=== PATIENT | female | born 1975 | race Caucasian/White ===

== ENCOUNTER 2022-08-02 00:41 | Emergency (ER) | payer MEDICAID, SELFPAY ==
[2022-08-02 00:46] VITALS: BP 113/78; PULSE 113; RESP 16; TEMP 38; O2SAT 100; BMI 23.4
--- NOTE | 2022-08-02 01:12 | ED.GENADULT ---
HPI - General Adult General Chief complaint: Fever Stated complaint: Fever Time Seen by Provider: 08/02/22 00:58 Source: patient Mode of arrival: ambulatory Limitations: no limitations History of Present Illness HPI narrative: 47-year-old female coming in today with several concerns. She does have a femur which she has had for a couple of days. She was seen 3 days ago in urgent care diagnosed with shingles. She is taking valacyclovir. She states that she also has a parasite coming out of her nose. She states it is very small. She states that her boyfriend was making fun of her and yelling at her calling her crazy because there is nothing coming out of her nose but she swears that she sought. Patient does tell me that she is using methamphetamines, denies any injection drug use. She denies any chest pain or shortness of breath. She denies any coughing, nausea, vomiting. No diarrhea. She denies any abdominal pain. She denies any urinary symptoms. She is concerned about lumps over her neck, behind her ears and in her scalp. She feels very frustrated that no one is listening to her. Related Data Home Medications Medication Instructions Recorded Confirmed buprenorphine 8 mg-naloxone 2 mg film 08/02/22 sublingual film (Suboxone) Previous Rx's Medication Instructions Recorded valacyclovir 1 gram tablet 1,000 mg PO BID #20 tabs 07/29/22 Allergies Allergy/AdvReac Type Severity Reaction Status Date / Time Penicillins Allergy Mild Rash Verified 08/02/22 00:55 Review of Systems Status of ROS: Reports: 10 or more systems reviewed and unremarkable except as noted in History and below [facility] Medical History Shingles Social History Smoking Status: Current every day smoker What tobacco products do you use: cigarettes How often do you have a drink containing alcohol: never AUDIT-C Alcohol total score: 0 Non-prescribed substance use: amphetamines/methamphetamines Exam Narrative: Exam Narrative: Well-nourished well-developed patient in no acute distress although she is rather anxious. Alert and oriented. Answers questions appropriately. Patient speaks in full sentences without needing to catch their breath. Speech is not slurred, is mildly pressured. HEENT: Normocephalic atraumatic. Pupils are equally round reactive to light. Extraocular muscles are intact. Conjunctivae are moist without any icterus noted. Moist mucous membranes. Patient has dentures. Posterior pharynx is normal. Neck is soft without any lymphadenopathy or thyromegaly. No masses are appreciated. No masses are appreciated on the scalp, I feel her normal bony contour. The right pinna is erythematous and swollen. TMs are clear, intact bilaterally no signs of perforation or infection. Cardiovascular: Heart is regular rate and rhythm S1 and S2 are present without any murmurs or rubs. Lungs: Clear to auscultation bilaterally no wheezes rhonchi or rales are appreciated. Patient takes deep breaths without any discomfort. Abdomen: Soft and nontender nondistended with normal bowel sounds. Extremities: Bilateral lower extremities are without edema. Normal DP and PT pulses. She does have petechiae over all the toes of both feet. Skin: Well perfused. She does have a classic appearing shingles or rash on the right side of the body, does go over several dermatomes. Rash includes the face ear neck shoulder and upper arm again all other right does not cross the midline. Const: Vital Signs, click to edit/add: Vital Signs - 24 hr 08/02/22 00:46 Temperature 100.4 F H Pulse Rate [Left P ulse Oximeter] 113 H Respiratory Rate 16 Blood Pressure [Ri ght Upper Arm] 113/78 Pulse Oximetry 100 Course Course Hospital Course: Will proceed with basic blood work, COVID influenza testing. Tylenol will be provided as an antipyretic. Care will be transferred to oncoming physician. Vital Signs Vital signs: Initial Vital Signs Temperature 100.4 F H 08/02/22 00:46 Temperature Source Temporal Artery Scan 08/02/22 00:46 Pulse Rate 113 H 08/02/22 00:46 Respiratory Rate 16 08/02/22 00:46 Blood Pressure 113/78 08/02/22 00:46 Blood Pressure Mean 89 08/02/22 00:46 Blood Pressure Position Sitting 08/02/22 00:46 Pulse Oximetry 100 08/02/22 00:46 Vital Signs Temperature 100.4 F H 08/02/22 00:46 Pulse Rate 113 H 08/02/22 00:46 Respiratory Rate 16 08/02/22 00:46 Blood Pressure 113/78 10/21/22 00:46 Pulse Oximetry 100 08/02/22 00:46 Temperature 100.4 F H 08/02/22 00:46 Pulse Rate 113 H 08/02/22 00:46 Respiratory Rate 16 08/02/22 00:46 Blood Pressure 113/78 08/02/22 00:46 Pulse Oximetry 100 08/02/22 00:46 Medical Decision Making Lab Data Labs: Lab Results 08/02/22 08/02/22 Range/Units 01:15 01:15 WBC 4.67 (4.50-11.00) K/uL RBC 3.97 L (4.00-5.20) m/uL Hgb 11.8 L (12.0-16.0) gm/dL Hct 36.2 (33.0-51.0) % MCV 91 (80-100) fL MCH 30 (26-34) pg MCHC 33 (32-36) gm/dL RDW Coeff of Cezar 12.6 (11.5-15.5) % Plt Count 245 (140-440) K/uL Neut % (Auto) 55.4 (42.0-72.0) % Lymph % (Auto) 32.5 (20-44) % Fillmore % (Auto) 8.1 (0.0-11.0) % Eos % (Auto) 3.6 (0.0-7.0) % Baso % (Auto) 0.4 (0.0-3.0) % Neut # (Auto) 2.58 (1.7-7.0) K/uL Lymph # (Auto) 1.52 (0.90-2.90) K/uL Fillmore # (Auto) 0.40 (0.00-0.90) K/UL Eos # (Auto) 0.17 (0.00-0.50) K/uL Baso # (Auto) 0.02 (0.00-0.30) K/uL Abs Immat Gran (auto) 0.00 (0.00-0.30) K/uL Lactate 1.0 (0.5-1.9) mmol/L Discharge Plan Discharge Prescriptions: No Action valacyclovir 1 gram tablet 1,000 mg PO BID Qty: 20 0RF buprenorphine-naloxone [Suboxone] 8-2 mg film Label Comments: PLACE 2.5 FILMS UNDER THE TONGUE DAILY FOR 21 DAYS Follow Up/Referrals: Provider,Not a Local [Primary Care Provider] -
[2022-08-02] MEDS: ACETAMINOPHEN 500 MG TABLET 1000 MG PO (01:23)
--- OUTSIDE RECORDS SUMMARY | 2022-08-02 01:24 | XMS_ITS | Encounter Summary ---
:1975 Author Organization [facility] Address [address] [place] [address] Care Team Providers Name Role Phone No Primary/Referring, Linda Primary Care Provider Unavailable Encounter Details Date Type Department Care Team Description 11/03/2017 Lab Visit [facility] Hirsutism; [address] Encounter for HCV screening test for high risk patient; [place] [address] Screening for HIV (human imm unodeficiency virus) [phone] Social History Tobacco Use Types Packs/Day Years Used Date Smoking Tobacco: Every Day Cigarettes 0.5 21 Smokeless Tobacco: Never Comments: LESS THAN HALF PACK PER DAY st arted at age 18 and has cut down since then. Alcohol Use Standard Drinks/Week Comments No 0 (1 standard drink = 0.6 oz pure alcoho l) sober since Sep 2013 Sex Assigned at Date Recorded Not on file documented as of this encounter Plan of Treatment Not on filedocumented as of this encounter Procedures Procedure Name Priority Date/Time Associated Diagnosis Comme nts HIV 1/2 AG/AB 4TH Routine 11/03/2017 2:57 Screening for HIV (h uman Results for this GEN PM MANAGER SAS immunodeficiency virus) proc edure are in the results section. HEPATITIS C Routine 11/03/2017 2:57 Encounter for HCV Results for this ANTIBODY, WITH PM MANAGER SAS screening test for high pr ocedure are in REFLEX risk patient the results section. TESTOSTERONE, Routine 11/03/2017 2:56 Hirsutism Results for this FEMALE OR CHILDREN PM MANAGER SAS procedure are in the results section. documented in this encounter Results HIV 1/2 Ag/Ab 4th Generation (11/03/2017 2:57 PM MANAGER SAS) [facility] Method Time Signature HIV 1/2 AG/AB Negative NEGNR [facility] 4thGEN (Non LABORATORIES Reactive) Comment: HIV-1 p24 Ag and HIV-1/HIV-2 Ab not detected. Specimen Anatomical Collection Method Collection Time Receive d Time (Source) Location / / Volume Laterality 11/03/2017 2:57 PM 8 2:58 MANAGER SAS PM MANAGER SAS Narrative [facility] - 11/03/2017 8:[address] Performed at [address] ??[id number] Kwame Brown DO LAB_1 Performing Organization Address [facility] Phon e Number [facility] [phone] Hepatitis C Antibody, with Reflex (11/03/2017 2:57 PM MANAGER SAS) [facility] Method Time Signature Anti-HCV Negative (Non NEGNR [facility] Reactive) LABORATORIES Comment: Antibodies to HCV not detected. Does not exclude the possibility of exposure to HCV. Specimen Anatomical Collection Method Collection Time Receive d Time (Source) Location / / Volume Laterality 11/03/2017 2:57 PM 8 2:58 MANAGER SAS PM MANAGER SAS Narrative [facility] - 11/03/2017 8:[address] Performed at [address] ??[id number] Kwame Brown DO LAB_1 Performing Organization Address City/[facility] Phon e Number [facility] [phone] Testosterone, female or children (11/03/2017 2:56 PM MANAGER SAS) Component Value Ref Test Analysis Performed At [facility] Method Time Signature Testosterone 17 [facility] Female or Reference range: 9 to 55 LABOR ATORIES Children Unit: ng/dL Testosterone (NOTE) [facility] Female or Total Testosterone, Females 18 years and older LABORATORIES Children Premenopausal ??9-55 ng/dL Postmenopausal 5-32 ng/dL Total testosterone values may not reflect optimal concentrat ions ?? in all individuals. ??Free or bioavailable testosterone ?? measurements may provide supportive information. REFERENCE INTERVAL: Testosterone, LC-MS/MS Access complete set of age- and/or gender-specific reference ?? intervals for this test in the [facility] y ?? ([facility]). Test developed and characteristics determined by [facility] ?? Laboratories. See Compliance Statement B: [facility] [address] [place] [address] [email or web address], Rj Martinez MD, Lab. Director Specimen Anatomical Collection Method Collection Time Receive d Time (Source) Location / / Volume Laterality 11/03/2017 2:56 PM 8 2:57 MANAGER SAS PM MANAGER SAS Narrative [facility] - 11/06/2017 8:[address] Performed by [facility], [address] [place], [place] [address] Kwame Brown DO LAB_1 Performing Organization Address City/State/ZIP Code Phon e Number [facility] [phone] documented in this encounter Visit Diagnoses Diagnosis Hirsutism Encounter for HCV screening test for hig h risk patient Screening for HIV (human immunodeficienc y virus) Special screening examination for other specified viral diseases documented in this encounter Care Teams Optometric Technologist Relationship Specialty Start Date End Date No Primary/Referring, Phy PCP - General 10/31/17 1 documented as of this encounter
--- OUTSIDE RECORDS SUMMARY | 2022-08-02 01:24 | XMS_ITS | Encounter Summary ---
:1975 Author Organization [facility] Address [address] [place] [address] Care Team Providers Name Role Phone Nhi Toure PA-C Primary Care Provider Encounter Details Date Type Department Care Team Description 07/29/2022 Lab Requisition Mary Boo Encounter for [phone] M, CREDIT ANALYST, DNP screening for [address] malignant n eoplasm of [address] [place] [address] Social History Tobacco Use Types Packs/Day Years [...] as of this encounter Plan of Treatment Pending Results Name Type Priority Associated Diagnoses Date/Ti me [facility] Routine Encounter for screening for 07/29/2022 4:30 PM CDT malignant neoplasm of colon [ICD-10-CM] documented as of this encounter Procedures Procedure Name Priority Date/Time Associated Diagnosis Comme nts [facility] Routine 07/29/2022 4:30 PM CDT Encounter for screening for malignant neoplasm of colon [ICD-10-CM] documented in this encounter Visit Diagnoses Diagnosis Encounter for screening for malignant ne oplasm of colon Special screening for malignant neoplasm s, colon documented in this encounter Care Teams Pourer Metal Relationship Specialty Start Date End Date Nhi Toure PA-C PCP - General Physician Hat Steamer 03/09/20 [address] [place] [address] documented as of this encounter
--- OUTSIDE RECORDS SUMMARY | 2022-08-02 01:24 | XMS_ITS | Encounter Summary ---
:1975 Author Organization [facility] Address [address] [place] [address] Care Team Providers Name Role Phone No Primary/Referring, Linda Primary Care Provider Unavailable Encounter Details Date Type Department Care Team Description 08/21/2018 Lab Visit [facility] Screening for condition [address] [place], [place] [id number] Social History Tobacco Use Types Packs/Day Years [...] on file documented as of this encounter Progress Notes Joaquin Miller - 08/21/2018 9:45 AM CST Negative ER IN documented in this encounter Plan of Treatment Not on filedocumented as of this encounter Procedures Procedure Name Priority Date/Time Associated Diagnosis Comme nts CHLAMYDIA & GC, Routine 08/21/2018 4:35 PM Screening for Resul ts for this URINE (14 YEARS AND FILLER IN condition procedur e are in OLDER) the results section. documented in this encounter Results Chlamydia & GC, Urine (08/21/2018 4:35 PM FILLER IN) [facility] Method Time Signature C.trachomatis, Negative NEG [facility] Comment: Test Performed by Belt Maker Mediated Amplification Results obtained from this source are no t FDA approved. N. Gonorrhea, Urine Negative NEG [facility] Comment: Test Performed by Belt Maker Mediated Amplification Results obtained from this source are no t FDA approved. Specimen Anatomical Collection Method Collection Time Receive d Time (Source) Location / / Volume Laterality 08/21/2018 4:35 PM 8 4:37 FILLER IN PM FILLER IN Narrative [facility] - 08/22/2018 11:59 AM FILLER IN Performed at [facility], [address] [place] [address] ??[id number] Joaquin Miller MD LAB_1 Performing Organization Address City/State/ZIP Code Phon e Number [facility] [phone] documented in this encounter Visit Diagnoses Diagnosis Screening for condition Screening for unspecified condition documented in this encounter Care Teams Log Turner Relationship Specialty Start Date End Date No Primary/Referring, Phy PCP - General 10/31/17 1 documented as of this encounter
--- OUTSIDE RECORDS SUMMARY | 2022-08-02 01:24 | XMS_ITS | Encounter Summary ---
:1975 Author Organization [facility] Address [address] [place] [address] Care Team Providers Name Role Phone Nhi Toure PA-C Primary Care Provider Encounter Details Date Type Department Care Team Description 12/08/2017 Consent for [facility] RH INFORM ED CONSENT Procedure/Treatment RECORD Social History Tobacco Use Types Packs/Day Years [...] Not on filedocumented as of this encounter Visit Diagnoses Not on filedocumented in this encounter Care Teams Machine Pan Greaser Relationship Specialty Start Date End Date Nhi Toure PA-C PCP - General Physician Power Operator 03/09/20 [address] [place] [address] documented as of this encounter
--- OUTSIDE RECORDS SUMMARY | 2022-08-02 01:24 | XMS_ITS | Encounter Summary ---
:1975 Author Organization [facility] Address [address] [place] [address] Care Team Providers Name Role Phone No Primary/Referring, Phy Primary Care Provider Unavailable Reason for Visit Reason Comments PAP,ROUTINE Encounter Details Date Type Department Care Team Description 08/21/2018 Office Visit [facility] Scre ening for condition (Primary Dx); Medicine MD Rosa Tobacco use disorder; [address] Major depressive disorder, r ecurrent episode, moderate (HRC) [place] [address] AVE [phone] [place], [place] [id number] Social History Tobacco Use Types Packs/Day Years [...] on file documented as of this encounter Last Filed Vital Signs Vital Sign Reading Time Taken Comments Blood Pressure 100/75 08/21/2018 3:55 PM METALLURGICAL LAB TECHNICIAN Pulse 81 08/21/2018 3:55 PM METALLURGICAL LAB TECHNICIAN Temperature - - Respiratory Rate - - Oxygen Saturation - - Inhaled Oxygen Concentration - - Weight 58.1 kg (128 lb) 08/21/2018 3:55 PM METALLURGICAL LAB TECHNICIAN Height 160 cm (5' 3) 08/21/2018 3:55 PM METALLURGICAL LAB TECHNICIAN Body Mass Index 22.67 08/21/2018 3:55 PM METALLURGICAL LAB TECHNICIAN documented in this encounter Patient Instructions Patient InstructionsCeci Lopez - 08/21/2018 3:30 PM CST Please go to your pharmacy and picker machine operator the medicines prescribed/refilled; take as indicated on the label Please stop by the lab, you can acces the results on-line if you registered or will call you with results or write you a letter which might take up to 1 week Return to clinic in 3-4 weeks if not better, sooner as needed To contact our clinic directly, call , to schedule medical appointments, call or online at [email or web address]. LLURGICAL LAB TECHNICIAN documented in this encounter Progress Notes Ceci Lopez - 08/21/2018 3:30 PM CST Santa Farmer is a 43 y.o. old female who came to the clinic for a Pap smear. Also noticed some bumps on the vulvar area which she squeezed few days ago. Pap smear was dome. Culture for herpes done from what seemed to be a small ulceration with graish bottom on the left labia minora. Also asked for GC; has no unusual discharge. Also requested nicotine inhalers. 20 minutes spent with the patient , 15 minutes counseling and coordinating care. LLURGICAL LAB TECHNICIAN documented in this encounter Plan of Treatment Not on filedocumented as of this encounter Procedures Procedure Name Priority Date/Time Associated Diagnosis Comme nts HPV, HIGH RISK Routine 08/21/2018 4:29 PM Screening for Result s for this METALLURGICAL LAB TECHNICIAN condition procedure are i n the results section. PAP TEST, ROUTINE Routine 08/21/2018 4:29 PM Screening for Res ults for this METALLURGICAL LAB TECHNICIAN condition procedure are i n the results section. documented in this encounter Results Chlamydia & GC, Urine (08/21/2018 4:35 PM METALLURGICAL LAB TECHNICIAN) [facility] Method Time Signature C.trachomatis, Negative NEG [facility] Comment: Test Performed by Certified Professional Controller Mediated Amplification Results obtained from this source are no t FDA approved. N. Gonorrhea, Urine Negative NEG [facility] Comment: Test Performed by Certified Professional Controller Mediated Amplification Results obtained from this source are no t FDA approved. Specimen Anatomical Collection Method Collection Time Receive d Time (Source) Location / / Volume Laterality 08/21/2018 4:35 PM 8 4:37 METALLURGICAL LAB TECHNICIAN PM METALLURGICAL LAB TECHNICIAN Narrative [facility] - 08/22/2018 11:59 AM METALLURGICAL LAB TECHNICIAN Performed at [facility], [address] [place] [id number] Ceci Lopez MD LAB_1 Performing Organization Address [facility] Phon e Number [facility] [phone] Herpes Simplex Virus PCR (08/21/2018 4:31 PM METALLURGICAL LAB TECHNICIAN) Component Value Ref Test Analysis Performed At [facility] [employer] Method Time Signature HS Source Vesicle Fluid [facility] Herpes Not Detected [facility] simplex [facility] Virus By PCR Herpes (NOTE) [facility] simplex NOT DETECTED - A negative result does not rule out the LABORATORIES Virus By PCR presence of PCR inhibitors in the patient specimen or ass ay specific nucleic acid in concentrations below the level of detection by the assay. INTERPRETIVE INFORMATION: Herpes Simplex Virus by PCR Test developed and characteristics determined by [facility] [employer] [facility] ?? Laboratories. See Compliance Statement B: [facility] [address] [email or web address], Rj Martinez MD, Lab. Director Specimen Anatomical Collection Method Collection Time Receive d Time (Source) Location / / Volume Laterality 08/21/2018 4:31 PM 8 4:33 METALLURGICAL LAB TECHNICIAN PM METALLURGICAL LAB TECHNICIAN Narrative [facility] - 08/26/2018 11:18 AM METALLURGICAL LAB TECHNICIAN Performed by [facility], [address] [place], [place] [address] Ceci Lopez MD LAB_1 Performing Organization Address [facility] Phon e Number [facility] [phone] HPV, HIGH RISK (08/21/2018 4:29 PM METALLURGICAL LAB TECHNICIAN) Component Value Ref Test Analysis Performed At [facility] [employer] [facility] Method Time Signature HPV RESULT Negative NEG [facility] Comments (NOTE) [facility] The [employer] HPV Test is a qualitative in vitro test for the detection LABORATORIES of Human Papillomavirus in [facility] patient specimens. The t est utilizes amplification of target DNA by Polymerase Chain Quenemo ction (PCR) and nucleic acid hybridization for the detection of 14 high-risk (HR) HPV types. The assay tests for high risk type s 16, 18, 31, 33, 35, 39, 45, 51, 52, 56, 58, 59, 66 and 68. Testing performed at: This test was developed and its performance characteristics determined by [facility]. ??It has not been cleared or approved by the U.S. Food and Drug Administration. ??The FDA has determined that such clearance or approval is not necessary. ??This test is used for clinical purposes. ??It should not be regar ded as investigational or for research. ??This laboratory is certif ied under the Clinical Laboratory Improvement Amendments of 1988 (CLIA -88) as qualified to perform high complexity testing. Specimen Anatomical Collection Method Collection Time Receive d Time (Source) Location / / Volume Laterality 08/21/2018 4:29 PM 8 4:33 METALLURGICAL LAB TECHNICIAN PM METALLURGICAL LAB TECHNICIAN Narrative [facility] - 08/28/2018 5:[address] Performed at [facility] , [address] [place] [address] Ceci Lopez MD LAB_1 Performing Organization Address City/State/ZIP Code Phon e Number [facility] [phone] PAP TEST, ROUTINE (08/21/2018 4:29 PM METALLURGICAL LAB TECHNICIAN) Component Value Ref Test Analysis Performed At [facility] Range Method Time Signature Cytology, (NOTE) [facility] Pap Editorial Manager Cytology Report LABORATORI ES Patient Name: SANTA FARMER Taken: 08/21/2018 Received: 08/24/2018 Reported: 09/01/2018 Physician(s): CECI LOPEZ ?Source of Specimen Pap Test, Routine Cervical/Endocervical: ?Specimen Adequacy ?Satisfactory for evaluation. ??Endocervical component absent. ? Final Cytologic Interpretation/Result NEGATIVE FOR INTRAEPITHELIAL LESION OR MALIGNANCY (NILM) ?? *Electronically Signed Out By [place] ORTIZ (ASCP)* Millie Solorio ??CT (ASCP) Tracy Dominguez CT (ASCP) ? Pap Smear History Date of Last Menstrual Period: 08/13/2018 ?? Microscopic Description Microscopic examination is performed. [facility] Department of Pathology [address] [place] [id number] Specimen Anatomical Collection Method Collection Time Receive d Time (Source) Location / / Volume Laterality 08/21/2018 4:29 PM 8 METALLURGICAL LAB TECHNICIAN 10:22 AM METALLURGICAL LAB TECHNICIAN Ceci Lopez MD LAB_1 Performing Organization Address City/State/ZIP Code Phon e Number [facility] [phone] documented in this encounter Visit Diagnoses Diagnosis Screening for condition - Primary Screening for unspecified condition Tobacco use disorder (HRC) Tobacco use disorder Major depressive disorder, recurrent epi sode, moderate (HRC) Major depressive disorder, recurrent epi sode, moderate Screening for condition Screening for unspecified condition documented in this encounter Care Teams Catalytic Converter Operator Helper Relationship Specialty Start Date End Date No Primary/Referring, Phy PCP - General 10/31/17 1 documented as of this encounter
--- OUTSIDE RECORDS SUMMARY | 2022-08-02 01:24 | XMS_ITS | Encounter Summary ---
:1975 Author Organization [facility] Address [address] [address] Care Team Providers Name Role Phone No Primary/Referring, Phy Primary Care Provider Unavailable Reason for Visit Procedure/Equipment (Routine) - Incomplete Specialty Diagnoses / Procedures Referred By Contact Refer red To Contact Diagnoses Breast lump Kwame Brown, DO Procedures MM US Bx Breast Rt [address] [place] [address] Referral ID Status Reason Start Date Expiration Date Visits V isits Requested Authorized [id number] Incomplete 11/20/2017 02/19/2019 1 1 Encounter Details Date Type Department Care Team Description 12/08/2017 Imaging [facility] Kwame Brown, DO Breast lump [address] [facility] [address] [place] [address] [place] [address] [phone] (Wo rk) Social History Tobacco Use Types Packs/Day Years [...] Name Priority Date/Time Associated Diagnosis Comme nts MM US BX BREAST RT Routine 12/08/2017 9:14 AM Breast lump Res ults for this WIRED MUSIC OPERATOR procedure are i n the results section. documented in this encounter Results MM US Bx Breast Rt (12/08/2017 9:14 AM WIRED MUSIC OPERATOR) Anatomical Region Laterality Modality Breast Right Mammography Specimen (Source) Anatomical Location Collection Method / Collectio n Time Received Time / Laterality Volume Addenda Addendum by Korin Motta MD on 4:04 PM WIRED MUSIC OPERATOR Pathology reveals fibrocystic change. Th is is consistent with the imaging findings. A verbal report was given to t he patient. Repeat mammogram in one year is recommended. Impressions 12/08/2017 12:51 PM WIRED MUSIC OPERATOR : 1. Ultrasound guided biopsy of an indete rminate mass in the right breast. ?? Pathology pending. 2. Post procedure mammogram for clip yusuf cement Narrative 12/08/2017 12:51 PM WIRED MUSIC OPERATOR RIGHT BREAST ULTRASOUND GUIDED BIOPSY, CLIP PLACEMENT AND RIGHT MAMMOGRAM: INDICATIONS: ??Right breast mass, site C . PROCEDURE: ??Informed consent was obtain ed from the patient. ??Ultrasound was used to localize the mass in the 10 o'clock position of the right breast, zone 2. ??The skin was prepped a nd draped in a sterile fashion. ?? Buffered lidocaine was used for local an esthesia and additional deep anesthesia achieved using lidocaine with epinephrine. ??Under direct sonographic guidance, a 12 gauge coaxial needle was used to obtain 2 core biopsies. It ruptured and filled with ai r on the first pass. A T4 clip was then placed. Digital mammogram post biop sy demonstrates the clip in an appropriate position. The patient tolera kelby this well, there are no immediate complications. Kwame Brown DO RAD OTONIEL documented in this encounter Visit Diagnoses Diagnosis Breast lump Lump or mass in breast documented in this encounter Care Teams Carrot Harvester Relationship Specialty Start Date End Date No Primary/Referring, Phy PCP - General 10/31/17 1 documented as of this encounter
--- OUTSIDE RECORDS SUMMARY | 2022-08-02 01:24 | XMS_ITS | Encounter Summary ---
:1975 Author Organization [employer] Address [address] [address] Care Team Providers Name Role Phone Nhi Toure PA-C Primary Care Provider Reason for Visit Reason Onset Date Comments No Show 03/19/2022 Encounter Details Date Type Department Care Team Description 03/19/2022 Telemedicine [facility] Nhi Toure Enc ounters [facility] Practice [place] administrative purposes [address] [facility] [address] [facility] (Primary Dx) [place] [address] [phone] Social History Tobacco Use Types Packs/Day Years [...] documented as of this encounter Progress Notes Nhi Toure PA-C - 03/19/2022 2:00 PM CDT Patient was called/texted 4 times and was unable to be reached to complete their video/phone visit. Nhi Toure PA-C documented in this encounter Plan of Treatment Not on filedocumented as of this encounter Visit Diagnoses Diagnosis Encounters for administrative purposes - Primary Encounters for unspecified administrativ e purpose documented in this encounter Care Teams Education Counselor Relationship Specialty Start Date End Date Nhi Toure PA-C PCP - General Physician Rack Cleaner 03/09/20 [address] [place] [address] documented as of this encounter
--- OUTSIDE RECORDS SUMMARY | 2022-08-02 01:24 | XMS_ITS | Encounter Summary ---
:1975 Author Organization [facility] Address [address] [address] Care Team Providers Name Role Phone No Primary/Referring, Phy Primary Care Provider Unavailable Reason for Visit Reason Comments NURSE PREP FOR PROCEDURE Scheduled 12/08 Rt breast ult rasound x2, Lt breast ultrasound guided biopsy Encounter Details Date Type Department Care Team Description 12/05/2017 Telephone [facility] Breast [facility] Sa ra Carlos Norwood RN NURSE PREP FOR Center [address] [facility] PROCEDURE (Scheduled [address] [place], [place] 12/08 [place] [address] ultrasound x2, Lt [phone] (Wo rk) breast ultrasound guided bi opsy) Social History Tobacco Use Types Packs/Day Years [...] on file documented as of this encounter Nursing Notes Bessie Norwood RN - 12/05/2017 3:12 PM CST Medication list and allergies reviewed. Reviewed upcoming biopsies. Patient given estimated length of time. All questions answered. Bessie Norwood RN 12/05/2017, 3:12 PM MAKER documented in this encounter Plan of Treatment Not on filedocumented as of this encounter Visit Diagnoses Not on filedocumented in this encounter Care Teams Well Logging Mud Analysis Captain Relationship Specialty Start Date End Date No Primary/Referring, Phy PCP - General 10/31/17 1 documented as of this encounter
--- OUTSIDE RECORDS SUMMARY | 2022-08-02 01:24 | XMS_ITS | Encounter Summary ---
:1975 Author Organization [facility] Address [address], [place] [address] Care Team Providers Name Role Phone Nhi Toure PA-C Primary Care Provider Reason for Referral Consult/Transfer Care (Routine) - Closed Specialty Diagnoses / Procedures Referred By Contact Refer red To Contact Diagnoses CHAPIS (generalized anxiety disorder) (HRC) Episode of recurrent major depressive disorder, unspecified depression episode severity (HRC) History of drug abuse in remission (HRC) Nhi Toure PA-C [address] [place], [place] [address] Referral ID Status Reason Start Date Expiration Date Visits Requ ested Visits Authorized [id number] Closed 03/09/2020 06/08/2021 1 1 Scheduling Instructions Your provider has recommended a [employer] rtners Program. A vaccine customer representative will contact you regarding the program. Reason for Visit Reason Comments ANXIETY LETTER NEEDED STD Check Encounter Details Date Type Department Care Team Description 03/09/2020 Office Visit [facility] Nhi Toure Enc ounter for routine adult health examination without abnormal findings (Primary Dx); Practice [facility] Tobacco use disorder; [address] [facility] [address] [facility] CHAPIS (generalized anxiety disorder); [place], [place] Episode of recurrent major depressive disorder, unspecified depression episode severity (HRC); [id number] History of drug abuse in remission ([facility]) ; [phone] Screening for S TDs (sexually transmitted diseases); (Work) Screening for breast cancer Social History Tobacco Use Types Packs/Day Years [...] Sign Reading Time Taken Comments Blood Pressure 125/93 03/09/2020 10:38 AM CDT Pulse 80 03/09/2020 10:38 AM CDT Temperature - - Respiratory Rate - - Oxygen Saturation - - Inhaled Oxygen Concentration - - Weight 60.8 kg (134 lb) 03/09/2020 10:38 AM CDT Height 159.5 cm (5' 2.8) 03/09/2020 10:38 AM CDT Body Mass Index 23.89 03/09/2020 10:38 AM CDT documented in this encounter Patient Instructions Patient InstructionsAngela Barrios LPN - 03/09/2020 10:10 AM CDT Images from the original note were not included. Well Visit, Ages 18 to 50: Care Instructions Your Care Instructions Physical exams can help you stay healthy. Your doctor has checked your overall health and may have suggested ways to take good care of yourself. He or she also may have recommended tests. At home, you can help prevent illness with healthy eating, regular exercise, and other steps. Follow-up care is a rodarte part of your treatment and safety. Be sure to make and go to all appointments, and call your doctor if you are having problems. It's also a good idea to know your test results and keep a list of the medicines you take. How can you care for yourself at home? ?? Reach and stay at a healthy weight. This will lower your risk for many problems, such as obesity,diabetes, heart disease, and high blood pressure. ?? Get at least 30 minutes of physical activity on most days of the week. Walking is a good choice. You also may want to do other activities, such as running, swimming, cycling, or playing tennis or team sports. Discuss any changes in your exercise program with your doctor. ?? Do not smoke or allow others to smoke around you. If you need help quitting, talk to your doctor about stop-smoking programs and medicines. These can increase your chances of quitting for good. ?? Talk to your doctor about whether you have any risk factors for sexually transmitted infections (STIs). Having one sex partner (who does not have STIs and does not have sex with anyone else) is a good way to avoid these infections. ?? Use control if you do not want to have children at this time. Talk with your doctor about the choices available and what might be best for you. ?? Protect your skin from too much sun. When you're outdoors from 10 a.m. to 4 p.m., stay in the shade or cover up with clothing and a hat with a wide brim. Wear sunglasses that block UV rays. Even when it's cloudy, put broad-spectrum sunscreen (SPF 30 or higher) on any exposed skin. ?? See a dentist one or two times a year for checkups and to have your teeth cleaned. ?? Wear a seat belt in the car. Follow your doctor's advice about when to have certain tests. These tests can spot problems early. For everyone ?? Cholesterol. Have the fat (cholesterol) in your blood tested after age 20. Your doctor will tell you how often to have this done based on your age, family history, or other things that can increase your risk for heart disease. ?? Blood pressure. Have your blood pressure checked during a routine doctor visit. Your doctor will tell you how often to check your blood pressure based on your age, your blood pressure results, and other factors. ?? Vision. Talk with your doctor about how often to have a glaucoma test. ?? Diabetes. Ask your doctor whether you should have tests for diabetes. ?? Colon cancer. Your risk for colorectal cancer gets higher as you get older. Some experts say thatadults should start regular screening at age 50 and stop at age 75. Others say to start before age 50 or continue after age 75. Talk with your doctor about your risk and when to start and stop screening. For women ?? Breast exam and mammogram. Talk to your doctor about when you should have a clinical breast exam and a mammogram. Medical experts differ on whether and how often women under 50 should have these tests. Your doctor can help you decide what is right for you. ?? Cervical cancer screening test and pelvic exam. Begin with a Pap test at age 21. The test often is part of a pelvic exam. Starting at age 30, you may choose to have a Pap test, an HPV test, or both tests at the same time (called co- testing). Talk with your doctor about how often to have testing. ?? Tests for sexually transmitted infections (STIs). Ask whether you should have tests for STIs. Youmay be at risk if you have sex with more than one person, especially if your partners do not wear condoms. For men ?? Tests for sexually transmitted infections (STIs). Ask whether you should have tests for STIs. Youmay be at risk if you have sex with more than one person, especially if you do not wear a condom. ?? Testicular cancer exam. Ask your doctor whether you should check your testicles regularly. ?? Prostate exam. Talk to your doctor about whether you should have a blood test (called a PSA test)for prostate cancer. Experts differ on whether and when men should have this test. Some experts suggest it if you are older than 45 and are -[place] or have a father or brother who got prostatecancer when he was younger than 65. When should you call for help? Watch closely for changes in your health, and be sure to contact your doctor if you have any problems or symptoms that concern you. Where can you learn more? 1. Go to https://aisle411.[employer]/healthlibrary or [employer]/Jumpstarterlibrary. 2. Enter P072 in the search box. Current as of: June 02, 2019?Content Version: 12.4 ?? [id number] [employer]. Care instructions adapted under license by your healthcare professional. If you have questions abouta medical condition or this instruction, always ask your healthcare professional. [employer] disclaims any warranty or liability for your use of this information. documented in this encounter Progress Notes Nhi Toure PA-C - 03/09/2020 10:10 AM CDT Routine Health Maintenance: Historical: Santa Farmer is a 44 y.o. old female Chief Complaint Patient presents with ??? ANXIETY ??? LETTER NEEDED ??? STD Check Current concerns: Anxiety-letter needed Do you take any prescription medication for this condition? Not taking Are you seeing a counselor or therapist? not currenlty How many times a week are you exercising regularly? walking Have you diagnosed/treated for anxiety in the past? YES Do you have a family history of anxiety? YES CHAPIS-7 03/09/2020 11/03/2017 08/22/2014 05/24/2014 03/03/2014 Feeling nervous 3 3 1 2 1 Can't stop worrying 3 3 1 2 1 Worrying too much 3 3 1 2 1 Trouble relaxing 3 3 1 2 2 Restlessness 3 3 2 2 2 Easily annoyed 3 3 1 2 3 Feeling afraid 3 3 0 1 1 How difficult? 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 Packs/day: 0.50 ??? Years: 21.00 ??? Pack years: 10.50 ??? Types: Cigarettes Smokeless Tobacco Never Used Tobacco Comment LESS THAN HALF PACK PER DAY started at age 18 and has cut down since then. Social History Substance and Sexual Activity Drug Use No Comment: sober since Sep 2013, [facility] clinic Zoloft - foggy feeling Paxil - did okay Prozac - help with anxiety but more sexual side effects Lexapro - increased anxiety Wellbutrin - did okay Latuda Has Medical Opinion Form that needs to be completed. Recently completed probation. Planning on improving her job skills. Due to COVID19 and her past, difficult to find a decent job. Now getting food stamps but no other assistance. Is homeless, bouncing between family and friend's homes for places to stay. Has remained sober. Has a daughter that suffers from drug addiction currently. Vaginal discharge, odor. Customer Success Representative periods past couple of months. No hot flashes. Denies chance of - tubal ligation. No urinary sx. Menses are: regular and predictable, but getting short History of abnormal pap tests? No Are you sexually active? Yes. Your partner is: Male Do You use Contraception? No Diet: fruits/ vegetables: 0-1 serving each day Present exercise habits: just started walking Do you have any concerns about your hearing? YES Do you feel unsafe at home? Doesn't really have a home right one I have reviewed the medical, surgical, family and social histories. Observed: BP (!) 125/93 (BP Location: Right Arm, BP Cuff Size: Small Adult/Large Pediatrics) Pulse 80 Ht 5' 2.8 (1.595 m) Wt 134 lb (60.8 kg) BMI 23.89 kg/m?? General: Appears stated age, alert and comfortable Neck: thyroid normal Lungs: clear to auscultation, no wheezes or rales Breasts: declines CV: regular rate and rhythm, normal S1 and S2 without murmur or click Abd: Soft, non-tender, no masses, no hepatomegaly or splenomegaly. : vagina: normal external genitalia normal cervix: Normal and Chlamydia/GC test taken and vaginitis panel Skin: no significant abnormalities noted Assessment/Plan: ICD-10-CM 1. Encounter for routine adult health examination without abnormal findings Z00.00 multivitamin (THERAGRAN) tablet 2. Tobacco use disorder (HRC) F17.200 nicotine (NICORETTE) 2 MG gum 3. CHAPIS (generalized anxiety disorder) (HRC) F41.1 PARoxetine (PAXIL) 10 MG tablet [facility] 4. Episode of recurrent major depressive disorder, unspecified depression episode severity (HR) F33.9 PARoxetine (PAXIL) 10 MG tablet [facility] 5. 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 Screening for STDs (sexually transmitted diseases) Z11.3 Vaginitis Panel Chlamydia & GC (14 Years and Older) CANCELED: Vaginal Wet Prep 7. Screening for breast cancer Z12.39 MM Mammogram Screening Bilat W CAD Has done well on Paxil in the past, would like to restart this at the lowest dose. Rx for 10mg prescribed. Touch base in 3-4 weeks for update on how medication is going, consider increase. She has beenin touch with [facility] regarding therapy options so plans to contact them again for an appointment. programs order placed for social work. Patient counseled: -healthy diet -increasing physical activity -tobacco cessation - smoking 1/3 ppd, would like to try gum. Rx provided. 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 CHLAMYDIA & GC (14 Routine 03/09/2020 11:41 AM Screening for S TDs Results for this YEARS AND OLDER) CDT (sexually procedure a re in transmitted the results diseases) section. documented in this encounter Results Chlamydia & GC (14 Years and Older) (03/09/2020 11:41 AM CDT) [facility] Method Time Signature Chlamydia Not Not 03/10/2020 [facility] Trachomatis Detected Detected 1:51 PM CDT CENTRAL LAB STD N. gonorrhoeae Not Not 03/10/2020 [facility] STD Detected Detected 1:51 PM CDT CENTRAL LAB Specimen Anatomical Collection Method Collection Time Receive d Time (Source) Location / / Volume Laterality Swab STD ENTIRE ENDOCERVIX Non-blood 03/09/2020 11:41 2019 / Unknown Collection / AM CDT 12:06 PM CDT Unknown Narrative [facility] CENTRAL LAB - 03/10/2020 1:51 PM CDT Test performed by Molecular Detection Nhi M Tejal PA-C LAB_1 Performing Organization Address City/[facility]/ZIP Code Phon e Number [facility] [address] [address] (ABNORMAL) Vaginitis Panel (03/09/2020 11:41 AM CDT) [facility] Method Time Signature Gardnerella Positive (A) Negative 03/09/2020 [place] vaginalis 2:02 PM CDT LAB Ericka species Negative Negative 03/09/2020 [place] 2:02 PM CDT LAB Trichomonas Negative Negative 03/09/2020 [place] vaginalis 2:02 PM CDT LAB Specimen Anatomical Collection Method Collection Time Receive d Time (Source) Location / / Volume Laterality Swab (Source SPECIMEN FROM Non-blood 03/09/2020 11:41 03/09/2020 Required) VAGINA / Unknown Collection / AM CDT 12:08 PM CD T Unknown Nhi Toure PA-C LAB_1 Performing [address] 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
--- OUTSIDE RECORDS SUMMARY | 2022-08-02 01:24 | XMS_ITS | Encounter Summary ---
:1975 Author Organization [facility] Address [address] [place] [address] Care Team Providers Name Role Phone Nhi Toure PA-C Primary Care Provider Reason for Visit Reason Comments RASH Encounter Details Date Type Department Care Team Description 07/30/2022 Telemedicine Virtual Urgent Care Cecil Mcintosh Rash (Primary Dx) [address] [facility] [place] [address] [phone] [place] [address] (Wo rk) Social History Tobacco Use Types [...] on file documented as of this encounter Patient Instructions AttachmentsThe following attachments cannot be sent through Care Everywhere. Shingles (Vietnamese)Cellulitis (Vietnamese)documented in this encounter Progress Notes Cecil Mcintosh PA-C - 07/30/2022 6:00 PM CDT Today's visit with Santa Farmer was conducted as a scheduled video visit. Subjective : CC: Chief Complaint Patient presents with RASH Santa Farmer, a 47 y.o. female presents with rash around right ear and right shoulder and neck x 3 days. Was seen at [facility] last night and was told it was shingles. Valacyclovir 1gm BIDx 7 days. Feels 2 big lumps on spine. Rash itchy, burning. Denies any other symptoms Denies fever, chills, sweats, body aches, headaches, chest pain, shortness of breath, abdominal pain, nausea, vomiting, diarrhea, constipation, rashes. ROS: See HPI Objective: There were no vitals filed for this visit. Physical Exam: General Appearance: alert, well appearing, and in no apparent distress Skin: multiple small round to oval shaped vesicular red rash to right preauricular area to right neck and shoulder. Assessment/Plan: Diagnoses and all orders for this visit: Rash Other orders - cephalexin (KEFLEX) 500 MG capsule . Discussed rash, appears to be shingles but possible overlying cellulitis.. continue valtrex and willstart keflex At home cares and OTC symptom management discussed Rx keflex, medication side effects discussed Red flags and ER precautions discussed Call, RTC, follow up with PCP, or go to ER if symptoms worsen. Pt understands and agrees with plan This visit was conducted via video. Location of clinician home Location of patient home. Billing based on: Abhi Mcintosh PA-C, MPH [facility] 07/30/2022 documented in this encounter Plan of Treatment Not on filedocumented as of this encounter Visit Diagnoses Diagnosis Rash - Primary Rash and other nonspecific skin eruption documented in this encounter Care Teams Whale Fisherman Relationship Specialty Start Date End Date Nhi Toure PA-C PCP - General Physician Auto Clutch Specialist 03/09/20 [address] [place] [address] documented as of this encounter
--- OUTSIDE RECORDS SUMMARY | 2022-08-02 01:24 | XMS_ITS | Encounter Summary ---
:1975 Author Organization [employer] Address [address], [place] [address] Care Team Providers Name Role Phone No Primary/Referring, Phy Primary Care Provider Unavailable Reason for Visit Procedure/Equipment (Routine) - Incomplete Specialty Diagnoses / Procedures Referred By Contact Refer red To Contact Diagnoses Breast lump Kwame Brown, DO Procedures MM US Bx Breast Lt [address] [place] [address] Referral ID Status Reason Start Date Expiration Date Visits V isits Requested Authorized [id number] Incomplete 11/20/2017 02/19/2019 1 1 Encounter Details Date Type Department Care Team Description 12/08/2017 Imaging [facility] Kwame Brown, DO Breast lump [address] [facility] [address] [place] [address] [place] [address] [phone] (Wo rk) Social History Tobacco Use Types [...] Diagnosis Comme nts MM US BX BREAST LT Routine 12/08/2017 9:11 AM Breast lump Res ults for this BUSINESS ACCOUNT LEADER procedure are i n the results section. SURGICAL PATH Routine 12/08/2017 6:00 AM Breast lump Results for this BUSINESS ACCOUNT LEADER procedure are i n the results section. documented in this encounter Results MM US Bx Breast Lt (12/08/2017 9:11 AM BUSINESS ACCOUNT LEADER) Anatomical Region Laterality Modality Breast Left Mammography Specimen (Source) Anatomical Location Collection Method / Collectio n Time Received Time / Laterality Volume Addenda Addendum by Korin Motta MD on 4:02 PM BUSINESS ACCOUNT LEADER Pathology reveals dense stromal fibrosis . This is consistent with the imaging findings. A verbal report was gi nelly to the patient. Repeat mammogram in one year is recommended. Impressions 12/08/2017 12:47 PM BUSINESS ACCOUNT LEADER : 1. Ultrasound guided biopsy of a suspici ous mass in the left breast. ?? Pathology pending. 2. Post procedure mammogram for clip yusuf cement. Narrative 12/08/2017 12:47 PM BUSINESS ACCOUNT LEADER LEFT BREAST ULTRASOUND GUIDED BIOPSY, CLIP PLACEMENT AND LEFT MAMMOGRAM: INDICATIONS: ??Left breast mass, site A. PROCEDURE: ??Informed consent was obtain ed from the patient. ??Ultrasound was used to localize the mass in the 1 o 'clock position of the left breast, zone 3. ??The skin was prepped a nd draped in a sterile fashion. ?? Buffered lidocaine was used for local an esthesia and additional deep anesthesia achieved using lidocaine with epinephrine. ??Under direct sonographic guidance, a 12 gauge coaxial needle was used to obtain 4 core biopsies. ??A clip was then placed. Digi avni mammogram post biopsy demonstrates the clip in an appropriate position. The patient tolerated this well, there are no immediate compli cations. Kwame Brown DO RAD OTONIEL Surgical Path (12/08/2017 6:00 AM BUSINESS ACCOUNT LEADER) Component Value Ref Test Analysis Performed At [facility] gist Range Method Time Signature Histology (NOTE) [facility] Patient Name: SANTA FARMER Taken: 12/08/2017 Received: 12/08/2017 Reported: 12/09/2017 Physician(s): ANA NEWTON ? Final Pathologic Diagnosis A. Breast, left 1 o'clock zone three, biopsy: ?- Breast parenchyma with dense stromal fibrosis ?- No evidence of atypia or malignancy ?- See comment B. Breast, right 10 o'clock zone three, biopsy: ?- Weakly proliferative fibrocystic changes ?- No evidence of atypia or malignancy C. Breast, right 10 o'clock zone two, biopsy: ?- Nonproliferative fibrocystic changes with focal microcalcifications ?- No evidence of atypia or malignancy Comments Clinical and radiographic correlation is needed to assess wh ether the mass in the left breast has been adequately sampled. *Electronically Signed Out By Layo Prince ??, PhD* MD Layo Pozo ??, PhD Procedures/Addenda Clinical History Left breast lump x1; right breast lump x2 Gross Description A. ??The specimen is received in formalin and labeled with t he patient's name and A left breast 1 o'clock, zone 3. ??The specimen consists of four wilkerson-yellow cores of soft tissue that range from 0.5-1.6 cm in length and are 0.2 cm in greatest diameter. ?? 80 percent of the specimen is fibrous. ??The specimen is inked green. ? ?The specimen was collected and placed in formalin at 0806 hours, December 08, 2017. ??The specimen is entirely submitted in one casset te. B. ??The specimen is received in formalin and labeled with t he patient's name and B right breast 10 o'clock, zone 3. ??Th e specimen consists of three wilkerson-yellow cores of soft tissue that range from 1.1-1.8 cm in length and are 0.2 cm in greatest diameter. ?? Greater than 90 percent of the specimen is fibrous. ??The specimen i s inked green. ??The specimen was collected and placed in formalin a t 0830 hours, December 08, 2017. ??The specimen is entirely submitt ed in one cassette. C. ??The specimen is received in formalin and labeled with t he patient's name and C right breast 10 o'clock, zone 2. ??Th e specimen consists of two wilkerson-yellow cores of soft tissue that range f rom 0.9-1.2 cm in length and are 0.2 cm in greatest diameter. ?? 60 percent of the specimen is fibrous. ??The specimen is inked green. ? ?The specimen was collected and placed in formalin at 0849 hours, December 08, 2017. ??The specimen is entirely submitted in one casset te. ??jw jmw/12/08/2017 Microscopic Description Microscopic examination is performed. ?? smd/12/09/2017 MD Layo Pozo ??, PhD [facility] Department of Pathology [address] [place] [address] ??[id number] Specimen Anatomical Collection Method Collection Time Receive d Time (Source) Location / / Volume Laterality Breast 12/08/2017 6:00 AM 8 BUSINESS ACCOUNT LEADER 12:47 PM BUSINESS ACCOUNT LEADER Breast 12/08/2017 6:00 AM 8 BUSINESS ACCOUNT LEADER 12:47 PM BUSINESS ACCOUNT LEADER Breast 12/08/2017 6:00 AM 8 BUSINESS ACCOUNT LEADER 12:47 PM BUSINESS ACCOUNT LEADER Ana Newton MD LAB_1 Performing Organization Address City/State/ZIP Code Phon e Number [id number] [place] [address] documented in this encounter Visit Diagnoses Diagnosis Breast lump Lump or mass in breast documented in this encounter Care Teams Human Resources Services Specialist Relationship Specialty Start Date End Date No Primary/Referring, Phy PCP - General 10/31/17 1 documented as of this encounter
--- OUTSIDE RECORDS SUMMARY | 2022-08-02 01:24 | XMS_ITS | Encounter Summary ---
:1975 Author Organization [employer] Address [address], [place] [address] Care Team Providers Name Role Phone Nhi Toure PA-C Primary Care Provider Reason for Visit Reason Comments Forms medical opinion form to [facility] Encounter Details Date Type Department Care Team Description 03/16/2020 Telephone [facility] Nhi Toure, For ms (medical opinion Practice PA-C form to [facility] ) [address] [facility] [address] [place], [place] [address] [place], [place] [phone] (Wo rk) Social History Tobacco Use Types [...] documented as of this encounter Nursing Notes Diane Watts - 03/16/2020 11:34 AM CDT Form located in [employer] It was faxed to [facility] on 03/14/20 at about 11:00 am and we used fax number [phone] Patient was contacted and informed. Diane Watts 03/16/2020, 11:35 AM Nhi Toure PA-C - 03/16/2020 9:55 AM CDT I completed them several days ago. Nhi Toure PA-C Suki Mccray - 03/16/2020 9:51 AM CDT Miscellaneous Questions & FYI's [Hygiene Coordinator: If this call is after 3 p.m., communicate to patient: If we are not able to get back to you by the end of the day and your symptoms worsen please contact the Careline at [phone] at .] Is this a question/concern or an FYI? FYI What is your comment or FYI? Patient dropped forms off March 09 collected forms and sent to provider to complete Patient is calling in today to see if forms have been completed and faxed to [facility] Please call patient when forms are completed Have you recently been seen for this? No Is it okay to leave a detailed message on your voicemail? Yes Suki Mccray Please route to: Care Team Pool documented in this encounter Plan of Treatment Not on filedocumented as of this encounter Visit Diagnoses Not on filedocumented in this encounter Care Teams In Store Marketing Associate Relationship Specialty Start Date End Date Nhi Toure PA-C PCP - General Physician Shuttle Fitting Supervisor 03/09/20 [address] [place] [address] documented as of this encounter
--- OUTSIDE RECORDS SUMMARY | 2022-08-02 01:24 | XMS_ITS | Encounter Summary ---
:1975 Author Organization [email or web address] Address [address] [place] [address] Care Team Providers Name Role Phone Nhi Toure PA-C Primary Care Provider Reason for Visit Reason Comments COVID Screening Encounter Details Date Type Department Care Team Description 03/08/2020 Telephone [facility] Oriana Moses, COVID Screening Practice LITIGATOR, SALES MARKETING [address] [place], [place] [id number] [phone] Social History Tobacco Use Types Packs/Day Years [...] documented as of this encounter Nursing Notes Pema Tillman - 03/08/2020 3:12 PM CDT Initial Screening: Patient information Best number to contact patient: MOBILE Reason for Call: COVID Screening/Testing Request In the last 14 days have you had close contact with a person known to have COVID-19 or been instructed to self-isolate? No Are symptoms urgent/emergent? No Do you currently have any of these symptoms? If none of the them - Close encounter and follow regular process documented in this encounter Plan of Treatment Not on filedocumented as of this encounter Visit Diagnoses Not on filedocumented in this encounter Care Teams Melter Loader Relationship Specialty Start Date End Date Nhi Toure PA-C PCP - General Physician Appliance Mechanic 03/09/20 [address] [place] [address] documented as of this encounter
--- OUTSIDE RECORDS SUMMARY | 2022-08-02 01:24 | XMS_ITS | Encounter Summary ---
:1975 Author Organization [employer] Address [address] [place] [address] Care Team Providers Name Role Phone hNi Toure PA-C Primary Care Provider Reason for Visit Reason Onset Date Comments NUMBNESS Video Visit 01/22/2022 Encounter Details Date Type Department Care Team Description 01/22/[address] [facility] Miahe, Alysha L, Numbnes s and tingling in both hands (Primary Dx); Family Practice DNP, ASSISTANT GROCERY, WELDER FITTER GAS Carpal tunnel syndrome on both sides [address] [place] [address] [place], [place] [phone] Social History Tobacco Use Types Packs/Day Years [...] Sign Reading Time Taken Comments Blood Pressure - - Pulse - - Temperature 37 ??C (98.6 ??F) 01/22/2022 12:48 PM CDT Respiratory Rate - - Oxygen Saturation - - Inhaled Oxygen Concentration - - Weight 59.4 kg (131 lb) 01/22/2022 12:48 PM CDT Height 160 cm (5' 3) 01/22/2022 12:48 PM CDT Body Mass Index 23.21 01/22/2022 12:48 PM CDT documented in this encounter Patient Instructions Patient InstructionsAlysha Alatorre, DNP, ASSISTANT GROCERY, WELDER FITTER GAS - 01/22/2022 12:50 PM CDT Images from the original note were not included. Recommend supportive cares with rest, elevation if possible, ice/heat, topical anesthetics such as 4% lidocaine ointment / patch, Biofreeze or asper cream, and ibuprofen/tylenol. Recommend wearing wrist brace with activity and at night for 1-2 weeks Follow in person in 2 weeks if symptoms not improving Carpal Tunnel Syndrome: Exercises Introduction Here are some examples of exercises for you to try. The exercises may be suggested for a condition or for rehabilitation. Start each exercise slowly. Ease off the exercises if you start to have pain. You will be told when to start these exercises and which ones will work best for you. Warm-up stretches When you no longer have pain or numbness, you can do exercises to help prevent carpal tunnel syndrome from coming back. Do not do any stretch or movement that is uncomfortable or painful. 1. Rotate your wrist up, down, and from side to side. Repeat 4 times. 2. Stretch your fingers far apart. Relax them, and then stretch them again. Repeat 4 times. 3. Stretch your thumb by pulling it back gently, holding it, and then releasing it. Repeat 4 times. How to do the exercises Prayer stretch 1. Start with your palms together in front of your chest just below your chin. 2. Slowly lower your hands toward your waistline, keeping your hands close to your stomach and your palms together until you feel a mild to moderate stretch under your forearms. 3. Hold for at least 15 to 30 seconds. Repeat 2 to 4 times. Wrist flexor stretch 1. Extend your arm in front of you with your palm up. 2. Bend your wrist, pointing your hand toward the floor. 3. With your other hand, gently bend your wrist farther until you feel a mild to moderate stretch inyour forearm. 4. Hold for at least 15 to 30 seconds. Repeat 2 to 4 times. Wrist extensor stretch 1. Repeat steps 1 through 4 of the stretch above, but begin with your extended hand palm down. Follow-up care is a rodarte part of your treatment and safety. Be sure to make and go to all appointments, and call your doctor if you are having problems. It's also a good idea to know your test results and keep a list of the medicines you take. Where can you learn more? 1. Go to https://www.[employer]/healthlibrary. 2. Enter U908 in the search box. Current as of: August 28, 2020?Content Version: 12.9 ?? [employer]. Care instructions adapted under license by your healthcare professional. If you have questions abouta medical condition or this instruction, always ask your healthcare professional. [employer] disclaims any warranty or liability for your use of this information. documented in this encounter Progress Notes Alysha Alatorre, BRAYDON, BRANDON, JOSE - 01/22/2022 12:50 PM CDT Subjective: Today's visit with Santa was conducted as a scheduled video visit. Right and Left Hand Pain and numbness , Initial visit: Is this due to an injury: No Since onset of pain, how has your condition been: worsened How long have you had this pain?: 3 month(s) How frequent is your pain: intermittent (on and off) sporatically How severe is your pain (1-10): 10 What does your pain feel like: aching, burning, sharp and numb Does your pain extend to any other part of your body: YES Does this limit work or activities: YES Does your pain keep you awake at night: YES What have you tried for pain: Medications: excedrin Is there any swelling/redness/bruising at the hand, wrist, or elbow? YES Do you have any weakness of the hand, wrist, or elbow? YES Have you ever had a history of hand, wrist, or elbow surgery? No Have you ever had similar pain to your hand, wrist, or elbow pain in the past? No Santa Farmer is a 46 y.o. female who presents today with a chief complaint of numbness tingling bilateral hands. Patient states has had issues with increased numbness and tingling in bilateral hands. Has been occurring throughout the day becoming more constant over the past 3 months. Feels like fingertips always numb and tingly. Denies any swelling or erythema does admit to overuse. 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 Has also noticed mild tenderness in a thumb area. No history of carpal tunnel recent or previous injury. Has also developed intermittent pain in shoulder blade area and knees since starting new job few months ago attributes this also to overuse. Personal history significant for anxiety, depression, bipolar, and substance abuse. Per patient was homeless living in car last fall and winter. Ended up getting really sick than feels has had issuesever since. Is in current stable home which she is very grateful for overall feels mood doing well. Denies any use of illicit drugs. Recent changes to diet or medication. Pain so severe at times in hands often wakes her up at night. Treatments attempted at home include: None Currently on Wellbutrin and Paxil along with the Suboxone Denies rash, fever, night sweats, nausea, vomiting, changes in mood or appetite, constipation, diarrhea, dizziness/lightheadedness, SOB, cough, palpitations, or chest pain. Past Medical History: Diagnosis Date ??? Alcohol abuse 05/16/2009 ??? Allergic rhinitis, cause unspecified May ??? Anxiety (ACG) ??? Caries Dental Conversion ??? Chronic pain 01/31/2009 Patient is being enrolled in the Restricted Recipient program due to getting prescriptions from approximately 27 doctors in the past twelve months. Along with the # of prescribers, the patient has also used 14 pharmacies and has had 11 urgent care visits. The patient was filling prescriptions for 6 different controlled meds, including opiate pain medications and benzodiazepines. The health plan ??? Cocaine abuse (HRC) 05/16/2009 ??? Cocaine abuse (HRC) 05/16/2009 ??? Cocaine Abuse Remission 07/08/2006 CD treatment 03/18 ??? Depression Dental Conversion ??? Heroin addiction (HRC) ??? Heroin addiction (HR) 03/03/2014 Clean and sober, now on Methadone, one take-out a week. ??? History of oral surgery Dental Conversion ??? Narcotic abuse 05/16/2009 ??? Orthodontics Dental Conversion ??? Seasonal allergies ??? Sensitive dentin Dental Conversion ??? Tobacco use disorder (HRC) ??? Tooth decay Dental Conversion Family History Problem Relation Age of Onset ??? Diabetes Mother ??? Other (Hepatitis C) Mother No Known Allergies Outpatient Medications Prior to Visit Medication Sig Dispense Refill ??? buPROPion (WELLBUTRIN) 100 MG tablet Take 100 mg by mouth two times a day. ??? Multiple Vitamins-Minerals (HAIR SKIN AND NAILS FORMULA) TABS ??? multivitamin (THERAGRAN) tablet Take 1 Tablet by mouth daily. 30 Tablet 11 ??? nicotine (NICORETTE) 2 MG gum Chew 1 piece every 1-2 hours (minimum of 9 per day) for 6 weeks. Then 1 every 2-4 hours for 3 weeks, then 1 every 4-8 hours for 3 weeks 170 Each 2 ??? PARoxetine (PAXIL) 10 MG tablet Take 1 Tablet by mouth daily. 30 Tablet 1 ??? SUBOXONE 8-[address] under tongue daily. No facility-administered medications prior to visit. see HPI - otherwise negative Objective: Temp 98.6 ??F (37 ??C) Ht 5' 3 (1.6 m) Wt 131 lb (59.4 kg) BMI 23.21 kg/m?? Physical Exam: Unable to assess Assessment/Plan: Numbness and tingling in both hands Carpal tunnel syndrome on both sides Other orders - SUBOXONE 8-2 MG sublingual film; Place under tongue daily. - buPROPion (WELLBUTRIN) 100 MG tablet; Take 100 mg by mouth two times a day. Assessment/Plan: 1. Numbness / Tingling Bilateral Hands: Patient has had numbness in fingers for past 3 months has noticed more significant pain and discomfort in wrist and hand area as well. Seems to be worse with use often waking her up at nighttime. Denies any recent or previous injury swelling or erythema no history of gout. 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 Has also had some intermittent shoulder and knee pain which she attributes to work and overuse. Does have history of anxiety/depression and substance abuse. Denies any use of illicit drugs. Had long discussion with patientregarding current symptoms. I am very limited in my assessment due to this being only a phone visit.By description feel most likely carpal tunnel syndrome. Patient states does have braces at home if can not find will plan on purchasing. Recommend she use wrist brace over the next few weeks throughoutthe day and at nighttime to see if this helps reduce symptoms. Encourage supportive cares with rest,ice, Tylenol/ibuprofen. Can also consider use of topical anesthetics or Voltaren gel. Additional stretching and strengthening exercises provided on AVS recommend she do this throughout the day. Would encourage patient to follow-up with either myself or primary care provider in person in coupleweeks if symptoms not improving, sooner if symptoms worsen. Patient verbalizes understanding and is agreeable to plan Clinician located at clinic. Patient located at home Billing based on: Complexity Alysha Alatorre DNP, BRANDON, JOSE documented in this encounter Plan of Treatment Not on filedocumented as of this encounter Visit Diagnoses Diagnosis Numbness and tingling in both hands - Pr imary Carpal tunnel syndrome on both sides Carpal tunnel syndrome documented in this encounter Care Teams Pe Teacher Relationship Specialty Start Date End Date Nhi Toure PA-C PCP - General Physician Custom Decorating Consultant 03/09/20 [address] [place] [address] documented as of this encounter
--- OUTSIDE RECORDS SUMMARY | 2022-08-02 01:24 | XMS_ITS | Encounter Summary ---
:1975 Author Organization [facility] Address [address] [place] [address] Care Team Providers Name Role Phone Nhi Toure PA-C Primary Care Provider Reason for Visit Reason Comments Centralized Care Coordination Encounter Details Date Type Department Care Team Description 03/30/2020 Telephone [facility], Centralized Care [facility] Coordination [address] [place], [place] [address] Social History Tobacco Use Types Packs/Day Years [...] documented as of this encounter Nursing Notes [facility] - 03/30/2020 4:54 PM CDT This is an FYI only. No action from the clinic is required. Santa Farmer is enrolled with Centralized Care Coordination. Please see the Care Coordination Note for porter sample casemanager financial. ELIAN Jose 03/30/2020, 4:55 PM documented in this encounter Plan of Treatment Not on filedocumented as of this encounter Visit Diagnoses Not on filedocumented in this encounter Care Teams Metal Casket Maker Relationship Specialty Start Date End Date Nhi Toure PA-C PCP - General Physician Panel Assembler 03/09/20 [address] [place] [address] documented as of this encounter
--- OUTSIDE RECORDS SUMMARY | 2022-08-02 01:24 | XMS_ITS | Encounter Summary ---
:1975 Author Organization [employer] Address [address], [place] [address] Care Team Providers Name Role Phone Nhi Toure PA-C Primary Care Provider Reason for Visit Reason Comments LAB RESULTS Encounter Details Date Type Department Care Team Description 03/10/2020 Telephone [facility] Nhi Toure PA-C LAB RESULTS [address] [facility] [address] [place], [place] [address] [place] [address] [phone] (Wo rk) Social History Tobacco Use Types [...] documented as of this encounter Nursing Notes Elvi Donahue CMA - 03/10/2020 2:48 PM CDT Called and relayed information to pt. Pt understands information below and agrees with plan. Pt prefers the pills. Pharmacy selected. No further questions or concerns at this time. Elvi Donahue CMA 03/10/2020, 2:53 PM Elvi Donahue CMA - 03/10/2020 2:11 PM CDT ----- Message from Nhi Toure PA-C sent at 03/10/2020 1:53 PM CDT ----- Please call patient regarding test results. STD testing is negative. Vaginitis panel is positive forbacterial vaginosis. We can treat this with antibiotics. Does she want oral which would be 1 tab twice daily for 7 days, otherwise vaginal gel at bedtime for 5 nights. documented in this encounter Plan of Treatment Not on filedocumented as of this encounter Visit Diagnoses Diagnosis BV (bacterial vaginosis) - Primary Vaginitis and vulvovaginitis, unspecifie d documented in this encounter Care Teams Gate Shear Operator Relationship Specialty Start Date End Date Nhi Toure PA-C PCP - General Physician Distance Education Director 03/09/20 [address] [place] [address] documented as of this encounter
--- OUTSIDE RECORDS SUMMARY | 2022-08-02 01:24 | XMS_ITS | Clinical Summary ---
:1975 Author Organization [facility] Address [address] [place] [address] Care Team Providers Name Role Phone Nhi Toure PA-C Primary Care Provider Source Comments You are receiving this document as you are listed as the primary care provider,follow-up provider, or the patient has been referred to you for consultation.This is in compliance with the Medicare and Medicaid EHR Incentive Program,which states Providers who transition their patient to another setting of careor provider of care or refers their patient to another provider of care shouldprovide summarycare record for each transition of care or referral. [facility] Allergies No known active allergies Medications Medication Sig Dispensed Refills Start Date End Date Status Multiple 0 Active Vitamins-Minerals (HAIR SKIN AND NAILS FORMULA) TABS multivitamin Take 1 Tablet 30 Tablet 11 03/09/2020 Ac tive (THERAGRAN) by mouth tabletIndications: daily. Encounter for routine adult health examination without abnormal findings nicotine Chew 1 piece 170 Each 2 03/09/2020 Active (NICORETTE) 2 MG every 1-2 gumIndications: hours Tobacco use (minimum of 9 disorder (HRC) per day) for 6 weeks. Then 1 every 2-4 hours for 3 weeks, then 1 every 4-8 hours for 3 weeks SUBOXONE 8-[address] 0 12/26/2021 A ctive sublingual film tongue daily. buPROPion Take 100 mg 0 12/25/2021 Active (WELLBUTRIN) 100 MG by mouth two tablet times a day. naloxone (NARCAN) 4 SMARTSIG:Both 0 11/19/2021 Active MG/0.1ML nasal Nares spray cephalexin (KEFLEX) Take 1 20 Capsule 0 07/30/2022 08/04/20 22 Active 500 MG capsule Capsule (500 mg) by mouth 4 times a day for 5 days. UNKNOWN MEDICATION Indications: 0 11/23/2009 014 Discontinued PN: Active Problems Problem Noted Date Cervical cancer screening 08/28/2018 Overview: From visit on 04/08/15: History of abnorm al pap tests? No 2007 NILM 2017 NILM ,neg HPV 43 y.o. 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 Yenny Ly Formerly [facility] Case Ma nagement Direct: [phone] [email or web address] Insomnia 12/28/2008 Bursitis of hip 06/01/2008 Tobacco use disorder 03/09/2008 GERD (gastroesophageal reflux disease) 03/09/2008 Allergic rhinitis 07/13/2007 Overview: Allergy Seasonal Anxiety state 07/08/2006 Overview: Anxiety NOS Cocaine abuse in remission 07/08/2006 Overview: Last treatment Sep 2013 CD treatment 03/18 ; Cocaine Abuse Remission Resolved Problems Problem Noted Date Resolved Date Heroin addiction 03/03/2014 01/28/2022 Overview: Clean and sober, now on Methadone, one t obed-out a week. Alcohol abuse 05/16/2009 07/19/2009 Cocaine abuse 05/16/2009 01/28/2022 Narcotic abuse 05/16/2009 07/19/2009 Depression with anxiety 03/09/2008 07/19/2009 Encounter for sterilization 07/08/2006 03/03/2014 Overview: LW Onset: 2002 ; Tubal Ligation Elective Obesity 07/08/2006 03/03/2014 Overview: LW Onset: [id number] Normal delivery 07/08/2006 03/03/2014 Overview: LW Onset: ; Normal Spontaneous Vaginal Delivery Encounters Date Type Specialty Care Team Description 07/30/2022 Telemedicine Urgent Care Cecil Mcintosh Rash (Silvina Hawk) ARIELLA 07/29/2022 Lab Requisition Mary Lundy Encou nter for screening 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 LABORER, DNP for malignant n eoplasm of colon from Last 3 Months Immunizations Name Administration Dates Next Due PPSV23 (Pneumovax) 11/03/2017 Rho(D) - IG, IM 03/23/2003, 01/08/1995 TDAP (ADACEL) 07/13/2007 Td 03/02/2000 Tdap 04/08/2008, 07/13/2007 Family History Medical History Relation Name Comments Diabetes Mother Hepatitis C Mother Relation Name Status Comments Father Alive no contact Mother Alive diabetes, bad hi p Social History Tobacco Use Types Packs/Day Years [...] Assigned at Date Recorded Not on file Last Filed Vital Signs Vital Sign Reading Time Taken Comments Blood Pressure 125/93 03/09/2020 10:38 AM CDT Pulse 80 03/09/2020 10:38 AM CDT Temperature 37 ??C (98.6 ??F) 01/22/2022 12:48 PM CDT Respiratory Rate 18 05/03/2014 2:56 PM CDT Oxygen Saturation 99% 05/03/2014 2:56 PM CDT Inhaled Oxygen Concentration - - Weight 59.4 kg (131 lb) 01/22/2022 12:48 PM CDT Height 160 cm (5' 3) 01/22/2022 12:48 PM CDT Body Mass Index 23.21 01/22/2022 12:48 PM CDT Plan of Treatment Health Maintenance Due Date Last Done Comments Colon Cancer Screening Plan 1975 Due COVID-19 Vaccine (#1) 01/01/1978 DTaP/Tdap/Td (3 - Tdap) 04/08/2018 04/08/2008, 07/13/2007, 07/13/2007, Additional history exists Pneumococcal (2 - PCV) 11/03/2018 11/03/2017 Mammogram 11/20/2018 11/20/2017 Adult Preventive Visit 03/09/2021 03/09/2020, 05/05/2008 Influenza (#1) 2022 Cholesterol 2022 04/07/2015, 03/01/1998 Pap 08/21/2023 08/21/2018, 04/07/2015, 05/05/2008, Additional history exists Zoster/Shingles (1 of 2) 2027 HIV Screening (Preventive Completed 11/03/2017, 04/07/2015 , Services) 07/08/2006, Additional history exists Hep C Screening (Preventive Completed 11/03/2017, 04/07/20 15 Services) HPV Vaccine Aged Out No longer eligib le based on patient 's age to complete this topic HepA Aged Out No longer eligib le based on patient 's age to complete this topic Hib Aged Out No longer eligib le based on patient 's age to complete this topic IPV (Polio) Aged Out No longer eligib le based on patient 's age to complete this topic MCV4 Aged Out No longer eligib le based on patient 's age to complete this topic Procedures Procedure Name Priority Date/Time Associated Diagnosis Comme nts [facility] KIT Routine 07/29/2022 4:30 PM CDT Encounter for screening for malignant neoplasm of colon [ICD-10-CM] from Last 3 Months Insurance Payer Benefit Plan / Subscriber ID Effective Dates Phone Addre ss Type [facility] [id number] 2017-Present Medicaid Farmer, Santa Chaparro Personal/Family Self 1975 [address] ([place]) [place] [address] Care Teams Newcomer Hostess Relationship Specialty Start Date End Date Nhi Toure PA-C PCP - General Physician Head Waitress 03/09/20 [address] [place], [place] [id number]
--- OUTSIDE RECORDS SUMMARY | 2022-08-02 01:24 | XMS_ITS | Encounter Summary ---
:1975 Author Organization [facility] Address [address] [address] Care Team Providers Name Role Phone No Primary/Referring, Linda Primary Care Provider Unavailable Reason for Visit Procedure/Equipment (Routine) - Incomplete Specialty Diagnoses / Procedures Referred By Contact Refer red To Contact Diagnoses Breast lump Kwame Brown, Procedures MM Mammogram Diag Bilat W Hebert MM Mammogram Diag Bilat [address] [place] [address] Referral ID Status Reason Start Date Expiration Date Visits V isits Requested Authorized [id number] Incomplete 11/03/2017 02/02/2019 1 1 Encounter Details Date Type Department Care Team Description 11/20/2017 Imaging [facility] Kwame Brown DO Breast lump [address] [place] [address] [place] [address] [phone] (Wo rk) Social History Tobacco Use Types [...] Priority Date/Time Associated Diagnosis Comme nts MM MAMMOGRAM DIAG Routine 11/20/2017 2:41 PM Breast lump Resu lts for this BILAT W 3D HEBERT HAM CLERK procedure ar e in the results section. documented in this encounter Results (ABNORMAL) MM Mammogram Diag Bilat W Hebert (11/20/2017 2:41 PM HAM CLERK) Anatomical Region Laterality Modality Breast Bilateral Mammography Specimen (Source) Anatomical Collection Method Collection Time Re ceived Time Location / / Volume Laterality 11/20/2017 2:41 PM HAM CLERK Narrative 11/20/2017 4:37 PM HAM CLERK MM MAMMOGRAM DIAG BILAT W HEBERT, MM US BREAST BILAT 11/20/2017 2:41 PM INDICATION: Palpable lump at the upper o uter left breast. COMPARISON: None MAMMOGRAPHIC FINDINGS: Bilateral digital diagnostic mammograms performed. The breasts are heterogeneously dense, which may obscure small masses. Palpable area concern is marked with a BB at the upper outer quadrant of the left breast, zone 3. There is a corresponding oval mass at approximately the 1:00 position, zone 3. Further evaluation is recommended wit h targeted ultrasound. There are focal asymmetries in the upper outer right alex ast. Further evaluation is recommended with targeted ultrasound. Images evaluat ed with the assistance of CAD. Breast tomosynthesis was used in interpretation . ULTRASOUND FINDINGS: Targeted left breas t ultrasound at the site of palpable lump demonstrates an ill-defined hypoech oic oval mass measuring 1.7 x 0.6 x 1.1 cm. This is indeterminate, tissue diagno sis is recommended with ultrasound-guided core needle biopsy. Targeted right breast ultrasound was per formed at the upper outer quadrant. There are 2 small indeterminate hypoecho ic oval mass is identified, one measuring 0.5 x 0.4 x 0.6 cm at the 10:0 0 position, zone 2 and a second measuring 0.4 x 0.4 x 0.3 cm at the 10:0 0 position, zone 2. These masses are by a distance of 1.4 cm. Ultra sound-guided core needle biopsies are recommended at both sites. IMPRESSION: 1. Indeterminate mass at the site of pal pable lump in the upper outer left breast. Ultrasound-guided core needle bi opsy is recommended. 2. 2 small indeterminate masses in the r ight breast as described. Ultrasound-guided core needle biopsies a re recommended. ACR BI-RADS Category 4: Suspicious. Results and recommendations discussed wi th the patient. Biopsies will be arranged for later date. Procedure Note Korin Motta MD - 11/20/2017Forma tting of this note might be different from the original. MM MAMMOGRAM DIAG BILAT W HEBERT, MM US BR EAST BILAT 11/20/2017 2:41 PM INDICATION: Palpable lump at the upper o uter left breast. COMPARISON: None MAMMOGRAPHIC FINDINGS: Bilateral digital diagnostic mammograms performed. The breasts are heterogeneously dense, which may obscure small masses. Palpable area concern is marked with a BB at the upper outer quadrant of the left breast, zone 3. There is a corresponding oval mass at approximately the 1:00 position, zone 3. Further evaluation is recommended wit h targeted ultrasound. There are focal asymmetries in the upper outer right alex ast. Further evaluation is recommended with targeted ultrasound. Images evaluat ed with the assistance of CAD. Breast tomosynthesis was used in interpretation . ULTRASOUND FINDINGS: Targeted left breas t ultrasound at the site of palpable lump demonstrates an ill-defined hypoech oic oval mass measuring 1.7 x 0.6 x 1.1 cm. This is indeterminate, tissue diagno sis is recommended with ultrasound-guided core needle biopsy. Targeted right breast ultrasound was per formed at the upper outer quadrant. There are 2 small indeterminate hypoecho ic oval mass is identified, one measuring 0.5 x 0.4 x 0.6 cm at the 10:0 0 position, zone 2 and a second measuring 0.4 x 0.4 x 0.3 cm at the 10:0 0 position, zone 2. These masses are by a distance of 1.4 cm. Ultra sound-guided core needle biopsies are recommended at both sites. IMPRESSION: 1. Indeterminate mass at the site of pal pable lump in the upper outer left breast. Ultrasound-guided core needle bi opsy is recommended. 2. 2 small indeterminate masses in the r ight breast as described. Ultrasound-guided core needle biopsies a re recommended. ACR BI-RADS Category 4: Suspicious. Results and recommendations discussed wi th the patient. Biopsies will be arranged for later date. Kwame Brown DO RAD OTONIEL documented in this encounter Visit Diagnoses Diagnosis Breast lump Lump or mass in breast documented in this encounter Care Teams Environmental Studies Faculty Member Relationship Specialty Start Date End Date No Primary/Referring, Phy PCP - General 10/31/17 1 documented as of this encounter
--- OUTSIDE RECORDS SUMMARY | 2022-08-02 01:24 | XMS_ITS | Encounter Summary ---
:1975 Author Organization [facility] Address [address], [place] [address] Care Team Providers Name Role Phone No Primary/Referring, Phy Primary Care Provider Unavailable Reason for Visit Reason Comments RESULTS, TEST Encounter Details Date Type Department Care Team Description 08/25/2018 E-Visit [facility] Joaquin Miller Comp: RESULTS, Medicine MD Rosa TEST [address] [place] [address] [place], [place] [phone] (Wo rk) Social History Tobacco Use Types [...] documented as of this encounter Nursing Notes Lokesh Pantoja X - 08/25/2018 12:36 PM MATTRESS PACKER From: Santa Farmer To: Joaquin Miller MD Sent: 08/25/2018 12:05 PM MATTRESS PACKER Subject: E-Visit Submission: Question or update from a visit within the past 7 days: Free E-Visit Submission: Question or update from a visit within the past 7 days: Free Question: When was your last appointment for this condition with your doctor? Answer: Less than 7 days ago Question: How may we help you? Answer: I'm not seeing results from Herpes or HPV test that I requested at my visit. Please let me know what to do. 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 Answer: [facility]/ [address] [place] Question: Please provide a phone number where you can be reached if we need to call you. Answer: [phone] RESS PACKER documented in this encounter Plan of Treatment Not on filedocumented as of this encounter Visit Diagnoses Not on filedocumented in this encounter Care Teams Promotions Officer Relationship Specialty Start Date End Date No Primary/Referring, Phy PCP - General 10/31/17 1 documented as of this encounter
--- OUTSIDE RECORDS SUMMARY | 2022-08-02 01:24 | XMS_ITS | Encounter Summary ---
:1975 Author Organization [facility] Address [address], [place] [address] Care Team Providers Name Role Phone No Primary/Referring, Phy Primary Care Provider Unavailable Reason for Referral Procedure/Equipment (Routine) - Incomplete Specialty Diagnoses / Procedures Referred By Contact Refer red To Contact Diagnoses Breast lump Kwame Brown DO Procedures MM Mammogram Diag Bilat W Hebert MM Mammogram Diag Bilat [address] [place] [address] Referral ID Status Reason Start Date Expiration Date Visits V isits Requested Authorized [id number] Incomplete 11/03/2017 02/02/2019 1 1 [employer]OR OF [employer]ORIC[employer] Consult/Transfer Care (Routine) - Closed Specialty Diagnoses / Procedures Referred By Contact Refer red To Contact Diagnoses Anxiety (HRC) Kwmae Brown DO [address] [place] [address] Referral ID Status Reason Start Date Expiration Date Visits Requ ested Visits Authorized [id number] Closed 11/03/2017 02/02/2019 1 1 Scheduling Instructions Your provider has recommended an appoint ment with Behavioral Health. You may call [phone] to schedule your appointmen t. This recommended service/s may not be covered by your health plan (health insu trina). To find out your specific benefit coverage, please call the number on your insurance card.?? Please note that in order to maintain access for all patients, [facility] does have a late cancellation policy.?? In order to avoid being restri cted from scheduling future appointments in Behavioral Health you will need to cance l at least 48 hours in advance. We request you that you arrive 30 minutes before yo ur first appointment to complete paperwork. [employer] Reason for Visit Reason Comments ANXIETY DEPRESSION Health Maintanence Declined flu BREAST LUMP Bilateral breast lumps, pt s tates it seems like large clumps of fat. Noticed about 1 month ago - pt states lumps are changing in size: seemed to decrease in size. No known family history of b reast cancer. Encounter Details Date Type Department Care Team Description 11/03/2017 Office Visit Noreen Kwame Traore ( Primary Dx); Practice J, DO Hirsutism; [address] Breast lump; [place] [address] [address] Encounter for HCV screening test for hig h risk patient; [phone] [place], [place] Screening for HIV (human immunodeficiency virus); [address] Need for vaccination Social History Tobacco Use Types Packs/Day Years [...] Sign Reading Time Taken Comments Blood Pressure 109/80 11/03/2017 1:57 PM PROFESSOR OF FLORICULTURE Pulse 103 11/03/2017 1:57 PM [employer]OR [employer] FLOR[employer] Temperature 36.4 ??C (97.5 ??F) 11/03/2017 1:57 PM [employer]OR OF FLORICULTURE Respiratory Rate - - Oxygen Saturation - - Inhaled Oxygen Concentration - - Weight 59.9 kg (132 lb) 11/03/2017 1:57 PM [employer]OR OF FLORICULTURE Height - - Body Mass Index 23.38 04/07/2015 8:38 AM CDT documented in this encounter Progress Notes Kwame Brown, DO - 11/03/2017 2:00 PM CST Historical: Chief Complaint Patient presents with ??? ANXIETY ??? DEPRESSION ??? Health Maintanence Declined flu ??? BREAST LUMP Bilateral breast lumps, pt states it seems like large clumps of fat. Noticed about 1 month ago - ptstates lumps are changing in size: seemed to decrease in size. No known family history of breast cancer. Anxiety Follow-Up Do you take any prescription medication for this condition? No Are you seeing a counselor or therapist? No How many times a week are you exercising regularly? none CHAPIS-7 11/03/2017 08/22/2014 05/24/2014 03/03/2014 Feeling nervous 3 1 2 1 Can't stop worrying 3 1 2 1 Worrying too much 3 1 2 1 Trouble relaxing 3 1 2 2 Restlessness 3 2 2 2 Easily annoyed 3 1 2 3 Feeling afraid 3 0 1 1 How difficult? Extremely difficult Somewhat difficult Somewhat difficult Very difficult Total score 21 7 13 11 Date Performed 11/03/2017 08/22/2014 05/24/2014 03/03/2014 Time Performed 2:03 PM 3:30 PM 9:11 AM 3:35 PM Depression Follow-Up Do you take any prescription medication for this condition? No Are you seeing a counselor or therapist? No How many times a week are you exercising regularly? None PHQ-9 11/03/2017 08/22/2014 05/24/2014 03/03/2014 07/19/2009 06/16/2009 03/14/2009 PHQ-9 Score Total 6 1 2 4 1 0 13 Q1: Loss of Int/Pleas + - + - - - - Q2: Depressed mood + - - - - - + Q3: Sleep problems - - - - - - ++ Q4: Tired/Low Energy + - - - - - ++ Q5: Appetite change + - - - - - + Q6: Feelings of failure - - + - - - + Q7: Concentration Prob ++ + - ++ + - +++ Q8: Slow or Restless - - - ++ - - +++ Q9: Thought Self Harm - - - - - - - Date PHQ9 was completed 11/03/2017 - - - - - - . Has had worsening anxiety symptoms in recent mos. It's been five years since working with Behavioral Health elsewhere. Has tried sertraline and other meds but didn't feel they helped. Feels she'd like to resume a treatment plan. Would also like to work with a therapist. She requests a referral to [facility]. . within the last six mos has noted increasing hair growth above upper lip, brow, some on chest, too. Is very self-conscious about this and asks for help. No eval to date. Reports regular menses. No ocps since she's had tubes tied years ago. Has children. . Several lumps noted in each breast over the last six months. One more prominent near left axilla. They are tender, more so at time of menses. No nipple discharge. No history of breast dz in her family. I have personally reviewed the patient's allergies, medications and past medical and family history and updated the patient record as necessary. Observed: BP 109/80 Pulse (!) 103 Temp 97.5 ??F (36.4 ??C) (Tympanic) Wt 132 lb (59.9 kg) BMI 23.38 kg/m2 Physical Exam: Affect anxious Good eye contact Cleanly dressed Skin warm and dry Not tremulous Speech clear, not pressured Appears well Faye skin type: II No excessive hair growth noted Breasts examined in supine position: . Symmetric in size and shape - YES . Skin or nipple abnormalities - No . Nipple discharge - No . Prominent lumps - Yes; left upper outer quadrant, firm irreg shaped nodule, ~ 1 cm diameter, mildly tender to touch . Axillary lymphadenopathy - No Assessment/Plan: ICD-10-CM 1. Anxiety (HRC) F41.9 Behavioral Health 2. Hirsutism L68.0 Testosterone, female or children 3. Breast lump N63.0 MM Mammogram Diag Bilat 4. Encounter for HCV screening test for high risk patient Z11.59 Hepatitis C Antibody, with Reflex Z91.89 5. Screening for HIV (human immunodeficiency virus) Z11.4 HIV 1/2 Ag/Ab 4th Generation 6. Need for vaccination Z23 PPSV23 (PNEUMOVAX) Plans as noted. She requested hep C and HIV testing before leaving today. Will notify of results. Please see orders and patient instructions Kwame Brown DO [employer] documented in this encounter Plan of Treatment Scheduled Referrals Name Type Priority Associated Diagnoses Order S chedule Behavioral Health Referral Routine Anxiety Ordered: 0 11/03/2017 documented as of this encounter Results (ABNORMAL) MM Mammogram Diag Bilat W Hebert (11/20/2017 2:41 PM [employer]IC[employer]) Anatomical Region Laterality Modality Breast Bilateral Mammography Specimen (Source) Anatomical Collection Method Collection Time Re ceived Time Location / / Volume Laterality 11/20/2017 2:41 PM [employer] Narrative 11/20/2017 4:37 PM [employer]OR [employer] FLORIC[employer] MM MAMMOGRAM DIAG BILAT W HEBERT, MM [...] later date. Kwame Brown DO RAD OTONIEL HIV 1/2 Ag/Ab 4th Generation (11/03/2017 2:57 PM [employer]ORIC[employer]) [employer] Method Time Signature HIV 1/2 AG/AB Negative NEGNR [facility] 4thGEN (Non LABORATORIES Reactive) Comment: HIV-1 p24 Ag and HIV-1/HIV-2 Ab not detected. Specimen Anatomical Collection Method Collection Time Receive d Time (Source) Location / / Volume Laterality 11/03/2017 2:57 PM 8 2:58 [employer] PM [employer] Narrative [facility] - 11/03/2017 8:[address] Performed at [address] ??[id number] Kwame Brown DO LAB_1 Performing Organization Address [facility] Phon e Number [facility] [phone] Hepatitis C Antibody, with Reflex (11/03/2017 2:57 PM [employer] FLORIC[employer]) [employer] Method Time Signature Anti-HCV Negative (Non NEGNR [facility] Reactive) LABORATORIES Comment: Antibodies to HCV not detected. Does not exclude the possibility of exposure to HCV. Specimen Anatomical Collection Method Collection Time Receive d Time (Source) Location / / Volume Laterality 11/03/2017 2:57 PM 8 2:58 [employer]OR OF FLORICULTURE PM [employer]OR OF FLORICULTURE Narrative [facility] - 11/03/2017 8:[address] Performed at [facility], [address] [place] [address] ??[id number] Kwame Brown DO LAB_1 Performing Organization Address City/[facility] Phon e Number [facility] [phone] Testosterone, female or children (11/03/2017 2:56 PM [employer]OR OF FLORICULTURE) Component Value Ref Test Analysis Performed At [employer] Method Time Signature Testosterone 17 [facility] Female [...] ?? intervals for this test in the [facility] [employer] Manufacturing Technician y ?? ([employer]). Test developed and characteristics determined by [facility] ?? [facility]. See Compliance Statement B: [facility]/ [address] [place] [address] [email or web address], Rj Martinez MD, Lab. Director Specimen Anatomical Collection Method Collection Time Receive d Time (Source) Location / / Volume Laterality 11/03/2017 2:56 PM 8 2:57 [employer] FLORIC[employer] PM PROF[employer]OR [employer] FLORICULTURE Narrative [facility] - 11/06/2017 8:[address] Performed by [place], [address] [place], [place] [address] Kwame Brown DO LAB_1 Performing Organization Address City/State/ZIP Code Phon e Number [facility] [phone] documented in this encounter Visit Diagnoses Diagnosis Anxiety (HRC) - Primary Anxiety state, unspecified Hirsutism Breast lump Lump or mass in breast Encounter for HCV screening test for hig h risk patient Screening for HIV (human immunodeficienc y virus) Special screening examination for other specified viral diseases Need for vaccination Need for prophylactic vaccination and in oculation against unspecified single disease Hirsutism Encounter for HCV screening test for hig h risk patient Screening for HIV (human immunodeficienc y virus) Special screening examination for other specified viral diseases Breast lump Lump or mass in breast documented in this encounter Care Teams Demurrage Agent Relationship Specialty Start Date End Date No Primary/Referring, Phy PCP - General 10/31/17 1 documented as of this encounter
--- OUTSIDE RECORDS SUMMARY | 2022-08-02 01:24 | XMS_ITS | Encounter Summary ---
:1975 Author Organization [facility] Address [address], [place] [address] Care Team Providers Name Role Phone No Primary/Referring, Phy Primary Care Provider Unavailable Reason for Visit Procedure/Equipment (Routine) - Incomplete Specialty Diagnoses / Procedures Referred By Contact Refer red To Contact Diagnoses Breast lump Kwame Brown, DO Procedures MM US Bx Breast Rt [address] [facility] [place] [address] Referral ID Status Reason Start Date Expiration Date Visits V isits Requested Authorized [id number] Incomplete 11/20/2017 02/19/2019 1 1 Encounter Details Date Type Department Care Team Description 12/08/2017 [facility] [place] Kwame Brown, DO Breast lump [address] [facility] [address] [place] [address] [place] [address] [phone] (Wo rk) Social History Tobacco Use Types [...] MM US BX BREAST RT Routine 12/08/2017 9:13 AM Breast lump Res ults for this PERSONALIZED LIVING ASSISTANT procedure are i n the results section. documented in this encounter Results MM US Bx Breast Rt (12/08/2017 9:13 AM PERSONALIZED LIVING ASSISTANT) Anatomical Region Laterality Modality Breast Right Mammography Specimen (Source) Anatomical Location Collection Method / Collectio n Time Received Time / Laterality Volume Addenda Addendum by Korin Motta MD on 4:03 PM PERSONALIZED LIVING ASSISTANT Pathology reveals fibrocystic change. Th is is consistent with the imaging findings. A verbal report was given to t he patient. Repeat mammogram in one year is recommended. Impressions 12/08/2017 12:49 PM PERSONALIZED LIVING ASSISTANT : 1. Ultrasound guided biopsy of an indete rminate mass in the right breast. ?? Pathology pending. 2. Post procedure mammogram for clip yusuf cement Narrative 12/08/2017 12:49 PM PERSONALIZED LIVING ASSISTANT RIGHT BREAST ULTRASOUND GUIDED BIOPSY, CLIP PLACEMENT AND RIGHT MAMMOGRAM: INDICATIONS: ??Right breast mass, site B . PROCEDURE: ??Informed consent was obtain ed from the patient. ??Ultrasound was used to localize the mass in the 10 o'clock position of the right breast, zone 3. ??The skin was prepped a nd draped in a sterile fashion. ?? Buffered lidocaine was used for local an esthesia and additional deep anesthesia achieved using lidocaine with epinephrine. ??Under direct sonographic guidance, a 12 gauge coaxial needle was used to obtain 3 core biopsies. ??A T3 clip was then placed. D igital mammogram post biopsy demonstrates the clip in an appropriate position. The patient tolerated this well, there are no immediate compli cations. Kwame Brown DO RAD OTONIEL documented in this encounter Visit Diagnoses Diagnosis Breast lump Lump or mass in breast documented in this encounter Care Teams Terrestrial Ecologist Relationship Specialty Start Date End Date No Primary/Referring, Phy PCP - General 10/31/17 1 documented as of this encounter
--- OUTSIDE RECORDS SUMMARY | 2022-08-02 01:24 | XMS_ITS | Encounter Summary ---
:1975 Author Organization [facility] Address [address], [place] [address] Care Team Providers Name Role Phone No Primary/Referring, Phy Primary Care Provider Unavailable Reason for Visit Procedure/Equipment (Routine) - Incomplete Specialty Diagnoses / Procedures Referred By Contact Refer red To Contact Diagnoses Breast lump Kwame Brown, DO Procedures MM US Breast Bilat [address] [facility] [place] [address] Referral ID Status Reason Start Date Expiration Date Visits V isits Requested Authorized [id number] Incomplete 11/04/2017 02/03/2019 1 1 Encounter Details Date Type Department Care Team Description 11/20/2017 [facility] [place] Kwame Brown, DO Breast lump [address] [facility] [address] [place] [address] [place] [address] [phone] (Wo rk) Social History Tobacco Use Types [...] Date/Time Associated Diagnosis Comme nts MM US BREAST BILAT Routine 11/20/2017 2:47 PM Breast lump Re sults for this DIRECTOR PART procedure are i n the results section. documented in this encounter Results (ABNORMAL) MM US Breast Bilat (11/20/2017 2:47 PM DIRECTOR PART) Anatomical Region Laterality Modality Breast Bilateral Ultrasound Specimen (Source) Anatomical Collection Method Collection Time Re ceived Time Location / / Volume Laterality 11/20/2017 2:47 PM DIRECTOR PART Narrative 11/20/2017 4:37 PM DIRECTOR PART MM MAMMOGRAM DIAG BILAT W ANANTH, MM US BREAST BILAT 11/20/2017 2:41 PM [...] the original. MM MAMMOGRAM DIAG BILAT W ANANTH, MM US BR EAST BILAT 11/20/2017 2:41 [...] breast documented in this encounter Care Teams Church Secretary Relationship Specialty Start Date End Date No Primary/Referring, Phy PCP - General 10/31/17 1 documented as of this encounter
--- OUTSIDE RECORDS SUMMARY | 2022-08-02 01:24 | XMS_ITS | Encounter Summary ---
:1975 Author Organization [email or web address] Address [address], [place] [address] Care Team Providers Name Role Phone No Primary/Referring, Phy Primary Care Provider Unavailable Reason for Visit Reason Comments RESULTS, TEST 12/08 bilateral breast biopsi es Encounter Details Date Type Department Care Team Description 12/09/2017 Telephone [facility] Nancy José, RESULTS, TEST (12/08 Center BRANDON Balbuena, BOWLING BALL WEIGHER AND PACKER bilateral breast [address] [facility] biopsies) [place] [address] [place] [address] [phone] (Wo rk) Social History Tobacco Use Types [...] documented as of this encounter Nursing Notes Esha Henderson APRN, JOSE - 12/09/2017 12:40 PM CST Phone call to patient with results of benign left breast biopsy from 12/08 with pathology of stromal fibrosis and right breast biopsy from 12/08 with benign fibrocystic change. Radiologist recommends a follow up mammogram in 12 months. If lump increases in size, recommend surgical consult. Patient verbalized understanding. Esha José APRN, JOSE 12/09/2017, 12:40 PM ER OPERATOR documented in this encounter Plan of Treatment Not on filedocumented as of this encounter Visit Diagnoses Not on filedocumented in this encounter Care Teams Pastry Wrapper Relationship Specialty Start Date End Date No Primary/Referring, Phy PCP - General 10/31/17 1 documented as of this encounter
--- OUTSIDE RECORDS SUMMARY | 2022-08-02 01:25 | XMS_ITS | Encounter Summary ---
:1975 Author Organization [facility] Address [address] [place] [address] Care Team Providers Name Role Phone Stefani Casanova MD Primary Care Provider [phone] Reason for Visit Reason Comments Back Pain Encounter Details Date Type Department Care Team Description 12/18/2013 Hospital Encounter [facility] Urgent Kameron Pires Up per back strain Care MD Shankar (Primary Dx) [address] [place], [place] [address] [place], [place] [phone] [address] Social History Tobacco Use Types Packs/Day Years Used Date Smoking Tobacco: Every Day Comments: LESS THAN HALF PACK PER DAY st arted at age 18 and has cut down since then. Alcohol Use Standard Drinks/Week Comments Yes 0 (1 standard drink = 0.6 oz pure alcoho l) RARELY Sex Assigned at Date Recorded Not on file documented as of this encounter Last Filed Vital Signs Vital Sign Reading Time Taken Comments Blood Pressure 117/80 12/18/2013 10:58 AM [employer] Pulse 77 12/18/2013 10:58 AM [employer] Temperature 36.9 ??C (98.4 ??F) 12/18/2013 10:58 AM [employer] Respiratory Rate 12 12/18/2013 10:58 AM [employer] Oxygen Saturation - - Inhaled Oxygen Concentration - - Weight - - Height - - Body Mass Index - - documented in this encounter Medications at Time of Discharge Medication Sig Dispensed Refills Start Date End Date IBUPROFEN 800 MG OR TABS One by mouth three 90 12 10/200803/09/2020 times a day for back pain lamoTRIgine (AKA Take 0.5-1 Tabs by 30 Tab 2 03/15/2010 08/21/2018 LAMICTAL) 100 MG tablet mouth daily. NICOTROL 10 MG IN use as directed qs 0 03/03/2009 INHAIndications: Tobacco use disorder (HRC) RANITIDINE HCL 150 MG OR Take 1 tablet by 60 0 03/0908/21/2018 TABSIndications: GERD mouth twice a day (gastroesophageal reflux disease) VICODIN 5-500 MG OR DENIED per provider, 0 0 200811/03/2017 TABSIndications: clinic to contact Trochanteric bursitis patient documented as of this encounter ED Notes Kameron Pires MD - 12/19/2013 8:29 AM CDT ED Provider Notes signed by Kameron Pries MD at 12/21/132048 Author: Kameron Pires MD Service: (none) Author Type: Physician Filed: 12/21/132048 Note Time: 12/19/13 1001 Status: Signed Silk Blocker: Kameron Pires MD (Physician) NAME: SANTA FARMER MR#: [id number] CSN: [id number] AUTHENTICATING CLINICIAN: Kameron Pires MD CONFIRM #: [id number] LOC: 2320 URGENT CARE PROGRESS NOTE DATE OF VISIT: 12/18/2013 : 1975 ASSESSMENT: Strain of the right back. SUBJECTIVE: Santa is a 38-year-old woman who for 3 days has had back pain from the hairline to the shoulder blade. Advil seems to help. It lubin. It is the right more than the left. Arms are okay. Hands are a little bit numb. She was shoveling before and shoveled quite a lot. She is not working and no physical labor. She does have a grandchild that is [id number]. She is not allergic to any medicine. OBJECTIVE: Please see vital signs in Epic. She is tender from the base of the skull down to the top of the shoulders. It is on both sides, but the right more than the left in the trapezius. There is also some tenderness above the right scapula and just a little bit medial to the scapula, but not below. She can extend her neck almost normally and flexes it about 3[address] Rotation to the right is normal, to the left is about skilled nursing. Abduction is normal of the shoulders. Deep tendon reflexes are brisk and equal. Strength is normal in the hands. Sensation is normal. ASSESSMENT: Strain of the right upper back. PLAN: Rest, ibuprofen, heat, ice. No lifting, and recheck if not getting better. JRB:MEDQ C: CONFIRM #: [id number] documented in this encounter Plan of Treatment Not on filedocumented as of this encounter Visit Diagnoses Diagnosis Upper back strain - Primary Sprain of thoracic region Triage Assessment Note - Martha Bonilla RN - 12/18/2013 10:55 AM [employer] Complains of upper back/shouler pain onset 3 days ago. documented in this encounter Care Teams Pediatric Urologist Relationship Specialty Start Date End Date Stefani Casanova MD PCP - General 01/13/11 08/21/14 [address] [place] [facility] [address] [place] [address] documented as of this encounter
--- OUTSIDE RECORDS SUMMARY | 2022-08-02 01:25 | XMS_ITS | Encounter Summary ---
:1975 Author Organization [facility] Address [address] [place] [address] Care Team Providers Name Role Phone Tico Cheng MD Primary Care Provider Reason for Visit Reason Onset Date Comments WRIST PAIN 02/15/2010 Encounter Details Date Type Department Care Team Description 02/15/2010 Telephone [facility] Tico Chneg MD WRIST PAIN [address] [place] [address] [place] [address] [phone] Social History Tobacco Use Types Packs/Day Years Used Date Smoking Tobacco: Every Day Comments: LESS THAN HALF PACK PER DAY st arted at age 18 and has cut down since then. Alcohol Use Standard Drinks/Week Comments Yes 0 (1 standard drink = 0.6 oz pure alcoho l) RARELY Sex Assigned at Date Recorded Not on file documented as of this encounter Nursing Notes Payton Sharif LPN - 02/15/2010 4:40 PM CDT Left message for patient with below information, informed has not seen anyone in our clinic since 08/08/09 and our policy is to not refill any pain meds over the phone informed if had any further questions to call us back at [phone] Nini Martinez - 02/15/2010 4:28 PM CDT NO Payton Sharif LPN - 02/15/2010 3:48 PM CDT Last seen by Dr. Cheng on 08/08/09 notes from visit Overview Note: Patient is being enrolled in the Restricted Recipient program due to getting prescriptions from approximately 27 doctors in the past twelve months. Along with the # of prescribers, the patient has alsoused 14 pharmacies and has had 11 urgent care visits. The patient was filling prescriptions for 6 different controlled meds, including opiate pain medications and benzodiazepines. The health plan sent the patient a letter to choose providers and asked her to send a form back to us by February 01, 2009, or we would choose providers. She has not yet responded to the letter, if you have additional questions or concerns you can call and talk to me Thanks. Eros Martinez Amelia Casanova - 02/15/2010 1:43 PM CDT Patient is calling to see if she could get some pain medication to hold her over until she see's for her carpel tunnel pain.Patient is scheduled on 03/06/10. Please call her back. documented in this encounter Plan of Treatment Not on filedocumented as of this encounter Visit Diagnoses Not on filedocumented in this encounter Care Teams Bomb Loader Relationship Specialty Start Date End Date Tico Cheng MD PCP - General 03/09/08 01/12/[address] [place], [place] [address] documented as of this encounter
--- OUTSIDE RECORDS SUMMARY | 2022-08-02 01:25 | XMS_ITS | Encounter Summary ---
:1975 Author Organization [facility] Address [address] [place] [address] Care Team Providers Name Role Phone Stefani Casanova MD Primary Care Provider [phone] Encounter Details Date Type Department Care Team Description 11/23/2009 PN Conversion Only [facility] [address] [place] [address] Social History Tobacco Use Types Packs/Day Years [...] on filedocumented in this encounter Care Teams Hamper Maker Machine Relationship Specialty Start Date End Date Stefani Casanova MD PCP - General 01/13/11 08/21/14 [address] [facility] [address] [place] [address] documented as of this encounter
--- OUTSIDE RECORDS SUMMARY | 2022-08-02 01:25 | XMS_ITS | Encounter Summary ---
:1975 Author Organization [facility] Address [address] [place] [address] Care Team Providers Name Role Phone Stefani Casanova MD Primary Care Provider [phone] Reason for Referral Specialty Diagnoses / Procedures Referred By Contact Refer red To Contact Wilda Germain APR N, CNP [address] [place], [place] [address] Referral ID Status Reason Start Date Expiration Date Visits Requ ested Visits Authorized Reason for Visit Reason Comments Follow-up Encounter Details Date Type Department Care Team Description 05/24/2014 Office Visit [place] Wilda Germain, Anxiety sta te, unspecified (Primary Dx); Medicine/Pediatrics JOSE TAYLOR Major depressive disorder, recurrent epi sode; [address] Tobacco use disorder [place], [place] [address] [place], [place] [phone] Social History Tobacco Use Types Packs/Day Years [...] Sign Reading Time Taken Comments Blood Pressure 112/70 05/24/2014 8:48 AM CDT Pulse 64 05/24/2014 8:48 AM CDT Temperature 36.9 ??C (98.4 ??F) 05/24/2014 8:48 AM CDT Respiratory Rate - - Oxygen Saturation - - Inhaled Oxygen Concentration - - Weight 66.2 kg (146 lb) 05/24/2014 8:48 AM CDT Height 161.3 cm (5' 3.5) 05/24/2014 8:48 AM CDT Body Mass Index 25.46 05/24/2014 8:48 AM CDT documented in this encounter Progress Notes Wilda Germain, TURBINE ENGINEER, SHEEP RANCHER - 05/24/2014 9:41 AM CDT S: Santa Farmer is a 38 y.o. female here today for follow-up of depression, anxiety disorder, tobacco abuse. HPI: Last seen by me on 03/03 to assume care of her Wellbutrin. Recently out of treatment at that time and needed local provider. Since last seen, states depression is much improved. Continues to do well with methadone clinic, take- outs are becoming more spaced out. Biggest concern today is anxiety. She does not have any coverage for her anxiety and this is becoming quite bothersome. Did well in the past on Paxil, but had distressing weight gain. Also, would like to quit smoking. Wellbutrin has not helped with that. Smoking 0.5+ pack a day, started at age 17. Wants to be accountable to someone to help her quit. Santa denies suicidal/homicidal ideations. Medication list, allergies, smoking status, family history and problem list have been reviewed and updated in Epic. O: BP 112/70 Pulse 64 Temp(Src) 98.4 ??F (36.9 ??C) Ht 5' 3.5 (161.3 cm) Wt 146 lb (18167 g) BMI 25.45 kg/m2 General: Alert, oriented, NAD, well-groomed and appropriate dress for weather/season. Santa did notarrive on time for appointment today. Psych: normal mood, normal memory, normal affect without flight of ideas. Makes good eye contact during interview; is not tearful during visit. Speech: normal. PHQ-9 is 12/09, CHAPIS-7 is 13. A: Santa was seen today for follow-up. Diagnoses and associated orders for this visit: Anxiety NOS - escitalopram oxalate (LEXAPRO) 10 mg tablet; Take 1 tablet by mouth daily (every 24 hours). - [facility] Care Coordination Consult (AMB) Major depressive disorder, recurrent episode (HCC) - escitalopram oxalate (LEXAPRO) 10 mg tablet; Take 1 tablet by mouth daily (every 24 hours). - [facility] Care Coordination Consult (AMB) Tobacco Abuse - [facility] Care Coordination Consult (AMB) P: Discussed options for treatment, specifically between using SSRI or Buspar. SSRI is gold standardfor major depression and for anxiety. Will try Lexapro to see if this has less side effects for her.Start with half tab for the first two weeks, then increase to whole tab. See me back in 4-6 weeks for re-evaluation. Buspar is still an option, either as adjunct or instead of SSRI if she cannot find amedication that she can tolerate. Will refer her to Raegan Youssef for medication management as well,hopefully she can assist with options for smoking cessation and provide additional counseling on depression/anxiety medications and side effects. Treatment options discussed in detail. Side effect profiles and black box warnings of medications discussed. Continue with methadone clinic. Return visit in 4-6 week(s). She verbalized understanding and agreed. documented in this encounter Plan of Treatment Not on filedocumented as of this encounter Visit Diagnoses Diagnosis Anxiety state, unspecified ([facility]) - Prima ry Anxiety state, unspecified Major depressive disorder, recurrent epi sode ([facility]) Major depressive disorder, recurrent epi sode, unspecified Tobacco use disorder ([facility]) Tobacco use disorder documented in this encounter Care Teams Pretzel Twisting Machine Operator Relationship Specialty Start Date End Date Stefani Casanova MD PCP - General 01/13/11 08/21/[address] [facility] [address] [place] [address] documented as of this encounter
--- OUTSIDE RECORDS SUMMARY | 2022-08-02 01:25 | XMS_ITS | Encounter Summary ---
:1975 Author Organization [facility] Address [address], [place] [address] Care Team Providers Name Role Phone Tico Cheng MD Primary Care Provider Reason for Visit Reason Onset Date Comments Refill 11/22/2009 Encounter Details Date Type Department Care Team Description 11/22/2009 Refill [facility] Edwin Phillips MD Refill [address] [place] [address] [place] [address] (Wo rk) Social History Tobacco Use Types [...] documented as of this encounter Nursing Notes Michelle Paulino - 12/07/2009 10:57 AM CSTApproved Prescriptions: Disp Refills gabapentin (AKA NEURONTIN) 300 MG capsule 60 2Sig: take 1 tablet twice dailyAuthorizing Provider: EDWIN ROONEYOrdertawana User: MICHELLE PAULINO [facility] Michelle Paulino - 12/07/2009 10:57 AM CST Refill approved per Dr. Rooney. Michelle Paulino RN,C Edwin Rai - 12/07/2009 10:39 AM GRAPHITE DISK ASSEMBLER Pending Prescriptions: Disp Refills gabapentin (AKA NEURONTIN) 300 MG capsule 60 2 Sig: take 1 tablet twice daily [facility] Edwin Rooney - 12/07/2009 10:39 AM CST Ok to refill. Edwin Rooney MD [facility] Michelle Paulino - 12/06/2009 2:07 PM GRAPHITE DISK ASSEMBLER Pending Prescriptions: Disp Refills gabapentin (AKA NEURONTIN) 300 MG capsule 60 2 Sig: take 1 tablet twice daily [facility] Michelle Paulino - 12/06/2009 2:07 PM CST The patient is overdue for an appointment with Dr. Rooney. She has been contacted three times regarding an appointment and hasn't responded to any of the messages. Will route to Dr. Rooney for approval or denial of the refill. Michelle Paulino RN,C Shraddha Mccord - 12/06/2009 1:39 PM GRAPHITE DISK ASSEMBLER Pending Prescriptions: Disp Refills gabapentin (AKA NEURONTIN) 300 MG capsule 60 2 Sig: take 1 tablet twice daily Shraddha Mccord - 12/06/2009 1:39 PM CST lft 3rd msg to sched. An appt. Shraddha Mccord - 12/01/2009 4:19 PM CST lft 2nd msg to sched. An appt. Shraddha Mccord - 11/23/2009 10:18 AM CST lft msg to sched. An appt. Michelle Hinton - 11/22/2009 4:23 PM GRAPHITE DISK ASSEMBLER Pending Prescriptions: Disp Refills gabapentin (AKA NEURONTIN) 300 MG capsule 60 2 Sig: take 1 tablet twice daily HITE DISK ASSEMBLER Michelle Paulino - 11/22/2009 4:22 PM CST Last seen 07/19/09. No follow up appointment scheduled. Will route to MOA to attempt to schedule patient. Please route back to nursing to authorize once scheduled. Michelle Paulino RN,C HITE DISK ASSEMBLER Michelle Duke - 11/22/2009 3:46 PM CST Gabapentin last filled 12.19.09 qty 60 last appointment date 07.19.09 future appointment date none last filled 1.15.10 qty 30 HITE DISK ASSEMBLER documented in this encounter Plan of Treatment Not on filedocumented as of this encounter Visit Diagnoses Not on filedocumented in this encounter Care Teams Mutuel Teller Relationship Specialty Start Date End Date Tico Cheng MD PCP - General 03/09/08 01/12/11 [address] [place] [address] documented as of this encounter
--- OUTSIDE RECORDS SUMMARY | 2022-08-02 01:25 | XMS_ITS | Encounter Summary ---
:1975 Author Organization [facility] Address [address] [place] [address] Care Team Providers Name Role Phone Tico Cheng MD Primary Care Provider Reason for Visit Reason Onset Date Comments ERRONEOUS ENTRY 06/14/2009 Encounter Details Date Type Department Care Team Description 06/14/2009 [facility] Tico Cheng MD ERRONEOUS ENTRY [address] [place] [address] [place] [address] (work) [phone] Social History Tobacco Use Types Packs/Day Years Used Date Smoking Tobacco: Every Day Comments: LESS THAN HALF PACK PER DAY st arted at age 18 and has cut down since then. Alcohol Use Standard Drinks/Week Comments Yes 0 (1 standard drink = 0.6 oz pure alcoho l) RARELY Sex Assigned at Date Recorded Not on file documented as of this encounter Nursing Notes Josiane Castro - 06/14/2009 2:39 PM CDT ERRONEOUS ENTRY documented in this encounter Plan of Treatment Not on filedocumented as of this encounter Visit Diagnoses Not on filedocumented in this encounter Care Teams Gospel Worker Relationship Specialty Start Date End Date Tico Cheng MD PCP - General 03/09/08 01/12/11 [address] [place] [id number] documented as of this encounter
--- OUTSIDE RECORDS SUMMARY | 2022-08-02 01:25 | XMS_ITS | Encounter Summary ---
:1975 Author Organization [employer] [facility] Address [address], [place] [address] Care Team Providers Name Role Phone Tico Cheng MD Primary Care Provider Reason for Visit Reason Onset Date Comments Refill 12/01/2009 Encounter Details Date Type Department Care Team Description 12/01/2009 Refill [facility] Edwin Phillips MD Refill [address] [place] [address] [place] [address] (Wo rk) Social History Tobacco [...] encounter Nursing Notes Michelle Paulino - 12/07/2009 10:59 AM CSTApproved Prescriptions: Disp Refills bupropion (AKA WELLBUTRIN XL) 300 MG 24 hou30 0Sig: take 1 tablet daily Authorizing Provider: EDWIN ROONEYOrdertawana User: MICHELLE PAULINO [facility] Michelle Paulino - 12/07/2009 10:59 AM CST Refill approved per Dr. Rooney. Michelle Paulino RN,C Edwin Rai - 12/07/2009 10:40 AM DEMONSTRATOR SEWING TECHNIQUES Pending Prescriptions: Disp Refills bupropion (AKA WELLBUTRIN XL) 300 MG 24 hou30 5 Sig: take 1 tablet daily Edwin Rai - 12/07/2009 10:40 AM CST Ok to refilll 1x time. Edwin Rooney MD Shraddha Batista - 12/07/2009 10:29 AM DEMONSTRATOR SEWING TECHNIQUES Pending Prescriptions: Disp Refills bupropion (AKA WELLBUTRIN XL) 300 MG 24 hou30 5 Sig: take 1 tablet daily Shraddha Batista - 12/07/2009 10:29 AM CST the patient is overdue for an appt. But she will not call back and schedule, do you want to go ahead and refill x1? Shraddha Martinez RN Shraddha Mccord - 12/06/2009 1:40 PM DEMONSTRATOR SEWING TECHNIQUES Pending Prescriptions: Disp Refills bupropion (AKA WELLBUTRIN XL) 300 MG 24 hou30 5 Sig: take 1 tablet daily Shraddha Mccord - 12/06/2009 1:40 PM CST lft 3rd msg to sched. An appt. Shraddha Mccord - 12/01/2009 4:24 PM CST lft 2nd msg to sched. An appt. [facility] after she makes an appointment. Michelle Hinton - 12/01/2009 8:48 AM DEMONSTRATOR SEWING TECHNIQUES Pending Prescriptions: Disp Refills bupropion (AKA WELLBUTRIN XL) 300 MG 24 hou30 5 Sig: take 1 tablet daily Michelle Hinton - 12/01/2009 8:48 AM CST The patient was last seen on 07/19 and was to return for follow up in 3 months. No follow up appointment scheduled. Will route to MOA to attempt to schedule patient. Please route back to nursing to authorize once scheduled. Michelle Paulino RN,C NSTRATOR SEWING TECHNIQUES Michelle Duke - 12/01/2009 8:27 AM CST last filled 115.10 qty 30 last appointment date 07.19.09 future appointment date none NSTRATOR SEWING TECHNIQUES documented in this encounter Plan of Treatment Not on filedocumented as of this encounter Visit Diagnoses Not on filedocumented in this encounter Care Teams Corn Detasseler Relationship Specialty Start Date End Date Tico Cheng MD PCP - General 03/09/08 01/12/[address] [place] [address] documented as of this encounter
--- OUTSIDE RECORDS SUMMARY | 2022-08-02 01:25 | XMS_ITS | Encounter Summary ---
:1975 Author Organization [employer] Address [address] [place] [address] Care Team Providers Name Role Phone Wilda Germain APRN, JOSE Primary Care Provider Reason for Visit Reason Comments Medication Questions Encounter Details Date Type Department Care Team Description 12/07/2014 Telephone Wilda Castrejon, Medication Questions Medicine/Pediatrics BRANDON, JOSE [address] [place], [place] [address] [place], [place] [phone] (Wo rk) Social History Tobacco Use Types [...] documented as of this encounter Nursing Notes Darcie Rosas RN - 12/07/2014 3:23 PM CST FYI only, medication issue. Reviewed med list, pt is to be taking Bupropion 450 mg qd. Since 08/22/14. Called pharmacy, they did not get notified that her dose had changed. 2 separate bupropion orders were entered 08/22/14 (Scriptswith 450 mg dosing from 08/22/14 did not go to pharmacy, just updated EPIC.) Pt had filled her 300 mg pills in August. New rx for 150's was sent to pharmacy, it did not include info regarding taking with 300 mg tab. So they have been giving her a 30 day supply of the 150's only. Clarified with pharmacy current dosing information. They will fill both bupropion 150 mg and 300 mg for total of 450 mg qd. Pharmacy has refills available on both prescriptions, did not need refill approval. Called pt. She said she had enough 300 mg tabs until a month ago, then she started taking 3 of the 150 mg tabs until she ran out. She had ment to call weeks ago but didn't get around to it. So I called today. I'm out of pills. Told pt that she needs alejo appt before running out of her medication, late January or early February. PRESSER Aj Noble - 12/07/2014 2:39 PM CST Pt states when she refilled her buPROPion they only have prescription for the 150 mg and not for [id number], Pt spoke to pharmacy and they stated they would need updated information from PCP enable to get corrected. Pt currently has only been taking the 150 mg and states once updated prescription goes to the pharmacy if there was anything different she needed to do to make up for missed days. Confirmed pharmacy is accurate in epic documented in this encounter Plan of Treatment Not on filedocumented as of this encounter Visit Diagnoses Not on filedocumented in this encounter Care Teams Payroll Tax Analyst Relationship Specialty Start Date End Date Wilda Germain, COLOR CHECKER ROVING OR YARN, CASING MATERIAL WEIGHER PCP - General 08/22/14 06/12/16 [address] [facility] [place] [address] documented as of this encounter
--- OUTSIDE RECORDS SUMMARY | 2022-08-02 01:25 | XMS_ITS | Encounter Summary ---
:1975 Author Organization [facility] Address [address] [place] [address] Care Team Providers Name Role Phone Stefani Casanova MD Primary Care Provider [phone] Reason for Visit Reason Comments Eye Problem Ear Pain Pharyngitis Encounter Details Date Type Department Care Team Description 05/03/2014 Hospital Encounter Danya Soriano, Con junctivitis (Primary Dx); Care Acute pharyngitis; [address] [place] [address] [place], [place] [phone] [id number] Social History Tobacco Use Types Packs/Day Years [...] Sign Reading Time Taken Comments Blood Pressure 114/79 05/03/2014 2:56 PM CDT Pulse 78 05/03/2014 2:56 PM CDT Temperature 37.8 ??C (100 ??F) 05/03/2014 2:56 PM CDT Respiratory Rate 18 05/03/2014 2:56 PM CDT Oxygen Saturation 99% 05/03/2014 2:56 PM CDT Inhaled Oxygen Concentration - - Weight - - Height - - Body Mass Index - - documented in this encounter Medications at Time of Discharge Medication Sig Dispensed Refills Start Date End Date ALBUterol sulfate HFA Inhale 2 puffs every 8 g 0 03/1308/22/2014 inhalation 4 hours as needed for Wheezing. azithromycin (aka Take 2 tabs po on 6 tablet 0 03/22/2014 05/24/2014 ZITHROMAX) tablet day 1, then 1 tab po days 2-5 buPROPion (BUDEPRION XL) Take 1 tablet by 90 tablet 3 03/0304/07/2015 300 MG 24 hour release mouth every morning. tabletIndications: Major Take with 150 mg depressive disorder, tablet to total recurrent episode (HRC) 450mg daily. buPROPion (BUDEPRION XL) Take 1 tablet by 90 tablet 3 03/0308/22/2014 300 MG 24 hour release mouth every morning. tabletIndications: Major depressive disorder, recurrent episode (HRC) penicillin V potassium Take 1 tablet by 28 tablet 0 014 05/10/2014 (aka PEN VEE K) tablet mouth 4 times daily for 7 days. tobramycin (aka TOBREX) Place 1 drop into 5 mL 0 05/0305/24/2014 0.3 % eye the right eye every dropsIndications: 4 hours (while Conjunctivitis awake). IBUPROFEN 800 MG OR TABS One by mouth three 90 12 10/200803/09/2020 times a day for back pain lamoTRIgine (AKA Take 0.5-1 Tabs by 30 Tab 2 03/15/2010 08/21/2018 LAMICTAL) 100 MG tablet mouth daily. methadone (AKA DOLOPHINE) Take 85 mg by mouth 0 0 03/03/2014 03/09/2020 10 MG/ML solution daily (every 24 hours). managed by Methadone clinic, daily take-outs Indications: OPIOID DEPENDENCE NICOTROL 10 MG IN use as directed qs 0 03/03/2009 INHAIndications: Tobacco use disorder (HRC) RANITIDINE HCL 150 MG OR Take 1 tablet by 60 0 03/0908/21/2018 TABSIndications: GERD mouth twice a day (gastroesophageal reflux disease) VICODIN 5-500 MG OR DENIED per provider, 0 0 200811/03/2017 TABSIndications: clinic to contact Trochanteric bursitis patient documented as of this encounter ED Notes Danya Kumari MD - 05/03/2014 3:31 PM CDT Images from the original note were not included. Subjective: Patient ID: Santa Farmer is an 38 y.o. female. Chief Complaint: HPI Comments: Santa presents with a 1 week h/o right eye redness and discharge. She has mattering in the morning. No FB sensation or pain. No visual change. Her daughter had an eye infection several weeks ago and was treated with an eye drop that had HC in the name. She has tried to use this drop without improvement. She also has some throat pain and a swollen gland on the right side of her neck. She has a h/o poor dentition and has been having some tooth pain on the upper right. 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 Review of Systems Constitutional: Negative for fever. HENT: Positive for sore throat. Negative for ear pain, congestion and neck pain. Eyes: Positive for discharge and redness. Respiratory: Negative for cough and sputum production. Cardiovascular: Negative for chest pain. Gastrointestinal: Negative for nausea, vomiting and abdominal pain. Skin: Negative for rash. Neurological: Negative for headaches. Objective: BP 114/79 Pulse 78 Temp(Src) 37.8 ??C (100 ??F) (Oral) Resp 18 SpO2 99% LMP 03/14/2014 Physical Exam Constitutional: She appears well-developed and well-nourished. No distress. HENT: Right Ear: Tympanic membrane and ear canal normal. Left Ear: Tympanic membrane and ear canal normal. Nose: Nose normal. No mucosal edema or rhinorrhea. Mouth/Throat: Oropharynx is clear and moist. Dental abscesses (as marked) and dental caries (multiple dental caries and decay throughout mouth) present. No oropharyngeal exudate, posterior oropharyngeal edema or posterior oropharyngeal erythema. Neck: Neck supple. Cardiovascular: Normal rate, regular rhythm and normal heart sounds. Pulmonary/Chest: Effort normal and breath sounds normal. No respiratory distress. Lymphadenopathy: She has cervical adenopathy (right anterior cervical 1 cm adenopathy). RSS: neg Assessment: Diagnosis (ICD9) ICD-9-CM 1. Conjunctivitis 372.30 2. Acute pharyngitis 462 3. Dental abscess 522.5 The primary encounter diagnosis was Conjunctivitis. Diagnoses of Acute pharyngitis and Dental abscess were also pertinent to this visit. MDM Plan: I advised pt to stop using her daughter's eye drops (they likely contain a steroid) and switch to Tobrex for her eye. I don't think she has strep and the enlarged node in her neck is likely from her dental infection. Will contact her if the throat culture is abnormal. I think she has a dental abscess and will start her on pcn. I recommended Ibuprofen for pain. She requested Vicodin but given her h/o cocaine and heroin abuse I'd like to avoid narcotics if possible so I declined to give her a prescription. She accepted that and agreed to try ibuprofen. I encouraged her to f/u with a dentist as soon as possible. Medications Prescribed this Visit Disp Refills Start End penicillin v potassium (VEETID) 500 mg tablet 28 tablet 0 05/03/2014 05/10/2014 Take 1 tablet by mouth 4 times daily for 7 days. Oral tobramycin (TOBREX) 0.3 % ophthalmic solution 5 mL 0 05/03/2014 Place 1 drop into the right eye every 4 hours (while awake). Right Eye Lexie Travis RN - 05/03/2014 3:09 PM CDT rst neg documented in this encounter Miscellaneous Notes Medication History - Jaswinder Callejas MD - 05/03/2014 3:31 PM CDT INPATIENT MEDS Encounter Date: 05/03/14 tobramycin (TOBREX) 0.3 % ophthalmic solution Start Date:05/03/14, End Date:05/24/14, Frequency:EVERY 4 HOURS WHILE AWAKE *No Administrations Recorded penicillin v potassium (VEETID) 500 mg tablet Start Date:05/03/14, End Date:05/10/14, Frequency:4 TIMES DAILY *No Administrations Recorded documented in this encounter Plan of Treatment Not on filedocumented as of this encounter Procedures Procedure Name Priority Date/Time Associated Diagnosis Comme nts BETA STREP FOLLOWUP Routine 05/03/2014 4:57 PM Re sults for this CDT procedure are i n the results section. GROUP A STREP STAT 05/03/2014 3:05 PM Acute pharyngitis Res ults for this ANTIGEN SCREEN CDT procedure are in the results section. documented in this encounter Results BETA STREP FOLLOWUP (05/03/2014 4:57 PM CDT) Patholo gist Method Time Signature Source Throat HP CONVERSION Site HP CONVERSION Strep Screen No beta HP CONVERSION hemolytic Strep Group A isolated. Specimen (Source) Anatomical Collection Method Collection Time Re ceived Time Location / / Volume Laterality Throat: 05/03/2014 4:57 PM CDT Danya Kumari MD LAB_1 Performing Organization Address [facility] Phon e Number HP CONVERSION RAPID STREP GROUP A WAIVED (05/03/2014 3:05 PM CDT) Analysis Performed At [facility] logist Time Signature Strep A Negative Negative HP CONVERSION Antigen Strep A Source Throat: HP CONVERSION Specimen Anatomical Collection Method Collection Time Receive d Time (Source) Location / / Volume Laterality 05/03/2014 3:05 PM 4 4:57 CDT PM CDT Narrative HP CONVERSION - 05/03/2014 5:02 PM CDT Performed at [facility], [address] [place] [address] Danya Kumari MD LAB_1 Performing Organization Address City/[facility] Phon e Number HP CONVERSION documented in this encounter Visit Diagnoses Diagnosis Conjunctivitis - Primary Conjunctivitis, unspecified Acute pharyngitis Dental abscess Periapical abscess without sinus Triage Assessment Note - Book, Lexie Bratnley RN - 05/03/2014 3:05 PM CDT Redness, swelling, mattery drainage, and crusting to right eye x 1 week. States daughter had infection but not conjuctivitis, and she used her gtts at home but are not effective. Swelling to right neck lymph node, sore throat, right ear pain, and tooth pain x 1 week. documented in this encounter Care Teams Medical Records Specialist Relationship Specialty Start Date End Date Stefani Casanova MD PCP - General 01/13/11 08/21/14 [address] [facility] [address] [place] [address] documented as of this encounter
--- OUTSIDE RECORDS SUMMARY | 2022-08-02 01:25 | XMS_ITS | Encounter Summary ---
:1975 Author Organization [facility] Address [address] [place] [address] Care Team Providers Name Role Phone Tico Cheng MD Primary Care Provider Encounter Details Date Type Department Care Team Description 07/19/[address] [facility] Psychiat ry Edwin Hess, Bipolar II Disorder (Primary Dx); [address] Mel Rodriguez MD Panic Disorder without Agoraphobia [address] [place] [address] [id number] Social History Tobacco Use Types Packs/Day Years Used Date Smoking Tobacco: Every Day Comments: LESS THAN HALF PACK PER DAY st arted at age 18 and has cut down since then. Alcohol Use Standard Drinks/Week Comments Yes 0 (1 standard drink = 0.6 oz pure alcoho l) RARELY Sex Assigned at Date Recorded Not on file documented as of this encounter Progress Notes Edwin Hess - 07/19/2009 12:00 AM CDT DATA: The patient is a 34 -year-old woman, mother of four, seen for 20 minutes for medication follow up visit. She is currently on gabapentin 300 milligrams b.i.d. which she started after the last visit. She has continued on fluoxetine 30 milligrams a day and bupropion SR 150 milligrams in the morning. She reports a remarkable improvement with her anxiety symptoms since she started taking the gabapentin. She notes that she feels more calm, relaxed and able to cope better with stressors. She is also more gentle and patient with her children. She notes that her behavior has affected other people's behavior and they seem to enjoy being with her more than before. She said that she decided not to take the Lamictal even though she understood that given her bipolar affective disorder it would be a good idea to be on a mood stabilizer. She basically said that she thinks she can handle it without the mood stabilizer. Otherwise, the patient also noted decrease in pain and discomfort in the shoulders and back. She stated that in general she feels she is doing much better. In fact, she remarked that life is good. She denied any other concerns or problems. She reports getting along well with her boyfriend. No new problems or difficulties reported otherwise. I discussed with patient her medication needs, encouraged her to continue on the same medication regimen. ASSESSMENT: The patient was appropriately dressed and well groomed. She was friendly and pleasant and did not appear in any significant distress. She was nicely engaged. She looked more relaxed and at ease. She maintained good eye contact. Psychomotor behavior within normal limits. Speech was normal. Affect was appropriate. Mood described as more relaxed. There was no evidence of any overt psychotic or manic symptoms and cognitively she was intact. No evidence of suicidal risk. The patient scored 1 on the PHQ-9 showing no evidence of depression. Working diagnosis continues bipolar affective disorder type-2 and panic disorder without agoraphobia. PLAN: Encouraged patient to continue on the same medication regimen namely gabapentin 200 milligrams b.i.d., fluoxetine 30 milligrams in the morning and bupropion SR 150 milligrams in the morning. I asked her to call me if needed. Come back and see me in three months for her next medication follow up visit. A / P 9st cc: documented in this encounter Plan of Treatment Not on filedocumented as of this encounter Visit Diagnoses Diagnosis Bipolar II disorder (HRC) - Primary Other bipolar disorders Panic disorder without agoraphobia (HRC) Panic disorder without agoraphobia documented in this encounter Care Teams Direct Sales Professional Relationship Specialty Start Date End Date Tico Cheng MD PCP - General 03/09/08 01/12/[address] [place] [address] documented as of this encounter
--- OUTSIDE RECORDS SUMMARY | 2022-08-02 01:25 | XMS_ITS | Encounter Summary ---
:1975 Author Organization [employer] Address [address], [place] [address] Care Team Providers Name Role Phone Wilda Germain APRN, CNP Primary Care Provider [phone] Reason for Visit Reason Comments Refill Encounter Details Date Type Department Care Team Description 08/22/2014 Refill [facility] SHARDA Casanova, Stefani Magdaleno, Refill [address] [address] [address] [facility] [address] [place], [place] [id number] (Wo rk) Social History Tobacco Use Types [...] documented as of this encounter Nursing Notes Wilda Germain APRN, CNP - 08/22/2014 3:47 PM CST Addressed at office visit. ICAL DOCUMENTATION CONSULTANT Esha Gibson - 08/22/2014 12:13 PM CST PSC Medication Issue/Refill Primary Care Provider: DAINA June Patient to contact pharmacy: no Comment: refill; Lexapro, Pt is out of med, Please call when ready for pickup. Pt aware may take 48hrs to process. Pharmacy Name & Phone #: [facility] Street or City: [place] Drug Name: Lexapro Strength: unk Dose/Route/Freq: unk *ECODE documented in this encounter Plan of Treatment Not on filedocumented as of this encounter Visit Diagnoses Diagnosis Anxiety state, unspecified (HRC) Anxiety state, unspecified Major depressive disorder, recurrent epi sode (HRC) Major depressive disorder, recurrent epi sode, unspecified documented in this encounter Care Teams Product Development Engineer Relationship Specialty Start Date End Date Wilda Germain APRN, PRINCIPAL ASSOCIATE PCP - General 08/22/14 06/12/16 [address] [facility] [place] [address] documented as of this encounter
--- OUTSIDE RECORDS SUMMARY | 2022-08-02 01:25 | XMS_ITS | Encounter Summary ---
:1975 Author Organization [employer] Address [address], [place] [address] Care Team Providers Name Role Phone Stefani Casanova MD Primary Care Provider Encounter Details Date Type Department Care Team Description 11/23/2009 Office Visit [facility] Mick Chris MD [address] [address] [place] [address] [place], [place] [address] (Wo rk) Social History Tobacco Use Types [...] Sign Reading Time Taken Comments Blood Pressure 116/76 11/23/2009 10:50 AM COMB TENDER Pulse 70 11/23/2009 10:50 AM COMB TENDER Temperature 36.6 ??C (97.9 ??F) 11/23/2009 10:50 AM COMB TENDER C: 3 6.6 C Respiratory Rate 16 11/23/2009 10:50 AM COMB TENDER Oxygen Saturation - - Inhaled Oxygen Concentration - - Weight - - Height - - Body Mass Index - - documented in this encounter Progress Notes Mick Chris MD - 11/23/2009 12:01 AM CST Progress Notes signed by Mick Chris MD at 11/24/09 0808 Author: Mick Chris MD Service: (none) Author Type: Physician Filed: 02/02/112005 Note Time: 11/23/09 0001 Status: Signed [employer]: Mcik Chris MD (Physician) NAME: SANTA FARMER MR#: [id number] ACCT: [id number] VISIT: [id number] DICTATING CLINICIAN: MICK CHRIS MD CONFIRM #: [id number] LOC: 820 CLINIC PROGRESS NOTE DATE OF VISIT: 11/23/2009 SUBJECTIVE: 34-year-old female with chronic right neck/trapezius area pain, constant but sharp and exacerbated when she lifts her right arm. It is worse by the end of the day. 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 [facility] She has no insurance now and pays out of pocket. She has had x-rays of the neck before, which were negative. Sometimes she feels tingling in the forearm and hand on the right side, and she apparently has a known carpal tunnel syndrome, but she was never able to address ??that?? because of funds. She has history of left hip bursitis. ADR/ALLERGIES: REVIEWED IN PATIENT'S HEALTH PROFILE OF [facility]. MEDICATIONS: Reviewed in patient's health profile of [facility]. OBJECTIVE: VS: BP: 116/76. T: 97.8. P: 70. R: 16. On exam, she looks in no acute distress. Even though she perceives her right upper back to be swollen, it is not obvious at all to inspection. To me, the inspection shows symmetry. She complained of some tenderness to deep palpation in the right trapezius distribution, mostly closer to the base of the right neck. No skin discoloration. Range of motion of the right shoulder is normal, some exacerbation of discomfort upon abduction against resistance. Some discomfort with external rotation of the shoulder. She is normoreflexic, and power in the upper extremities is grossly normal with good symmetry. Range of motion of the neck is normal with some exacerbation of the discomfort upon extension. ASSESSMENT: Chronic right neck/trapezius area pain. PLAN: The patient understands that with physical therapy, ??their bill?? as well as, in general, imaging when needed, and a specialist, but she cannot afford any of these now. She is working on obtaining [employer] insurance and, for now, I gave a prescription for Flexeril, 20 dispensed, 10 mg, to use at night only as needed; side effects discussed; and Vicodin which, she understands, is very temporary, is not meant to be repeated with any frequency, 20 dispensed, 5/500, no refill. Side effects discussed. OS:[id number] C: 11/23/09 13:35 CONFIRM #: [id number] TENDER documented in this encounter Plan of Treatment Not on filedocumented as of this encounter Visit Diagnoses Not on filedocumented in this encounter Care Teams Septic Pump Truck Driver Relationship Specialty Start Date End Date Stefani Casanova MD PCP - General 01/13/11 08/21/14 1000 [facility] [address] [place] [address] documented as of this encounter
--- OUTSIDE RECORDS SUMMARY | 2022-08-02 01:25 | XMS_ITS | Encounter Summary ---
:1975 Author Organization [employer] Address [address] [place] [address] Care Team Providers Name Role Phone Wilda Germain APRN, JOSE Primary Care Provider Reason for Visit Reason Comments Dysuria Encounter Details Date Type Department Care Team Description 07/10/2015 Nurse Triage ReddickWilda Cohn APRN, Dysur ia Medicine/Pediatrics WASH WORKER [address] [place], [place] [address] [place] [address] [phone] (Wo rk) Social History Tobacco Use Types [...] documented as of this encounter Nursing Notes Bindu Spann RN - 07/10/2015 8:14 PM CDT Protocol: URINATION PAIN - [id number] Affirmative: All other patients with painful urination(Exception: [1] EITHER frequency or urgency AND [2] has on-call doctor) Disposition of See Physician Within 24 Hours suggested. Pt has sx again of a UTI. urgency, freq and burning. She was treated a month ago for this and sx improved. Thinks she needs to be on an antibiotic longer this time. Recommended that pt be seen. documented in this encounter Plan of Treatment Not on filedocumented as of this encounter Visit Diagnoses Not on filedocumented in this encounter Care Teams Denture Technician Relationship Specialty Start Date End Date Wilda Germain APRN, WASH WORKER PCP - General 08/22/14 06/12/16 [address] [facility] [place] [address] documented as of this encounter
--- OUTSIDE RECORDS SUMMARY | 2022-08-02 01:25 | XMS_ITS | Encounter Summary ---
:1975 Author Organization [employer] Address [address] [place] [address] Care Team Providers Name Role Phone Wilda Germain APRN, CNP Primary Care Provider [phone] Reason for Visit Reason Comments Dysuria Encounter Details Date Type Department Care Team Description 06/08/2015 Telephone [place]Wilda Freeman APRN, Dysur ia Medicine/Pediatrics BUFFING WHEEL PRESSER [address] [place], [place] [address] [place] [address] [phone] (Wo rk) Social History Tobacco Use Types [...] documented as of this encounter Patient Instructions Patient InstructionsClare Singh RN - 06/08/2015 11:31 AM CDT PATIENT INSTRUCTIONS Increase intake of water. Eliminate caffeine and alcohol to decrease irritation of urinary tract mucosa. Avoid perfumed soaps or bath additives. May try tepid bath for comfort measure. Cleanse front toback after elimination. Avoid excess sun exposure while taking certain antibiotics. Return to clinicif symptoms do not subside. documented in this encounter Nursing Notes Clare Singh, RN - 06/08/2015 11:31 AM CDT UTI FEMALE ALEXANDRA Pratt is a 39 y.o., female with symptoms of discomfort or pain with urination and frequency. The patient has the following symptoms that require stat evaluation: none The patient has the following symptoms that require a provider visit: none Complicating history: none Current Outpatient Prescriptions Medication Sig Note Dispense Refill ??? buPROPion (WELLBUTRIN XL) 300 mg XL 24 hour tablet Take 1 tablet by mouth every morning. 90 tablet 3 ??? escitalopram oxalate (LEXAPRO) 20 mg tablet Take 1 tablet by mouth daily (every 24 hours). 90 tablet 3 ??? ibuprofen (MOTRIN) 800 mg tablet Take 800 mg by mouth every 8 hours as needed. for pain 04/07/2015: Received from: External Pharmacy 0 ??? methadone 10 mg/mL concentrated solution Take 85 mg by mouth daily (every 24 hours). managed by Methadone clinic, daily take-outs Indications: OPIOID DEPENDENCE No current facility-administered medications for this visit. Allergies as of 06/08/2015 ??? (No Known Allergies) ASSESSMENT Patient has two or more symptoms suggestive of an uncomplicated UTI and agrees to antibiotic therapyover the phone. PLAN Antibiotic prescribed per standing order, instructed to finish entire course. (See orders) Clare Singh, RN Sue Jeff - 06/08/2015 11:23 AM CDT Patient is having UTI symptoms. documented in this encounter Plan of Treatment Not on filedocumented as of this encounter Visit Diagnoses Diagnosis Urinary tract infection without hematuri a, site unspecified - Primary documented in this encounter Care Teams Plc Technician Relationship Specialty Start Date End Date Wilda Germain APRN, BUFFING WHEEL PRESSER PCP - General 08/22/14 06/12/16 [address] [facility] [address] [place] [address] documented as of this encounter
--- OUTSIDE RECORDS SUMMARY | 2022-08-02 01:25 | XMS_ITS | Encounter Summary ---
:1975 Author Organization [employer] Address [address] [place] [address] Care Team Providers Name Role Phone Tico Cheng MD Primary Care Provider Reason for Visit Reason Onset Date Comments Medication Request 03/19/2010 Encounter Details Date Type Department Care Team Description 03/19/2010 Telephone [facility] Edwin Phillips MD Medication Request [address] [place] [address] [id number] [phone] Social History Tobacco Use Types Packs/Day Years Used Date Smoking Tobacco: Every Day Comments: LESS THAN HALF PACK PER DAY st arted at age 18 and has cut down since then. Alcohol Use Standard Drinks/Week Comments Yes 0 (1 standard drink = 0.6 oz pure alcoho l) RARELY Sex Assigned at Date Recorded Not on file documented as of this encounter Nursing Notes Shantell Paulino - 04/26/2010 2:07 PM CDT Will close encounter. Shantell Paulino RN,C Grace Hernandez - 04/26/2010 2:02 PM CDT Please close encounter if it can be closed. Shraddha Martinez - 03/19/2010 3:47 PM CDT Called the patient to let her know that we do not have sample of lamictal. She states that she can not get the medication script filled for the lamictal from Dr. Hess because all her script need to be signed by only Dr. Cheng. The patient has GMAC and needs to get with [facility] program. She states that she does not have an appt, but she talked to someone and she is [facility]. I gave her the number for member services to see if they can figure out what is going on with the 1 MD signature. Shraddha Martinez, RN Grace Hernandez - 03/19/2010 3:36 PM CDT Because of her insurance the pharmacy will not fill any script with out Dr Cheng's signature. She has been without her lamictal and is starting to feel sick from withdraw. Are there some samples she can get? documented in this encounter Plan of Treatment Not on filedocumented as of this encounter Visit Diagnoses Not on filedocumented in this encounter Care Teams Crane Chaser Relationship Specialty Start Date End Date Tico Cheng MD PCP - General 03/09/08 01/12/11 [address] [id number] documented as of this encounter
--- OUTSIDE RECORDS SUMMARY | 2022-08-02 01:25 | XMS_ITS | Encounter Summary ---
:1975 Author Organization [employer] Address [address] [place] [address] Care Team Providers Name Role Phone Wilda Germain APRN, JOSE Primary Care Provider Reason for Visit Reason Comments Refill Encounter Details Date Type Department Care Team Description 04/24/2015 Refill Wilda Castrejon APRN, Refjulieta l Medicine/Pediatrics AFTER SCHOOL CAREGIVER [address] [place], [place] [address] [place] [address] [phone] (Wo rk) Social History Tobacco Use Types [...] documented as of this encounter Nursing Notes User, Austinilljorge - 04/25/2015 9:32 AM CDT 1) buPROPion (WELLBUTRIN XL) 300 mg XL 24 hour tablet [Pharmacy Med Name: BUPROPION HCL XL 300 MG TABLET] - MEDICATION STARTED: 03/03/2014 - LAST REFILLED ON: 04/07/2015, QTY: 90, Refills: 3, Sig: take 1 tablet by mouth every morning. (changed) - WARNING: The patient should have outstanding refills for this medication until 01/02/2016. - REFILL: 12 months (if warnings resolved) - RATIONALE: This refill should last until the patient is due for an office visit. - LAST QUALIFYING VISIT WITH WILDA KHALIL R: 04/07/2015 - NEXT SCHEDULED VISIT: None - SBP: 106.0mm Hg on 04/07/2015 - DBP: 74.0mm Hg on 04/07/2015 Powered by [employer], Reference: [id number], 04/24/2015 8:00:55 PM CDT, Pool: [facility] MED PED REFIL ([id number]) 2) escitalopram oxalate (LEXAPRO) 20 mg tablet [Pharmacy Med Name: ESCITALOPRAM 20 MG TABLET] - MEDICATION STARTED: 08/22/2014 - LAST REFILLED ON: 04/07/2015, QTY: 90, Refills: 3, Sig: take 1 tablet by mouth daily (every 24 hours). (unchanged) - WARNING: The patient should have outstanding refills for this medication until 01/02/2016. - REFILL: 12 months (if warnings resolved) - RATIONALE: This refill should last until the patient is due for an office visit. - LAST QUALIFYING VISIT WITH WILDA KHALIL R: 04/07/2015 - NEXT SCHEDULED VISIT: None - SBP: 106.0mm Hg on 04/07/2015 - DBP: 74.0mm Hg on 04/07/2015 Powered by [employer], Reference: [id number], 04/24/2015 8:00:55 PM CDT, Pool: [facility] MARK PED REFIL ([id number]) Charito Mccurdy CMA - 04/25/2015 9:32 AM CDT Requested medications currently have refill(s) available at [facility]. Pt notified via [employer]. Requested Prescriptions Refused Prescriptions Disp Refills ??? buPROPion (WELLBUTRIN XL) 300 mg XL 24 hour tablet [Pharmacy Med Name: BUPROPION HCL XL 300 MG TABLET] 90 tablet 0 Sig: TAKE 1 TABLET BY MOUTH EVERY MORNING . (TAKE WITH 150MG TAB. TOTAL DOSE = 450MG) Refused By: CHARITO MCCURDY V Reason for Refusal: REQUEST ALREADY RESPONDED TO BY OTHER MEANS (E.G. PHONE OR FAX) ??? escitalopram oxalate (LEXAPRO) 20 mg tablet [Pharmacy Med Name: ESCITALOPRAM 20 MG TABLET] 90 tablet 3 Sig: TAKE 1 TABLET BY MOUTH DAILY (EVERY 24 HOURS). Refused By: CHARITO MCCURDY V Reason for Refusal: REQUEST ALREADY RESPONDED TO BY OTHER MEANS (E.G. PHONE OR FAX) documented in this encounter Miscellaneous Notes Patient Email (Converted) - Sudhakar Kay Provider - 04/25/2015 9:32 AM CDT Refill From User: CHARITO MCCURDY V The medication denial you have just received is because the prescriptions that were requested have already been transmitted to a pharmacy. Rx's were sent to [facility]. Please contact pharmacy for refill. If you need to switch pharmacies, please contact your preferred pharmacy to transfer your prescription(s). Thank you. M TRAP WORKER documented in this encounter Plan of Treatment Not on filedocumented as of this encounter Visit Diagnoses Not on filedocumented in this encounter Care Teams Rail Crew Member Relationship Specialty Start Date End Date Wilda Germain APRN, AFTER SCHOOL CAREGIVER PCP - General 08/22/14 06/12/16 [address] [facility] [place] [address] documented as of this encounter
--- OUTSIDE RECORDS SUMMARY | 2022-08-02 01:25 | XMS_ITS | Encounter Summary ---
:1975 Author Organization [employer] Address [address] [place] [address] Care Team Providers Name Role Phone Tico Cheng MD Primary Care Provider Reason for Visit Reason Onset Date Comments PRESCRIPTION, NOS 03/17/2010 Encounter Details Date Type Department Care Team Description 03/17/2010 Telephone Careline Tico Cheng MD PRESCRIPTION, NOS [address] [place], [place] [address] [place] [address] [phone] Social History Tobacco Use Types Packs/Day Years Used Date Smoking Tobacco: Every Day Comments: LESS THAN HALF PACK PER DAY st arted at age 18 and has cut down since then. Alcohol Use Standard Drinks/Week Comments Yes 0 (1 standard drink = 0.6 oz pure alcoho l) RARELY Sex Assigned at Date Recorded Not on file documented as of this encounter Nursing Notes Albertina Turcios - 03/17/2010 5:43 PM CDT 5:42 PM 03/17/2010 Patient saying I need the Lamital that Dr Hess order when I saw him . Care line nurse talked with GHAZALA Truong pharmacist at [phone] the prescription that was started at clinic appointment with Dr Hess. *pharmacist saying that no matter what type of medication-patient needs to get this medication from Dr Cheng or needs to get her pyschiatrist listed with Dr Cheng. 5:49 PM patient notified-asking what happens if I go through withdrawal? Plan:advised to contact Dr Cheng on Friday and to go into [facility]'s emergency room if feels needs to be seen before Friday. (pt agreed and understood) Albertina Turcios RN Ashley Moreno - 03/17/2010 5:28 PM CDT Does the patient currently have [employer] insurance? [place] Which care system is the patient affiliated with?[facility] Situation: Pt went to pharmacy picking technician prescription and it was denied because the correct dr did not prescribe it A nurse will call you back within the next hour. If you have not heard from a nurse, please feel free to call us back at [phone] and state that you are waiting for a callback. documented in this encounter Plan of Treatment Not on filedocumented as of this encounter Visit Diagnoses Not on filedocumented in this encounter Care Teams Seat Scooper Machine Relationship Specialty Start Date End Date Tico Cheng MD PCP - General 03/09/08 01/12/11 [address] [address] documented as of this encounter
--- OUTSIDE RECORDS SUMMARY | 2022-08-02 01:25 | XMS_ITS | Encounter Summary ---
:1975 Author Organization [employer] Address [address] [place] [address] Care Team Providers Name Role Phone Tico Cheng MD Primary Care Provider Encounter Details Date Type Department Care Team Description 03/15/2010 Office Visit [facility] Psychiat ry Edwin Hess, Bipolar II Disorder (Primary Dx); [address] MD Panic Disorder without Agoraphobia [address] [place] [id number] Social History Tobacco Use Types Packs/Day Years [...] this encounter Progress Notes Edwin Hess - 03/15/2010 2:03 PM CDT Santa Farmer is a 34 yr old female D.: Patient is a 34 year old woman, seen for routine medication followup visit. She arrived late for appointment and I was able to meet with her for about 10 minutes. Patient reports that shehad stopped the bupropion and fluoxetine a while ago but continued on the Lamictal. She complained that she had run out of Lamictal and had quite withdrawal symptoms. Otherwise she notes that overall the medication seems to help her feel more stable and even. She denied any symptoms of anxiety depression noting that her life has taken some very positive terms. 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 Patient denied any suicidal ideation or any other concerns. She is aware that she is now on [facility] and to be seen in one of the [facility] clinics. She seemed pretty frustrated about it. Otherwise patient denied any other concerns or problems. We discussed her medication needs in a recommended to take Lamictal between 50 and 100 mg a day. She was agreeable to it. A.: Patient was appropriate dressed and well-groomed. She seemed a little harried. Otherwise she maintained good eye contact. Psychomotor became within normal limits. Her affect was appropriate and mood described as pretty good. There was no evidence of any overt psychotic or manic symptoms. Thought content was appropriate and rather and without evidence of delusions paranoia or ideas of reference. Cognitively she was intact. Judgment and insight intact. No evidence of suicidal risk. Working diagnoses continues for affective disorder type II and panic disorder, without agoraphobia in good remission. P.: Encourage patient to continue on Lamictal 50-100 mg a day and renewed the prescription. I adjusted to set up an appointment to see a psychiatrist fairly soon. In the meantime encouraged to call us if she had any questions or problems. Edwin Hess MD 03/15/2010, 2:03 PM documented in this encounter Plan of Treatment Not on filedocumented as of this encounter Visit Diagnoses Diagnosis Bipolar II disorder (HRC) - Primary Other bipolar disorders Panic disorder without agoraphobia (HRC) Panic disorder without agoraphobia documented in this encounter Care Teams Outdoor Studies Professor Relationship Specialty Start Date End Date Tico Cheng MD PCP - General 03/09/08 01/12/[address] [place] [address] documented as of this encounter
--- OUTSIDE RECORDS SUMMARY | 2022-08-02 01:25 | XMS_ITS | Encounter Summary ---
:1975 Author Organization [employer] Address [address] [place] [address] Care Team Providers Name Role Phone Stefani Casanova MD Primary Care Provider [phone] Reason for Visit Reason Comments MASS Encounter Details Date Type Department Care Team Description 04/06/2014 Hospital Encounter [facility] ected pilonidal Care [place] [address] [place], [place] [address] Social History Tobacco Use Types Packs/Day Years [...] Sign Reading Time Taken Comments Blood Pressure 104/70 04/06/2014 3:10 PM CDT Pulse 84 04/06/2014 3:10 PM CDT Temperature 36.8 ??C (98.2 ??F) 04/06/2014 3:10 PM CDT Respiratory Rate 12 04/06/2014 3:10 PM CDT Oxygen Saturation - - Inhaled Oxygen Concentration - - Weight - - Height - - Body Mass Index - - documented in this encounter Medications at Time of Discharge Medication Sig Dispensed Refills Start Date End Date ALBUterol sulfate HFA Inhale 2 puffs every 8 g 0 03/1308/22/2014 inhalation 4 hours as needed for Wheezing. amoxicillin-clavulanate Take 1 tablet by 20 tablet 0 201304/16/2014 (aka AUGMENTIN) tablet mouth 2 times daily for 10 days. Take with food. azithromycin (aka Take 2 tabs po on day 6 tablet 0 014 05/24/2014 ZITHROMAX) tablet 1, then 1 tab po days 2-5 buPROPion (BUDEPRION XL) Take 1 tablet by 90 tablet 3 03/0304/07/2015 300 MG 24 hour release mouth every morning. tabletIndications: Major Take with 150 mg depressive disorder, tablet to total 450mg recurrent episode (HRC) daily. buPROPion (BUDEPRION XL) Take 1 tablet by 90 tablet 3 03/0308/22/2014 300 MG 24 hour release mouth every morning. tabletIndications: Major depressive disorder, recurrent episode (HRC) IBUPROFEN 800 MG OR TABS One by mouth three 90 12 10/200803/09/2020 times a day for back pain lamoTRIgine (AKA Take 0.5-1 Tabs by 30 Tab 2 03/15/2010 08/21/2018 LAMICTAL) 100 MG tablet mouth daily. methadone (AKA Take 85 mg by mouth 0 03/03/2014 0 03/09/2020 DOLOPHINE) 10 MG/ML daily (every 24 solution hours). managed by Methadone clinic, daily take-outs [...] documented as of this encounter ED Notes Freddy Fish DO - 04/06/2014 3:31 PM CDT ED Provider Notes signed by Freddy Fish DO at 04/06/14 7558 Author: Freddy Fish DO Service: (none) Author Type: Physician Filed: 04/06/14 1731 Note Time: 04/06/14 170 Status: Signed Yarn Man: Freddy Fish DO (Physician) NAME: SANTA FARMER MR#: [id number] CSN: [id number] AUTHENTICATING CLINICIAN: Freddy Fish DO CONFIRM #: [id number] LOC: 2320 URGENT CARE PROGRESS NOTE DATE OF VISIT: 04/06/2014 : 1975 CHIEF COMPLAINT: Lump on tailbone. HISTORY: A 38-year-old female has noticed a little bit of a lump on her tailbone area for about a week. It has gotten worse the last 2 or 3 days. No fever or systemic symptoms. The pain is not all that bad, rates it maybe 3/10 at best. She is not using heat or ice. Not taking any medication. Just has not required any medicine because it does not hurt that much. No specific bowel or bladder changes other than she has some chronic constipation related to being on methadone. This is a new problem for her, although she recalls that her boyfriend had noticed a black spot in the past that they thought was a blackhead. He tried to pop it at one point, but could not get any drainage and then it just hurt, so theyleft it alone. Generally healthy. She is not diabetic. Not . 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 She has had a tubal ligation. She is up-to-date on tetanus. Most recently seen 03/22/2014, for bronchitis, on Zithromax then, so that would have been out of her system by about 04/01. I do not see any wound cultures listed in electronic record. She has had only 2 antibiotic prescriptions at [facility], both being Zithromax and most recent as stated above. She has had 4 Vicodin prescriptions in the past, but none since 2009. She is not here requesting pain medications. ALLERGIES TO MEDICINES: None. CURRENT MEDICATIONS: Methadone, albuterol and Wellbutrin. PHYSICAL EXAMINATION: Temp is 98.2. Pulse 84. Respirations 12. Blood pressure 104/70. Female patient no acute distress. She has a small pilonidal dimple that is the black spot that she referred to. There is some small area, maybe 1 cm in size of [place] induration, but no obvious fluctuance or abscess formation. No drainage. Minimal tenderness. ASSESSMENT: Pilonidal cyst with cellulitis without abscess currently. PLAN: This is the first time this has happened for her. I am going to have her start Augmentin to be used as directed over 7-10 days. Moist heat, analgesics. If this settles down nicely she will followup with Primary Care, then they may discuss whether they will just follow this along or have her go ahead and see a surgeon. If it keeps recurring then definitely would benefit from seeing a surgeon for a wider excision. If this currently progresses despite the antibiotic and forms an abscess, then she wouldfollowup for incision and drainage. Next. SMT:MEDQ C: CONFIRM #: [id number] documented in this encounter Miscellaneous Notes Medication History - Jaswinder Callejas MD - 04/06/2014 3:33 PM CDT INPATIENT MEDS Encounter Date: 04/06/14 amoxicillin-clavulanate (AUGMENTIN) 875-125 mg per tablet Start Date:04/06/14, End Date:04/16/14, Frequency:2 TIMES DAILY *No Administrations Recorded documented in this encounter Plan of Treatment Not on filedocumented as of this encounter Visit Diagnoses Diagnosis Infected pilonidal cyst Pilonidal cyst without mention of absces s Triage Assessment Note - Linda Graham RN - 04/06/2014 3:08 PM CDT Pt. reports having a lump on her tailbone about the size of a 1/2 dollar. Noticed a few days ago & its tender. No injury. documented in this encounter Care Teams Embossing Clerk Relationship Specialty Start Date End Date Stefani Casanova MD PCP - General 01/13/11 08/21/14 [address] [place] [address] documented as of this encounter
--- OUTSIDE RECORDS SUMMARY | 2022-08-02 01:25 | XMS_ITS | Encounter Summary ---
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 episode (Primary Dx) [place], [place] [address] [place], [place] [phone] [address] Social History Tobacco Use Types Packs/Day Years [...] Sign Reading Time Taken Comments Blood Pressure 118/86 03/03/2014 3:13 PM CDT Pulse - - Temperature - - Respiratory Rate - - Oxygen Saturation - - Inhaled Oxygen Concentration - - Weight 65.8 kg (145 lb) 03/03/2014 3:13 PM CDT Height 161.3 cm (5' 3.5) 03/03/2014 3:13 PM CDT Body Mass Index 25.28 03/03/2014 3:13 PM CDT documented in this encounter Progress Notes Wilda Germain APRN, CNP - 03/03/2014 3:39 PM CDT S: Santa Farmer is a 38 y.o. female here today for management of depression, anxiety disorder. HPI: Long-standing history of drug abuse and dependence. Has recently completed inpatient treatment and finished [address]. Most recent drug of abuse was heroin (for 5 years). Now on methadone, 85 mg, daily take-outs. Has been on Wellbutrin XL 300mg for the past four weeks. Was on this prior, but stopped taking it. This was previously managed by [facility]. Now that is done with treatment, needs new provider to manage Wellbutrin. Santa denies suicidal/homicidal ideations. Medication list, allergies, smoking status, family history and problem list have been reviewed and updated in Epic. O: BP 118/86 Ht 5' 3.5 (161.3 cm) Wt 145 lb (58559 g) BMI 25.28 kg/m2 General: Alert, oriented, NAD, well-groomed and appropriate dress for weather/season. Santa did arrive on time for appointment today. Psych: normal mood, normal memory, normal affect without flight of ideas. Makes good eye contact during interview; is not tearful during visit. Speech: rapid. PHQ-9 is 02/06, CHAPIS-7 is 09/02. A: Santa was seen today for depression. Diagnoses and associated orders for this visit: Major depressive disorder, recurrent episode (HCC) - buPROPion (WELLBUTRIN XL) 300 mg XL 24 hour tablet; Take 1 tablet by mouth every morning. Other Orders - methadone 10 mg/mL concentrated solution; Take 85 mg by mouth daily (every 24 hours). managed by Methadone clinic, daily take-outs Indications: OPIOID DEPENDENCE P: Continue with substance abuse treatment. States recent testing and physical through [facility], Care Everywhere was reviewed. Return visit in 1 month if fails to continue to improve. She verbalized understanding and agreed. I spent 20 minutes with this patient, 15 minutes in discussion about above diagnosis, treatment options, and follow up plans. documented in this encounter Plan of Treatment Not on filedocumented as of this encounter Visit Diagnoses Diagnosis Major depressive disorder, recurrent epi sode (HRC) - Primary Major depressive disorder, recurrent epi sode, unspecified documented in this encounter Care Teams Conference Services Manager Relationship Specialty Start Date End Date Stefani Casanova MD PCP - General 01/13/11 08/21/[address] [address] documented as of this encounter
--- OUTSIDE RECORDS SUMMARY | 2022-08-02 01:25 | XMS_ITS | Encounter Summary ---
:1975 Author Organization [email or web address] Address [address] [place] [address] Care Team Providers Name Role Phone Tico Cheng MD Primary Care Provider Reason for Referral Specialty Diagnoses / Procedures Referred By Contact Refer red To Contact Tico Cheng MD [address] [place] [address] Referral ID Status Reason Start Date Expiration Date Visits Requ ested Visits Authorized Scheduling Instructions [facility] an [facility] was advised, please call [phone] to schedule an appointment at a surgery clinic location convenient for you. Our Surgeons see patients in [facility], [place] and [place]. Please expect a follow-up call to assist you if you are not able to call. Reason for Visit Reason Comments HIP PAIN left BACK PAIN left Encounter Details Date Type Department Care Team Description 08/08/2009 [facility] Visit [facility] Tico Cheng, Carpal Tunnel Syndrome (Prim gian Dx); [address] MD CAREPLAN: RESTRICTED PATIENT; [address] [place] Chronic Pain [place], [place] [address] [phone] Social History Tobacco Use Types Packs/Day Years Used Date Smoking Tobacco: Every Day Comments: LESS THAN HALF PACK PER DAY st donnad at age 18 and has cut down since then. Alcohol Use Standard Drinks/Week Comments Yes 0 (1 standard drink = 0.6 oz pure alcoho l) RARELY Sex Assigned at Date Recorded Not on file documented as of this encounter Last Filed Vital Signs Vital Sign Reading Time Taken Comments Blood Pressure 106/70 08/08/2009 3:27 PM CDT Pulse 100 08/08/2009 3:27 PM CDT Temperature - - Respiratory Rate - - Oxygen Saturation - - Inhaled Oxygen Concentration - - Weight 71.7 kg (158 lb) 08/08/2009 3:27 PM CDT Height - - Body Mass Index 27.99 05/15/2009 5:08 PM CDT documented in this encounter Patient Instructions Patient InstructionsTico Cheng - 08/08/2009 3:46 PM CDT Please stop at check out desk to make appointment with surgeon. Please make sure you get 500 of calcium with 200 of vitamin D daily. Consider using wrist support brace or CHRISTINA wrap with activity to reduce pain. Take Tylenol as needed without exceeding 4grams per day. Apply asper cream or bengay topically. You could try ice packs or warm pack as tolerated. Call or return to clinic prn if these symptoms worsen, fail to improve as anticipated, or if new symptoms develop. Please machine pecan picker medication from our pharmacy No refills on vicodin after this due to previous problems with drug dependence. documented in this encounter Progress Notes Tico Cheng - 08/08/2009 3:40 PM CDT SUBJECTIVE: Chief Complaint Patient presents with ??? HIP PAIN left ??? BACK PAIN left Santa Farmer is a 34 yr old female is here today with her youngest son. She has had Right hand numbness, involves the thumb, second and third fingers for more than two months. It is pretty much present all the time in that when she presses on these areas, the sensation is decreased. She does have often at night more typical pins and needles sensation. She sometimes feels that pressing on her elbow in a certain way or pressing in her forearm creates more symptoms out the arm. She uses keyboarding and mousing as part of her school. She is a mother of four children. Pain interferes with her day to day activities. She says she takesotc meds during the day and has had difficulty getting comfortable at night. She has a splint at home but did not wear it today. She says it is not like her hip or back pain. She had EMG done and it anna ws carpal tunnel syndrome. She is requesting referral to a surgeon for definitive treatment. She is also requesting Vicodin, to use only at night until she can have surgery done. She under stands that she has had problems with pain medication addiction. She reassures me that she will use it sparingly. Past Medical History Diagnosis Date ??? Tobacco Use Disorder ??? Allergic Rhinitis, Cause Unspecified May ??? Chronic Pain 01/31/2009 Patient is being enrolled in the Restricted Recipient program due to getting prescriptions from approximately 27 doctors in the past twelve months. Along with the # of prescribers, the patient has also used 14 pharmacies and has had 11 urgent care visits. The patient was filling prescriptions for 6 different controlled meds, including opiate pain medications and benzodiazepines. The health plan ??? Alcohol Abuse 05/16/2009 ??? Cocaine Abuse 05/16/2009 ??? Narcotic Abuse 05/16/2009 Patient Active Problem List Diagnoses Date Noted CAREPLAN: RESTRICTED PATIENT [07583] 02/03/2009 Priority: High priority Panic Disorder without Agoraphobia [300.01] 07/19/2009 Bipolar II Disorder [296.89A] 07/19/2009 Cocaine Abuse [305.60A] 05/16/2009 Mechanical Low Back Pain [724.2AR] 03/03/2009 Chronic Pain [338.29A] 01/31/2009 Overview Note: Patient is being enrolled in [...] and talk to me Thanks. Eros Martinez Insomnia [780.52A] 12/28/2008 Bursitis of Hip [726.5A] 06/01/2008 Tobacco Use Disorder [305.1] 03/09/2008 GERD (Gastroesophageal Reflux Disease) [530.81K] 03/09/2008 OBJECTIVE: PHYSICAL EXAMINATION: The patient appears healthy,in no acute distress,mobile without assistance, well nourished, appears stated age, alert Vital Signs: BP 106/70 Pulse 100 Wt 158 lb (71.668 kg) LMP 07/13/2009 HEENT: Head negative EOM's intact Neck: full range of motion Lungs: Respirations normal. Edema: no Neurological exam reveals normal without focal findings, mental status, speech normal, alert and oriented x iii. Gait is normal. Bilateral hand exam shows no obvious signs of joint inflammation. The Phalen maneuver was negative when tested for short while patient reports having symptoms if she held it in that position for a while. Letter sent to patient regarding EMG result was reviewed. ASSESSMENT: Encounter Diagnoses Code Name Primary? Qualifier ??? 354.0 Carpal Tunnel Syndrome Yes Plan: SURGERY CONSULT-ADULTS, HYDROCODONE-ACETAMINOPHEN 5-500 MG OR TABS ??? 40991 CAREPLAN: RESTRICTED PATIENT ??? 338.29A Chronic Pain PLAN: See orders and AVS for details. Risk benefits of narcotic pain medication use was reviewed. She agrees there will not be further refills on vicodin. More than 25 minutes total time, over 50% spent on counseling/coordinating care Follow up: As needed. Tico Cheng MD documented in this encounter Plan of Treatment Scheduled Referrals Name Type Priority Associated Diagnoses Order S chedule SURGERY CONSULT-ADULTS Referral Routine Carpal Tunnel Synd sacha Ordered: 08/08/2009 documented as of this encounter Visit Diagnoses Diagnosis Carpal tunnel syndrome - Primary CAREPLAN: RESTRICTED PATIENT, HEALTH PAR TNERS DISEASE AND CASE MANAGEMENT Chronic pain Other chronic pain documented in this encounter Care Teams Cytotechnologist/Histotechnologist Relationship Specialty Start Date End Date Tico Cheng MD PCP - General 03/09/08 01/12/11 [address] [id number] documented as of this encounter
--- OUTSIDE RECORDS SUMMARY | 2022-08-02 01:25 | XMS_ITS | Encounter Summary ---
:1975 Author Organization [facility] Address [address] [place] [address] Care Team Providers Name Role Phone Wilda Germain APRN, CNP Primary Care Provider [phone] Reason for Visit Reason Comments Refill Encounter Details Date Type Department Care Team Description 08/22/2014 Office Visit Wilda Castrejon Major depre ssive disorder, recurrent episode (Primary Dx); Medicine/Pediatrics JOSE TAYLOR Anxiety state, unspecified [address] [place], [place] [address] [place], [place] [phone] [id number] Social History Tobacco Use Types Packs/Day Years [...] Sign Reading Time Taken Comments Blood Pressure 112/64 08/22/2014 3:12 PM LOSS PREVENTION COORDINATOR Pulse 72 08/22/2014 3:12 PM LOSS PREVENTION COORDINATOR Temperature - - Respiratory Rate - - Oxygen Saturation - - Inhaled Oxygen Concentration - - Weight 63.5 kg (140 lb) 08/22/2014 3:12 PM LOSS PREVENTION COORDINATOR Height - - Body Mass Index 24.41 05/24/2014 8:48 AM CDT documented in this encounter Progress Notes Wilda Germain APRN, CNP - 08/22/2014 3:49 PM CST S: Santa Farmer is a 39 y.o. female here today for follow-up of depression, anxiety disorder, priordrug abuse. HPI: Continued abstinence from substances. Doing well with Methadone clinic, one take-out only now. States since last seen, did increase her Lexapro on her own to 20mg and feeling well. Ran out early due to this change, so increased her Wellbutrin XL to 600 mg daily. Denies side effects. Feeling well and happy with her progress. Santa denies suicidal/homicidal ideations. Medication list, allergies, smoking status, family history and problem list have been reviewed and updated in Epic. O: BP 112/64 Pulse 72 Wt 140 lb (49752 g) BMI 24.41 kg/m2 General: Alert, oriented, NAD, well-groomed and appropriate dress for weather/season. Santa did arrive on time for appointment today. Psych: normal mood, normal memory, normal affect without flight of ideas. Makes excellent eye contact during interview; is not tearful during visit. Speech: normal. PHQ-9 is 11/08, CHAPIS-7 is 05/02. A: Santa was seen today for medication refill. Diagnoses and associated orders for this visit: Major depressive disorder, recurrent episode (HCC) - escitalopram oxalate (LEXAPRO) 20 mg tablet; Take 1 tablet by mouth daily (every 24 hours). - buPROPion (WELLBUTRIN XL) 150 mg XL 24 hour tablet; Take 1 tablet by mouth every morning. Anxiety NOS - escitalopram oxalate (LEXAPRO) 20 mg tablet; Take 1 tablet by mouth daily (every 24 hours). P: Will restart Lexapro at 20mg daily. New dose of Wellbutrin XL is 450 mg, she is educated that this is the maximum safe dose. Continue with Methadone clinic. Return visit in 6 month(s). She verbalized understanding and agreed. PREVENTION COORDINATOR documented in this encounter Plan of Treatment Not on filedocumented as of this encounter Visit Diagnoses Diagnosis Major depressive disorder, recurrent epi sode (HRC) - Primary Major depressive disorder, recurrent epi sode, unspecified Anxiety state, unspecified (HRC) Anxiety state, unspecified documented in this encounter Care Teams Solutions Manager Relationship Specialty Start Date End Date Wilda Germain APRN, CHARRER PCP - General 08/22/14 06/12/16 [address] [place] [address] documented as of this encounter
--- OUTSIDE RECORDS SUMMARY | 2022-08-02 01:25 | XMS_ITS | Encounter Summary ---
:1975 Author Organization [employer] Address [address] [address] Care Team Providers Name Role Phone Tico Cheng MD Primary Care Provider Reason for Visit Reason Onset Date Comments Refill 06/23/2009 Encounter Details Date Type Department Care Team Description 06/23/2009 Refill [facility] Tico Cheng MD Refill [address] [place] [address] [place] [address] [phone] Social History Tobacco Use Types Packs/Day Years Used Date Smoking Tobacco: Every Day Comments: LESS THAN HALF PACK PER DAY st arted at age 18 and has cut down since then. Alcohol Use Standard Drinks/Week Comments Yes 0 (1 standard drink = 0.6 oz pure alcoho l) RARELY Sex Assigned at Date Recorded Not on file documented as of this encounter Nursing Notes Tammy Howard - 06/26/2009 1:34 PM CDT Contacted as per provider instructions Vonnie Mendez - 06/26/2009 1:13 PM CDT Approved Prescriptions: Disp Refills hydrocodone-acetaminophen (VICODIN) 5-500 M9999 0 Sig: DENIED per provider, clinic to contact patient, dispense of 9999=DO NOT FILL Authorizing Provider: VONNIE MENDEZ Vonnie Mendez - 06/26/2009 1:12 PM CDT please inform her she needs to have an appointment with her Primary Provider- Dr Cheng and come up with a care Plan for any use of narcotic pain med. I will not refill her Vicodin today - make an appt with [facility] If she is attending any Drug treatment program she should bring a summary form them about how she isdoing Kristine Bell - 06/26/2009 9:41 AM CDT Pending Prescriptions: Disp Refills hydrocodone-acetaminophen (VICODIN) 5-500 M30 0 Si or 2 hs for back or neck pain Kristine Bell - 06/26/2009 9:41 AM CDT Last pcp visit for this problem 03/03/09. No careplan for this med. Josiane Castro - 06/23/2009 4:14 PM CDT Last refilled: 05-16-09 Qty of last refill: 30 documented in this encounter Plan of Treatment Not on filedocumented as of this encounter Visit Diagnoses Diagnosis CAREPLAN: RESTRICTED PATIENT, HEALTH PAR TNERS DISEASE AND CASE MANAGEMENT Narcotic abuse Sedative, hypnotic or anxiolytic abuse, unspecified documented in this encounter Care Teams Web Site Admin Relationship Specialty Start Date End Date Tico Cheng MD PCP - General 03/09/08 01/12/[address] [place] [id number] documented as of this encounter
--- OUTSIDE RECORDS SUMMARY | 2022-08-02 01:25 | XMS_ITS | Encounter Summary ---
:1975 Author Organization [employer] [facility] Address [address], [place] [address] Care Team Providers Name Role Phone Marcellus Wilda Shankar TAYLOR CNP Primary Care Provider [phone] Encounter Details Date Type Department Care Team Description 03/29/2015 Notes/Orders Heart & Vascular James Goss, Opioid type Center Echocardiogra perfecto MAYB[place] dependence, [address] unspecified ([place], [place] ) [phone] (Wo rk) Social History Tobacco Use Types [...] Name Priority Date/Time Associated Diagnosis Comme nts ECG 12 LEAD Routine 03/30/2015 2:55 PM Opioid type Results f or this OUTPATIENT CDT dependence, procedure are i n unspecified the results section. documented in this encounter Results ECG 12 Lead Outpatient (03/30/2015 2:55 PM CDT) P athologist Signature Ventricular Rate 63 BPM [facility] Atrial Rate 63 BPM [facility] P-R Interval 164 ms [facility] QRS Duration 108 ms [facility] QT 418 ms [facility] QTc 427 ms [facility] P [place] 68 degrees [facility] R [place] 70 degrees [facility] T [place] 46 degrees [facility] Specimen (Source) Anatomical Collection Method Collection Time Re ceived Time Location / / Volume Laterality 03/30/2015 2:55 PM CDT Narrative [facility] - 01/14/2020 8:49 AM CDT Sinus rhythm Normal ECG No previous ECGs available Confirmed by KAY HENNESSY ([id number]), RM oPnd ([id number]) on 03/31/2015 11:27:05 AM Procedure Note Epic, Internal Processing - 01/15/2020Fo rmatting of this note might be different from the original. Sinus rhythm Normal ECG No previous ECGs available Confirmed by KAY HENNESSY ([id number]), RM Pond ([id number]) on 03/31/2015 11:27:05 AM James Goss MD PN ECG ORDERABLES Performing Organization Address City/State/ZIP Code Phon e Number [facility] [address] [place] [address] documented in this encounter Visit Diagnoses Diagnosis Opioid type dependence, unspecified - Pr imary documented in this encounter Care Teams Seat Builder Relationship Specialty Start Date End Date Wilda Germain, INDUSTRIAL THERAPIST, SLURRY CONTROL TENDER PCP - General 08/22/14 06/12/16 [address] [facility] [place] [address] documented as of this encounter
--- OUTSIDE RECORDS SUMMARY | 2022-08-02 01:25 | XMS_ITS | Encounter Summary ---
:1975 Author Organization [facility] Address [address] [place] [address] Care Team Providers Name Role Phone Tico Cheng MD Primary Care Provider Encounter Details Date Type Department Care Team Description 06/16/2009 Office Visit [facility] Psychiat ry Edwin Hess, Bipolar II Disorder (Primary Dx); [address] MD Panic Disorder without Agoraphobia [address] [place] [phone] Social History Tobacco Use Types Packs/Day Years [...] this encounter Progress Notes Edwin Hess - 06/16/2009 12:00 AM CDT DATA: The patient is a 33 -year-old single woman, mother of four, seen for 25 minutes for evaluation with medication management services. The patient was last seen in March when she came in for her initial intake. She was diagnosed with bipolar affective disorder type-2 and history of panic disorder. She was started on Lamictal in addition to fluoxetine and bupropion that she had been taking before. Apparently the patient was also getting prescriptions for alprazolam and clonazepam. I okayed refills for her clonazepam and instructed her to stop the alprazolam for her panic attacks. However, there was a patient alert indicating that patient had seen approximately 27 doctors in the last year and used 14 pharmacies and had 11 urgent care visits. She was filling prescriptions for six different control medications including opiate pain medications and benzodiazepines. I confronted patient about this in the visit today and she denied all this saying that they were untrue. She, however, said that she had more visits to the dentist due to wisdom tooth that was giving her a great deal of pain. Otherwise, the patient reports that she stopped the Lamictal after she had finished a starter pack. She explained that she was too busy taking care of her kids and did not see any difference in her mood or symptoms with the Lamictal. She reports that she has been having panic attacks about once a week and they come on very unexpectedly and in different places. She finds the clonazepam to be very helpful with that. Otherwise, the patient denied any symptoms of depression or mood swings. She denied any manic symptoms. She, however, noted that she feels irritated quite a bit of the time. The patient denied suicidal ideation. She scored zero on the PHQ-9. I had a discussion with patient about her medication needs and given her diagnosis of bipolar disorder, I strongly encouraged her to get back on the Lamictal. I also voiced with her my concerns about her use of benzodiazepines explaining that I was not comfortable with keeping her on them and recommended instead a trial of gabapentin. I gave her ample information about gabapentin including potential side effects and risks and explained the off label use of the medication such as in her case. Even though she seemed somewhat frustrated and sullen, she agreed to try the gabapentin. Also I urged her to go back and see Oriana Lynn for ongoing therapy. The patient denied alcohol or substance abuse. ASSESSMENT: The patient was appropriately dressed and well groomed. She was very nicely made up. She seemed initially relaxed and comfortable but as we started addressing her issues in regard to the patient alert and the restrictions that her mood changed and she seemed to get frustrated and sulky. She voiced her displeasure a number of times though doing it in a polite manner. She maintained good eye contact and her psychomotor behavior within normal limits. Speech was unremarkable without evidence of pressured speech. Affect was appropriate. Mood appeared frustrated and sullen. There was no evidence of any overt psychotic or manic symptoms in the visit. Thought content was appropriate and relevant without evidence of delusions, paranoia or ideas of reference. Judgment and insight intact and cognitive function within normal limits. I did not think she presented suicidal. Working diagnosis continues bipolar affective disorder type-2 and history of panic disorder without agoraphobia 300.01. PLAN: Instructed the patient to stop clonazepam and instead start on gabapentin 300 milligrams b.i.d. Also encouraged her to start back on the Lamictal and since it has been awhile since she stopped it, I instructed her to titrate the medication slowly and eventually get up to 100 milligrams a day. Encouraged her to continue on the fluoxetine 40 milligrams a day and bupropion SR 150 milligrams in the morning. I asked her to call me if needed. Come back and see me in one month for her next medication follow up visit. Greater than 50% of my time was spent doing counseling and coordination of care. A / P 9st cc: documented in this encounter Plan of Treatment Not on filedocumented as of this encounter Visit Diagnoses Diagnosis Bipolar II disorder (HRC) - Primary Other bipolar disorders Panic disorder without agoraphobia (HRC) Panic disorder without agoraphobia documented in this encounter Care Teams Loop Drier Operator Relationship Specialty Start Date End Date Tico Cheng MD PCP - General 03/09/08 01/12/11 [address] [id number] documented as of this encounter
--- OUTSIDE RECORDS SUMMARY | 2022-08-02 01:25 | XMS_ITS | Encounter Summary ---
:1975 Author Organization [employer] Address [address] [place] [address] Care Team Providers Name Role Phone Tico Cheng MD Primary Care Provider Reason for Visit Reason Onset Date Comments Medication Side Effects 02/13/2010 Encounter Details Date Type Department Care Team Description 02/13/2010 Telephone [facility] Edwin Phillips MD Medication Side Effects [address] [place] [phone] Social History Tobacco Use Types Packs/Day Years [...] of this encounter Nursing Notes Shantell Paulino Ashlie - 02/13/2010 4:46 PM CDT Spoke with the patient. She said she's scared about not having any Lamictal. Said she can't afford to see Dr. Hess because she doesn't have any insurance at this time. She said she submitted her application and is waiting to hear if it's approved. She has 24 tabs of Lamictal 25 mg. She will use those and will call back in 2 weeks to let us know the status of her MA application. Shantell Paulino RN,C Edwin Hess - 02/13/2010 3:29 PM CDT Pt needs to be seen first before meds can be ordered. Edwin Hess MD Shraddha Martinez - 02/13/2010 1:14 PM CDT Called the patient and she states that she was kicked out of her mother's house, she said her mom snapped and kicked her out and she does not have any insurance right now, she is working on trying to get back on it. The patient states that she is off all her meds, her prozac and wellbutrin since approx. October, and she states that she had not been able to find her starter kit for lamictal for 4 days. She started to shake, was light headed, dizzy and shaky. The patient then found her lamictal pack today and took a quarter of 100mg tab that was in the last row of her pack. So she took 25mg and she states that she feels better. She is wondering if she can get an order for 25mg tablet to get her through until she gets insuranceso she does not start to withdrawal from the med. The patient did not taper the med as instructed she was trying to make them last. She states that she can start tapering after she gets her insurance back. Will route to Dr. Hess for input. Shraddha Martinez RN Shraddha Chris - 02/13/2010 12:38 PM CDT She feels she may be having side effects from her lamactal medication. She said she will go into details with the nurse. documented in this encounter Plan of Treatment Not on filedocumented as of this encounter Visit Diagnoses Not on filedocumented in this encounter Care Teams Bag Printer Relationship Specialty Start Date End Date Tico Cheng MD PCP - General 03/09/08 01/12/11 [address] [id number] documented as of this encounter
--- OUTSIDE RECORDS SUMMARY | 2022-08-02 01:25 | XMS_ITS | Encounter Summary ---
:1975 Author Organization [employer] Address [address] [place] [address] Care Team Providers Name Role Phone Marcellus Wilda Chaparro APRN, CNP Primary Care Provider [phone] Reason for Visit Reason Comments Dental Conversion [facility] to [place] convers ion Encounter Details Date Type Department Care Team Description 03/20/2017 Dental Conversion [facility] DDS [address] [facility] [address] [place] [address] [place], [place] [phone] [id number] Social History Tobacco Use Types Packs/Day Years [...] on file documented as of this encounter Discharge Summaries Interface, In Edr Dental Conversion - 05/03/2017 12:00 AM CDT EDR Pt Notes: 07-22-07 pt. 25 mins late documented in this encounter Progress Notes Kameron Moreau, DDS - 02/03/2009 12:00 AM CDT Restricted patient. Patient to contact PCP for any controlled substance. ? PCC: [facility] ? PCP: Yakelin Spears MD or hemant MAYBERRY ? UC: [facility] [place] ? Hospital: [facility] ? Pharmacy is: [facility] [phone] ? Account Manager Education: Eros Martinez, ext [phone], Mail Stop [id number] Encounter Note Tricia Varela, NADIRAS - 09/24/2007 12:00 AM CST Encounter Note NICAL REPORT WRITER documented in this encounter Miscellaneous Notes Miscellaneous - Interface, In Edr Dental Conversion - 10/27/2008 12:00 AM TECHNICAL REPORT WRITER 10/27/2008: Films Mailed: Pt requested that x-rays be sent to [facility], [address] [place] [address]. Copied and faxed today. NICAL REPORT WRITER Miscellaneous - Interface, In Edr Dental Conversion - 10/17/2008 12:00 AM TECHNICAL REPORT WRITER 10/17/2008: Outgoing Phone Call: Pt left message on machine to send xrays to [facility]. Returned her call to let her know that we needed an FABY signed. Was told to send it to the [address] address [address] [place] [address] NICAL REPORT WRITER Miscellaneous - Interface, In Edr Dental Conversion - 06/10/2008 12:00 AM CDT 06/10/2008: Incoming Phone Call: Pt called requesting medication until she can come in to the clinic. She says that she has too much going on right now to be able to come into the clinc until next week. She complains of pain & possible swelling (see EMDV). She can be reached at the home # and it is OKLM. Miscellaneous - Interface, In Edr Dental Conversion - 05/02/2008 12:00 AM CDT 05/02/2008: Incoming Phone Call: Patient called to see if she can get a refill of Ultram called in to [facility] pharmacy in [place]. Gave info to Dr Carroll. Miscellaneous - Interface, In Edr Dental Conversion - 03/05/2008 12:00 AM CDT 03/05/2008: Class A Truck Driver Phone Contact: home number pharmacy [phone] Pt said she has no insurance right now and plans to have it reinstated soon. She is looking for some pain meds. I advised her that she cannot live on strong pain meds for weeks and she should try to look into this and take ibu and tyl regimine as described. Urged her to seek preventive help as soon as possible. Miscellaneous - Interface, In Edr Dental Conversion - 09/24/2007 12:00 AM TECHNICAL REPORT WRITER 09/24/2007: Films Scanned: fm 12-03-02, 2--3 bw 06-29-04 NICAL REPORT WRITER Miscellaneous - Interface, In Edr Dental Conversion - 08/26/2007 12:00 AM TECHNICAL REPORT WRITER 08/26/2007: SNC/NS Notification: called number listed. Patient not home. Person who answered stated that she was out with a friend. 2nd fail letter sent NICAL REPORT WRITER Miscellaneous - Interface, In Edr Dental Conversion - 07/22/2007 12:00 AM CDT 07/22/2007: SNC/NS Notification: called patient about ns, no answer. LM. SOLIS documented in this encounter Plan of Treatment Not on filedocumented as of this encounter Visit Diagnoses Not on filedocumented in this encounter Care Teams Automatic Hemmer Relationship Specialty Start Date End Date Wilda Germain, SPORTS AGENT, BIT SHAVER PCP - General 06/13/16 10/30/17 [address] [facility] [place] [address] documented as of this encounter
--- OUTSIDE RECORDS SUMMARY | 2022-08-02 01:25 | XMS_ITS | Encounter Summary ---
:1975 Author Organization [employer] Address [address] [place] [address] Care Team Providers Name Role Phone Wilda Germain APRN, CNP Primary Care Provider [phone] Encounter Details Date Type Department Care Team Description 04/07/2015 Lab Visit [facility] ry Screening for cholesterol le chet; [address] Excessive sweating; [place], [place] [address] Constipation, unspecified co nstipation type; [phone] Screen for STD (sexually transmitted disease) Social History Tobacco Use Types Packs/Day Years [...] Priority Date/Time Associated Diagnosis Comme nts HIV ANTIBODY Routine 04/07/2015 9:27 AM Screen for STD Results for this CDT (sexually procedure are i n transmitted disease) the res ults section. TSH AND FREE T4 (FRT4 Routine 04/07/2015 9:27 AM Excessi ve sweating Results for this IF TSH ABNORM) CDT Constipation, procedure ar e in unspecified the results constipation type section. TREPONEMA SCREEN Routine 04/07/2015 9:27 AM Screen for STD Res ults for this CDT (sexually procedure are i n transmitted disease) the res ults section. LIPID PANEL AND Routine 04/07/2015 9:27 AM Screening for Resul ts for this DIRECT LDL(IF NEEDED) CDT cholesterol level p rocedure are in the results section. COMPLETE BLOOD Routine 04/07/2015 9:27 AM Excessive swe ating Results for this COUNT-W/DIFF CDT Constipation, procedure are in unspecified the results constipation type section. COMP METABOLIC PANEL Routine 04/07/2015 9:27 AM Excessiv e sweating Results for this CDT Constipation, procedure are in unspecified the results constipation type section. DIFFERENTIAL Routine 04/07/2015 9:27 AM Results f or this CDT procedure are i n the results section. HEPATITIS C ANTIBODY, Routine 04/07/2015 9:[address] D Results for this WITH REFLEX CDT (sexually procedure are i n transmitted disease) the res ults section. documented in this encounter Results Differential (04/07/2015 9:27 AM CDT) P athologist Signature Absolute 3.9 1.8 - 8.0 HP CONVERSION Neutrophils k/cmm Absolute 2.2 1.1 - 4.0 HP CONVERSION Lymphocytes k/cmm Absolute 0.5 0.2 - 0.8 HP CONVERSION Monocytes k/cmm Absolute 0.2 0.0 - 0.5 HP CONVERSION Eosinophils k/cmm Absolute 0.0 0.0 - 0.2 HP CONVERSION Basophils k/cmm Specimen Anatomical Collection Method Collection Time Receive d Time (Source) Location / / Volume Laterality 04/07/2015 9:27 AM 5 9:27 CDT AM CDT Narrative HP CONVERSION - 04/07/2015 9:43 AM CDT Performed at [facility] [address], [place] [address] Wilda Germain APRN, PRESIDENT SALES AND MARKETING LAB_1 Performing Organization Address City/State/ZIP Code Phon e Number HP CONVERSION Treponema Screen (04/07/2015 9:27 AM CDT) [facility] gist Method Time Signature Treponema Non Reactive Non Reactive HP CONVERSION Screen Specimen Anatomical Collection Method Collection Time Receive d Time (Source) Location / / Volume Laterality 04/07/2015 9:27 AM 5 CDT 12:29 PM CDT Narrative HP CONVERSION - 04/07/2015 2:08 PM CDT Performed at [facility], [address] [place] [address] Wilda Germain APRN, CNP LAB_1 Performing Organization Address [facility] Phon e Number HP CONVERSION HIV ANTIBODY (04/07/2015 9:27 AM CDT) athologist Signature HIV 1/HIV 2 Non-React Non-Reacti HP CONVERSION ve Specimen Anatomical Collection Method Collection Time Receive d Time (Source) Location / / Volume Laterality 04/07/2015 9:27 AM 5 CDT 12:29 PM CDT Narrative HP CONVERSION - 04/07/2015 3:04 PM CDT Performed at [facility], [facility] [place] [address] Wilda Germain APRN, JOSE LAB_1 Performing Organization Address [facility] Phon e Number HP CONVERSION Hepatitis C Antibody, with Reflex (04/07/2015 9:27 AM CDT) [facility] Method Time Signature Hepatitis C Non-React Non-Reacti HP CONVERSION Antibody ve Specimen Anatomical Collection Method Collection Time Receive d Time (Source) Location / / Volume Laterality 04/07/2015 9:27 AM 5 CDT 12:29 PM CDT Narrative HP CONVERSION - 04/07/2015 3:04 PM CDT Performed at [facility], [facility] [place] [address] Wilda Germain APRN, CNP LAB_1 Performing Organization Address [facility] Phon e Number HP CONVERSION TSH AND FREE T4 (FRT4 IF TSH ABNORM) (04/07/2015 9:27 AM CDT) athologist Signature Thyroid 2.95 0.20 - HP CONVERSION Stimulating 4.50 mIU/L Hormone Specimen Anatomical Collection Method Collection Time Receive d Time (Source) Location / / Volume Laterality 04/07/2015 9:27 AM 5 CDT 12:29 PM CDT Narrative HP CONVERSION - 04/07/2015 3:04 PM CDT Performed at [facility], [facility] [place] [address] Wilda Germain APRN, CNP LAB_1 Performing Organization Address City/State/ZIP Code Phon e Number HP CONVERSION Comp Metabolic Panel (04/07/2015 9:27 AM CDT) [facility] gist Method Time Signature Aspartate 27 0 - 45 HP CONVERSION Aminotransferase U/L Lab Glucose 70 60 - 100 HP CONVERSION mg/dL Bilirubin Total 0.2 0.2 - 1.2 HP CONVERSION mg/dL Calcium 9.6 8.5 - HP CONVERSION 10.5 mg/dL Sodium 143 137 - 147 HP CONVERSION mEq/L Potassium 4.4 3.5 - 5.2 HP CONVERSION mEq/L Blood Urea Nitrogen 17 5 - 26 HP CONVERS ION mg/dL Albumin 4.3 3.4 - 5.0 HP CONVERSION g/dL Chloride 107 98 - 110 HP CONVERSION mEq/L Alk Phos 59 25 - 135 HP CONVERSION U/L Protein Total, Serum 7.0 5.7 - 8.3 HP CONVER VIBHA g/dL Creatinine Serum 0.8 0.4 - 1.3 HP CONVERSION mg/dL Est GFR Am >60 >60 HP CONVERSI ON mL/min/1. 73m2 Est GFR Non-Afr Am >60 >60 HP CONVERSI ON mL/min/1. 73m2 Comment: Normal>60, moderate decrease 30 - 59, se joann decrease 15 - 29, renal failure <15 mL/min/1.73 m2 NOTE: ??Choose the eGFR result above francesco ropriate for the race of the patient. Alanine Aminotransferase 22 4 - 55 U/L HP C ONVERSION Bicarbonate 33 23 - 33 mmol/L HP CONVERSION Specimen Anatomical Collection Method Collection Time Receive d Time (Source) Location / / Volume Laterality 04/07/2015 9:27 AM 5 CDT 12:29 PM CDT Narrative HP CONVERSION - 04/07/2015 3:04 PM CDT Performed at [address] [address] Wilda Germain APRN, CNP LAB_1 Performing Organization Address City/State/ZIP Code Phon e Number HP CONVERSION Complete Blood Count W/Diff (04/07/2015 9:27 AM CDT) athologist Signature White Blood Cell 6.8 3.8 - 11.0 HP CONVERSIO N Count k/cmm Red Blood Cell 4.23 3.70 - HP CONVERSION Count 5.20 m/cmm Hemoglobin 12.8 11.8 - HP CONVERSION 15.5 g/dL Hematocrit 38.8 35.0 - HP CONVERSION 46.0 % Mean Corpuscular 91.7 80.0 - HP CONVERSION Volume 100.0 fL RDW 12.9 11.0 - HP CONVERSION 15.0 % Platelet Count 302 140 - 450 HP CONVERSION k/cmm Specimen Anatomical Collection Method Collection Time Receive d Time (Source) Location / / Volume Laterality 04/07/2015 9:27 AM 5 9:27 CDT AM CDT Narrative HP CONVERSION - 04/07/2015 9:43 AM CDT Performed at [facility] [address] [place] [address] Wilda Germain APRN, PRESIDENT SALES AND MARKETING LAB_1 Performing Organization Address City/[facility] Phon e Number HP CONVERSION Lipid Panel and Direct LDL(If Needed) (04/07/2015 9:27 AM CDT) [facility] Method Time Signature Cholesterol 175 0 - 200 HP CONVERSION mg/dL Triglycerides 68 0 - 149 HP CONVERSION mg/dL HDL Cholesterol 61 >39 mg/dL HP CONVERSION Cholesterol/HDL 2.9 HP CONVERSION Ratio Screen LDL Calculated 100 19 - 130 HP CONVERSION mg/dL Length Of Fast 12.0 HP CONVERSION Specimen Anatomical Collection Method Collection Time Receive d Time (Source) Location / / Volume Laterality 04/07/2015 9:27 AM 5 CDT 12:29 PM CDT Narrative HP CONVERSION - 04/07/2015 3:04 PM CDT Performed at [facility], [address] [place] [address] Wilda Germain APRN, PRESIDENT SALES AND MARKETING LAB_1 Performing Organization Address City/State/ZIP Code Phon e Number HP CONVERSION documented in this encounter Visit Diagnoses Diagnosis Screening for cholesterol level Screening for lipoid disorders Excessive sweating Generalized hyperhidrosis Constipation, unspecified constipation t ype Screen for STD (sexually transmitted dis ease) Screening examination for venereal disea se documented in this encounter Care Teams Boat Finisher Relationship Specialty Start Date End Date Wilda Germain APRN, PRESIDENT SALES AND MARKETING PCP - General 08/22/14 06/12/16 [address] [facility] [address] [place], [place] [address] documented as of this encounter
--- OUTSIDE RECORDS SUMMARY | 2022-08-02 01:25 | XMS_ITS | Encounter Summary ---
:1975 Author Organization [employer] Address [address] [place] [address] Care Team Providers Name Role Phone Stefani Casanova MD Primary Care Provider [phone] Reason for Visit Reason Comments Refill Encounter Details Date Type Department Care Team Description 08/11/2014 Refill [place] Wilda Germain, BRANDON, Refil l Medicine/Pediatrics MEASURING CLERK [address] [place], [place] [address] [place] [address] [phone] (Wo rk) Social History Tobacco Use Types [...] documented as of this encounter Nursing Notes Tasha Harp RN - 08/15/2014 6:35 PM CST Requested Prescriptions Refused Prescriptions Disp Refills ??? buPROPion (WELLBUTRIN XL) 300 mg XL 24 hour tablet [Pharmacy Med Name: BUPROPION HCL XL 300 MG TABLET] 90 tablet 2 Sig: TAKE 1 TABLET BY MOUTH EVERY MORNING. Refused By: TASHA HARP Reason for Refusal: REQUEST ALREADY RESPONDED TO BY OTHER MEANS (E.G. PHONE OR FAX) Renewed medication per medication refill protocol. E PURIFIER documented in this encounter Plan of Treatment Not on filedocumented as of this encounter Visit Diagnoses Not on filedocumented in this encounter Care Teams Energy Analyst Relationship Specialty Start Date End Date Stefani Casanova MD PCP - General 01/13/11 08/21/[address] [address] documented as of this encounter
--- OUTSIDE RECORDS SUMMARY | 2022-08-02 01:25 | XMS_ITS | Encounter Summary ---
:1975 Author Organization [employer] Address [address] [place] [address] Care Team Providers Name Role Phone Wilda Germain APRN, CNP Primary Care Provider [phone] Reason for Referral Specialty Diagnoses / Procedures Referred By Contact Refer red To Contact Wilda Germain APR N, CNP [address] [place], [place] [address] Referral ID Status Reason Start Date Expiration Date Visits Requ ested Visits Authorized Reason for Visit Reason Comments Annual Exam EXCESSIVE SWEATING Encounter Details Date Type Department Care Team Description 04/07/2015 Office Visit Wilda Castrejon, Annual phys ical exam (Primary Dx); Medicine/Pediatrics JOSE TAYLOR Heroin addiction; [address] Excessive sweating; [place], [place] [address] [place], [place] Major depressive disorder, r ecurrent episode, moderate; [phone] [id number] Medication side effects, initial encount er; [phone] Anxiety state, unspecified; (Work) Screening for diabetes mellitus; [phone] Screen for STD (sexually transmitted disease); (Fax) Screening for c holesterol level; Screening for c ervical cancer; Constipation, u nspecified constipation type Social History Tobacco Use Types Packs/Day Years [...] Sign Reading Time Taken Comments Blood Pressure 106/74 04/07/2015 8:38 AM CDT Pulse 80 04/07/2015 8:38 AM CDT Temperature - - Respiratory Rate - - Oxygen Saturation - - Inhaled Oxygen Concentration - - Weight 68.3 kg (150 lb 9.6 oz) 04/07/2015 8:38 AM CDT Height 160 cm (5' 3) 04/07/2015 8:38 AM CDT Body Mass Index 26.68 04/07/2015 8:38 AM CDT documented in this encounter Progress Notes Virgen Delgado RN - 04/18/2015 2:10 PM CDT Quick Note: Dear Santa, I am writing to let you know that your PAP and HPV result is negative. This means that your test result was normal. No cancer or precancerous cells were seen. Based on current cervical cancer screening recommendations, your next PAP and HPV should be in 3 years. Continue to schedule your annual preventive exams for your overall health. If you have questions about cervical cancer screening or your test results, call Cervical Cancer Screening and Management Team [phone] Sincerely, Virgen Delgado, JEWELS on behalf of Dr. Ashley Stoddard, Rehabilitation Services Coordinator [facility] Cervical Cancer Screening and Management Wilda Germain APRN, REEL WINDER - 04/08/2015 3:24 PM CDT Santa Farmer is a 39 y.o. female here today for complete physical. Concerns today: 1. Medication side effects: on Lexapro and Wellbutrin for anxiety and depression. Happy with effect,feels symptoms are under good control. Continues with methadone through Methadone clinic. Today, complains of side effects. States has excessive sweating of the face and upper chest. Has been told thisa methadone effect, wants something for it. Also, complains of constipation from the methadone. Rarely, will take OTC laxative, but isn't doing anything consistently for this. 2. Heroin addiction: states current sobriety. Last use was about 2 years ago. Has had some testing through non-profit groups for STDs, but not sure exactly what was done. Preventative measures: last Pap was 2005 without HPV testing, history of abnormal pap smears: no. Current contraception: s/p tubal. Last labs: unknown. Last mammo: never. Last DEXA: never, last colonoscopy: never. No Known Allergies Patient Active Problem List Diagnosis ??? Tobacco Abuse ??? Anxiety NOS ??? Cocaine Abuse Remission ??? Allergy Seasonal ??? Heroin addiction (HCC) ??? Major depressive disorder, recurrent episode (HCC) Past Medical History Diagnosis Date ??? Cocaine Abuse Remission 07/08/2006 CD treatment 03/18 ??? Seasonal allergies ??? Anxiety (ACG) ??? Heroin addiction (HCC) Past Surgical History Procedure Laterality Date ??? Tubal ligation Family History Problem Relation Age of Onset ??? Diabetes Mother History Social History ??? Marital Status: Single Spouse Name: N/A Number of Children: N/A ??? Years of Education: N/A Social History Main Topics ??? Smoking status: Current Every Day Smoker -- 0.50 packs/day for 21 years Types: Cigarettes ??? Smokeless tobacco: Never Used ??? Alcohol Use: No Comment: sober since Sep 2013 ??? Drug Use: No Comment: sober since Sep 2013, [facility] ??? Sexual Activity: Partners: Male Control/ Protection: Surgical Other Topics Concern ??? None Social History Narrative Immunization History Administered Date(s) Administered ??? RhoGam 01/08/1995 ??? Tdap (Adacel) 07/13/2007 ROS: A complete review of systems was completed and was negative other than as above. BP 106/74 Pulse 80 Ht 5' 3 (160 cm) Wt 150 lb 9.6 oz (73409 g) BMI 26.68 kg/m2 LMP 03/07/2015 General: Alert, oriented, well-groomed, no apparent distress. Skin: exposed skin is warm and dry without obvious rashes or concerning lesions. HEENT: NC/AT, EOMI, PERRLA. TMs are appropriate bilaterally, canals are patent. No nasal congestion.Oral pharynx is pink and moist. Uvula is midline. Neck: supple without lymphadenopathy or thyromegaly. Lungs: CTA bilaterally, no wheezing, rales or rhonchi. Easy respiratory effort. Cardiac: RRR, no murmurs or rubs. Equal pulses at extremities. Breast: symmetric appearing breasts without dimpling, puckering or nipple discharge. No palpable lumps or masses. No axillary lymphadenopathy. Abdomen: normoactive bowel sounds in all four quadrants. Abdomen is soft, nontender, nondistended. No HSM, no noticeable pulsatile masses. Neuro: A&Ox3, cranial nerves II-XII grossly intact. Reflexes 1+ at biceps, 1+ at patella. Intactsensation to light touch. Stable gait. MSK: Moves all extremities well. No evidence of muscle wasting, muscle tone and bulk symmetric throughout. No peripheral edema. Pelvic: Normal appearing external genitalia without irritation or swelling. No inguinal lymphadenopathy. Pap smear was done by guidelines. Speculum exam revealed normal appearing vaginal vault without irritation or significant discharge. Bimanual exam: no CMT, non-tender adnexa without masses. Psych: Exuberant mood, normal memory. Speech occasionally rapid. Arrived late for appointment. Makesfair eye contact. PHQ-9 is 11/08, CHAPIS-7 is 05/02. Preventative Medicine: Fasting glucose: is completed today Lipid panel: is completed today Contraception discussed: no. Pap smear: Pap smear done today, thin-prep method, Pap smear schedule reviewed with patient, DNA probe for chlamydia and GC obtained, HPV test Mammogram: age 42. DEXA: after menopause. Colonoscopy: age 52. Immunizations up to date: yes, given today: none. Santa was seen today for annual exam and excessive sweating. Diagnoses and associated orders for this visit: Annual physical exam Heroin addiction (HCC) Excessive sweating - Complete Blood Count W/Diff; Future - Comprehensive Metabolic Panel; Future - TSH And Free T4 (FRT4 If TSH Abnorm); Future Major depressive disorder, recurrent episode, moderate (HCC) - buPROPion (WELLBUTRIN XL) 300 mg XL 24 hour tablet; Take 1 tablet by mouth every morning. - escitalopram oxalate (LEXAPRO) 20 mg tablet; Take 1 tablet by mouth daily (every 24 hours). Medication side effects, initial encounter - [facility] Care Coordination Consult (AMB) Anxiety NOS - escitalopram oxalate (LEXAPRO) 20 mg tablet; Take 1 tablet by mouth daily (every 24 hours). Screening for diabetes mellitus Screen for STD (sexually transmitted disease) - Chlamydia and GC STD - Hepatitis C Virus Sonal In-House; Future - HIV Antibody; Future - Treponemal Antibody; Future Screening for cholesterol level - Cholesterol Fraction-LDLD If Trig High; Future Screening for cervical cancer - Pap Test Order - HPV with 16 18 Genotyping Constipation, unspecified constipation type - Complete Blood Count W/Diff; Future - Comprehensive Metabolic Panel; Future - TSH And Free T4 (FRT4 If TSH Abnorm); Future Medications unchanged today. Will have her meet with [facility]oussef[facility] to over her medications and help determine if any changes can be made to help with sweating. For the constipation, discussed use of MiraLAX to both treat and prevent. Discussed that medications do exist to help with sweating, but that some can cause dry mouth. She is not interested in these because she states dry mouth is what led to her poor dentition. Return in 1 year or as needed. She verbalized understanding and agreed. documented in this encounter Miscellaneous Notes Miscellaneous - 11/21/2016 6:15 AM CSTNotes Recorded by Virgen Delgado RN on 04/18/2015 at 2:10 PMTracie Pratt,I am writing to let you know that your PAP and HPV result is negative. This means that your test result was normal. No cancer or precancerous cells were seen.Based on current cervical cancer screening recommendations, your next PAP and HPV should be in 3 years. Continue to schedule your annual preventive exams for your overall health.If you have questions about cervical cancer screening or your test results, callCervical Cancer Screening and Management [phone] Rosales, JEWELS on behalf ofDr. Ashley Stoddard, Medical DirectorVan Wert County Hospitalreinaldo Hicks Cervical Cancer Screening and Management RNMENT PROGRAM MANAGER Miscellaneous - 11/21/2016 6:15 AM CSTNotes Recorded by Virgen Delgado RN on 04/18/2015 at 2:10 PMTracie Pratt,I am writing to let you know that your PAP and HPV result is negative. This means that your test result was normal. No cancer or precancerous cells were seen.Based on current cervical cancer screening recommendations, your next PAP and HPV should be in 3 years. Continue to schedule your annual preventive exams for your overall health.If you have questions about cervical cancer screening or your test results, callCervical Cancer Screening and Management [phone],Leslie B Carpenter, RN on behalf ofDr. Ashley Stoddard, Medical DirectorPark Mentone Cervical Cancer Screening and Management RNMENT PROGRAM MANAGER documented in this encounter Plan of Treatment Not on filedocumented as of this encounter Procedures Procedure Name Priority Date/Time Associated Diagnosis Comme nts ANATOMICAL PATH Routine 04/07/2015 8:59 AM Result s for this LIQUID BASED CDT procedure are i n the results section. CHLAMYDIA & GC (14 Routine 04/07/2015 8:59 AM Screen for STD R esults for this YEARS AND OLDER) CDT (sexually procedure a re in transmitted disease) the res ults section. PAP TEST ORDER Routine 04/07/2015 8:50 AM Screening for Result s for this CDT cervical cancer procedure ar e in the results section. HPV WITH 16 18 Routine 04/07/2015 8:50 AM Screening for Result s for this GENOTYPING, CDT cervical cancer procedure ar e in CERVICAL/ENDOCERVICA the res ults L section. documented in this encounter Results Chlamydia & GC (04/07/2015 8:59 AM CDT) [facility] gist Method Time Signature Chlamydia Negative Negative HP CONVERSION Trachomatis STD Comment: Test Performed by [facility] [employer] [facility] CLIA Number [id number] N. gonorrhoeae STD Negative Negative HP CONVERSI ON Comment: Test Performed by [employer] [facility] Performed at [facility], [address] [place] [address] ??[id number] CLIA Number [id number] Source STD Cervix HP CONVERSION Comment: CLIA Number [id number] Specimen Anatomical Collection Method Collection Time Receive d Time (Source) Location / / Volume Laterality 04/07/2015 8:59 AM 06/26/201 5 7:10 CDT PM CDT Wilda Germain APRN, REEL WINDER LAB_1 Performing Organization Address City/State/ZIP Code Phon e Number HP CONVERSION Pap Smear (04/07/2015 8:59 AM CDT) Specimen (Source) Anatomical Collection Method Collection Time Re ceived Time Location / / Volume Laterality 04/07/2015 8:59 AM CDT Narrative HP CONVERSION - 04/12/2015 4:21 PM CDT Performed at [address] [address] FINAL GYNECOLOGICAL CYTOLOGY REPORT Pathology #: [id number] ?Date Obtained: 04/07/2015 ? Date Received: 04/10/2015 INTERPRETATION/RESULTS: Negative for Intraepithelial Lesion or M alignancy. SPECIMEN ADEQUACY: Satisfactory for Evaluation. ??Endocervi libby cells/transformation zone component present. Verified on 04/12/2015 ??by LORRIE FLAHERTY (electronic signature) CLINICAL NOTES: ?Abnormal bleeding: No, LMP: 03/14 12/25, Menstrual status: None ?Apply, Current form of therapy: None apply LIQUID BASED PAP SMEAR SPECIMEN TYPE: ?ROUTINE CERVICAL PAP TEST PLEASE NOTE: The pap smear is a screening test design ed to aid in the detection of cervical cancer and its pre cursor lesions. It is not a diagnostic procedure and anna uld not be used as the sole means of detecting cervical cancer. Both false-positive and false-negative report s may occur. ? End of Report Transcriptions 11/21/2016 6:15 AM CSTNotes Recorded by Virgen Delgado RN on 04/18/2015 at 2:10 PMTracie Pratt, I am writing to let you know that your PAP and HPV result is negative. This means that your test resu lt was normal. No cancer or precancerous cells were seen. Based on current cervical cancer screening recommendations, your next PAP and HPV should be in 3 years. Continue to schedule your annual preventive exams for your overall health. If you have questions about cervical can cer screening or your test results, call Cervical Cancer Screening and Management [phone],Leslie B Carpenter, RN on behalf ofDrKey Stoddard, Rehabilitation Services Coordinator [facility] Cervical Cancer Screening and Management Wilda Germain APRN, [facility] LAB_1 Performing Organization Address City/State/ZIP Code Phon e Number HP CONVERSION HPV with 16 18 Genotyping (04/07/2015 8:50 AM CDT) [facility] Method Time Signature HPV High Risk Not Detected HP CONVERSION 16 HPV High Risk Not Detected HP CONVERSION 18 Other HPV Not Detected HP CONVERSION High Risk Not 16/18 Comment: The [employer] HPV Test is a qualitative in v itro test for the detection of Human Papillomavirus in [place] [facility] patient specimens. ??The test utilizes amplifica tion of target DNA by Polymerase Chain Reaction (PCR) and n ucleic acid hybridization for the detection of 14 hi gh-risk (HR) HPV types. The assay tests for high risk typ es (16, 18, 31, 33, 35, 39, 45, 51, 52, 56, 58, 59, 66 and 6 8). NOTE: This test was developed and its pe rformance characteristics determined by [facility]. It has not been cleared or approved by [facility]. The laboratory is regulated under CLIA as qualified to perform high-complexity testing. This test is used for clinical purposes. It should not be regarded as investigational or fo r research. Specimen Anatomical Collection Method Collection Time Receive d Time (Source) Location / / Volume Laterality 04/07/2015 8:50 AM 5 8:50 CDT AM CDT Narrative HP CONVERSION - 04/12/2015 1:47 PM CDT Performed at [address] [address] Transcriptions 11/21/2016 6:15 AM CSTNotes Recorded by Virgen Delgado RN on 04/18/2015 at 2:10 PMTracie Pratt, I am writing to let you know that your PAP and HPV result is negative. This means that your test resu lt was normal. No cancer or precancerous cells were seen. Based on current cervical cancer screening recommendations, your next PAP and HPV should be in 3 years. Continue to schedule your annual preventive exams for your overall health. If you have questions about cervical can cer screening or your test results, call Cervical Cancer Screening and Management [phone] Rosales RN on behalf ofDr. Ashley Stoddard, Rehabilitation Services Coordinator [facility] Cervical Cancer Screening and Management Wilda Germain APRN, JOSE LAB_1 Performing Organization Address City/[facility]/ZIP Code Phon e Number HP CONVERSION Pap Test Order (04/07/2015 8:50 AM CDT) [facility] Method Time Signature Pap Smear Collected HP CONVERSION Monolayer tracking test Specimen Anatomical Collection Method Collection Time Receive d Time (Source) Location / / Volume Laterality 04/07/2015 8:50 AM 5 5:03 CDT PM CDT Narrative HP CONVERSION - 04/07/2015 8:51 AM CDT Performed at [address] [address] Wilda Germain APRN, JOSE LAB_1 Performing Organization Address City/[facility] Phon e Number HP CONVERSION documented in this encounter Visit Diagnoses Diagnosis Annual physical exam - Primary Routine general medical examination at a health care facility Heroin addiction (HRC) Opioid type dependence, unspecified Excessive sweating Generalized hyperhidrosis Major depressive disorder, recurrent epi sode, moderate (HRC) Major depressive disorder, recurrent epi sode, moderate Medication side effects, initial encount er Anxiety state, unspecified (HRC) Anxiety state, unspecified Screening for diabetes mellitus Screen for STD (sexually transmitted dis ease) Screening examination for venereal disea se Screening for cholesterol level Screening for lipoid disorders Screening for cervical cancer Screening for malignant neoplasm of the cervix Constipation, unspecified constipation t ype documented in this encounter Care Teams Clinical Care Leader Relationship Specialty Start Date End Date Wilda Germain APRN, REEL WINDER PCP - General 08/22/14 06/12/16 [address] [facility] [place] [address] documented as of this encounter
--- OUTSIDE RECORDS SUMMARY | 2022-08-02 01:25 | XMS_ITS | Encounter Summary ---
:1975 Author Organization [employer] Address [address], [place] [address] Care Team Providers Name Role Phone Stefani Casanova MD Primary Care Provider [phone] Encounter Details Date Type Department Care Team Description 02/09/2011 PN Conversion Only CONVERSION CONVERSION Mick Patel MD [address] [place] [address] (Wo rk) Social History Tobacco Use Types [...] on filedocumented in this encounter Care Teams Services Coordinator Relationship Specialty Start Date End Date Stefani Casanova MD PCP - General 01/13/11 08/21/[address] [place] [address] documented as of this encounter
--- OUTSIDE RECORDS SUMMARY | 2022-08-02 01:25 | XMS_ITS | Encounter Summary ---
:1975 Author Organization [employer] Address [address] [place] [address] Care Team Providers Name Role Phone Wilda Germain APRN, CNP Primary Care Provider [phone] Reason for Visit Reason Comments RESULTS, TEST Encounter Details Date Type Department Care Team Description 03/30/2015 Notes/Orders Wilda Castrejon APRN, Medicine/Pediatrics DESKTOP SUPPORT TECHNICIAN [address] [place], [place] [address] [place] [address] [phone] (Wo rk) Social History Tobacco Use Types [...] documented as of this encounter Progress Notes Mariza Massey MA - 03/30/2015 3:05 PM CDT Patient is in the lab for an EKG needs a note stating that she was here for that test. documented in this encounter Miscellaneous Notes Letter - Wilda Germain APRN, JOSE - 03/30/2015 12:00 AM CDT Images from the original note were not included. [place] [facility]/Pediatrics [address] [place] [address] Santa Farmer [address] [facility] [address] March 30, 2015 To Whom It May Concern, Santa was here today for an EKG. [facility]. Wilda Murcia APRN, DESKTOP SUPPORT TECHNICIAN E STITCHER documented in this encounter Plan of Treatment Not on filedocumented as of this encounter Visit Diagnoses Not on filedocumented in this encounter Care Teams Heavy Equipment Service Technician Relationship Specialty Start Date End Date Wilda Germain APRN, DESKTOP SUPPORT TECHNICIAN PCP - General 08/22/14 06/12/16 [address] [place] [address] documented as of this encounter
--- OUTSIDE RECORDS SUMMARY | 2022-08-02 01:25 | XMS_ITS | Encounter Summary ---
:1975 Author Organization [employer] Address [address] [place] [address] Care Team Providers Name Role Phone Stefani Casanova MD Primary Care Provider [phone] Encounter Details Date Type Department Care Team Description 06/14/2009 Orders Only [facility] EEG/EMG Luis Carlos Erickson MD [address] [place], [place] [address] [place] [address] [phone] Social History Tobacco Use Types Packs/Day Years Used Date Smoking Tobacco: Every Day Comments: LESS THAN HALF PACK PER DAY st arted at age 18 and has cut down since then. Alcohol Use Standard Drinks/Week Comments Yes 0 (1 standard drink = 0.6 oz pure alcoho l) RARELY Sex Assigned at Date Recorded Not on file documented as of this encounter Procedure Notes Neurology, Provider - 06/14/2009 12:00 AM CDTAssociated Order(s): EMG SCAN documented in this encounter Plan of Treatment Not on filedocumented as of this encounter Procedures Procedure Name Priority Date/Time Associated Diagnosis Comme nts EMG SCAN 06/14/2009 12:00 AM Results for this CDT procedure are i n the results section . documented in this encounter Results EMG SCAN (06/14/2009 12:00 AM CDT) Specimen (Source) Anatomical Location Collection Method / Collectio n Time Received Time / Laterality Volume 06/14/2009 Narrative This result has an attachment that is no t available. Transcriptions Neurology, Provider - 06/14/2009 12:00 A M CDT Luis Carlos Erickson MD HP DUMMY CODES documented in this encounter Visit Diagnoses Not on filedocumented in this encounter Care Teams Continuum Of Care Manager Relationship Specialty Start Date End Date Stefani Casanova MD PCP - General 01/13/11 08/21/14 [address] [facility] [address] [place] [address] documented as of this encounter
--- OUTSIDE RECORDS SUMMARY | 2022-08-02 01:25 | XMS_ITS | Encounter Summary ---
:1975 Author Organization [employer] Address [address] [place] [address] Care Team Providers Name Role Phone Stefani Casanova MD Primary Care Provider [phone] Reason for Visit Reason Comments Cough CONGESTION, NASAL Encounter Details Date Type Department Care Team Description 03/22/2014 Hospital Encounter [facility] Nayeli Lira, Acute bronchitis; Care PA-C Acute bronchospasm [address] [place], [place] [address] [phone] [place] [address] Social History Tobacco Use Types Packs/Day Years [...] Sign Reading Time Taken Comments Blood Pressure 104/78 03/22/2014 1:37 PM CDT Pulse 79 03/22/2014 1:37 PM CDT Temperature 36.6 ??C (97.9 ??F) 03/22/2014 1:37 PM CDT Respiratory Rate 20 03/22/2014 1:37 PM CDT Oxygen Saturation 97% 03/22/2014 1:37 PM CDT Inhaled Oxygen Concentration - - [...] documented as of this encounter ED Notes Nayeli Lira PA-C - 03/22/2014 8:22 PM CDT ED Provider Notes signed by Nayeli Lira PA-C at 03/23/142008 Author: Nayeli Lira PA-C Service: (none) Author Type: Physician Md Pediatric Allergist Filed: 03/23/142008 Note Time: 03/23/14 0028 Status: Signed Tax Credit Leasing Consultant: Nayeli Lira PA-C (Physician Md Pediatric Allergist) NAME: SANTA FARMER MR#: [id number] CSN: [id number] AUTHENTICATING CLINICIAN: Nayeli Lira PA-C CONFIRM #: [id number] LOC: 2320 URGENT CARE PROGRESS NOTE DATE OF VISIT: 03/22/2014 : 1975 CHIEF COMPLAINT: Cough, cold symptoms. HISTORY OF PRESENT ILLNESS: Overall she has been sick for about a week, but it has been worse for the last 3 days. She has had aproductive cough with the cough being more spastic in nature. Nasal congestion. She had a subjectivefever last evening with chills. No history of asthma. Her entire family has been sick, and they havebeen passing things around. She did not get a flu shot this season. No recent travel. She does care for her grandchildren. No shortness of breath, but feels a little tight in her chest with the cough. Occasionally she hears rattling on exhaling. She has also had some fatigue. PAST MEDICAL HISTORY: Reviewed in [facility] with pertinent issues being seasonal allergies and tobacco abuse. CURRENT MEDICATIONS: Reviewed in [facility]. ALLERGIES: No known drug allergies. PHYSICAL EXAM: A 38-year-old female, no acute distress. VITALS: Reviewed in Epic, stable. SKIN: Tanned, tattooed. No rashes noted. HEENT: Eyes are clear bilaterally. No scleral injection. Ears are clear bilaterally. Nose is congested but no sinus tenderness. Throat is clear. NECK: No cervical lymphadenopathy or tenderness. LUNGS: She has an expiratory and expiratory wheezing. CARDIOVASCULAR: Regular rate and rhythm. ASSESSMENT: Bronchitis and bronchospasm. PLAN: I put her on a Z-Jacinto as directed, as well as albuterol metered-dose inhaler, instructions on use. Fluids, Tylenol or ibuprofen if tolerated and then follow up if symptoms not improving. REM:MEDQ C: CONFIRM #: [id number] documented in this encounter Miscellaneous Notes Medication History - Jaswinder Callejas MD - 03/22/2014 1:55 PM CDT INPATIENT MEDS Encounter Date: 03/22/14 albuterol HFA 90 mcg/actuation inhaler Start Date:03/22/14, End Date:08/22/14, Frequency:EVERY 4 HOURS PRN *No Administrations Recorded azithromycin (ZITHROMAX) 250 mg tablet Start Date:03/22/14, End Date:05/24/14, Frequency:- *No Administrations Recorded documented in this encounter Plan of Treatment Not on filedocumented as of this encounter Visit Diagnoses Diagnosis Acute bronchitis Acute bronchospasm Triage Assessment Note - Pema Rai RN - 03/22/2014 1:42 PM CDT Sx started a week ago; worse in the last 3 days. Pt can feel crackles in her lungs. Pt also reports fatigue/chills/sweats. Pt is a smoker. documented in this encounter Care Teams Compensation Manager Relationship Specialty Start Date End Date Stefani Casanova MD PCP - General 01/13/11 08/21/[address] [address] documented as of this encounter
--- OUTSIDE RECORDS SUMMARY | 2022-08-02 01:26 | XMS_ITS | Encounter Summary ---
:1975 Author Organization [employer] Address [address] [place] [address] Care Team Providers Name Role Phone Radha Theodore MD Primary Care Provider Reason for Visit Reason Onset Date Comments Refill 01/16/2009 Encounter Details Date Type Department Care Team Description 01/16/2009 Refill [facility] Radha Theodore MD Refill [address] [place] [address] [place] [address] [phone] Social History Tobacco Use Types Packs/Day Years Used Date Smoking Tobacco: Every Day Comments: LESS THAN HALF PACK PER DAY st arted at age 18 and has cut down since then. Alcohol Use Standard Drinks/Week Comments Yes 0 (1 standard drink = 0.6 oz pure alcoho l) RARELY Sex Assigned at Date Recorded Not on file documented as of this encounter Nursing Notes Radha Theodore - 01/18/2009 10:22 AM CDT noted ANT Grace Prajapati - 01/17/2009 3:55 PM CDT Patient informed. States she is planning to follow up with psychiatry, has a friend who has given her the name of someone she plans to make an appointment with. States panic attacks continue and at times are scary. Advised if needs more help to call back. Understands and agrees with plan. Olga Chapman - 01/17/2009 3:28 PM CDT Patient returning call to nurse. Transferred call to consulting nurse line. Lori Pritchard - 01/17/2009 11:43 AM CDT 11:43 AM Left message requesting pt return call. Radha Theodore - 01/17/2009 11:16 AM CDT Approved Prescriptions: Disp Refills VICODIN 5-500 MG OR TABS 0 0 Sig: DENIED per provider, clinic to contact patient Authorizing Provider: RADHA THEODORE ALPRAZOLAM 0.25 MG OR TABS 0 0 Sig: DENIED per provider, clinic to contact patient Authorizing Provider: RADHA THEODORE Radha Theodore - 01/17/2009 11:16 AM CDT DENIED per provider, clinic to contact patient^0^0 Patient to be seen by psychiatrist. Lori Pritchard - 01/16/2009 4:18 PM CDT Pending Prescriptions: Disp Refills VICODIN 5-500 MG OR TABS 20 0 Si-2 PO Q 4 hours prn pain ALPRAZOLAM 0.25 MG OR TABS 45 0 Sig: one pill upto three times daily as needed. 45pills/month Lori Pritchard - 01/16/2009 4:18 PM CDT Routed to Dr Theodore for refill consideration. documented in this encounter Plan of Treatment Not on filedocumented as of this encounter Visit Diagnoses Diagnosis Trochanteric bursitis Enthesopathy of hip region Panic attacks (HRC) Panic disorder without agoraphobia documented in this encounter Care Teams Groundman/Lineman Relationship Specialty Start Date End Date Radha Theodore MD PCP - General 03/09/08 01/12/[address] [place] [address] documented as of this encounter
--- OUTSIDE RECORDS SUMMARY | 2022-08-02 01:26 | XMS_ITS | Encounter Summary ---
:1975 Author Organization [employer] Address [address] [address] Care Team Providers Name Role Phone Tico Cheng MD Primary Care Provider Reason for Visit Reason Onset Date Comments Refill 05/11/2009 Encounter Details Date Type Department Care Team Description 05/11/2009 Refill [facility] ry Edwin Rooney MD Refill [address] [place] [address] [place], [place] [id number] (Wo rk) Social History Tobacco Use Types [...] this encounter Nursing Notes Michelle Paulino - 05/11/2009 10:25 AM CDTApproved Prescriptions: Disp Refills clonAZEPAM (AKA KLONOPIN) 0.5 MG tablet 9999 0Sig: take 2 tablets twice daily as needed. NO EARLY REFILLS DENIED per provider, dispense of 9999=DO NOT FILL. Too early for refillAuthorizing Provider: EDWIN ROONEYOrdertawana User: MICHELLE PAULINO Michelle Paulino - 05/11/2009 10:25 AM CDT Refill too early. Cannot be filled until 05/16. Michelle Paulino RN,C Michelle Duke - 05/11/2009 9:38 AM CDT Last filled 7.7.09 Qty 120 documented in this encounter Plan of Treatment Not on filedocumented as of this encounter Visit Diagnoses Not on filedocumented in this encounter Care Teams Rolling Chair Pusher Relationship Specialty Start Date End Date Tico Cheng MD PCP - General 03/09/08 01/12/[address] [place] [address] documented as of this encounter
--- OUTSIDE RECORDS SUMMARY | 2022-08-02 01:26 | XMS_ITS | Encounter Summary ---
:1975 Author Organization [employer] Address [address] [place] [address] Care Team Providers Name Role Phone Tico Cheng MD Primary Care Provider Encounter Details Date Type Department Care Team Description 03/14/2009 Office Visit [facility] Psychiat ry Edwin Hess, Bipolar II Disorder (Primary Dx); [address] MD [address] [place] [phone] Social History Tobacco Use Types Packs/Day Years Used Date Smoking Tobacco: Every Day Comments: LESS THAN HALF PACK PER DAY st arted at age 18 and has cut down since then. Alcohol Use Standard Drinks/Week Comments Yes 0 (1 standard drink = 0.6 oz pure alcoho l) RARELY Sex Assigned at Date Recorded Not on file documented as of this encounter Progress Notes Shraddha Martinez - 03/14/2009 2:21 PM CDT Received signed script from will fax to pharmacy. Shraddha Martinez RN Edwin Hess - 03/14/2009 12:00 AM CDT This is going to be a psychiatric consultation report. IDENTIFYING DATA: Patient is a 33-year-old single woman, mother of four, unemployed, living at home with her mother and boyfriend, sent to me by her primary care provider, Dr. Cheng at the [facility], who was seen for psychiatric/medication consultation. The chief complaint is one of mood swings, racing thoughts, a great deal of stress and significant anxiety symptoms and on occasion panic attacks. HISTORY OF CURRENT ILLNESS: Patient reports that she has struggled with mood swings including depression, irritability, low moods, and impulsivity for a long time. In addition, she reports having difficulties with significant anxiety symptoms as well as panic attacks on occasion, as well. Patient notes that she gets very nervous, worried, apprehensive and overwhelmed. She described rapid pulse and palpitations, trouble breathing and shortness of breath, and feeling that she is out of control. Patient has been treated for the last couple of years with fluoxetine 40 milligrams a day and bupropion SR 150 milligrams b.i.d. She reports that the medications have helped her with her depression and low moods, but she has continued to have a great deal of mood swings as well as getting easily irritated, angry and upset. Patient denied suicidal ideation, nor has she attempted suicide in the past. She scored 10 on the PHQ-9. She denied any psychotic symptoms. She denied any history of obsessive-compulsive disorder. Patient also reports that she has trouble sleeping at night, she wakes up many times, and periodically she has periods where she has little need for sleep with still a great deal of energy. PAST PSYCHIATRIC HISTORY: Noted for being treated for depression several years ago with Zoloft. She was never hospitalized for mental health issues. CHEMICAL HEALTH HISTORY: Significant for abuse of cocaine and alcohol in the past. In fact, patient reports that she entered treatment inpatient at [facility] four years ago, and she reports that she has not used any cocaine since then. She reports that last June she got a DUI after becoming intoxicated, and she has not had alcohol since then. FAMILY HISTORY: Positive for alcoholism, anxiety, attention deficit disorder in her daughter, and severe depression in her mother. MEDICAL HISTORY: Noted for bursitis of her hip. Otherwise, she is in good health. ALLERGIES: None. PSYCHOSOCIAL HISTORY: Patient was born in [place] and her father left shortly after she was born. Her mother raised her here in [place]. She was the only child. Her father apparently disappeared and has never been heard from or seen for many years. Patient has four kids from two different men. She reports that her two older daughters have struggled with significant behavioral problems and, in fact, her 9-year-old sees Dr. Castillo here at the clinic. Patient has been in a relationship with a boyfriend for a couple of years, and she described the relationship as being generally good. MENTAL STATUS: Patient was appropriately dressed and well groomed. She was nicely made up. She appeared about her stated age and did not appear in any significant distress. She was cooperative and pleasant, though she seemed a bit intimidated by the interview. She also appeared to carry a great deal of shame and guilt. Otherwise, she maintained good eye contact. Her psychomotor behavior within normal limits. Speech was normal for rate, flow and volume, though she was generally quite talkative. Her affect was appropriate, mood described as anxious and distressed. She also described herself as being quite mitchell. There was no evidence of any overt psychotic or manic symptoms in the visit, and thought content was appropriate and relevant without evidence of delusions, paranoia or ideas of reference. Judgment and insight intact and cognitive functions within normal limits. I do not think she presented suicidal. 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 History of alcohol and cocaine abuse, according to patient in remission now. PLAN: Discussed with patient her medication needs and recommended a trial of Lamictal, a mood stabilizer. I explained to patient my reasons for recommending the medication, as well as reviewing the diagnoses. I gave patient ample information about the Lamictal including potential side effects, risks and the need to slowly titrate the medication to avoid a skin rash. I urged her to call us if she broke out in a rash and stop the medication right away. I also encouraged her to continue on the Prozac and Wellbutrin at this time. I instructed her to start on Lamictal 25 milligrams at bedtime for the first two weeks, then increase to 50 milligrams for two weeks, and then eventually go up to 100 milligrams a day. I also encouraged her to see Oriana Lynn MA/SANGEETA, for therapy. I asked her to call us if she had any questions or problems, and to come back and see me in three to four weeks for her next medication followup visit. A / P 2st cc: documented in this encounter Plan of Treatment Not on filedocumented as of this encounter Visit Diagnoses Diagnosis Bipolar II disorder (HRC) - Primary Other bipolar disorders Panic attacks (HRC) Panic disorder without agoraphobia documented in this encounter Care Teams Powder Operator Relationship Specialty Start Date End Date Tico Cheng MD PCP - General 03/09/08 01/12/[address] [place] [address] documented as of this encounter
--- OUTSIDE RECORDS SUMMARY | 2022-08-02 01:26 | XMS_ITS | Encounter Summary ---
:1975 Author Organization [employer] Address [address] [place] [address] Care Team Providers Name Role Phone Tico Cheng MD Primary Care Provider Reason for Visit Reason Onset Date Comments Medication Questions 03/22/2009 Encounter Details Date Type Department Care Team Description 03/22/2009 Telephone [facility] Edwin Phillips MD Medication Questions [address] [place] [id number] [phone] Social History Tobacco Use Types Packs/Day Years Used Date Smoking Tobacco: Every Day Comments: LESS THAN HALF PACK PER DAY st arted at age 18 and has cut down since then. Alcohol Use Standard Drinks/Week Comments Yes 0 (1 standard drink = 0.6 oz pure alcoho l) RARELY Sex Assigned at Date Recorded Not on file documented as of this encounter Nursing Notes Shraddha Martinez - 03/22/2009 1:56 PM CDT . Shraddha Martinez - 03/22/2009 1:47 PM CDT PAtient called and is asking for a refill on her clonazepam, she states that the first script was for 20 tablets and she is taking 1 1/2 tab at least one time a day, she states that she was trying 1 tablet but it wasn't really helping so she started taking 1 1/2 tablets per day. And that is helping a bit more. She has been having increased panic attacks and feels like she is going crazy. Called Dr. Hess and he states that she can increase medication to 2 tablets po twice daily. No early refills. Will send the script to [facility] pharmacy Shraddha Chris - 03/22/2009 1:37 PM CDT Regarding her clonazepam prescription. documented in this encounter Plan of Treatment Not on filedocumented as of this encounter Visit Diagnoses Not on filedocumented in this encounter Care Teams Impregnator And Drier Helper Relationship Specialty Start Date End Date Tico Cheng MD PCP - General 03/09/08 01/12/11 [address] [place] [address] documented as of this encounter
--- OUTSIDE RECORDS SUMMARY | 2022-08-02 01:26 | XMS_ITS | Encounter Summary ---
:1975 Author Organization [employer] Address [address], [place] [address] Care Team Providers Name Role Phone Tico Theodore MD Primary Care Provider Reason for Visit Reason Onset Date Comments Medication Request 03/14/2009 Encounter Details Date Type Department Care Team Description 03/14/2009 Telephone [facility] ry Edwin Rooney MD Medication Request [address] [place] [phone] Social History Tobacco Use Types Packs/Day Years Used Date Smoking Tobacco: Every Day Comments: LESS THAN HALF PACK PER DAY st arted at age 18 and has cut down since then. Alcohol Use Standard Drinks/Week Comments Yes 0 (1 standard drink = 0.6 oz pure alcoho l) RARELY Sex Assigned at Date Recorded Not on file documented as of this encounter Nursing Notes Edwin Rooney - 03/14/2009 4:58 PM CDT Noted. Edwin Rooney MD Shraddha Martinez - 03/14/2009 4:54 PM CDT CALLED THE PHARMACY AND SHE STATES THAT ONLY DR THEODORE CAN AUTHORIZE MEDICATION REFILLS FOR CONTROLLED SUBSTANCES , THAT HER BRAND SALES CONSULTANT NEEDS TO CALL THE INSURANCE AND CHANGE THAT BEFORE THEY CAN FILLTHE SCRIPT, THAT WAS TOLD TO THE PATIENT BY THE PHARMACY AND SHE STILL CALLED HERE RATHER THAN CALLING THE BRAND SALES CONSULTANT, i DID CALL THE BRAND SALES CONSULTANT TO HAVE HER CHANGE THAT STATUS, LEFT A DETAILED MESSAGE FOR THE CM AND TOLD HER TO CALL IF QUESTIONS. Shraddha Martinez RN Shraddha Martinez - 03/14/2009 4:[address] ROONEY, THE PHARMACY DOES NOT WANT TO FILL THE CLONAZEPAM, DO YOU WANT HER ON CLONAZEPAM AND ALPRAZOLAM ? SHOULD I DC THE ALPRAZOLAM AND ANY FURTHER REFILLS FOR THIS MEDICATION. Shraddha Martinez RN Grace Hernandez - 03/14/2009 4:26 PM CDT [facility] pharmacy will not fill RX for Clonazepam because it was not written by the original dr Theodore. She asks that we call the insurance company and let them know that she was referred by Dr Theodore to Dr Rooney. Corporate Concierge for [employer] plan is Eros Stanley [phone]. documented in this encounter Plan of Treatment Not on filedocumented as of this encounter Visit Diagnoses Not on filedocumented in this encounter Care Teams Member Services Representative Relationship Specialty Start Date End Date Tico Theodore MD PCP - General 03/09/08 01/12/[address] [place] [address] documented as of this encounter
--- OUTSIDE RECORDS SUMMARY | 2022-08-02 01:26 | XMS_ITS | Encounter Summary ---
:1975 Author Organization [employer] Address [address] [facility] [place] [address] Care Team Providers Name Role Phone Tico Cheng MD Primary Care Provider Reason for Visit Reason Onset Date Comments Other 01/26/2009 Encounter Details Date Type Department Care Team Description 01/26/2009 Telephone [facility] Donavon Castillo MD Other [address] [place] [address] [place], [place] [phone] (Wo rk) Social History Tobacco Use [...] this encounter Nursing Notes Shraddha Martinez - 01/31/2009 11:37 AM CDT Talked to the patient and told her that states that she can try Dr. Soto or Dr. Hess. Shraddha Martinez RN Shraddha Martinez - 01/31/2009 9:16 AM CDT Called and left a message on the number above to call the clinic for referral info. Shraddha Martinez, RN Jonathan In Sameera - 01/31/2009 9:10 AM CDT I would recommend Dr. Soto or Dr. Hess, but I don't know if they are taking new patients. Shantell Paulino - 01/26/2009 1:34 PM CDT Will route to Dr. Castillo for recommendations. Shantell Paulino RN,C Yolande Abraham - 01/26/2009 12:25 PM CDT Abdulaziz is a mother of a pt (Cesilia Munguia, [id number]) that sees Dr Castillo. Mom needs to find a psychiatrist for herself and would really appreciate a recommendation from Dr Castillo. Her main issue is anxiety. She is aware that Dr Castillo is out of the office until 01/31. THANK YOU! documented in this encounter Plan of Treatment Not on filedocumented as of this encounter Visit Diagnoses Not on filedocumented in this encounter Care Teams Skin Lifter Bacon Relationship Specialty Start Date End Date Tico Cheng MD PCP - General 03/09/08 01/12/[address] [place] [address] documented as of this encounter
--- OUTSIDE RECORDS SUMMARY | 2022-08-02 01:26 | XMS_ITS | Encounter Summary ---
:1975 Author Organization [employer] Address [address], [place] [address] Care Team Providers Name Role Phone Tico Cheng MD Primary Care Provider Reason for Visit Reason Onset Date Comments Refill 01/23/2009 Encounter Details Date Type Department Care Team Description 01/23/2009 Refill [facility] Tico Cheng MD Refill [address] [place] [address] [place] [address] [phone] Social History Tobacco Use Types Packs/Day Years Used Date Smoking Tobacco: Every Day Comments: LESS THAN HALF PACK PER DAY st arted at age 18 and has cut down since then. Alcohol Use Standard Drinks/Week Comments Yes 0 (1 standard drink = 0.6 oz pure alcoho l) RARELY Sex Assigned at Date Recorded Not on file documented as of this encounter Nursing Notes Jenn Lara - 01/23/2009 10:27 AM CDT Approved Prescriptions: Disp Refills BUPROPION HCL (ZYBAN) 150MG ORAL TABS 60 3 Sig: start with one pill once daily for two days if no side effects increase to one pill twice daily. take evening pill at noon if you have sleep problems. Authorizing Provider: JENN LARA Sherley Castano RN - 01/23/2009 10:16 AM CDT Pending Prescriptions: Disp Refills BUPROPION HCL (ZYBAN) 150MG ORAL TABS 60 3 Sig: start with one pill once daily for two days if no side effects increase to one pill twice daily. take evening pill at noon if you have sleep problems. Josiane Castro - 01/23/2009 10:12 AM CDT Last refilled: 11-09-08 Qty of last refill: 60 documented in this encounter Plan of Treatment Not on filedocumented as of this encounter Visit Diagnoses Diagnosis Tobacco use disorder (HRC) Tobacco use disorder documented in this encounter Care Teams Messenger Floorperson Relationship Specialty Start Date End Date Tico Cheng MD PCP - General 03/09/08 01/12/[address] [place] [address] documented as of this encounter
--- OUTSIDE RECORDS SUMMARY | 2022-08-02 01:26 | XMS_ITS | Encounter Summary ---
:1975 Author Organization [employer] Address [address] [place] [address] Care Team Providers Name Role Phone Tico Cheng MD Primary Care Provider Reason for Visit Reason Onset Date Comments Medication Request 01/03/2009 Encounter Details Date Type Department Care Team Description 01/03/2009 Telephone [facility] Tico Cheng MD Medication Request [address] 1 [facility] 100 [place] [address] [place] [address] Social History Tobacco Use Types Packs/Day Years Used Date Smoking Tobacco: Every Day Comments: LESS THAN HALF PACK PER DAY st arted at age 18 and has cut down since then. Alcohol Use Standard Drinks/Week Comments Yes 0 (1 standard drink = 0.6 oz pure alcoho l) RARELY Sex Assigned at Date Recorded Not on file documented as of this encounter Nursing Notes Eliza Damon LPN - 01/04/2009 3:00 PM CDT Patient notified. Eliza Damon LPN 3:00 PM Eliza Damon LPN - 01/03/2009 2:53 PM CDT Message left to call back. Eliza Damon LPN 2:53 PM Tico Cheng - 01/03/2009 1:18 PM CDT Script renewed. Patient to pick this up from our pharmacy. Diana Santiago - 01/03/2009 12:34 PM CDT Patient calling requesting pain medication -- for her bursities -- said she has discussed with Dr. Cheng in the past. Would like it called into [facility] pharmacy documented in this encounter Plan of Treatment Not on filedocumented as of this encounter Visit Diagnoses Diagnosis Bursitis of hip - Primary Enthesopathy of hip region documented in this encounter Care Teams Soiled Linen Distributor Relationship Specialty Start Date End Date Tico Cheng MD PCP - General 03/09/08 01/12/11 [address] [place] [address] documented as of this encounter
--- OUTSIDE RECORDS SUMMARY | 2022-08-02 01:26 | XMS_ITS | Encounter Summary ---
:1975 Author Organization [facility] Address [address] [place] [address] Care Team Providers Name Role Phone Stefani Casanova MD Primary Care Provider [phone] Reason for Visit Reason Comments Careplan: Restricted Patient Encounter Details Date Type Department Care Team Description 02/02/2009 Careplan Careline Tico Cheng MD Careplan: Restricted [address] [place] Patient [place], [place] [address] [place] [address] [phone] Social History Tobacco Use Types Packs/Day Years Used Date Smoking Tobacco: Every Day Comments: LESS THAN HALF PACK PER DAY st arted at age 18 and has cut down since then. Alcohol Use Standard Drinks/Week Comments Yes 0 (1 standard drink = 0.6 oz pure alcoho l) RARELY Sex Assigned at Date Recorded Not on file documented as of this encounter Progress Notes Zachery Woods X - 02/02/2009 4:28 PM CDT Confidential Patient Information This communication: Is for internal purposes only. Cannot be forwarded outside of [facility]. Can be forwarded internally only on a need to know basis. Do not forward this e-mail without the approval of the originator Member name Raúl Farmer : 1975 RESTRICTED MEMBER. Effective dates: 02/01/2009 to 02/01/2011 Member is restricted to accessing the following providers only: ?? [facility] ?? PCP: Tico Cheng MD or hemant MAYBERRY ?? Psychiatrist: Dr. Edwin Hess [facility] [address] [facility] [id number] ?? UC: [facility], [address] [place] [address] ?? Hospital: [facility] [address] [place] [id number] ?? Pharmacy is: [facility], [address] [place] [phone]. . ?? Fine Patcher: deneen Ramon [phone], Mail Stop [id number] Referral is needed from designated PCP/Psychiatrist in order to access any other providers, regardless of plan type. documented in this encounter Plan of Treatment Not on filedocumented as of this encounter Visit Diagnoses Not on filedocumented in this encounter Care Teams Doughnut Dough Mixer Relationship Specialty Start Date End Date Stefani Casanova MD PCP - General 01/13/11 08/21/14 1000 [facility] 260 [place] [address] documented as of this encounter
--- OUTSIDE RECORDS SUMMARY | 2022-08-02 01:26 | XMS_ITS | Encounter Summary ---
:1975 Author Organization [facility] Address [address] [place] [address] Care Team Providers Name Role Phone Tico Cheng MD Primary Care Provider Reason for Referral Specialty Diagnoses / Procedures Referred By Contact Refer red To Contact Luis Carlos Erickson MD [address] [place], [place] [address] Referral ID Status Reason Start Date Expiration Date Visits Requ ested Visits Authorized Scheduling Instructions Scheduling Instructions (EMG): If an francesco ointment with [facility] Neurology was advised and you have not been contacted within 3 business days, please call [phone] at the [facility] or at the [facility] for assistance. Do not apply any lotions or oils to your skin prior to this visit. EMG appointments can take up to two hours. Reason for Visit Reason Comments NUMBNESS In R first three fingers Encounter Details Date Type Department Care Team Description 05/15/2009 Office Visit [facility] Luis Carlos Erickson, Carpal Tunnel Syndrome (Prim gian Dx); [address] MD Chronic Pain; [address] Neck Pain; [place], [place] [facility] [id number] Social History Tobacco Use Types Packs/Day Years Used Date Smoking Tobacco: Every Day Comments: LESS THAN HALF PACK PER DAY donnad at age 18 and has cut down since then. Alcohol Use Standard Drinks/Week Comments Yes 0 (1 standard drink = 0.6 oz pure alcoho l) RARELY Sex Assigned at Date Recorded Not on file documented as of this encounter Last Filed Vital Signs Vital Sign Reading Time Taken Comments Blood Pressure 96/72 05/15/2009 5:08 PM CDT Pulse 80 05/15/2009 5:08 PM CDT Temperature - - Respiratory Rate - - Oxygen Saturation - - Inhaled Oxygen Concentration - - Weight 73.1 kg (161 lb 3.2 oz) 05/15/2009 5:08 PM CDT Height 160 cm (5' 3) 05/15/2009 5:08 PM CDT Body Mass Index 28.56 05/15/2009 5:08 PM CDT documented in this encounter Progress Notes Luis Carlos Erickson - 05/15/2009 7:04 PM CDT This office note has been dictated. Luis Carlos Erickson - 05/15/2009 12:00 AM CDT SUBJECTIVE: Here with two issues. One is a one-month history of right hand numbness, involves the thumb, second and third fingers. It is pretty much present all the time in that when she presses on these areas, the sensation is decreased. She does have often at night more typical irqa-akm-zjisnjd sensation. She sometimes feels that pressing on her elbow in a certain way or pressing in her forearm creates more symptoms out the arm. 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 She is a mother of four children. She has some chronic neck and back pain and is requesting some Vicodin, which she says she would use only at night when the pain is bad, one or two tablets. Apparently, she has some recent history of bursitis which has been treated, depression, anxiety. She tells me she has a history in 2003 of cocaine and alcohol abuse OBJECTIVE: Appears well, in no distress. See vitals. Neck: Decreased range of motion in all directions with pain particularly on full rotation to the left and right. Arm reflexes are 2+ bilaterally, strength in both hands is equal and normal bilaterally. Phalen test is positive at the right wrist. Tinel is negative at the right wrist. There is an area of tenderness in her right volar forearm, but no nodule and no real symptoms in her hand with pressure there. There is no tenderness around her elbow, right arm, and there is full range of motion at the elbow. Back is tender through the paralumbar and posterior pelvic areas. ASSESSMENT: 1. Right hand paresthesias compatible with carpal tunnel syndrome, but with the story of neck pain and the story of pressure through the forearm or elbow causing the symptoms, consider other entrapment problems. 2. Chronic back and neck pain and chronic pain syndrome. The last refill for Vicodin and she has had many that I can see in the chart was of about a month ago for 30 tablets. PLAN: Given her wrist splint to wear all the time, except when she is bathing or doing the dishes. Schedule an EMG, given her a prescription for #30 Vicodin and told her I would expect that to last a month but that she needs to follow up with her primary physician, Dr. Cheng, to obtain further prescriptions for narcotics, as because of her history of cocaine and alcohol abuse, she would be at risk to become dependent and abuse these medications. P / P tdy cc: documented in this encounter Nursing Notes 05/15/2009 5:00 PM CDT >> Mary Bright LPN Mon May 15, 2009 5:13 PM Pt did not want to fill out PHQ9,states she does upstairs with her psychiatrist documented in this encounter Plan of Treatment Scheduled Referrals Name Type Priority Associated Diagnoses Order S chedule EMG - ELECTROMYOGRAPHY Referral Routine Order ed: 05/15/2009 documented as of this encounter Visit Diagnoses Diagnosis Carpal tunnel syndrome - Primary Chronic pain Other chronic pain Neck pain Cervicalgia Back pain Backache, unspecified documented in this encounter Care Teams Telegraph Service Clerk Relationship Specialty Start Date End Date Tico Cheng MD PCP - General 03/09/08 01/12/11 [address] [place] [address] documented as of this encounter
--- OUTSIDE RECORDS SUMMARY | 2022-08-02 01:26 | XMS_ITS | Encounter Summary ---
:1975 Author Organization [employer] Address [address] [place] [address] Care Team Providers Name Role Phone Tico Theodore MD Primary Care Provider Reason for Visit Reason Onset Date Comments Medication Request 01/25/2009 Encounter Details Date Type Department Care Team Description 01/25/2009 Telephone [facility] Tico Theodore MD Medication Request [address] [place] [address] [place] [address] Social History Tobacco Use Types [...] documented as of this encounter Nursing Notes Tico Theodore - 01/27/2009 9:37 AM CDT SCRIPT SENT Nini Martinez - 01/26/2009 6:58 PM CDT Referred to Dr. Theodore who will be here in AM. Kristine Bell - 01/26/2009 2:34 PM CDT Pt. calling back. Sherley Castano RN - 01/26/2009 12:08 PM CDT PT. REQUESTING RX OF ALPRAZOLAM TO CONTROL ANXIETY & PANIC ATTACKS UNTIL SEEN BY PSYCH. PT. TAKING FLUOXETINE & BUPROPION. PT'S LIFE IS VERY CHAOTIC & EXTREMELY BUSY RIGHT NOW. SHEAT TIMES HYPERVENTILATES WHEN SHE GETS ANXIOUS & HER FRUSTRATION LEVEL SORES. SEE DR. THEODORE'S NOTE OF 12/28/08. PT. STATES SHE HAS AN APPT. W A PSYCHIATRIST IN [facility] ON 02/15/09. Kristine Bell - 01/26/2009 11:31 AM CDT Pt. WCB Lina Gustafson - 01/25/2009 9:11 AM CDT Pt is requesting a RX for ALPRAZOLAM 0.25 MG OR TABS(generic for Zantax) Pt says it was denied because the Dr felt uncomfortable refilling it. Pt would like to discuss this because she really needs themedication silvana. documented in this encounter Plan of Treatment Not on filedocumented as of this encounter Visit Diagnoses Diagnosis Panic attacks (HRC) - Primary Panic disorder without agoraphobia documented in this encounter Care Teams Patient Support Associate Relationship Specialty Start Date End Date Tico Theodore MD PCP - General 03/09/08 01/12/[address] [place], [place] [address] documented as of this encounter
--- OUTSIDE RECORDS SUMMARY | 2022-08-02 01:26 | XMS_ITS | Encounter Summary ---
:1975 Author Organization [employer] Address [address] [place] [address] Care Team Providers Name Role Phone Radha Theodore MD Primary Care Provider Reason for Visit Reason Onset Date Comments Refill 05/11/2009 Encounter Details Date Type Department Care Team Description 05/11/2009 Refill [facility] Radha Theodore MD Refill [address] [place] [address] [place] [address] [phone] Social History Tobacco Use Types Packs/Day Years Used Date Smoking Tobacco: Every Day Comments: LESS THAN HALF PACK PER DAY st arted at age 18 and has cut down since then. Alcohol Use Standard Drinks/Week Comments Yes 0 (1 standard drink = 0.6 oz pure alcoho l) RARELY Sex Assigned at Date Recorded Not on file documented as of this encounter Nursing Notes Sherley Castano RN - 05/15/2009 1:32 PM CDT PT. WILL SEE DR. ELEUTERIO MYERS AT 5PM REGARDING HAND NUMBNESS, BACK PAIN, & NEED FOR PAIN MEDS. Amelia Casanova - 05/15/2009 11:34 AM CDT Patient is calling to check on the status of this request please call her back at [phone] . Thank you. Radha Theodore - 05/12/2009 10:41 AM CDT Approved Prescriptions: Disp Refills hydrocodone-acetaminophen (VICODIN) 5-500 M9999 0 Sig: DENIED per provider, clinic to contact patient, dispense of 9999=DO NOT FILL Authorizing Provider: RADHA THEODORE Radha Theodore - 05/12/2009 10:41 AM CDT DENIED per provider, clinic to contact patient, dispense of 9999=DO NOT FILL^9999^0^t^t Kristine Bell - 05/12/2009 9:13 AM CDT Pending Prescriptions: Disp Refills hydrocodone-acetaminophen (VICODIN) 5-500 M30 0 Sig: Take 1-2 tablets at night as needed for pain. 30pills should last one month. Do not take more than 8 tablets of tylenol per day. Kristine Bell - 05/12/2009 9:12 AM CDT Last pcp visit 03/03/09. No careplan Lina Gustafson - 05/11/2009 3:58 PM CDT Last refilled: 04/13/2009 Qty of last refill: 30 documented in this encounter Plan of Treatment Not on filedocumented as of this encounter Visit Diagnoses Diagnosis Mechanical low back pain - Primary Lumbago documented in this encounter Care Teams Electric Shaver Mechanic Relationship Specialty Start Date End Date Radha Theodore MD PCP - General 03/09/08 01/12/[address] [place] [address] documented as of this encounter
--- OUTSIDE RECORDS SUMMARY | 2022-08-02 01:26 | XMS_ITS | Encounter Summary ---
:1975 Author Organization [employer] Address [address], [place] [address] Care Team Providers Name Role Phone Tico Cheng MD Primary Care Provider Reason for Visit Reason Onset Date Comments Refill 04/18/2009 Encounter Details Date Type Department Care Team Description 04/18/2009 Refill [facility] Edwin Phillips MD Refill [address] [place] [address] [place], [place] [address] (Wo rk) Social History Tobacco Use Types [...] this encounter Nursing Notes Shantell Paulino - 04/18/2009 1:25 PM CDT Prescription signed by provider and faxed to the pharmacy. Shantell Paulino RN,C Shraddha Ashley - 04/18/2009 10:52 AM CDT Rx to provider for signature Shraddha Ashley RN Shraddha Ashley - 04/18/2009 10:52 AM CDT Approved Prescriptions: Disp Refills CLONAZEPAM 0.5 MG OR TABS 120 0 Sig: take 2 tablets twice daily as needed. NO EARLY REFILLS Authorizing Provider: EDWIN ROONEY Ordering User: SHRADDHA ASHLEY Yolande Abraham - 04/18/2009 10:49 AM CDT Last filled 03/23/09 #120 documented in this encounter Plan of Treatment Not on filedocumented as of this encounter Visit Diagnoses Not on filedocumented in this encounter Care Teams Spot Man Relationship Specialty Start Date End Date Tico Cheng MD PCP - General 03/09/08 01/12/[address] [place] [address] documented as of this encounter
--- OUTSIDE RECORDS SUMMARY | 2022-08-02 01:26 | XMS_ITS | Encounter Summary ---
:1975 Author Organization [employer] Address [address] [place] [address] Care Team Providers Name Role Phone Radha Theodore MD Primary Care Provider Reason for Referral Specialty Diagnoses / Procedures Referred By Contact Refer red To Contact Radha Theodore MD [address] [place] [address] Referral ID Status Reason Start Date Expiration Date Visits Requ ested Visits Authorized Scheduling Instructions Resources: [facility] Alcohol and Drug Abuse Program for adults ([phone]) or [facility] Program for adolesce nts ([phone]). Reason for Visit Reason Onset Date Comments DRUG USE 05/16/2009 Encounter Details Date Type Department Care Team Description 05/16/2009 Telephone [facility] Radha Theodore MD DRUG USE [address] [place] [address] [place] [address] [phone] Social History Tobacco Use Types Packs/Day Years [...] this encounter Nursing Notes Radha Theodore - 05/16/2009 1:10 PM CDT Chem dep referral done Radha Theodore - 05/16/2009 1:07 PM CDT Message copied by RADHA THEODORE on FriMay 16, 2009 1:07 PM ------ Message from: EROS MARTINEZ Created: FriMay 16, 2009 10:03 AM Pearl Theodore and Deshawn: We are getting claims for this patient from an outpatient Chemical Dependency Treatment program, [facility], for Alcohol Dep, Episodic and Cocaine Dep, episodic for dates of service 02/02/09 to 03/16/09. Due to the pt's restriction, I would need a referral from one of her designated providers so that this claim can be paid. Please let me know if this is ok to pay. Thanks. Eros Martinez documented in this encounter Plan of Treatment Scheduled Referrals Name Type Priority Associated Diagnoses [facility] Referral Routine Alcohol Abus e Ordered: 05/16/2009 CONSULT Cocaine Abuse Narcotic Abuse documented as of this encounter Visit Diagnoses Diagnosis Alcohol abuse Alcohol abuse, unspecified Cocaine abuse (HRC) Cocaine abuse, unspecified Narcotic abuse Sedative, hypnotic or anxiolytic abuse, unspecified documented in this encounter Care Teams Preparation Plant Supervisor Relationship Specialty Start Date End Date Radha Theodore MD PCP - General 03/09/08 01/12/[address] [place] [address] documented as of this encounter
--- OUTSIDE RECORDS SUMMARY | 2022-08-02 01:26 | XMS_ITS | Encounter Summary ---
:1975 Author Organization [employer] Address [address] [address] Care Team Providers Name Role Phone Tico Cheng MD Primary Care Provider Reason for Visit Reason Onset Date Comments Refill 05/15/2009 Encounter Details Date Type Department Care Team Description 05/15/2009 Refill [facility] Edwin Rooney MD Refill [address] [place] [address] [place], [place] [address] (Wo rk) Social History Tobacco Use Types [...] this encounter Nursing Notes Shraddha Martinez - 05/15/2009 4:23 PM CDT Received a signed script from . Will fax to [facility]. Shraddha Martinez RN Michelle Paulino - 05/15/2009 3:45 PM CDT Approved Prescriptions: Disp Refills clonAZEPAM (AKA KLONOPIN) 0.5 MG tablet 120 0 Sig: take 2 tablets twice daily as needed. NO EARLY REFILLS Authorizing Provider: EDWIN ROONEY Ordering User: MICHELLE PAULINO Michelle Paulino - 05/15/2009 3:45 PM CDT Prescription to provider for signature. Michelle Paulino RN,C Grace Hernandez - 05/15/2009 3:02 PM CDT Per pharmacy last filled 04-18-09 qty 120 documented in this encounter Plan of Treatment Not on filedocumented as of this encounter Visit Diagnoses Not on filedocumented in this encounter Care Teams Ladies' Hat Trimmer Relationship Specialty Start Date End Date Tico Cheng MD PCP - General 03/09/08 01/12/[address] [place] [address] documented as of this encounter
--- OUTSIDE RECORDS SUMMARY | 2022-08-02 01:26 | XMS_ITS | Encounter Summary ---
:1975 Author Organization [employer] Address [address] [place] [address] Care Team Providers Name Role Phone Tico Cheng MD Primary Care Provider Reason for Visit Reason Onset Date Comments Refill 12/28/2008 Encounter Details Date Type Department Care Team Description 12/28/2008 Refill [facility] Tico Cheng MD Refill [address] [place] [address] [place] [address] [phone] Social History Tobacco Use Types Packs/Day Years [...] as of this encounter Nursing Notes Tico Cheng - 12/28/2008 3:48 PM CDT Dosage changed today. See office visit for further details. Kristine Bell - 12/28/2008 1:28 PM CDT Pending Prescriptions: Disp Refills FLUOXETINE HCL 10 MG OR CAPS 30 0 Sig: Take one capsule by mouth every day for 2 days then increase to 2 capsules daily if no side effects Mary Birch - 12/28/2008 12:43 PM CDT last filled: 11/19/08 qty: of last refill: 60 documented in this encounter Plan of Treatment Not on filedocumented as of this encounter Visit Diagnoses Not on filedocumented in this encounter Care Teams Postal Delivery Officer Relationship Specialty Start Date End Date Tico Cheng MD PCP - General 03/09/08 01/12/[address] [place] [address] documented as of this encounter
--- OUTSIDE RECORDS SUMMARY | 2022-08-02 01:26 | XMS_ITS | Encounter Summary ---
:1975 Author Organization [facility] Address [address] [place] [address] Care Team Providers Name Role Phone Tico Cheng MD Primary Care Provider Encounter Details Date Type Department Care Team Description 06/14/2009 Office Visit [facility] Carlee Thomas, Carpa l Tunnel Syndrome EEG/EMG Mariia Bhat MD [address] [facility] [address] [place], [place] [address] [place], [place] [phone] [address] Social History Tobacco Use Types Packs/Day Years [...] encounter Visit Diagnoses Diagnosis Carpal tunnel syndrome documented in this encounter Care Teams Track Grinder Relationship Specialty Start Date End Date Tico Cheng MD PCP - General 03/09/08 01/12/11 [address] [place] [address] documented as of this encounter
--- OUTSIDE RECORDS SUMMARY | 2022-08-02 01:26 | XMS_ITS | Encounter Summary ---
:1975 Author Organization [employer] Address [address] [place] [address] Care Team Providers Name Role Phone Stefani Casanova MD Primary Care Provider [phone] Reason for Visit Reason Onset Date Comments Refill 06/14/2009 Encounter Details Date Type Department Care Team Description 06/14/2009 Refill [facility] ry Edwin Rooney MD Refill [address] [place] [address] [place], [place] [id number] (Wo rk) Social History Tobacco Use Types [...] as of this encounter Nursing Notes Shraddha Ashley - 06/15/2009 4:24 PM CDT Approved Prescriptions: Disp Refills clonAZEPAM (AKA KLONOPIN) 0.5 MG tablet 56 0 Sig: take 2 tablets twice daily as needed. NO EARLY REFILLS patient will need to get a week supply at a time no more than that Authorizing Provider: EDWIN ROONEY Ordering User: SHRADDHA ASHLEY Shraddha Ashley - 06/15/2009 4:24 PM CDT Approved Prescriptions: Disp Refills clonAZEPAM (AKA KLONOPIN) 0.5 MG tablet 56 0 Sig: take 2 tablets twice daily as needed. NO EARLY REFILLS patient will need to get a week supply at a time no more than that Authorizing Provider: EDWIN ROONEY Ordering User: SHRADDHA ASHLEY Shraddha Ashley - 06/15/2009 4:24 PM CDT Refill was done for 1 week supply of medications, has an appt with tomorrow he can discuss this information with her and see if the weekly refills are indeed necessary. Shraddha Ashley RN Grace Hernandez - 06/15/2009 1:53 PM CDT Patient has scheduled an appointment for 06-16-09. Edwin Rooney - 06/15/2009 8:36 AM CDT Pending Prescriptions: Disp Refills clonAZEPAM (AKA KLONOPIN) 0.5 MG tablet 120 0 Sig: take 2 tablets twice daily as needed. NO EARLY REFILLS Edwin Rooney - 06/15/2009 8:36 AM CDT Pt needs to be seen to figure out what's going on.in the mean time it's ok to give a week supply at a time. Edwin Rooney MD Shantell Paulino - 06/14/2009 3:01 PM CDT Pending Prescriptions: Disp Refills clonAZEPAM (AKA KLONOPIN) 0.5 MG tablet 120 0 Sig: take 2 tablets twice daily as needed. NO EARLY REFILLS hSantell Paulino - 06/14/2009 3:[address] Cheng's telephone encounter dated 05/16/09. The clinic received information that the patient was in outpatient CD treatment from 02/02/09-03/16/09. Will route to Dr. Rooney for approval or denialof clonazepam refill and whether or not he would like the patient to have a care plan regarding clona zepam use. Shantell Paulino RN,C Yolande Abraham - 06/14/2009 1:46 PM CDT Last filled 05/15/09 #120 documented in this encounter Plan of Treatment Not on filedocumented as of this encounter Visit Diagnoses Not on filedocumented in this encounter Care Teams Basket Person Relationship Specialty Start Date End Date Stefani Casanova MD PCP - General 01/13/11 08/21/14 1000 [facility] [address] [place] [address] documented as of this encounter
--- OUTSIDE RECORDS SUMMARY | 2022-08-02 01:26 | XMS_ITS | Encounter Summary ---
:1975 Author Organization [email or web address] Address [address] [place] [address] Care Team Providers Name Role Phone Tico Cheng MD Primary Care Provider Reason for Visit Reason Onset Date Comments NUMBNESS 04/10/2009 Encounter Details Date Type Department Care Team Description 04/10/2009 Telephone [facility] Tico Cheng MD NUMBNESS [address] [facility] [place] [address] [place] [address] [phone] Social History Tobacco Use Types Packs/Day Years Used Date Smoking Tobacco: Every Day Comments: LESS THAN HALF PACK PER DAY st arted at age 18 and has cut down since then. Alcohol Use Standard Drinks/Week Comments Yes 0 (1 standard drink = 0.6 oz pure alcoho l) RARELY Sex Assigned at Date Recorded Not on file documented as of this encounter Nursing Notes Virgen Martinez - 04/12/2009 5:42 PM CDT Called [facility] Rx's [facility] Luis Carlos Erickson - 04/12/2009 5:25 PM CDT Ok for ibuprofen and vicodin refill, sent Virgen Martinez - 04/12/2009 4:54 PM CDT On right hand 2nd and 3rd fingers have been numb for 2 weeks and for last week thumb has been numb also.Not really painful, but sometimes can't use hand well. She also has back pain that is getting worse again. Worse than before last saw Dr Cheng. She has taken Naprosyn for pain , but big doses made her stomach hurt and reflux worse They don't have much money . She would like Rx for something for pain- would like refill on vicodin and ibuprofen for in between..I advised she will need an appt to check the hand also , but she has no car. WIll make appt when can get ride. Kristine Bell - 04/12/2009 9:28 AM CDT Pt. WCB Kristine Bell - 04/11/2009 6:37 PM CDT Pt. left message on RN voicemail. Josiane Castro - 04/10/2009 4:45 PM CDT DESCRIBE YOUR SYMPTOMS: Pt has 3 fingers that have been numb for 2 weeks WHEN DID THEY START: 2 weeks WHAT HAVE YOU TRIED AT HOME: Pt saw Dr. Cheng for it a couple of weeks ago documented in this encounter Plan of Treatment Not on filedocumented as of this encounter Visit Diagnoses Diagnosis Mechanical low back pain - Primary Lumbago documented in this encounter Care Teams Quarry Worker Relationship Specialty Start Date End Date Tico Cheng MD PCP - General 03/09/08 01/12/[address] [place], [place] [address] documented as of this encounter
--- OUTSIDE RECORDS SUMMARY | 2022-08-02 01:26 | XMS_ITS | Encounter Summary ---
:1975 Author Organization [employer] Address [address] [place] [address] Care Team Providers Name Role Phone Tico Cheng MD Primary Care Provider Reason for Referral Specialty Diagnoses / Procedures Referred By Contact Refer red To Contact Tico Cheng MD [address] [place] [address] Referral ID Status Reason Start Date Expiration Date Visits Requ ested Visits Authorized Reason for Visit Reason Comments BURSITIS UPSET, STOMACH Encounter Details Date Type Department Care Team Description 03/03/2009 [facility] Visit [facility] Tico Cheng, Mechanical Low Back Pain (Pr imary Dx); [address] MD Stress; [address] [place] GERD (Gastroesophageal Reflux Disease); [place] [address] Tobacco Use Disorder [address] [phone] Social History Tobacco Use Types Packs/Day Years [...] Sign Reading Time Taken Comments Blood Pressure 100/70 03/03/2009 11:44 AM CDT Pulse 88 03/03/2009 11:44 AM CDT Temperature - - Respiratory Rate - - Oxygen Saturation - - Inhaled Oxygen Concentration - - Weight 74.8 kg (165 lb) 03/03/2009 11:44 AM CDT Height - - Body Mass Index 29.23 05/05/2008 10:01 AM CDT documented in this encounter Patient Instructions Patient InstructionsTico Cheng - 03/03/2009 12:55 PM CDT Use nicotine inhaler as needed for craving. 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 pharmacy. Stop naproxen. Please make sure you get 600 of calcium with 400 of vitamin D daily. Please stop at the desk to make chiropractic appointment.. Consider using back support brace with activity or to lift weight to reduce pain. Maintain good posture all the time. Lift weight with your knees and not your back. Weight loss or maintaining ideal body weight will help prevent back problems. Do back stretching and strengthening exercises at least three times a week. Take Tylenol as needed without exceeding 4grams per day. Apply asper cream or bengay topically. You could try ice packs or warm pack as tolerated. Call or return to clinic prn if these symptoms worsen, fail to improve as anticipated, or if new symptoms develop. Stress can cause back pain, avoid job burn out. If you work more than 40 hours per week you need extra sleep. 8 hours of sleep daily, 30min walking and three meals at regular time with 5 servings of fruits and veggies/ day, occ nuts like almonds , 3 servings or more calcium daily will help manage stress better. For all patients with back pain we recommend the following: People who have any of the following should contact their healthcare provider for advice: People who are 70 years or older with new back pain Pain that does not go away, even at night or when lying down. Weakness in one or both legs or problems with bladder, bowel, or sexual function can be signs of cauda equina syndrome, arising from compression of the nerve bundle at the base of the spine. These symptoms should be evaluated as soon as possible. If back pain is accompanied by unexplained fever or weight loss If there is a history of cancer, a weakened immune system, osteoporosis, or if the person has used corticosteroids (eg, prednisone) for a prolonged period of time If the back pain is a result of falling or an accident, especially for people greater than 50 years. If pain spreads into the lower leg, particularly if accompanied by weakness of the leg. If back pain does not improve within four weeks. documented in this encounter Progress Notes Tico Cheng - 03/03/2009 12:39 PM CDT SUBJECTIVE: Santa Farmer is a 33 yr old female is here today requesting chiropractic referral. She has been doing spring cleaning at home and in the yard. She feels that has aggravated her bursitis pain on the left side. She says she feels anxious about going to chiropractor. She says naproxen makes her sick with heartburn. She has been taking medication to reduce acid secretion. It is worse with carrying her small kids and better with narcotic pain medication. Patient rates intensity as moderate pain. She says she slipped on wet kitchen floor recently. She says she is currently taking two pills of bupropion daily and is on fluoxetine 20mg daily. She tried 30mg but feels it caused her groggy. She has had problems with her daughters ADHD. She is done with school for summer and plans to go back in fall. Patient is tearful today. She talks about having p roblems with her adolescent daughter. She has cut down on smoking. She has been using [facility]. OBJECTIVE: PHYSICAL EXAMINATION: The patient appears healthy,in no acute distress,mobile without assistance, well nourished, appears stated age, alert Vital Signs: BP 100/70 Pulse 88 Wt 165 lb (74.844 kg) LMP 02/13/2009 HEENT: Head negative EOM's intact Neck: full range of motion Lungs: Respirations normal. Edema: no Neurological exam reveals normal without focal findings, mental status, speech normal, alert and oriented x iii. musculoskeletal exam shows normal gait, no obvious signs of inflammation in any of her joints. No tenderness to palpation of left trochanter. There is left lower back tenderness. No midline tenderness.No local bruises noted. Active left side movements are painful. Psychiatric evaluation reveals mood depressed, thought process intact, Judgment and insight fair, nohallucinations and delusions, no suicidal ideation. Previous labs reviewed: vitamin D level is low normal. ASSESSMENT: Encounter Diagnoses Code Name Primary? Qualifier ??? 724.2AR Mechanical Low Back Pain Yes Plan: CAR SEAT COVERER, VICODIN 5-500 MG OR TABS ??? V62.89N Stress ??? 530.81K GERD (Gastroesophageal Reflux Disease) ??? 305.1 Tobacco Use Disorder Plan: NICOTROL 10 MG IN INHA PLAN: See orders and AVS for details. Naproxen discontinued and pharmacy has been notified due to worsening GERD. Patient encouraged to take tylenol as needed for pain during the day. Tobacco cessation was reviewed. Risk benefits of tobacco use and control medication use was reviewed. Consulting nurse was present for the conversation. Risk benefits of narcotic pain medication use was reviewed in detail and potential was addition was reviewed and she agrees that there will be no more refills on the medication. She understands that she should use it sparingly. More than 25 minutes total time, over 50% spent on counseling/coordinating care Follow up: As needed. Tico Cheng MD documented in this encounter Plan of Treatment Scheduled Referrals Name Type Priority Associated Diagnoses Order S [facility] CAR SEAT COVERER Referral Routine Mechanical Low Back Val n Ordered: 03/03/2009 documented as of this encounter Visit Diagnoses Diagnosis Mechanical low back pain - Primary Lumbago Stress ([facility]) Other psychological or physical stress, not elsewhere classified GERD (gastroesophageal reflux disease) Esophageal reflux Tobacco use disorder ([facility]) Tobacco use disorder documented in this encounter Care Teams Hand Tube Bender Relationship Specialty Start Date End Date Tico Cheng MD PCP - General 03/09/08 01/12/11 [address] [place] [address] documented as of this encounter
[2022-08-02 01:27] LABS: Basophils Absolute Auto 0.02 K/uL (0.00-0.30); Basophils Percent Auto 0.4 % (0.0-3.0); Eosinophils Absolute Auto 0.17 K/uL (0.00-0.50); Eosinophils Percent Auto 3.6 % (0.0-7.0); Hematocrit 36.2 % (33.0-51.0); Hemoglobin* 11.8 gm/dL (12.0-16.0); Lymphocytes Absolute Auto 1.52 K/uL (0.90-2.90); Lymphocytes Percent Auto 32.5 % (20-44); Mean Corpuscular HGB Conc 33 gm/dL (32-36); Mean Corpuscular Hemoglobin 30 pg (26-34); Mean Corpuscular Volume 91 fL (80-100); Monocytes Percent Auto 8.1 % (0.0-11.0); Neutrophils Absolute Auto 2.58 K/uL (1.7-7.0); Neutrophils Percent Auto 55.4 % (42.0-72.0); Platelet Count* 245 K/uL (140-440); RDW Coefficient of Variation % 12.6 % (11.5-15.5); Red Blood Count 3.97 m/uL (4.00-5.20); White Blood Count* 4.67 K/uL (4.50-11.00)
--- OUTSIDE RECORDS SUMMARY | 2022-08-02 01:27 | XMS_ITS | Encounter Summary ---
:1975 Author Organization [employer] Address [address] [place] [address] Care Team Providers Name Role Phone Stefani Casanoav MD Primary Care Provider [phone] Encounter Details Date Type Department Care Team Description 08/03/2008 PN Conversion Only [facility] [address] [facility] [place] [address] Social History Tobacco Use Types Packs/Day Years [...] filedocumented in this encounter Care Teams Metal Flooring Installer Relationship Specialty Start Date End Date Stefani Casanova MD PCP - General 01/13/11 08/21/14 1000 [facility] [address] [place] [address] documented as of this encounter
--- OUTSIDE RECORDS SUMMARY | 2022-08-02 01:27 | XMS_ITS | Encounter Summary ---
:1975 Author Organization [employer] Address [address] [address] Care Team Providers Name Role Phone Stefani Casanova MD Primary Care Provider [phone] Encounter Details Date Type Department Care Team Description 12/02/2008 Office Visit [facility] Jorge Paul [address] [place] [address] [phone] [place] [address] (Wo rk) Social History Tobacco Use Types [...] Sign Reading Time Taken Comments Blood Pressure 118/81 12/02/2008 6:06 PM [employer]ISH Pulse 79 12/02/2008 6:06 PM [employer] SP[employer]ISH Temperature 36.6 ??C (97.9 ??F) 12/02/2008 6:06 PM [employer] SPANISH C: 36 .6 C Respiratory Rate 16 12/02/2008 6:06 PM [employer]ISH Oxygen Saturation - - Inhaled Oxygen Concentration - - Weight - - Height - - Body Mass Index - - documented in this encounter Progress Notes Jorge Arciniega MD - 12/02/2008 12:01 AM CST Progress Notes signed by Jorge Arciniega MD at 12/07/08 0917 Author: Jorge Arciniega MD Service: (none) Author Type: Physician Filed: 02/02/11 1107 Note Time: 12/02/08 0001 Status: Signed News Camera Operator: Jorge Arciniega MD (Physician) NAME: SANTA FARMER MR#: [id number] ACCT: [id number] VISIT: [id number] DICTATING CLINICIAN: Jorge Arciniega MD CONFIRM #: [id number] LOC: 820 CLINIC PROGRESS NOTE DATE OF VISIT: 12/02/2008 SUBJECTIVE: This 33-year-old states that she has dental pain. She has an appointment next Friday to see a maxillofacial surgeon in [facility] for evaluation and possible extraction the next day. She has had no fever, chills or sweats. PAST MEDICAL HISTORY: Pertinent in that her problem list includes cocaine addiction. She states that she has been a good girl, but when asked if she has a sponsor she has none. She volunteers that she did not go to , but went to faith instead to get herself straight. I expressed to her that I was not inclined to do anything that would help her get into a relapse or slip, but she states that she has had narcotic analgesics here previously without adverse effect. The reason for the question about the sponsor is so that if she is on narcotics and actually needs them that the sponsor is aware of that. OBJECTIVE: There appears to be no inflammation around the lower posterior ridge where she complains of pain. No submental adenopathy and no erythema or edema over the angle of the mandible. ASSESSMENT: Dental pain. PLAN: I gave her Vicodin 5/500, #15, no refill. IMPRESSION: Dental pain. RAP:[id number] C: 12/03/08 07:51 CONFIRM #: [id number] [employer] documented in this encounter Plan of Treatment Not on filedocumented as of this encounter Visit Diagnoses Not on filedocumented in this encounter Care Teams Nail Mill Worker Relationship Specialty Start Date End Date Stefani Casanova MD PCP - General 01/13/11 08/21/14 [address] [facility] [address] [place] [address] documented as of this encounter
--- OUTSIDE RECORDS SUMMARY | 2022-08-02 01:27 | XMS_ITS | Encounter Summary ---
:1975 Author Organization [employer] Address [address], [place] [address] Care Team Providers Name Role Phone Stefani Casanova MD Primary Care Provider [phone] Encounter Details Date Type Department Care Team Description 06/09/2007 PN Conversion Only [place] [facility] [address] [place] [address] Social History Tobacco Use Types Packs/Day Years Used Date Smoking Tobacco: Never Assessed Sex Assigned at Date Recorded Not on file documented as of this encounter Plan of Treatment Not on filedocumented as of this encounter Visit Diagnoses Not on filedocumented in this encounter Care Teams Air Liaison And Special Staff Relationship Specialty Start Date End Date Stefani Casanova MD PCP - General 01/13/11 08/21/14 1000 [facility] [address] [place] [address] documented as of this encounter
--- OUTSIDE RECORDS SUMMARY | 2022-08-02 01:27 | XMS_ITS | Encounter Summary ---
:1975 Author Organization [employer] Address [address] [place] [address] Care Team Providers Name Role Phone Tico Cheng MD Primary Care Provider Reason for Visit Reason Comments TOOTHACHE upper right molar ongoing x 2 days Encounter Details Date Type Department Care Team Description 10/15/2008 [facility] Abscess (Primary [address] [place]) [place] [address] Social History Tobacco Use Types Packs/Day Years [...] Sign Reading Time Taken Comments Blood Pressure 116/78 10/15/2008 7:34 PM PIPEFITTER HELPER Pulse 89 10/15/2008 7:34 PM PIPEFITTER HELPER Temperature 36.7 ??C (98.1 ??F) 10/15/2008 7:34 PM PIPEFITTER HELPER Respiratory Rate 18 10/15/2008 7:34 PM PIPEFITTER HELPER Oxygen Saturation 99% 10/15/2008 7:34 PM PIPEFITTER HELPER Inhaled Oxygen Concentration - - Weight - - Height - - Body Mass Index - - documented in this encounter Progress Notes Kameron Blackwood - 10/19/2008 11:09 PM CST This office note has been dictated. Kameron Blackwood MD FITTER HELPER Kameron Blackwood - 10/15/2008 12:00 AM PIPEFITTER HELPER Subjective: Nbdqbs-ivs-fzmv-old complains of pain around apparent tooth loss over the past couple of days. She had some sort of dental work done many years ago and then 5 years ago, may have lost a crown from her description. Objective: Her 2nd to the last right upper rear molar appears to be gone. There is a suggestion of a little swelling of the adjacent gum line. There is no associated facial swelling or lymphadenopathy. She is afebrile. Assessment: Early dental abscess. Plan: Augmentin prescribed. The usual narcotic precautions were discussed along with the risks of this. She should obviously should see a dentist as soon as possible even if there is some temporary improvement. She may have seen a dentist in recent years, but the absent tooth in question was apparently not a problem at that time. A / P scp cc: FITTER HELPER documented in this encounter Plan of Treatment Not on filedocumented as of this encounter Visit Diagnoses Diagnosis Dental abscess - Primary Periapical abscess without sinus documented in this encounter Care Teams Tobacco Sampler Relationship Specialty Start Date End Date Tico Cheng MD PCP - General 03/09/08 01/12/11 [address] [place] [address] documented as of this encounter
--- OUTSIDE RECORDS SUMMARY | 2022-08-02 01:27 | XMS_ITS | Encounter Summary ---
:1975 Author Organization [employer] Address [address], [place] [address] Care Team Providers Name Role Phone Nhi Toure PA-C Primary Care Provider Encounter Details Date Type Department Care Team Description 06/18/2003 [facility] JEWEL BEARING FACER Dale Palomino MD STERILIZATION [address] [place] [address] Social History Tobacco Use Types Packs/Day Years [...] as of this encounter Visit Diagnoses Diagnosis Sterilization documented in this encounter Care Teams Acidizer Helper Relationship Specialty Start Date End Date Nhi Toure PA-C PCP - General Physician Data Warehouse Architect 03/09/20 [address] [place] [address] documented as of this encounter
--- OUTSIDE RECORDS SUMMARY | 2022-08-02 01:27 | XMS_ITS | Encounter Summary ---
:1975 Author Organization [facility] Address [address] [place] [address] Care Team Providers Name Role Phone Tico Cheng MD Primary Care Provider Reason for Visit Reason Comments HIP PAIN LEFT Encounter Details Date Type Department Care Team Description 03/09/2008 [facility] Visit [facility] Tico Cheng, Trochanteric Bursitis (Prima ry Dx); [address] Mel Rodriguez MD Tobacco Use Disorder; [address] [place] GERD (Gastroesophageal Reflux Disease); [place] [address] Depression with Anxiety [address] Social History Tobacco Use Types Packs/Day Years Used Date Smoking Tobacco: Never Comments: LESS THAN HALF PACK PER DAY st arted at age 18 and has cut down since then. Alcohol Use Standard Drinks/Week Comments Yes 0 (1 standard drink = 0.6 oz pure alcoho l) RARELY Sex Assigned at Date Recorded Not on file documented as of this encounter Last Filed Vital Signs Vital Sign Reading Time Taken Comments Blood Pressure 110/80 03/09/2008 4:25 PM CDT Pulse - - Temperature 36.4 ??C (97.5 ??F) 03/09/2008 4:25 PM CDT Respiratory Rate - - Oxygen Saturation - - Inhaled Oxygen Concentration - - Weight 77.1 kg (170 lb) 03/09/2008 4:25 PM CDT Height 160.7 cm (5' 3.25) 03/09/2008 4:25 PM CDT Body Mass Index 29.88 03/09/2008 4:25 PM CDT documented in this encounter Progress Notes Tico Cheng S - 03/09/2008 4:48 PM CDT SUBJECTIVE: Santa Farmer is a 32 yr old female is here today with left hip pain for four weeks. It is worse with activity and better with rest. Patient has tried ibuprofen at home without significant improvement.Patient rates intensity at 7- 8/10 at times but otherwise constant dull pain. Associated symptoms no fever, no trauma, none of the other joints bother her. This started recently after she moved [address] [place] [address]. She has been more tired. She has had anxiety and depression in the past and is concerned about taking medications since she could not tolerate zoloft and citalopram. Ibuprofen has made her heart burn worse. She was encouraged to avoid coffee intake and switch to decaf. She has been drinking upto 4 cups per day. She was instructed to avoid ibuprofen like medication, spicy, food alcohol. Tob use 1/2ppd. She denies having seizures in the past. She is requesting vicodin for hip pain sinceit has worked well for her mom. She has tried tylenol #3 in the past for dental pain and feels it does not work for her to control the pain. She does not want injection today for hip problem. OBJECTIVE: PHYSICAL EXAMINATION: The patient appears healthy,in no acute distress,mobile without assistance, well nourished, appears stated age, alert Vital Signs: BP 110/80 Temp (Src) 97.5 ??F (36.4 ??C) (Tympanic) Ht 5' 3.25 (1.607 m) Wt 170 lb (77.111 kg) HEENT: Head negative EOM's intact Neck: full range of motion Lungs: normal. Heart sounds are regular. Edema: no Neurological exam reveals normal without focal findings, mental status, speech pressured, alert and oriented x iii. PHQ9 was administered today with a total score of 17. See flowsheet for details. Psychiatric evaluation reveals mood Mildly anxious, thought process intact, Judgement and insight fair, no hallucinations and dellusions, no suicidal ideation. Left Hip exam shows tenderness at trochanter site. No limitation to joint movement. No other signs of inflammation noted at this time. ASSESSMENT: Encounter Diagnoses Code Name Primary? Qualifier ??? 726.5S Trochanteric Bursitis Yes Plan: HYDROCODONE/APAP (VICODIN) 5-500MG ORAL TABS ??? 305.1 Tobacco Use Disorder Plan: BUPROPION HCL (ZYBAN) 150MG ORAL TABS ??? 530.81K GERD (Gastroesophageal Reflux Disease) Plan: RANITIDINE HCL 150 MG OR TABS ??? 300.4AZ Depression with Anxiety PLAN: See orders. She wanted 20pills of vicodin at the end. She is not interested in getting steroid shots. She was reassured that with starting all the medications and getting her anxiety and depression under control she should start feeling better in next one to two weeks. She was encouraged to take tylenol during the day. She says she has never had problems with pain medications dependence in the past. She refuses nicotine replacement therapy at this time. Tobacco cessation counseling was provided andshe was encouraged to cut down and quit. Call or return to clinic prn if these symptoms worsen, fail to improve as anticipated, or if new symptoms develop. Follow up: 1 month(s) and/or as needed early. Tico Cheng MD documented in this encounter Plan of Treatment Not on filedocumented as of this encounter Visit Diagnoses Diagnosis Trochanteric bursitis - Primary Enthesopathy of hip region Tobacco use disorder ([facility]) Tobacco use disorder GERD (gastroesophageal reflux disease) Esophageal reflux Depression with anxiety ([facility]C) Dysthymic disorder documented in this encounter Care Teams Oil Well Pumper Relationship Specialty Start Date End Date Tico Cheng MD PCP - General 03/09/08 01/12/11 [address] [address] documented as of this encounter
--- OUTSIDE RECORDS SUMMARY | 2022-08-02 01:27 | XMS_ITS | Encounter Summary ---
:1975 Author Organization [facility] Address [address] [place] [address] Care Team Providers Name Role Phone Tico Cheng MD Primary Care Provider Reason for Visit Reason Comments HIP PAIN lt Encounter Details Date Type Department Care Team Description 06/01/2008 Office Visit [facility] Bursitis of Hip (Primary Dx) ; [address] Vonnie Le MD [place] [address] Bursitis [address] [place], [place] [address] Social History Tobacco Use Types Packs/Day Years [...] Sign Reading Time Taken Comments Blood Pressure 100/64 06/01/2008 3:07 PM CDT Pulse - - Temperature 37.2 ??C (98.9 ??F) 06/01/2008 3:07 PM CDT Respiratory Rate - - Oxygen Saturation - - Inhaled Oxygen Concentration - - Weight - - Height - - Body Mass Index - - documented in this encounter Progress Notes Vonnie Mendez - 06/01/2008 3:53 PM CDT the hip injection helped for about a week. This office note has been dictated. Vonnie Mendez MD Vonnie Mendez - 06/01/2008 12:00 AM CDT SUBJECTIVE: Santa comes in because she had requested a refill on her Vicodin which she uses for hip pain and she feels that she needs the pain medication because at the end of the day when she has been working in on her feet all day, at the end of the day she has pain in the left hip where she is sitting and resting. She has tried ibuprofen. She takes two Advil sometimes about every four hours and it still hurts by the end of the day. It does not keep her from working or walking. She was seen by Dr. Otero who felt that she had a slight leg length discrepancy and that may be contributing towards her left trochanteric bursitis and he gave her a cortisone shot which lasted she thinks maybe a week or maybe two before it wore off. OBJECTIVE: Healthy-appearing white female who walks without particularly distressed. She can bend over and touch her toes. Heel and toe walking are intact. When she is seated, external rotation of the left hip is somewhat painful and she is tender over the greater trochanter on the left side. Reflexes at the knee and ankle are intact. Straight leg raising is negative, so there is no evidence of a sciatic-type component here. ASSESSMENT: I think this is a bursitis and I think the cortisone shot and antiinflammatories are the most appropriate treatment; however, she feels very strongly that she needs something stronger and she feels that after Labor Day when her kids are back in school her physical stressors will be less and she will be much improved. Therefore we did prescribe 20 of Vicodin and tell her she needs to use them extremely sparingly. They are not to be used on a daily basis and she can try Naprosyn 500 twice a day, take with food and see if this can give a better control over her discomfort and encouraged her to remain physically active. P cc: documented in this encounter Plan of Treatment Not on filedocumented as of this encounter Visit Diagnoses Diagnosis Trochanteric bursitis Enthesopathy of hip region documented in this encounter Care Teams Proration Clerk Relationship Specialty Start Date End Date Tico Cheng MD PCP - General 03/09/08 01/12/[address] [place] [address] documented as of this encounter
--- OUTSIDE RECORDS SUMMARY | 2022-08-02 01:27 | XMS_ITS | Encounter Summary ---
:1975 Author Organization [facility] Address [address] [place] [address] Care Team Providers Name Role Phone Tico Cheng MD Primary Care Provider Reason for Visit Reason Comments PAP,ROUTINE Encounter Details Date Type Department Care Team Description 05/05/2008 Office Visit [facility] Cintia Diaz, [facility] Care (Primary Dx); Gynecology CAUSTIC CRESYLATE SHIFT SUPERINTENDENT, SKI LIFT OPERATOR Screening for Malignant Neop lasm of the Cervix; [address] Screen f or STD (Sexually Transmitted Disease) [address] [place], [place] [address] Social History Tobacco Use Types Packs/Day Years [...] Sign Reading Time Taken Comments Blood Pressure 140/64 05/05/2008 10:01 AM CDT Pulse - - Temperature - - Respiratory Rate - - Oxygen Saturation - - Inhaled Oxygen Concentration - - Weight 77.5 kg (170 lb 12.8 oz) 05/05/2008 10:01 AM CDT Height 160 cm (5' 3) 05/05/2008 10:01 AM CDT Body Mass Index 30.26 05/05/2008 10:01 AM CDT documented in this encounter Patient Instructions Patient InstructionsCintia Diaz - 05/05/2008 10:30 AM CDT Healthy habits include: Three well balanced meals per day, low fat, high fiber Calcium total of 1200 to 1500 mgm and 400 IU's of vitamin D Exercise 20 minutes a day, minimum Manage stress as needed Take time to play documented in this encounter Progress Notes Cintia Diaz - 05/05/2008 10:30 AM CDT S> Santa Farmer is a 32 yr old female is in for routine health maintenance. [address] She feels generallywell. Current concerns: Has noted increase sporadic distension of the abd, off and on cramping, diarrhea and or constipation over the past 5 years. It has not gotten worse. She wonders if it could be IBS. Sounds like she could improve diet and decrease coffee.Will see adult med. Menses are mild cramping and regular and predictable Sexual activity: monogamous in a stable relationship . Previous history of abnormal paps: none Contraception: sterilization. Nutrition/diet/weight concerns: wants to lose about 10 pounds Do you eat eat 3 meals a day 4 to 5 small How many fruits and vegetables 2-3 Present dietary habits: tries to make low fat, high fiber choices most of the time. Calcium 0, ?lactose intolerant servings, 1 supplement Vitamin D 1 What type of exercise treadmill 3 to 4 times a week Domestic violence concerns: no Review Of Systems Ears/Nose/Throat: sinus trouble Respiratory: allergies in May Cardiovascular: negative Gastrointestinal: excessive gas or bloating, constipation and diarrhea Genitourinary: incontinence, stress O> General:32 yr pleasant female who appears her stated age. Today's vital signs were reviewed by me. Neck:negative Lungs: clear to auscultation, no wheezes or rales Breasts: no dominant mass or nipple changes CV: regular rate and rhythm, normal S1 and S2 without murmur or click Abd is soft smooth with no masses or tenderness noted Pelvic Examination: the introitus appears free of inflamation or deformity. The vagina is rugated and free of lesions. The cervix is appropriate for parity. Bimanual exam reveals no uterine enlargement. The adnexa are free of masses or ovarian enlargement. There is no tenderness. Pap smear obtained A> Preventive Evaluation and Exam P>See today's orders for details Cultures per pt request All history aldana populated Discussed the importance of: Caffeine concerns and Low fat, high fiber diet Follow-up in 2 years for preventive care. Cintia Diaz NP 05/05/2008 12:48 PM documented in this encounter Plan of Treatment Not on filedocumented as of this encounter Procedures Procedure Name Priority Date/Time Associated Diagnosis Comme nts CHLAMYDIA & GC (14 Routine 05/05/2008 10:50 AM Screen for STD Results for this YEARS AND OLDER) CDT (Sexually procedure a re in Transmitted Disease) the res ults section. PAP TEST, ROUTINE Routine 05/05/2008 10:00 AM Screening for Re sults for this CDT Malignant Neoplasm procedure are in of the Cervix the results section. documented in this encounter Results CHLAMYDIA & GC (05/05/2008 10:50 AM CDT) P athologist Signature Chlamydia Negative [facility] Comment: Test Performed by Media Consultant Outside Sales Mediated Amplification GC (N. gonorrhoeae) Negative [facility] Comment: Test Performed by Media Consultant Outside Sales Mediated Amplification Source Cervix [facility] Specimen Anatomical Collection Method Collection Time Receive d Time (Source) Location / / Volume Laterality 05/05/2008 10:50 05/05/2008 AM CDT 10:53 AM CDT Cintia Diaz CAUSTIC CRESYLATE SHIFT SUPERINTENDENT, SKI LIFT OPERATOR LAB_1 Performing Organization Address City/State/ZIP Code Phon e Number [facility] [phone] [address] PAP TEST, ROUTINE (05/05/2008 10:00 AM CDT) Component Value Ref Test Analysis [facility] Method Time Signature Cytology, (NOTE) [facility] Pap Compliance Professional Cytology Report Patient Name: SANTA FARMER Taken: 05/05/2008 Received: 05/09/2008 Reported: 05/16/2008 Physician(s): CINTIA DIAZ ([id number]) ?Source of Specimen Liquid routine Pap, cervical/endocervical: ?Specimen Adequacy ?Satisfactory for evaluation. ??Endocervical component present. ? Final Cytologic Interpretation/Result NEGATIVE FOR INTRAEPITHELIAL LESION OR MALIGNANCY (NILM) ? 05/16/2008 Electronically Signed Out By ANGEL Jean Baptiste (ASCP) ANGEL Jean Baptiste (ASCP) ?Pap Smear History ?Date of Last Menstrual Period: ? 04/28/08 ?Contraceptive History: ?Not Stated/Unknown ?Other Clinical Conditions: ?LAST PAP: 2005 ??Normal (outside clinic) HPV testing requested per ASCCP Consensus Guidelines ? Specimen Anatomical Collection Method Collection Time Receive d Time (Source) Location / / Volume Laterality 05/05/2008 10:00 05/09/2008 AM CDT 12:52 PM CDT Cintia Diaz APRN, CNP LAB_1 Performing Organization Address City/State/[facility] Phon e Number [facility] [phone] [facility] [address] [address] documented in this encounter Visit Diagnoses Diagnosis Preventative health care - Primary Routine general medical examination at a health care facility Screening for malignant neoplasm of the cervix Screen for STD (sexually transmitted dis ease) Screening examination for venereal disea se documented in this encounter Care Teams University Controller Relationship Specialty Start Date End Date Tico Cheng MD PCP - General 03/09/08 01/12/[address] [place] [address] documented as of this encounter
--- OUTSIDE RECORDS SUMMARY | 2022-08-02 01:27 | XMS_ITS | Encounter Summary ---
:1975 Author Organization [facility] Address [address], [place] [address] Care Team Providers Name Role Phone Tico Cheng MD Primary Care Provider Reason for Visit Reason Comments PAIN, NOS wisdom teeth giving her pain , need something for pain & stomach Encounter Details Date Type Department Care Team Description 12/02/2008 Office Visit [facility] Pain (Primary Dx) Center [address] [place] [id number] Social History Tobacco Use Types Packs/Day Years [...] Sign Reading Time Taken Comments Blood Pressure 128/86 12/02/2008 5:04 PM BATHING SUIT MAKER Pulse 80 12/02/2008 5:04 PM BATHING SUIT MAKER Temperature 36.8 ??C (98.3 ??F) 12/02/2008 5:04 PM BATHING SUIT MAKER Respiratory Rate 20 12/02/2008 5:04 PM BATHING SUIT MAKER Oxygen Saturation - - Inhaled Oxygen Concentration - - Weight - - Height - - Body Mass Index - - documented in this encounter Progress Notes Tereza Pool - 12/02/2008 5:42 PM CST SUBJECTIVE: Santa Farmer is a 33 yr old female with left lower wisdom tooth pain for 1 week. She has pain of her left lower wisdom tooth for 2 weeks. She has a referral to a dental surgeon to have 4 impacted wisdomteeth removed - She an appt for nextek friday. NO oral discharge. She does Not want to start an antibiobic. Current outpatient prescriptions Medication Sig ??? BUPROPION HCL (ZYBAN) 150MG ORAL TABS start with one pill once daily for two days if no side effects increase to one pill twice daily. take evening pill at noon if you have sleep problems. ??? FLUOXETINE HCL 10 MG OR CAPS Take one capsule by mouth every day for 2 days then increase to 2 capsules daily if no side effects ??? NAPROSYN 500 MG OR TABS Take one tablet by mouth two times each day as needed for pain. take with food ??? RANITIDINE HCL 150 MG OR TABS Take 1 tablet by mouth twice a day Allergies: Review of patient's allergies indicates no known allergies. OBJECTIVE: BP 128/86 Pulse 80 Temp (Src) 98.3 ??F (36.8 ??C) (Tympanic) Resp 20 Adult female in no distress. Oral exam: No gingival swelling or redness, no drainage. ASSESSMENT/PLAN: Encounter Diagnoses Code Name Primary? Qualifier ??? 525.9P Tooth Pain Yes Plan: TORADOL 10MG ORAL TABS Warm soaks to affected area as often as possible for comfort. RTC- PRN 25 minutes spent with patient, more than 50% of this time spent coordinating her care, reviewing herdental films, Answering her questions and counselling her regarding her management plan. Tereza Bourne MD ING SUIT MAKER documented in this encounter Plan of Treatment Not on filedocumented as of this encounter Visit Diagnoses Diagnosis Tooth pain - Primary Unspecified disorder of the teeth and ferrell pporting structures documented in this encounter Care Teams Painter Supervisor Relationship Specialty Start Date End Date Tico Cheng MD PCP - General 03/09/08 01/12/11 [address] [place] [address] documented as of this encounter
--- OUTSIDE RECORDS SUMMARY | 2022-08-02 01:27 | XMS_ITS | Encounter Summary ---
:1975 [facility] Address [address], [place] [address] Care Team Providers Name Role Phone Stefani Casanova MD Primary Care Provider Encounter Details Date Type Department Care Team Description 07/08/2006 PN Conversion Only [facility] Stefani Casanova [address] [place] [address] [address] [place] [address] (Wo rk) Social History Tobacco Use Types Packs/Day Years Used Date Smoking Tobacco: Never Assessed Sex Assigned at Date Recorded Not on file documented as of this encounter Plan of Treatment Not on filedocumented as of this encounter Visit Diagnoses Not on filedocumented in this encounter Care Teams Demo Coordinator Relationship Specialty Start Date End Date Stefani Casanova MD PCP - General 01/13/11 08/21/14 [address] [place] [address] documented as of this encounter
--- OUTSIDE RECORDS SUMMARY | 2022-08-02 01:27 | XMS_ITS | Encounter Summary ---
:1975 Author Organization [facility] Address [address], [place] [address] Care Team Providers Name Role Phone Stefani Casanova MD Primary Care Provider [phone] Encounter Details Date Type Department Care Team Description 07/07/2006 PN Conversion Only [facility] [address] [place] [address] Social History Tobacco Use Types Packs/Day Years Used Date Smoking Tobacco: Never Assessed Sex Assigned at Date Recorded Not on file documented as of this encounter Plan of Treatment Not on filedocumented as of this encounter Visit Diagnoses Not on filedocumented in this encounter Care Teams Lap Hand Tool Relationship Specialty Start Date End Date Stefani Casanova MD PCP - General 01/13/11 08/21/14 1000 [facility] [address] [place], [place] [id number] documented as of this encounter
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
--- OUTSIDE RECORDS SUMMARY | 2022-08-02 01:27 | XMS_ITS | Encounter Summary ---
:1975 Author Organization [employer] Address [address] [place] [address] Care Team Providers Name Role Phone Tico Cheng MD Primary Care Provider Reason for Visit Reason Onset Date Comments BURSITIS 04/28/2008 Encounter Details Date Type Department Care Team Description 04/28/2008 Telephone [facility] Tico Cheng MD BURSITIS [address] [place] [address] [place] [address] [phone] Social History Tobacco Use Types Packs/Day Years Used Date Smoking Tobacco: Every Day Comments: LESS THAN HALF PACK PER DAY st arted at age 18 and has cut down since then. Alcohol Use Standard Drinks/Week Comments Yes 0 (1 standard drink = 0.6 oz pure alcoho l) RARELY Sex Assigned at Date Recorded Not on file documented as of this encounter Nursing Notes Laz Veras - 04/28/2008 6:26 PM CDT Refill as ordered, Vicodin #15. Laz Veras MD Sherley Castano, RN - 04/28/2008 4:52 PM CDT PT. W Jus. TROCHANTERIC HIP PAIN WOULD LIKE ANOTHER REFILL OF VICODIN TO GET HER THROUGH TO HER APPT. W DR. ARORA ON . Esha Anaya - 04/28/2008 2:32 PM CDT LMTCB Lina Gustafson - 04/28/2008 1:34 PM CDT Pt is in a lot of pain. Would like to get some pain medication. Please call documented in this encounter Plan of Treatment Not on filedocumented as of this encounter Visit Diagnoses Diagnosis Trochanteric bursitis - Primary Enthesopathy of hip region documented in this encounter Care Teams Pattern Perforating Machine Operator Relationship Specialty Start Date End Date Tico Cheng MD PCP - General 03/09/08 01/12/[address] [place] [id number] documented as of this encounter
--- OUTSIDE RECORDS SUMMARY | 2022-08-02 01:27 | XMS_ITS | Encounter Summary ---
:1975 Author Organization [employer] Address [address], [place] [address] Care Team Providers Name Role Phone Radha Theodore MD Primary Care Provider Reason for Visit Reason Onset Date Comments Refill 03/31/2008 Encounter Details Date Type Department Care Team Description 03/31/2008 [facility]ill [facility] Radha Theodore MD Refill [address] [place] [address] [place] [address] [phone] Social History Tobacco Use Types Packs/Day Years Used Date Smoking Tobacco: Never Comments: LESS THAN HALF PACK PER DAY st arted at age 18 and has cut down since then. Alcohol Use Standard Drinks/Week Comments Yes 0 (1 standard drink = 0.6 oz pure alcoho l) RARELY Sex Assigned at Date Recorded Not on file documented as of this encounter Nursing Notes Kristine Bell - 04/01/2008 10:35 AM CDT Pt. notified that refill denied at this time and she needs to be seen. Radha Theodore - 03/31/2008 10:27 AM CDT Approved Prescriptions: Disp Refills HYDROCODONE/APAP (VICODIN) 5-500MG ORAL TAB0 0 Sig: DENIED per provider, clinic to contact patient Authorizing Provider: RADHA THEODORE Radha Theodore - 03/31/2008 10:26 AM CDT Please have patient to be seen since pain is not better Dora Sosa - 03/31/2008 10:17 AM CDT Last fill 03/18/[address] Theodore documented in this encounter Plan of Treatment Not on filedocumented as of this encounter Visit Diagnoses Diagnosis Trochanteric bursitis - Primary Enthesopathy of hip region documented in this encounter Care Teams Clinical Physician Assistant Relationship Specialty Start Date End Date Radha Theodore MD PCP - General 03/09/08 01/12/[address] [place] [address] documented as of this encounter
--- OUTSIDE RECORDS SUMMARY | 2022-08-02 01:27 | XMS_ITS | Encounter Summary ---
:1975 Author Organization [facility] Address [address] [place] [address] Care Team Providers Name Role Phone Layo Perez MD Primary Care Provider Reason for Visit Reason Onset Date Comments Dental Concerns 03/05/2008 Encounter Details Date Type Department Care Team Description 03/05/2008 Telephone [facility] Cee Mckeon RN Dental Concerns [address] [place], [place] [address] [address] [place] [address] [phone] Social History Tobacco Use Types Packs/Day Years Used Date Smoking Tobacco: Never Assessed Sex Assigned at Date Recorded Not on file documented as of this encounter Nursing Notes Cecilia High - 03/05/2008 8:59 PM CDT 8:58 PM patient calling back and states that she gave the wrong call back number for the dentist, should be [phone] instead of [phone], Plan:corrected phone number in contacts, paged DR Meadows 9:00 PM, called and transferred to the patient, Cecilia High RN Sugey Ruelas - 03/05/2008 8:31 PM CDT 8:31 PM Pt calls to see what the plan about calling the dentist was. Read pt message below,dentist will call pt at 8:45pm Pt will await call,confirmed phone number Sugey Ruelas RN Cee Mckeon V - 03/05/2008 7:59 PM CDT Pt. Called. She had a root canal about 2 months ago and now is having problems with 2 teeth on the upper right jaw in the same area as the root canal. She states she has decayed teeth in that area and can actually see exposed nerve endings. She went to a non- urgent care and they will not help. She requests enough pain meds and/or antibiotics to last until . And then she will try to get back into the [facility]. Page to Dr. Shantell Garay at 7:55 p.m. She returned the page at 8:00 p.m. And agreed to call the patient back at 8:45 p.m. When the patient gets back home from urgent care. Cee Mckeon RN documented in this encounter Plan of Treatment Not on filedocumented as of this encounter Visit Diagnoses Not on filedocumented in this encounter Care Teams Crop Farmers Relationship Specialty Start Date End Date Layo Perez MD PCP - General 07/01/03 03/08/[address] [place] [address] [place] [address] documented as of this encounter
--- OUTSIDE RECORDS SUMMARY | 2022-08-02 01:27 | XMS_ITS | Encounter Summary ---
:1975 [facility] Address [address], [place] [address] Care Team Providers Name Role Phone Layo Perez MD Primary Care Provider Encounter Details Date Type Department Care Team Description 05/21/2004 Notes/Orders [facility] Ifeoma Singh, EPRESSIVE DISORDER NOS [address]. RN (Primary Dx) [place] [address] Social History Tobacco Use Types Packs/Day Years Used Date Smoking Tobacco: Never Assessed Sex Assigned at Date Recorded Not on file documented as of this encounter Plan of Treatment Not on filedocumented as of this encounter Visit Diagnoses Diagnosis DEPRESSIVE DISORDER NOS - Primary documented in this encounter Care Teams Relationship Executive Relationship Specialty Start Date End Date Layo Perez MD PCP - General 07/01/03 03/08/08 [address] [place] [address] documented as of this encounter
--- OUTSIDE RECORDS SUMMARY | 2022-08-02 01:27 | XMS_ITS | Encounter Summary ---
:1975 Author Organization [facility] Address [address], [place] [address] Care Team Providers Name Role Phone Unassigned, Provider Primary Care Provider Unavailable Encounter Details Date Type Department Care Team Description 06/18/2003 Orders Only [facility] Freddie Hendrix MD [address] [place] [id number] Social History Tobacco Use Types Packs/Day Years Used Date Smoking Tobacco: Never Assessed Sex Assigned at Date Recorded Not on file documented as of this encounter Plan of Treatment Not on filedocumented as of this encounter Procedures Procedure Name Priority Date/Time Associated Diagnosis [facility] SURGICAL PATH Routine 06/18/2003 12:00 AM Results for this CDT procedure are i n the results section . documented in this encounter Results SURGICAL PATH (06/18/2003 12:00 AM CDT) [facility] Method Time Signature 9911 (NOTE) [facility] Final Report Patient Name: SANTA FARMER Taken: 06/18/03 Received: 06/18/03 Reported: 06/21/03 Physician(s): FREDDIE PALOMINO MD Final Pathologic Diagnosis A&B. ??Resected segment of right and left fallopian tubes. ne/06/20/03 Electronically Signed Out By Freddie Moore MD ([id number]) Procedures/Addenda Clinical History Candidate for sterilization Gross Description A. The specimen is labeled right fallopian tube. The specimen consists of a 5 cm in length by 0.6 cm in diameter fallopian tube. ??The tube measures 0.3 cm in diameter. ??A loan servicing representative cross section is submitted in one cassette. B. The specimen is labeled left fallopian tube. The specimen consists of a 0.4 cm in length by 0.5 cm in diameter fallopian tube. On section, the fallopian tube measures 0.3 cm in diameter. A loan servicing representative cross section is submitted in one cassette. ??dm/ks 06/20/03 Microscopic Description A&B. ??Microscopic examination is performed on two (2) slides. 06/20/03 Freddie Moore MD ([id number]) Specimen (Source) Anatomical Location Collection Method / Collectio n Time Received Time / Laterality Volume 06/18/2003 06/18/2003 Freddie Palomino MD LAB_1 Performing Organization Address City/State/ZIP Code Phon e Number [address] [address] [place], [place] [phone] documented in this encounter Visit Diagnoses Not on filedocumented in this encounter Care Teams Manager Service Desk Relationship Specialty Start Date End Date Unassigned, Provider PCP - General 02/23/03 06/30/03 [address] [place] [address] documented as of this encounter
--- OUTSIDE RECORDS SUMMARY | 2022-08-02 01:27 | XMS_ITS | Encounter Summary ---
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
--- OUTSIDE RECORDS SUMMARY | 2022-08-02 01:27 | XMS_ITS | Encounter Summary ---
:1975 Author Organization [employer] Address [address] [place] [address] Care Team Providers Name Role Phone Tico Cheng MD Primary Care Provider Reason for Visit Reason Onset Date Comments SHOT,NOS 05/16/2008 Encounter Details Date Type Department Care Team Description 05/16/2008 Telephone [facility] Tico Cheng MD SHOT,NOS [address] [place] [address] [place] [address] [phone] Social History Tobacco Use Types Packs/Day Years [...] this encounter Nursing Notes Tico Cheng - 05/16/2008 5:55 PM CDT Script sent Sherley Castano RN - 05/16/2008 5:08 PM CDT PT. STATES THAT THE CORTISONE SHOT SHE GOT IN THE L. HIP HASN'T HELPED. SHE GOT IT ABOUT 2 WKS. AGO.NOW THE PAIN IS MORE IN THE BACK & INTO THE L. BUTTOCKS. 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 SHE CAN'T COME INTO CLINIC UNTIL THE MIDDLE OF . WHAT SHE WOULD LIKE IS A 30 DAY RX OF VICODIN TO HELP HER W THE PAIN UNTIL SHE CAN BE SEEN. SHE SAYS HER INSURANCE CHARGES HER THE SAME FOR 5, 15, OR 30 + PILLS. SHE REALLY WANT THE RX TO LAST FOR 1 MONTH. Eliza Damon LPN - 05/16/2008 2:31 PM CDT Message left to call back. Eliza Damon LPN 2:31 PM Josiane Castro - 05/16/2008 11:44 AM CDT Pt's coritsone shot in left hip didn't work. Please call. Thanks. documented in this encounter Plan of Treatment Not on filedocumented as of this encounter Visit Diagnoses Diagnosis Trochanteric bursitis - Primary Enthesopathy of hip region documented in this encounter Care Teams Regulatory And Compliance Technician Relationship Specialty Start Date End Date Tico Cheng MD PCP - General 03/09/08 01/12/[address] [place] [address] documented as of this encounter
--- OUTSIDE RECORDS SUMMARY | 2022-08-02 01:27 | XMS_ITS | Encounter Summary ---
:1975 Author [facility] Address [address] [address] Care Team Providers Name Role Phone Stefani Casanova MD Primary Care Provider Encounter Details Date Type Department Care Team Description 07/13/2007 Office Visit [facility] Stefani Cortes [address] [place] [address] [address] [place] [address] (Wo rk) Social History Tobacco Use Types Packs/Day Years Used Date Smoking Tobacco: Never Assessed Sex Assigned at Date Recorded Not on file documented as of this encounter Last Filed Vital Signs Vital Sign Reading Time Taken Comments Blood Pressure 90/60 07/13/2007 8:59 AM CDT Pulse 60 07/13/2007 8:59 AM CDT Temperature - - Respiratory Rate - - Oxygen Saturation - - Inhaled Oxygen Concentration - - Weight 85.7 kg (188 lb 15.7 oz) 07/13/2007 8:59 AM CDT C: 85.7kg Height - - Body Mass Index 32.95 07/08/2006 10:20 AM CDT documented in this encounter Progress Notes Stefani Casanova MD - 07/13/2007 12:01 AM CDT Progress Notes signed by Stefani Casanova MD at 07/17/07 0804 Author: Stefani Casanova MD Service: (none) Author Type: Physician Filed: 02/01/11 2205 Note Time: 07/13/072013 Status: Signed Seam Stay Stitcher: Stefani Casanova MD (Physician) NAME: SANTA FARMER MR#: [id number] ACCT: [id number] VISIT: [id number] DICTATING CLINICIAN: STEFANI CASANOVA MD JOB: [id number] LOC: 902 CLINIC PROGRESS NOTE DATE OF VISIT: 07/13/2007 SUBJECTIVE: CHIEF COMPLAINT: Allergies. HISTORY: Santa is a 32-year-old seen today for allergies. She had been on Nimo in the past and it made her jumpy. She gets a lot of runny nose and congestion. She will have about one more month of symptoms. She states it is hard because she cannot keep up with the clear drainage from her nose. She is weaning down on her cigarettes and is down to about a pack a week. She has a history of anxiety and feels the anxiety is worsening. She does not feel depressed. She lives with her mom and 4 children. She is going back to school. She is trying to get a job. She has a history of cocaine abuse. She wants to be very careful so she does not get so overwhelmed that she makes bad decisions. She is using a lot of caffeine. She has been on Zoloft and citalopram in the past and both made her feel a little jittery. PROBLEM LIST: Reviewed and updated. MEDICATIONS: Reviewed and updated in LastWord. ADR/ALLERGIES: NO ALLERGIES TO MEDICATIONS. She is due for a tetanus. OBJECTIVE: VS: Per LastWord flow sheet. This is a 32-year-old anxious-appearing female. TMs are clear. Nose has some clear drainage, no facial tenderness. Throat without erythema or exudate. NECK: Supple, without adenopathy. No thyromegaly. LUNGS: Clear. She is well groomed, good eye contact. Answers questions appropriately. Judgment and insight are good. Affect is anxious. Speech is rapid. ASSESSMENT: 1. Allergies. 2. Anxiety. PLAN: Discussed use of a counselor for dealing with her life situation. She may look into that. Also, started her on a very low dose of fluoxetine 10 mg a day. Went over risks, benefits, and side effects. I am going to have her back in a month for a physical and med check. Also, she was started on loratadine and Flonase. Went over the use of the medication. Adacel given after discussion of risks, benefits, and side effects. Follow up sooner if problems. MLW:[id number] C: 07/14/07 09:59 DOCUMENT: [id number] documented in this encounter Plan of Treatment Not on filedocumented as of this encounter Visit Diagnoses Not on filedocumented in this encounter Care Teams Recruitment And Outreach Assistant Relationship Specialty Start Date End Date Stefani Casanova MD PCP - General 01/13/11 08/21/[address] [address] documented as of this encounter
--- OUTSIDE RECORDS SUMMARY | 2022-08-02 01:27 | XMS_ITS | Encounter Summary ---
:1975 Author Organization [facility] Address [address], [place] [address] Care Team Providers Name Role Phone Stefani Casanova MD Primary Care Provider [phone] Encounter Details Date Type Department Care Team Description 11/10/2007 Office [place] [facility] [place] [address] [place] [address] [address], [address] Social History Tobacco Use Types Packs/Day Years Used Date Smoking Tobacco: Never Assessed Sex Assigned at Date Recorded Not on file documented as of this encounter Plan of Treatment Not on filedocumented as of this encounter Visit Diagnoses Not on filedocumented in this encounter Care Teams Air Intercept Controller Relationship Specialty Start Date End Date Stefani Casanova MD PCP - General 01/13/11 08/21/[address] [place] [id number] documented as of this encounter
--- OUTSIDE RECORDS SUMMARY | 2022-08-02 01:27 | XMS_ITS | Encounter Summary ---
:1975 Author Organization [facility] Address [address] [address] Care Team Providers Name Role Phone Stefani Casanova MD Primary Care Provider [phone] Encounter Details Date Type Department Care Team Description 07/13/2007 PN Conversion Only [place] [address] [place] [address] Social History Tobacco Use Types Packs/Day Years Used Date Smoking Tobacco: Never Assessed Sex Assigned at Date Recorded Not on file documented as of this encounter Plan of Treatment Not on filedocumented as of this encounter Visit Diagnoses Not on filedocumented in this encounter Care Teams Surface Boss Relationship Specialty Start Date End Date Stefani Casanova MD PCP - General 01/13/11 08/21/14 [address] [facility] [address] [place] [address] documented as of this encounter
--- OUTSIDE RECORDS SUMMARY | 2022-08-02 01:27 | XMS_ITS | Encounter Summary ---
:1975 Author Organization [facility] Address [address], [place] [address] Care Team Providers Name Role Phone Tico Cheng MD Primary Care Provider Reason for Visit Reason Onset Date Comments Refill 09/19/2008 Encounter Details Date Type Department Care Team Description 09/19/2008 Refill [facility] Virgen Martinez, RN Refill [address] [place] [address] [facility] [phone] [place] [address] Social History Tobacco Use Types Packs/Day Years [...] this encounter Nursing Notes Virgen Martinez - 09/19/2008 10:16 AM CST Pt was advised that she will need a Dr visit before next Vicodin refill. She was advised of this at last refill. 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
--- OUTSIDE RECORDS SUMMARY | 2022-08-02 01:27 | XMS_ITS | Encounter Summary ---
:1975 Author Organization [facility] Address [address] [address] Care Team Providers Name Role Phone Tico Cheng MD Primary Care Provider Reason for Visit Reason Onset Date Comments Refill 04/13/2008 Encounter Details Date Type Department Care Team Description 04/13/2008 Refill [facility] Tico Cheng MD Refill [address] [facility] [place] [address] [place] [address] [phone] Social History Tobacco Use Types Packs/Day Years [...] this encounter Nursing Notes Kristine Bell - 04/18/2008 10:41 AM CDT Pt. given Dr. Hdez's message. Nini Hdez - 04/14/2008 5:33 PM CDT Approved Prescriptions: Disp Refills HYDROCODONE/APAP (VICODIN) 5-500MG ORAL TAB15 0 Sig: Take 1 tablets if needed for pain. Do not take more than 2 tablets in one day. Authorizing Provider: WANSCHURA, NINI Nini Hdez - 04/14/2008 5:33 PM CDT Approved Prescriptions: Disp Refills HYDROCODONE/APAP (VICODIN) 5-500MG ORAL TAB15 0 Sig: Take 1 tablets if needed for pain. Do not take more than 2 tablets in one day. Authorizing Provider: NINI HDEZ Nini Hdez - 04/14/2008 5:33 PM CDT Approved Prescriptions: Disp Refills HYDROCODONE/APAP (VICODIN) 5-500MG ORAL TAB15 0 Sig: Take 1 tablets if needed for pain. Do not take more than 2 tablets in one day. Authorizing Provider: NINI HDEZ Nini Hdez - 04/14/2008 5:32 PM CDT Received 15 on 04/08. 6 days ago. ?Taking at least 2 daily? I will refill x1 as is day before holiday weekend. However, needs visit with doctor and careplan fornarcotic use before additional refills. Virgen Martinez - 04/14/2008 4:12 PM CDT Pending Prescriptions: Disp Refills HYDROCODONE/APAP (VICODIN) 5-500MG ORAL TAB15 0 Sig: Take 1-2 tablets by mouth every 6 hours as needed for pain. Do not take more than 8 tablets in one day. Virgen Martinez - 04/14/2008 4:12 PM CDT Last fill 04/08/08.. See Dr Cheng's note of same date and one before. Pt has 4 children and is worried she will not be able to sleep at all. She tries to take it just in evening. Kristine Bell - 04/14/2008 4:08 PM CDT Pending Prescriptions: Disp Refills HYDROCODONE/APAP (VICODIN) 5-500MG ORAL TAB15 0 Sig: Take 1-2 tablets by mouth every 6 hours as needed for pain. Do not take more than 8 tablets in one day. Kristine Bell - 04/14/2008 4:08 PM CDT Saw pcp 04/08/08 Josiane Castro - 04/14/2008 2:59 PM CDT Pt would like call [phone] Lina Gustafson - 04/14/2008 1:30 PM CDT Pt is wondering when this will be done. Maegan Nguyen - 04/13/2008 4:32 PM CDT Patient is calling for a medication/prescription refill. Name of medication: Hydrocodone Current dosage of medication: 1 to 2 tablets Directions for use of medication (how often does the pt take this medication): every 6 hours as needed Date of the last refill on this medication: 04/08/08 Name of prescribing provider: Tico Cheng Name and location of the Pharm[facility] where the patient would [facility] this [facility] [address] [facility] Phone number of the Pharmacy: [phone] Fax number of the Pharmacy. N/A documented in this encounter Plan of Treatment Not on filedocumented as of this encounter Visit Diagnoses Diagnosis Trochanteric bursitis - Primary Enthesopathy of hip region documented in this encounter Care Teams Claim Processor Relationship Specialty Start Date End Date Tico Cheng MD PCP - General 03/09/08 01/12/11 [address] [place] [address] documented as of this encounter
--- OUTSIDE RECORDS SUMMARY | 2022-08-02 01:27 | XMS_ITS | Encounter Summary ---
:1975 Author Organization [employer] Address [address] [place] [address] Care Team Providers Name Role Phone Radha Theodore MD Primary Care Provider Reason for Visit Reason Onset Date Comments Refill 03/17/2008 Encounter Details Date Type Department Care Team Description 03/17/2008 Refill [facility] Radha Theodore MD Refill [address] [facility] [place] [address] [place] [address] [phone] Social History Tobacco Use Types Packs/Day Years [...] this encounter Nursing Notes Radha Theodore - 03/18/2008 9:27 AM CDT Script sent Radha Theodore - 03/18/2008 9:27 AM CDTApproved Prescriptions: Disp Refills HYDROCODONE/APAP (VICODIN) 5-500MG ORAL TAB15 0 Sig: Take 1-2 tablets by mouth at night as needed for pain. Do not take more than 6 tablets of tylenol in one day. You need to be seen again if pain does not get better Authorizing Provider: RADHA THEODORE Radha Theodore - 03/18/2008 9:27 AM CDTApproved Prescriptions: Disp Refills HYDROCODONE/APAP (VICODIN) 5-500MG ORAL TAB15 0 Sig: Take 1-2 tablets by mouth at night as needed for pain. Do not take more than 6 tablets of tylenol in one day. You need to be seen again if pain does not get better Authorizing Provider: RADHA THEODORE Olga Ram - 03/17/2008 10:28 AM CDT Patient is calling for a medication/prescription refill. Detail Medication Quantity Refills Start End HYDROCODONE/APAP (VICODIN) 5-500MG ORAL TABS 15 0 03/09/2008 04/08/2008 Sig: Take 1-2 tablets by mouth at night as needed for pain. Do not take more than 6 tablets of tylenol in one day. Route: Oral Name and location of the Pharmacy where the patient would like to pick of this medication: [facility] Phone number of the Pharmacy: [phone] Note: Pt scheduled an appt 04/08/08 (1 mo from last as instructed). Pt does not have enough pain medicaiton to last until then. documented in this encounter Plan of Treatment Not on filedocumented as of this encounter Visit Diagnoses Diagnosis Trochanteric bursitis - Primary Enthesopathy of hip region documented in this encounter Care Teams District Director Relationship Specialty Start Date End Date Radha Theodore MD PCP - General 03/09/08 01/12/[address] [place] [address] documented as of this encounter
--- OUTSIDE RECORDS SUMMARY | 2022-08-02 01:27 | XMS_ITS | Encounter Summary ---
:1975 Author Organization [facility] Address [address], [place] [address] Care Team Providers Name Role Phone Stefani Casanova MD Primary Care Provider [phone] Encounter Details Date Type Department Care Team Description 07/08/2006 PN Conversion Only [facility] N Stefani Casanova [address] [place] [address] [address] [place], [place] [phone] (Wo rk) Social History Tobacco Use Types Packs/Day Years Used Date Smoking Tobacco: Never Assessed Sex Assigned at Date Recorded Not on file documented as of this encounter Plan of Treatment Not on filedocumented as of this encounter Procedures Procedure Name Priority Date/Time Associated Comments Diagnosis ANATOMICAL PATH Routine 07/08/2006 1:56 PM Result s for this LIQUID BASED CDT procedure are i n the results section. SEXUALLY TRANSMITTED Routine 07/08/2006 11:22 Res ults for this DISEASE PROBE AM CDT procedure are in the results section. HIV ANTIBODY Routine 07/08/2006 11:14 Results for this AM CDT procedure are i n the results section. RPR BLOOD Routine 07/08/2006 11:14 Results for this AM CDT procedure are i n the results section. WET PREP Routine 07/08/2006 11:13 Results for this AM CDT procedure are i n the results section. documented in this encounter Results Pap Smear (07/08/2006 1:56 PM CDT) [facility] Method Time Signature PAP Smear SEE TEXT No normal HP CONVERSION Liquid Based range Comment: Patient: SANTA FARMER ? CERVICAL CYTOLOGY REPORT Pathology # ??[id number] ?Date Obtained: [id number] ? Date Received: CYTOLOGIC IMPRESSION: Negative for intraepithelial lesion or m alignancy. Verified 07/16/06 by: ??JLD ?(electronic signature) ? PIETRO TIONAL DATA LMP: CLINICAL HIST LIQUID BASED PAP CERVICAL SPECIMEN ADEQUACY: ?? Satisfactory. ENDOCERVICAL CELLS: ??Absent. Specimen (Source) Anatomical Collection Method Collection Time Re ceived Time Location / / Volume Laterality 07/08/2006 1:56 PM CDT Stefani Casanova MD LAB_1 Performing Organization Address City/State/ZIP Code Phon e Number HP CONVERSION (ABNORMAL) Sexually Transmitted Disease Probe (07/08/2006 11:22 AM CDT) [facility] Method Time Signature Sexually SEE TEXT HP CONVERSION Transmitted (A) Disease Probe Comment: Patient: SANTA FARMER Sexually Trans Disease Probe @ ?Collected: ??[id number] ??[id number] Source: ENDOCERV ?Processed: ??[id number] ??[id number] Final Report ------ ?[id number] ??1324 Chlamydia trachomatis detected by amplif ied DNA assay. This result has been reported to the [facility] Department of Health. No Neisseria gonorrhoeae detected by amp lified DNA assay [facility] Amplified DNA assay is kamala red by the FDA for non-medicolegal diagnostic testing in the adult population. It has not been cleared for use in the pediatric population. Printed to: [facility] for Dr. Aditi dietz, 07/09/06, VASQUEZ @ = Sexually Trans Disease Probe Perform ed at ??[address] ?[place] [address] Specimen (Source) Anatomical Collection Method Collection Time Re ceived Time Location / / Volume Laterality 07/08/2006 11:22 AM CDT Stefani Casanova MD LAB_1 Performing Organization Address [facility] Phon e Number HP CONVERSION RPR Blood (07/08/2006 11:14 AM CDT) P athologist Signature RPR Non Reac Non Reac HP CONVERSION Specimen (Source) Anatomical Collection Method Collection Time Re ceived Time Location / / Volume Laterality 07/08/2006 11:14 AM CDT Stefani Casanova MD LAB_1 Performing Organization Address [facility] Phon e Number HP CONVERSION HIV Antibody (07/08/2006 11:14 AM CDT) P athologist Signature HIV 1/HIV 2 Non Reac Non Reac HP CONVERSION Specimen (Source) Anatomical Collection Method Collection Time Re ceived Time Location / / Volume Laterality 07/08/2006 11:14 AM CDT Stefani Casanova MD LAB_1 Performing Organization Address City/[facility] Code Phon e Number HP CONVERSION Wet Prep (07/08/2006 11:13 AM CDT) P athologist Signature Wet Prep SEE TEXT HP CONVERSION Comment: Patient: SANTA FARMER Wet Prep @ ?Collected: ??[id number] ??[id number] Source: Vaginal ? Processed: ??[id number] ??[id number] Final Report ------ Many WBCs seen Moderate epithelial cells seen No Trichomonas seen No yeast seen Moderate clue cells seen @ = WET PREP Performed at ??[address] ??[address] Specimen (Source) Anatomical Collection Method Collection Time Re ceived Time Location / / Volume Laterality 07/08/2006 11:13 AM CDT Stefani Casanova MD LAB_1 Performing Organization Address City/[facility] Phon e Number HP CONVERSION documented in this encounter Visit Diagnoses Not on filedocumented in this encounter Care Teams Gasoline Attendant Relationship Specialty Start Date End Date Stefani Casanova MD PCP - General 01/13/11 08/21/14 [address] [facility] [address] [place] [address] documented as of this encounter
--- OUTSIDE RECORDS SUMMARY | 2022-08-02 01:27 | XMS_ITS | Encounter Summary ---
:1975 Author Organization [facility] Address [address] [address] Care Team Providers Name Role Phone Stefani Casanova MD Primary Care Provider [phone] Encounter Details Date Type Department Care Team Description 11/10/2007 PN Conversion Only [place] [address] [place] [address] Social History Tobacco Use Types Packs/Day Years Used Date Smoking Tobacco: Never Assessed Sex Assigned at Date Recorded Not on file documented as of this encounter Plan of Treatment Not on filedocumented as of this encounter Visit Diagnoses Not on filedocumented in this encounter Care Teams Manufacturing Team Leader Relationship Specialty Start Date End Date Stefani Casanova MD PCP - General 01/13/11 08/21/14 [address] [facility] [address] [place] [address] documented as of this encounter
--- OUTSIDE RECORDS SUMMARY | 2022-08-02 01:27 | XMS_ITS | Encounter Summary ---
:1975 Author Organization [employer] Address [address] [place] [address] Care Team Providers Name Role Phone Tico Cheng MD Primary Care Provider Reason for Referral Specialty Diagnoses / Procedures Referred By Contact Refer red To Contact Tico Cheng MD [address] [place] [address] Referral ID Status Reason Start Date Expiration Date Visits Requ ested Visits Authorized Scheduling Instructions To make an appointment with a [facility] psychiatrist, please contact [phone]. Please note that in order to maintain access for all patients, [facility] does have a late cance llation policy. In order to avoid being restricted from scheduling future appointments in [facility] you will need to cancel at least 48 hours in advance. Reason for Visit Reason Comments MEDICATION CHECK Encounter Details Date Type Department Care Team Description 12/28/2008 [facility] Tico Cheng, Panic Attacks (Primary Dx); [address] MD Insomnia; [address] [place] Tobacco Use Disorder; [place], [place] [address] Depression with Anxiety; [address] Screening Social History Tobacco Use Types Packs/Day Years [...] Sign Reading Time Taken Comments Blood Pressure 110/62 12/28/2008 3:12 PM CDT Pulse 100 12/28/2008 3:12 PM CDT Temperature - - Respiratory Rate - - Oxygen Saturation - - Inhaled Oxygen Concentration - - Weight 78 kg (172 lb) 12/28/2008 3:12 PM CDT Height - - Body Mass Index 30.47 05/05/2008 10:01 AM CDT documented in this encounter Patient Instructions Patient InstructionsTico Cheng - 12/28/2008 3:35 PM CDT Increase fluoxetine to 30mg daily or one and a half pills of 20mg strength daily. Take 2nd dose of burpropion at noon. Use xanax as needed only since it has tendency for dependence. Call or return to clinic prn if these symptoms worsen, fail to improve as anticipated, or if new symptoms develop. Return to clinic atleast once every four months. Please pick out hand medication from [facility] pharmacy Please let us know when you are ready to get additional help for quitting tob use. Stop at the lab today. documented in this encounter Progress Notes Tico Cheng - 12/30/2008 10:08 AM CDT Quick Note: Normal test results. Vitamin D is low normal. Vitamin D controls how much calcium and phosphate you absorb from your food. How much do you need? Recommended requirements are 400 to 800 units daily. Where do you get it? Your body can make Vitamin D in the skin when exposed to ultraviolet light. Many foods, in particular dairy products and cereals, are fortified with Vitamin D. If you are not getting enough, you may need to take a multivitamin tablet. Tico Cheng - 12/28/2008 3:27 PM CDT SUBJECTIVE: Santa Farmer is a 33 yr old female is here today for follow up. She feels tired always. She has notbeen sleeping well. She has had disturbed sleep wakes up 10 to 15mnis every hour. She has been feeling anxious. She has had stress related to her daughter's ADHD. She has cut down smoking and is currently smoking 1/2 PPD. She has been taking 20mg fluoxetine and takes Bupropion in the morning. Recentlystarted taking bupropion at night. She has had panic attacks where she has noticed difficulty breathing. She wants to see a psychiatrist and wants refill on fluoxetine. She feels better than before butnot completely normal. She does not feel she is ready to quit tob use at this time. OBJECTIVE: PHYSICAL EXAMINATION: The patient appears healthy,in no acute distress,mobile without assistance, well nourished, appears stated age, alert Vital Signs: BP 110/62 Pulse 100 Wt 172 lb (78.019 kg) LMP 12/14/2008 HEENT: Head negative EOM's intact Neck: full range of motion Lungs: normal. Heart sounds are regular. Edema: no Neurological exam reveals normal without focal findings, mental status, speech normal, alert and oriented x iii. PHQ9 was administered today with a total score of 8. See flowsheet for details. Psychiatric evaluation reveals mood anxious, thought process intact, Judgment and insight fair, no hallucinations and delusions, no suicidal ideation. ASSESSMENT: Encounter Diagnoses Code Name Primary? Qualifier ??? 780.52A Insomnia Yes Plan: PSYCHIATRY/MEDS, TSH, SENSITIVE (WITH REFLEX), VITAMIN D 25-HYDROXY, TOTAL ??? 305.1 Tobacco Use Disorder Plan: PSYCHIATRY/MEDS ??? 300.4AZ Depression with Anxiety Plan: PSYCHIATRY/MEDS, FLUOXETINE HCL 20 MG OR TABS, TSH, SENSITIVE (WITH REFLEX), VITAMIN D 25-HYDROXY, TOTAL ??? 300.01Q Panic Attacks Plan: PSYCHIATRY/MEDS, ALPRAZOLAM 0.25 MG OR TABS, FLUOXETINE HCL 20 MG OR TABS, TSH, SENSITIVE (WITH REFLEX), VITAMIN D 25-HYDROXY, TOTAL ??? V82.9A Screening Plan: TSH, SENSITIVE (WITH REFLEX), VITAMIN D 25-HYDROXY, TOTAL PLAN: See orders and AVS for details. Tobacco cessation was encouraged. Vitamin D level will be checked due to intermittent flare up of trochanteric bursitis. Follow up: 1 month(s) and/or as needed. Tico Cheng MD documented in this encounter Plan of Treatment Scheduled Referrals Name Type Priority Associated Diagnoses Order S moshe PSYCHIATRY/MEDS Referral Routine Tobacco Use D isorder Ordered: 12/28/2008 Insomnia Panic Attacks Depression with Anxiety documented as of this encounter Procedures Procedure Name Priority Date/Time Associated Diagnosis Comme nts VITAMIN D Routine 12/28/2008 3:41 PM Insomnia Results for this 25-HYDROXY, TOTAL CDT Depression with procedu re are in Anxiety the results Panic Attacks section. Screening TSH, SENSITIVE Routine 12/28/2008 3:41 PM Insomnia Results for this (WITH REFLEX) CDT Depression with procedure a re in Anxiety the results Panic Attacks section. Screening documented in this encounter Results VITAMIN D 25-HYDROXY, TOTAL (12/28/2008 3:41 PM CDT) athologist Signature Vitamin 38.1 30 - 80 [facility] D,25-OH, Tot ng/mL Comment: Deficiency: ??< 20 ng/mL Insufficiency: ??20-29 ng/mL Optimum Level: ??30-80 ng/mL Possible Toxicity: > 80 ng/mL Performed at [facility] Specimen Anatomical Collection Method Collection Time Receive d Time (Source) Location / / Volume Laterality 12/28/2008 3:41 PM 9 3:50 CDT PM CDT Tico Cheng MD LAB_1 Performing Organization Address City/State/ZIP Code Phon e Number [employer] [phone] [facility] [address] [place] [phone] TSH, SENSITIVE (WITH REFLEX) (12/28/2008 3:41 PM CDT) athologist Signature TSH, with 1.67 0.3 - 5.0 [facility] Reflex uIU/ml Specimen Anatomical Collection Method Collection Time Receive d Time (Source) Location / / Volume Laterality 12/28/2008 3:41 PM 9 3:50 CDT PM CDT Tico Cheng MD LAB_1 Performing Organization Address City/State/ZIP Code Phon e Number [employer] [phone] [facility] [address] [phone] documented in this encounter Visit Diagnoses Diagnosis Panic attacks ([facility]) - Primary Panic disorder without agoraphobia Insomnia Insomnia, unspecified Tobacco use disorder ([facility]) Tobacco use disorder Depression with anxiety ([facility]) Dysthymic disorder Screening Screening for unspecified condition documented in this encounter Care Teams Pinsetter Mechanic Helper Relationship Specialty Start Date End Date Tico Cheng MD PCP - General 03/09/08 01/12/11 [address] [place] [address] documented as of this encounter
--- OUTSIDE RECORDS SUMMARY | 2022-08-02 01:27 | XMS_ITS | Encounter Summary ---
:1975 Author Organization [employer] Address [address] [place] [address] Care Team Providers Name Role Phone Tico Cheng MD Primary Care Provider Reason for Visit Reason Onset Date Comments Medication Request 06/15/2008 Encounter Details Date Type Department Care Team Description 06/15/2008 Telephone [facility] Tico Cheng MD Medication Request [address] [place] [address] [place] [address] Social History Tobacco Use Types [...] documented as of this encounter Nursing Notes Toshia Rosales - 06/15/2008 4:10 PM CDT Pt takes 2 naproxen twice every day and that relieves the inflammation but not the pain. She takes 2 Vicodin when she takes it and that is about 3-4 times week, so she is out now. She works out 3 days a week. Pt is transferred up front to schedule appt with Dr Otero tomorrow, as it looks like he has openings Tico Cheng - 06/15/2008 3:53 PM CDT Too soon to refill. Medication was supposed to last until 07/01. Patient to continue naprosyn as prescribed during previous visit. DENIED per provider, clinic to contact patient^0^0 Diana Santiago - 06/15/2008 3:39 PM CDT Patient calling to get more pain medication -- still having alot of pain - also has appt. To see the end of jun. documented in this encounter Plan of Treatment Not on filedocumented as of this encounter Visit Diagnoses Diagnosis Trochanteric bursitis - Primary Enthesopathy of hip region documented in this encounter Care Teams Print Line Feeder Relationship Specialty Start Date End Date Tico Cheng MD PCP - General 03/09/08 01/12/11 [address] [place] [address] documented as of this encounter
--- OUTSIDE RECORDS SUMMARY | 2022-08-02 01:27 | XMS_ITS | Encounter Summary ---
:1975 Author Organization [employer] Address [address] [address] Care Team Providers Name Role Phone Stefani Casanova MD Primary Care Provider [phone] Encounter Details Date Type Department Care Team Description 07/08/2006 Office Visit [facility] Stefani Cortes [address] [place] [address] [place] [address] (Wo rk) Social History Tobacco Use Types Packs/Day Years Used Date Smoking Tobacco: Never Assessed Sex Assigned at Date Recorded Not on file documented as of this encounter Last Filed Vital Signs Vital Sign Reading Time Taken Comments Blood Pressure 104/78 07/08/2006 10:20 AM CDT Pulse 84 07/08/2006 10:20 AM CDT Temperature - - Respiratory Rate - - Oxygen Saturation - - Inhaled Oxygen Concentration - - Weight 86.7 kg (191 lb 3.6 oz) 07/08/2006 10:20 AM C: 8 6.8kg CDT Height 161.3 cm (5' 3.5) 07/08/2006 10:20 AM C: 161.3c m CDT Body Mass Index 33.34 07/08/2006 10:20 AM CDT documented in this encounter Progress Notes Stefani Casanova MD - 07/08/2006 12:01 AM CDT H&P signed by Stefani Casanova MD at 07/09/06 1329 Author: Stefani Casanova MD Service: (none) Author Type: Physician Filed: 02/01/11 1438 Note Time: 07/08/062013 Status: Signed Elastic Cutter: Stefani Casanova MD (Physician) NAME: SANTA FARMER MR: [id number] ACCT: [id number] VISIT: [id number] DICTATING CLINICIAN: STEFANI CASANOVA MD JOB: [id number] LOC: 902 CLINIC PHYSICAL DATE OF VISIT: 07/08/2006 SUBJECTIVE: Chief Complaint: History and physical. HISTORY: Santa is a 31-year-old new patient seen today for history and physical. She went through treatment this summer on an inpatient basis for cocaine and alcohol. She has had a couple of slips with cocaine, but has been good recently. Drinks beer about two beers a week. She is trying to start an exercise program, started about two weeks ago. Calcium intake is not adequate. Caffeine: Two to three cups a day. She is smoking about three to four cigarettes a day. Does use a seat belt. Does use sunscreen intermittently. She has not been sexually active since April. Has had many sexual partners in her lifetime and a history of Chlamydia long ago. Her menstrual cycles are normal. Does not always use condoms. She would like STD screening today. She is due for a tetanus. SOCIAL HISTORY: She is single, has four children. She and her children are currently living with her mom. She has history of felony conviction which apparently is limiting her job finding ability. She is going to start school in October. FAMILY HISTORY: Mom with type 2 diabetes, hypertension, high cholesterol, obesity, depression/anxiety. Father is unknown. She has a history of depression, but actually feels that she is dealing more with anxiety than depression, she does not feel sad. She will wake at night, feel real anxious and have what she calls a panic attack. She had been on Zoloft in the past and it made her feel foggy. She would like to try some medication. She is currently in no violent relationship. Every once in a while she will get some swelling in her hands and feet and she states she does eat a lot of salt in her diet. She has not had a physical in at least three years and was with a different system prior to coming here. OBJECTIVE: VS: Per [employer]. This is a 31-year-old in no distress. TMs are clear bilaterally. Nose is clear. Throat without erythema or exudate. She does have a piercing through her lower lip. NECK: Supple, without adenopathy. No thyromegaly. LUNGS: Good air movement. No wheezes, rales, or rhonchi. CARDIOVASCULAR: Without murmur. Regular rhythm and rate. BREASTS: Without masses. No nipple discharge. ABDOMEN: Benign. No hepatosplenomegaly. No masses. Nontender. External genitalia shows no lesion. Speculum shows a multiparous cervix. Wet prep, Gen-Probe, and Pap are done. EXTREMITIES: Without edema. Joints without swelling. ASSESSMENT: 1. Healthcare maintenance. 2. Anxiety. 3. STD screening. 4. Obesity. 5. Smoker. 6. History of cocaine abuse. PLAN: We decided to try some citalopram. She feels it would be helpful to try to get the anxiety under control. She is not suicidal. Started 20 mg of citalopram one p.o. daily. Went over risks, benefits, and side effects and she will follow up in four weeks. Will get back to her on her Pap, fractionated cholesterol, Gen-Probe, HIV, RPR, and wet prep and treat if needed. Discussed the importance of regular exercise, dietary and weight control. Strongly encouraged her to quit smoking. Encouraged her to stay chemically free. Went over good calcium intake. Tetanus shot given after discussion of risks, benefits, and side effects. Follow up in a year, sooner if problems. MLW:[id number] C: 07/09/06 10:59 DOCUMENT: [id number] documented in this encounter Plan of Treatment Not on filedocumented as of this encounter Visit Diagnoses Not on filedocumented in this encounter Care Teams Detective Bowling Alley Relationship Specialty Start Date End Date Stefani Casanova MD PCP - General 01/13/11 08/21/[address] [facility] [address] [place], [place] [id number] documented as of this encounter
--- OUTSIDE RECORDS SUMMARY | 2022-08-02 01:27 | XMS_ITS | Encounter Summary ---
:1975 Author Organization [facility]ly [facility] Address [address], [place] [address] Care Team Providers Name Role Phone Tico Cheng MD Primary Care Provider Reason for Visit Reason Comments HIP PAIN f/u lt Encounter Details Date Type Department Care Team Description 06/16/2008 Office Visit [facility] Stan Otero MD Orthopedics [address] [place] [address] [phone] (Wo rk) Social History Tobacco Use Types Packs/Day Years Used Date Smoking Tobacco: Every Day Comments: LESS THAN HALF PACK PER DAY st arted at age 18 and has cut down since then. Alcohol Use Standard Drinks/Week Comments Yes 0 (1 standard drink = 0.6 oz pure alcoho l) RARELY Sex Assigned at Date Recorded Not on file documented as of this encounter Consult Notes Matthew Otero - 06/16/2008 12:00 AM CDT CHIEF COMPLAINT: Left hip pain. HISTORY: She thinks the injection helped partially but it is still bothering her quite a bit. She has been doing the stretching quite regularly and finds that that helps to come degree as well. She notes that if she crosses her legs style and does a hip stretch it is quite painful and she was concerned about that. The pain is directly over the greater trochanter. It is worse with activity. She has been using her shoe lift. She has been taking Vicodin occasionally. She last had a prescription filled by Dr. Cheng about one month ago. She assures me that she has not gotten any other prescriptions besides from Dr. Cheng and myself. OBJECTIVE: Physical exam: She does have pain with hip flexion, abduction, and external rotation. She is very tender over the greater trochanter. IMPRESSION: Trochanteric bursitis/tight IT band. PLAN: We reviewed her stretching exercises. I recommended that she add the external rotation flexion abduction stretch as well. She would like to do another cortisone injection today. She is also requesting Vicodin. We did discuss the risks of Vicodin. Appropriate precautions were discussed. I explained that this is not something we can continue indefinitely, but I think one or two more prescriptions while we are waiting for the cortisone to work is reasonable. If she does not have complete resolution of her symptoms over the next month or so, then she will return for a third injection. PROCEDURE: After informed consent and sterile prep, the skin was anesthetized with ethyl chloride. The left trochanteric bursa was then injected with 80 mg Depo Medrol and 4 cc of Marcaine. This injection was somewhat more painful than the last one and did reproduce her chief complaint. After a few minutes the patient note marked improvement in her pain with activities that would normally provoke it. Tolerated well. A cc: Tico Cheng MD documented in this encounter Plan of Treatment Not on filedocumented as of this encounter Visit Diagnoses Not on filedocumented in this encounter Care Teams Joist Setter Relationship Specialty Start Date End Date Tico Cheng MD PCP - General 03/09/08 01/12/11 [address] [address] documented as of this encounter
--- OUTSIDE RECORDS SUMMARY | 2022-08-02 01:27 | XMS_ITS | Encounter Summary ---
:1975 Author Organization [facility] Address [address] [place] [address] Care Team Providers Name Role Phone Layo Perez MD Primary Care Provider Reason for Visit Reason Onset Date Comments Dental Concerns 06/30/2007 Encounter Details Date Type Department Care Team Description 06/30/2007 Telephone Careline Carmel Moreno, Dental Concerns [address] RN [place], [place] [address] [place] [phone] [place], [address] Social History Tobacco Use Types Packs/Day Years Used Date Smoking Tobacco: Never Assessed Sex Assigned at Date Recorded Not on file documented as of this encounter Nursing Notes Carmel Moreno - 06/30/2007 7:59 PM CDT pt calling re herself. Pt identified herself by full name, , id number/or medical insurance number. Has had a cracked front tooth, which fell off. No pain the tooth is ragged and jagged looking. Goes To [facility], I will consult with the reconciliation specialist provider and rtc to the pt. Dr Perez, paged at [phone]. Per Dr Perez , to be seen in clinic tomorrow,. Santa informed. pt verbalized understanding and agreement for plan of care. Carmel Moreno RN documented in this encounter Plan of Treatment Not on filedocumented as of this encounter Visit Diagnoses Not on filedocumented in this encounter Care Teams Inseminator Relationship Specialty Start Date End Date Layo Perez MD PCP - General 07/01/03 03/08/08 [address] [place] [address] documented as of this encounter
--- OUTSIDE RECORDS SUMMARY | 2022-08-02 01:27 | XMS_ITS | Encounter Summary ---
:1975 Author Organization [facility] Address [address] [place] [address] Care Team Providers Name Role Phone Stefani Casanova MD Primary Care Provider [phone] Encounter Details Date Type Department Care Team Description 08/27/2008 Office Visit [facility] [place] [address] [place], [place] [address] [place] [address] [phone] Social History Tobacco Use Types Packs/Day Years [...] Sign Reading Time Taken Comments Blood Pressure 108/74 08/27/2008 12:02 PM EYE CARE PROFESSIONAL Pulse 76 08/27/2008 12:02 PM EYE CARE PROFESSIONAL Temperature 36.3 ??C (97.3 ??F) 08/27/2008 12:02 PM EYE CARE PROFESSIONAL C: 3 6.3 C Respiratory Rate 12 08/27/2008 12:02 PM EYE CARE PROFESSIONAL Oxygen Saturation - - Inhaled Oxygen Concentration - - Weight - - Height - - Body Mass Index - - documented in this encounter Progress Notes Daniela Bell MD - 08/27/2008 12:01 AM CST Progress Notes signed by Daniela Bell DO at 08/28/08 0806 Author: Daniela Bell DO Service: (none) Author Type: Physician Filed: 02/02/11 0843 Note Time: 08/27/08 0001 Status: Signed Dance Studio Manager: Daniela Bell DO (Physician) NAME: SANTA FARMER MR#: [id number] ACCT: [id number] VISIT: [id number] DICTATING CLINICIAN: DANIELA BELL DO CONFIRM #: [id number] LOC: 2320 CLINIC PROGRESS NOTE DATE OF VISIT: 08/27/2008 SUBJECTIVE: : 1975. This 33-year-old female presents with persistent left hip pain. She was seen 07/29/08 in Urgent Care for pain management and was given 20 Vicodin. Story is that she started to have trouble with left hip pain in January after moving. Hip has never been the same since. She has been seeing an orthopedic doctor at [facility], who is only in a half a day once a week. She has received 2 cortisone shots in the hip; the first one in April, the second one in early June. They last for about a month, and then symptoms recur. She has been taking Naprosyn 2-3 tabs today, which sometimes causes stomach upset, and she has been using Prilosec because her stomach has become uncomfortable. She is not having any blood in her stool or vomiting. She has not had any other injuries or fevers. She is not sure of anything that may have made it worse, but now it is very uncomfortable, and she is limping and developing some lower back pain as well. She had normal x-rays done by the orthopedist. She has been doing the exercises that he recommended, but they help very temporarily. She is planning on getting a second opinion from the other orthopedic clinic her insurance told her she could go to at [place], and she plans on scheduling that. It does run in the family. Her mother and other relatives have had similar problems. Her mother has a very difficult time walking due to her discomfort. She is a smoker. ADR/ALLERGIES: NONE. MEDICATIONS: See LastWord. OBJECTIVE: VS: BP: 108/74. T: 97.4. P: 76. R: 12. She has some tenderness over the lower lumbar area. Pain in the hip with range of motion, particularly internal/external rotation. She walks with a slight limp. There is no marked leg length discrepancies noted. Reflexes are symmetrical. Strength appears intact. Sensation is intact. ASSESSMENT: Hip pain and low back pain. PLAN: I agreed to give her Vicodin 1 t.i.d. #20, no refills. Stressed the importance that she establish with a primary care physician to follow her. Her primary physician is apparently an obstetrical leave, and she is going to be contacting the other orthopedic office for second opinion since the one that she has been seeing does not have much else to offer. She will continue with her exercises and she is to follow up as needed. HMD:[id number] C: 08/27/08 14:21 CONFIRM #: [id number] CARE PROFESSIONAL documented in this encounter Plan of Treatment Not on filedocumented as of this encounter Visit Diagnoses Not on filedocumented in this encounter Care Teams Automation And Controls Supervisor Relationship Specialty Start Date End Date Stefani Casanova MD PCP - General 01/13/11 08/21/14 [address] [facility] [address] [place], [place] [id number] documented as of this encounter
--- OUTSIDE RECORDS SUMMARY | 2022-08-02 01:27 | XMS_ITS | Encounter Summary ---
:1975 Author Organization [facility] Address [address] [place] [address] Care Team Providers Name Role Phone Tico Cheng MD Primary Care Provider Reason for Visit Reason Onset Date Comments Refill 08/12/2008 Encounter Details Date Type Department Care Team Description 08/12/2008 Refill [facility] Tico Cheng MD Refill [address] [place] [address] [place] [address] [phone] Social History Tobacco Use Types Packs/Day Years Used Date Smoking Tobacco: Every Day Comments: LESS THAN HALF PACK PER DAY st arted at age 18 and has cut down since then. Alcohol Use Standard Drinks/Week Comments Yes 0 (1 standard drink = 0.6 oz pure alcoho l) RARELY Sex Assigned at Date Recorded Not on file documented as of this encounter Nursing Notes Luis Carlos Mcclellan - 08/12/2008 3:34 PM CDTApproved Prescriptions: Disp Refills HYDROCODONE/APAP (VICODIN) 5-500MG ORAL TAB30 0 Si-2 po qd prn hip pain. Limmit use to no more than 2 pills daily. NEEDS TO FOLLOW UP WITH MD BEFORE NEXT REFILL Authorizing Provider: LUIS CARLOS MCCLELLAN Grace Prajapati - 08/12/2008 3:27 PM CDT Pending Prescriptions: Disp Refills HYDROCODONE/APAP (VICODIN) 5-500MG ORAL TAB30 0 Sig: DENIED per provider, clinic to contact patient Grace Prajapati - 08/12/2008 3:27 PM CDT Spoke to patient. States she has had 2 cortisone shots. Told she can only have a totla of 3. Pain continues in hip. Advised patient needs to come to clinic if pain continues for re-evaluation. States she could come next week. Will forward to ROMELIA Herrera. Mary Birch - 08/12/2008 2:22 PM CDT last filled: 05/16/08 qty: of last refill: 30 documented in this encounter Plan of Treatment Not on filedocumented as of this encounter Visit Diagnoses Diagnosis Trochanteric bursitis Enthesopathy of hip region documented in this encounter Care Teams Hand Cloth Examiner Relationship Specialty Start Date End Date Tico Cheng MD PCP - General 03/09/08 01/12/[address] [place] [address] documented as of this encounter
--- OUTSIDE RECORDS SUMMARY | 2022-08-02 01:27 | XMS_ITS | Encounter Summary ---
:1975 Author Organization [facility] Address [address], [place] [address] Care Team Providers Name Role Phone Stefani Casanova MD Primary Care Provider Encounter Details Date Type Department Care Team Description 07/09/2006 Geochemistry Teacher Only [facility] Ronal Casanova MD [address] [place] [address] [place] [address] [address] [place], [place] [phone] (Wo rk) Social History Tobacco Use Types Packs/Day Years Used Date Smoking Tobacco: Never Assessed Sex Assigned at Date Recorded Not on file documented as of this encounter Progress Notes Stefani Casanova MD - 07/09/2006 12:01 AM CDT Progress Notes signed by Stefani Casanova MD at 07/09/06 1748 Author: Stefani Casanova MD Service: (none) Author Type: Physician Filed: 02/01/11 1439 Note Time: 07/09/06 0001 Status: Signed Fire Range Technician: Stefani Casanova MD (Physician) Phone call: + chlamydia discussed. 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 documented in this encounter Plan of Treatment Not on filedocumented as of this encounter Visit Diagnoses Not on filedocumented in this encounter Care Teams Leather Goods Maker Relationship Specialty Start Date End Date Stefani Casanova MD PCP - General 01/13/11 08/21/14 1000 [facility] [address] [place] [address] documented as of this encounter
--- OUTSIDE RECORDS SUMMARY | 2022-08-02 01:27 | XMS_ITS | Encounter Summary ---
:1975 Author Organization [facility] Address [address], [place] [address] Care Team Providers Name Role Phone Tico Cheng MD Primary Care Provider Encounter Details Date Type Department Care Team Description 04/21/2008 Telephone [facility] Dionne Benitez, PharmD [address] [place] [address] [place], [place] [phone] (Wo rk) Social History Tobacco Use Types [...] as of this encounter Visit Diagnoses Diagnosis Depression with anxiety (HRC) - Primary Dysthymic disorder documented in this encounter Care Teams Brick Sorter Relationship Specialty Start Date End Date Tico Cheng MD PCP - General 03/09/08 01/12/[address] [place] [address] documented as of this encounter
--- OUTSIDE RECORDS SUMMARY | 2022-08-02 01:27 | XMS_ITS | Encounter Summary ---
:1975 Author Organization [facility] Address [address] [place] [address] Care Team Providers Name Role Phone Tico Cheng MD Primary Care Provider Reason for Visit Reason Onset Date Comments Medication Request 05/21/2008 Encounter Details Date Type Department Care Team Description 05/21/2008 Telephone Careline Shyay Duran direct care specialist Request [address] [place] [address] Social History Tobacco Use Types Packs/Day Years Used Date Smoking Tobacco: Every Day Comments: LESS THAN HALF PACK PER DAY st arted at age 18 and has cut down since then. Alcohol Use Standard Drinks/Week Comments Yes 0 (1 standard drink = 0.6 oz pure alcoho l) RARELY Sex Assigned at Date Recorded Not on file documented as of this encounter Nursing Notes Shayy Duran - 05/21/2008 7:40 PM CDT Pt states she lost her bottle of Vicodin tablets while running errands the other day. She took the bottle with her and doesn't know if they fell out of her purse or her van. [facility]. Then, the [facility] pharmacy she took the prescriptionto noticed that she had received [address] [facility] on 05/16/08. They contacted the [facility], but the doctor she saw had left. The remaining doctor said they usually only prescribe 6 tablets at a time and was surprised 20 tablets were issued. This doctor cancelled the prescription with [facility]. Pt states she takes the pills for back pain and never abuses the tablets, stating she only takes up to 1.5 tablets daily. She states she was surprised how the pharmacy and C reacted yesterday. She is wondering how she can get a new prescription. PMH: Patient Active Problem List Diagnoses Code ??? Tobacco Use Disorder 305.1 ??? GERD (Gastroesophageal Reflux Disease) 530.81K ??? Depression with Anxiety 300.4AZ MEDICATIONS: Current outpatient prescriptions Medication Sig ??? HYDROCODONE/APAP (VICODIN) 5-500MG ORAL TABS Take 1 tablets if needed for pain. Do not take morethan 2 tablets in one day. ??? FLUOXETINE HCL 10 MG OR CAPS Take one capsule by mouth every day for 2 days then increase to 2 capsules daily if no side effects ??? FLUOXETINE HCL 20 MG OR CAPS Take one capsule by mouth every day. ??? FLUOXETINE HCL 20 MG OR TABS start with half pill once daily for two days if no side effects increase to one pill once daily ??? NICOTINE 10 MG INHALER use as directed ??? RANITIDINE HCL 150 MG OR TABS Take 1 tablet by mouth twice a day ??? BUPROPION HCL (ZYBAN) 150MG ORAL TABS start with one pill once daily for two days if no side effects increase to one pill twice daily. take evening pill at noon if you have sleep problems. ALLERGIES: Review of patient's allergies indicates no known allergies. PLAN: Advised narcotics cannot be prescribed after hours and when it is too soon for a refill. Advised she could try taking Aleve OTC as directed and contact your clinic on Friday. Pt agrees with this plan. Shayy Duran RN documented in this encounter Plan of Treatment Not on filedocumented as of this encounter Visit Diagnoses Not on filedocumented in this encounter Care Teams Washtub Worker Helper Relationship Specialty Start Date End Date Tico Cheng MD PCP - General 03/09/08 01/12/[address] [place] [address] documented as of this encounter
--- OUTSIDE RECORDS SUMMARY | 2022-08-02 01:27 | XMS_ITS | Encounter Summary ---
:1975 Author Organization [facility] Address [address] [place] [address] Care Team Providers Name Role Phone Tico Cheng MD Primary Care Provider Reason for Visit Reason Onset Date Comments Medication Request 03/09/2008 Encounter Details Date Type Department Care Team Description 03/09/2008 Telephone Careline Deonte Pedraza RN Medication Request [address] [place], [place] [address] Social History Tobacco Use Types [...] documented as of this encounter Nursing Notes Deonte Pedraza - 03/09/2008 6:35 AM CDT Caller requesting pain medication. 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 Pt states unable to sleep because of pain and not able to get to dentist. Pt states she recieves care [facility]. Paged Dr Corbin Bah at 6:23 AM. Repaged dentist at 6:33 AM. Recommended that pt call clinic to get medication refilled. Called pt back at 640am. Pt understands and will comply with recommendation. Deonte Pedraza RN documented in this encounter Plan of Treatment Not on filedocumented as of this encounter Visit Diagnoses Not on filedocumented in this encounter Care Teams Production Hand Relationship Specialty Start Date End Date Tico Cheng MD PCP - General 03/09/08 01/12/[address] [place] [address] documented as of this encounter
--- OUTSIDE RECORDS SUMMARY | 2022-08-02 01:27 | XMS_ITS | Encounter Summary ---
:1975 Author Organization [facility] Address [address] [place] [address] Care Team Providers Name Role Phone Tico Cheng MD Primary Care Provider Reason for Referral Specialty Diagnoses / Procedures Referred By Contact Refer red To Contact Tcio Cheng MD [address] [place] [address] Referral ID Status Reason Start Date Expiration Date Visits Requ ested Visits Authorized Scheduling Instructions If an appointment with [facility] was advised and you have not been contacted to schedule that appointment w ithin 3 business days, please call [phone], Option 1 for assistance. Reason for Visit Reason Comments ANXIETY HIP PAIN Encounter Details Date Type Department Care Team Description 04/08/2008 [facility] Tico Cheng, Depression with Anxiety (Silvina osorio Dx); [address] MD Tobacco Use Disorder; [address] [place] Trochanteric Bursitis; [place], [place] [address] Screening; [address] Need for DTP Vaccine Social History Tobacco Use Types Packs/Day Years [...] Sign Reading Time Taken Comments Blood Pressure 98/66 04/08/2008 10:00 AM CDT Pulse 84 04/08/2008 10:00 AM CDT Temperature - - Respiratory Rate - - Oxygen Saturation - - Inhaled Oxygen Concentration - - Weight 77.7 kg (171 lb 6.4 oz) 04/08/2008 10:00 AM CDT Height - - Body Mass Index 30.12 03/09/2008 4:25 PM CDT documented in this encounter Progress Notes Tico Cheng S - 04/08/2008 10:37 AM CDT SUBJECTIVE: Santa Farmer is a 32 yr old female is here today with anxiety and with left hip pain. She has triedtaking pain medication and she continues to have pain due trochanteric bursitis. She wants to try cortisone shots. She continues to smoke upto 5 cigs/day. She feels better with bupropion but continues to have anxiety. She gets 8hours of sleep. She wakes up in between. She feels she cannot relax due tohip pain. She is requesting another refill of pain medication so she could use it until she can haverelief from cortisone shots. She is not sure if she should get cortisone shot or not. She feels she is under lot of stress related to one of her child's issues. She does not think that anxiety can cause problems with relaxation. She feels she is not ready to quit tob use at this time but is interestedin it. OBJECTIVE: PHYSICAL EXAMINATION: The patient appears healthy,in no acute distress,mobile without assistance, well nourished, appears stated age, alert Vital Signs: BP 98/66 Pulse 84 Wt 171 lb 6.4 oz (77.747 kg) HEENT: Head negative EOM's intact Neck: full range of motion Lungs: Respirations normal. Edema: no Neurological exam reveals normal without focal findings, mental status, speech normal, alert and oriented x iii. PHQ9 was administered today with a total score of 6. See flowsheet for details. Psychiatric evaluation reveals mood Mildly anxious, thought process intact, Judgment and insight fair, no hallucinations and delusions, no suicidal ideation. ASSESSMENT: Encounter Diagnoses Code Name Primary? Qualifier ??? 300.4AZ Depression with Anxiety Plan: FLUOXETINE HCL 20 MG OR TABS ??? 305.1 Tobacco Use Disorder Plan: NICOTINE 10 MG INHALER ??? 726.5S Trochanteric Bursitis Plan: ORTHOPAEDIC SURGERY CONSULT-ADULT/PEDS, HYDROCODONE/APAP (VICODIN) 5- 500MG ORAL TABS PLAN: See orders. Tobacco cessation couseling was provided. Call or return to clinic prn if these symptoms worsen, fail to improve as anticipated, or if new symptoms develop. Follow up: 3 month(s) and/or as needed. Tico Cheng MD documented in this encounter Plan of Treatment Scheduled Referrals Name Type Priority Associated Diagnoses Order S chedule ORTHOPAEDIC SURGERY Referral Routine Trochanteric Bursitis Ordered: 04/08/2008 CONSULT-ADULT/PEDS documented as of this encounter Procedures Procedure Name Priority Date/Time Associated Diagnosis Comme nts HEPATITIS B Routine 04/08/2008 10:47 AM Screening Results for this SURFACE, AB CDT procedure are i n the results section. HBSAG (HEPATITIS B Routine 04/08/2008 10:47 AM Screening Re sults for this SURFACE AG) CDT procedure are i n the results section. documented in this encounter Results HBSAG (HEPATITIS B SURFACE AG) (04/08/2008 10:47 AM CDT) P athologist Signature HBsAg Non-Reacti NR [facility] ve Specimen Anatomical Collection Method Collection Time Receive d Time (Source) Location / / Volume Laterality 04/08/2008 10:47 04/08/2008 AM CDT 11:00 AM CDT Tico Cheng MD LAB_1 Performing Organization Address City/State/ZIP Code Phon e Number [facility] [phone] [address] HEPATITIS B SURFACE, AB (04/08/2008 10:47 AM CDT) athologist Signature Anti-HBs Non-Reacti NR [facility] ve Specimen Anatomical Collection Method Collection Time Receive d Time (Source) Location / / Volume Laterality 04/08/2008 10:47 04/08/2008 AM CDT 11:00 AM CDT Tico Cheng MD LAB_1 Performing Organization Address City/State/ZIP Code [facility] e Number [facility] [phone] [address] documented in this encounter Visit Diagnoses Diagnosis Depression with anxiety (HRC) - Primary Dysthymic disorder Tobacco use disorder (HRC) Tobacco use disorder Trochanteric bursitis Enthesopathy of hip region Screening Screening for unspecified condition Need for DTP vaccine Need for prophylactic vaccination with c ombined pdczusmari-[id number]-hpdszifax (DTP) vaccine documented in this encounter Care Teams Electrical Prospecting Observer Relationship Specialty Start Date End Date Tico Cheng MD PCP - General 03/09/08 01/12/[address] [place] [address] documented as of this encounter
--- OUTSIDE RECORDS SUMMARY | 2022-08-02 01:27 | XMS_ITS | Encounter Summary ---
:1975 Author Organization [facility] Address [address] [address] Care Team Providers Name Role Phone Tico Cheng MD Primary Care Provider Reason for Visit Reason Comments HIP PAIN consult Lt 2-3 mon Encounter Details Date Type Department Care Team Description 05/05/2008 Office Visit [facility] Matthew Otero, Pain (Primary Dx) Orthopedics [address] [facility] [address] [place] [address] [place] [address] [phone] Social History Tobacco Use Types Packs/Day Years Used Date Smoking Tobacco: Every Day Comments: LESS THAN HALF PACK PER DAY st arted at age 18 and has cut down since then. Alcohol Use Standard Drinks/Week Comments Yes 0 (1 standard drink = 0.6 oz pure alcoho l) RARELY Sex Assigned at Date Recorded Not on file documented as of this encounter Procedure Notes Matthew Otero - 05/11/2008 12:00 AM CDTAssociated Order(s): PELVIS; ONE OR TWO VIEWS CLINICAL DATA: Pain EXAMINATION: AP PELVIS X-RAY 05-11-08 INTERPRETATION: There is no obvious bony deformity in the pelvis. No significant problems in the visualized portion of the lumbar spine. CONCLUSION: Normal pelvis x-ray. Matthew Otero MD P cc: Radiology WE documented in this encounter Consult Notes Matthew Otero - 05/05/2008 12:00 AM CDT REASON FOR CONSULTATION: Left hip pain. Consultation was requested by Dr. Tico Cheng. HISTORY: Patient is a 32-year-old woman who has had problems with her left hip since January. No specific injury. It hurts if she sits too long especially style. She has been taking some Vicodin so she can sleep. It hurts if she lays on that side. She has four younger children, ages 4, 6, 8 and 13, so she is constantly doing a lot of activities with them and that is getting more difficult. Does not recall a specific injury. She has not had any previous hip problems. She thinks that her left leg may be a little bit long. No associated symptoms such as locking or catching. She does have some numbness on the left side of her body, but not specifically related to the hip. No back pain. Past, family, social history are as documented on her history form dated today. PHYSICAL EXAMINATION: Vital signs are stable as documented. Generally healthy, appearing alert and oriented. Mood is good, and affect is normal. Gait and station are normal. Pupils are equal. Breathing is unlabored. She has full active otlnl-el-emmced of her C spine, both upper extremities, and both lower extremities. She has some mild discomfort in the left hip with full external rotation. Mild discomfort with stretching the IT band. Mild tenderness over the greater trochanter. Skin and circulation motion sensation are intact. No lymphangitis or adenopathy. Her left leg does appear to be slightly long, perhaps 8 millimeters at the most. XRAYS: AP, pelvis x-ray ordered and reviewed in the office today shows no obvious bony pathology. IMPRESSION: Probable mild trochanteric bursitis, aggravated by her leg length discrepancy. PLAN: I showed her stretching exercises and explained the importance of this. We discussed a cortisone injection and she would like to do that today. I renewed her Vicodin, but explained that this should be used sparingly and we cannot continue to renew that on a regular basis. We discussed the risks of narcotics and she assures me that she understands that she is not getting any narcotics from anywhere else. A heel lift was provided for her for the right side. PROCEDURE: After informed consent and sterile prep of the skin, it was anesthetized with ethyl chloride. The left trochanteric bursa was then injected with 80 milligrams Depo-Medrol and 4 cc of Marcaine. Tolerated it well. A cc: Tico Cheng MD documented in this encounter Plan of Treatment Not on filedocumented as of this encounter Procedures Procedure Name Priority Date/Time Associated Diagnosis Comme nts RADEX PELVIS 1/2 Routine 05/11/2008 12:00 AM Pain Resu lts for this VIEWS CDT procedure are i n the results section. documented in this encounter Results PELVIS AP (05/11/2008 12:00 AM CDT) Anatomical Region Laterality Modality Other Transcriptions Matthew Otero - 05/11/2008 12:00 AM CD T CLINICAL DATA: Pain EXAMINATION: AP PELVIS X-RAY 05-11-08 INTERPRETATION: There is no obvious bon y deformity in the pelvis. No significant problems in the visualized portion of the lumbar spine. CONCLUSION: Normal pelvis x-ray. Matthew Otero MD P cc: Radiology WE Matthew Otero MD RAD_1 documented in this encounter Visit Diagnoses Diagnosis Pain - Primary Generalized pain documented in this encounter Care Teams Mold Builder Relationship Specialty Start Date End Date Tico Cheng MD PCP - General 03/09/08 01/12/[address] [place] [address] documented as of this encounter
--- OUTSIDE RECORDS SUMMARY | 2022-08-02 01:28 | XMS_ITS | Encounter Summary ---
:1975 Author Organization [facility] Address [address] [place] [address] Care Team Providers Name Role Phone Unassigned, Provider Primary Care Provider Unavailable Encounter Details Date Type Department Care Team Description 03/09/2003 Orders Only [facility] Dale Palomino MD [address] [facility] [place] [address] Social History Tobacco Use Types Packs/Day Years Used Date Smoking Tobacco: Never Assessed Sex Assigned at Date Recorded Not on file documented as of this encounter Plan of Treatment Not on filedocumented as of this encounter Procedures Procedure Name Priority Date/Time Associated Diagnosis Comme nts URINE CULTURE Routine 03/09/2003 2:00 PM Results for this CDT procedure are i n the results section . documented in this encounter Results URINE CULTURE (MIDSTREAM) (03/09/2003 2:00 PM CDT) Component Value Ref Test Analysis Performed At [facility] Method Time Signature Specimen Urine [facility] Description Special None [facility] Requests Culture Mixed Brandie Consisting Predominantly of [facility] Nonpathogens Report Status Final [facility] Report Status [id number] [facility] Specimen Anatomical Collection Method Collection Time Receive d Time (Source) Location / / Volume Laterality 03/09/2003 2:00 PM 3 2:01 CDT PM CDT Dale Palomino MD LAB_1 Performing Organization Address City/State/ZIP Code Phon e Number [facility] [phone] [facility] [address] [address] documented in this encounter Visit Diagnoses Not on filedocumented in this encounter Care Teams School Counsellor Relationship Specialty Start Date End Date Unassigned, Provider PCP - General 02/23/03 06/30/[address] [place] [address] documented as of this encounter
--- OUTSIDE RECORDS SUMMARY | 2022-08-02 01:28 | XMS_ITS | Encounter Summary ---
:1975 Author Organization [facility] Address [address], [place] [address] Care Team Providers Name Role Phone Unassigned, Provider Primary Care Provider Unavailable Encounter Details Date Type Department Care Team Description 06/08/2003 [facility] Visit [facility] Dale Palomino SUPER VIS OTHER NORMAL and Gynecology [facility] [address] [facility] [place] [address] Social History Tobacco Use Types Packs/Day Years Used Date Smoking Tobacco: Never Assessed Sex Assigned at Date Recorded Not on file documented as of this encounter Plan of Treatment Not on filedocumented as of this encounter Visit Diagnoses Diagnosis Supervision of other normal documented in this encounter Care Teams Pipeline Dispatch Operator Relationship Specialty Start Date End Date Unassigned, Provider PCP - General 02/23/03 06/30/[address] [place] [address] documented as of this encounter
--- OUTSIDE RECORDS SUMMARY | 2022-08-02 01:28 | XMS_ITS | Encounter Summary ---
:1975 Author Organization [email or web address] Address [address] [place] [address] Care Team Providers Name Role Phone Layo Perez MD Primary Care Provider Reason for Visit Reason Comments , NOS Encounter Details Date Type Department Care Team Description 01/21/2003 Telephone Careline Naveed Ackerman, , NOS [address] Michael RN [place], [place] [address] AFTER HOURS CARE [phone] [address] [facility], [address] Social History Tobacco Use Types Packs/Day Years Used Date Smoking Tobacco: Never Assessed Sex Assigned at Date Recorded Not on file documented as of this encounter Nursing Notes 01/21/2003 11:59 PM CDT >> NAVEED ACKERMAN FriJan 21, 2003 4:49 PM >> COMPLETED ON FriJan 21, 2003 6:44 PM >> CALL RECEIVED. Contact: dec 07 had a baby, wondering when she would get her period, pt is not , told pt that you can have bleeding up to 8 weeks and then after that time you would get your period, told pt that if she has no bleeding then she may possibly get her period sometime this month, may be by the end of the month, but should use some form of control if she does not want to get , told pt that you ov ulate 2 weeks prior to your upcoming period, so possible that she could be ovulating now and would g et her period in 2 weeks, so should be aware that possible to get , will probably get period by end of the month, reasurred,no further questions, documented in this encounter Plan of Treatment Not on filedocumented as of this encounter Visit Diagnoses Not on filedocumented in this encounter Care Teams Automation Test Engineer Relationship Specialty Start Date End Date Layo Perez MD PCP - General 08/17/02 02/22/03 [address] [address] documented as of this encounter
--- OUTSIDE RECORDS SUMMARY | 2022-08-02 01:28 | XMS_ITS | Encounter Summary ---
:1975 Author [facility] Address [address], [place] [address] Care Team Providers Name Role Phone Layo Perez MD Primary Care Provider Encounter Details Date Type Department Care Team Description 01/03/2003 Office Visit [place] [facility] Willian Vickers MD [facility] HIGH-RISK PREG and Gynecology [address] [place] [address] NOS [address] [place] [address] [facility], [place] [address] Social History Tobacco Use Types Packs/Day Years Used Date Smoking Tobacco: Never Assessed Sex Assigned at Date Recorded Not on file documented as of this encounter Plan of Treatment Not on filedocumented as of this encounter Visit Diagnoses Diagnosis Unspecified high-risk documented in this encounter Care Teams Automotive Warranty Administrator Relationship Specialty Start Date End Date Layo Perez MD PCP - General 08/17/02 02/22/03 [address] [place] [address] documented as of this encounter
--- OUTSIDE RECORDS SUMMARY | 2022-08-02 01:28 | XMS_ITS | Encounter Summary ---
:1975 Author Organization [facility] Address [address], [place] [address] Care Team Providers Name Role Phone Unassigned, Provider Primary Care Provider Unavailable Encounter Details Date Type Department Care Team Description 04/20/2003 Office Visit [place] [facility] Dale Palomino SUPER VIS OTHER NORMAL and Gynecology [facility] [address] [facility] [place] [address] Social History Tobacco Use Types Packs/Day Years Used Date Smoking Tobacco: Never Assessed Sex Assigned at Date Recorded Not on file documented as of this encounter Plan of Treatment Not on filedocumented as of this encounter Visit Diagnoses Diagnosis Supervision of other normal documented in this encounter Care Teams Sociology Professor Relationship Specialty Start Date End Date Unassigned, Provider PCP - General 02/23/03 06/30/[address] [place] [address] documented as of this encounter
--- OUTSIDE RECORDS SUMMARY | 2022-08-02 01:28 | XMS_ITS | Encounter Summary ---
:1975 Author Organization [facility] Address [address] [address] Care Team Providers Name Role Phone Unassigned, Provider Primary Care Provider Unavailable Encounter Details Date Type Department Care Team Description 03/23/2003 Office Visit [place] [facility] Willian Vickers MD SUPERVIS OTHER NORMAL PREG; and Gynecology [address] [place] [address] H[facility] DIS:[facility] [address] [place] [address] [facility], [place] [address] Social History Tobacco Use Types Packs/Day Years Used Date Smoking Tobacco: Never Assessed Sex Assigned at Date Recorded Not on file documented as of this encounter Progress Notes 03/23/2003 1:00 PM CDT S: Santa Farmer is here for rhogam injection(s). O: Injection(s) given, Dose unit dose, intramuscularly in the LEFT deltoid. Lot # is [id number]. Sharepoint Trainer Kony. A: Ordered per provider Dr Vickers, date of order 03/23/03. Date of last injection 000. Patient tolerated injection well. P: Return to clinic at next scheduled appt. 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
--- OUTSIDE RECORDS SUMMARY | 2022-08-02 01:28 | XMS_ITS | Encounter Summary ---
:1975 Author Organization [facility] Address [address], [place] [address] Care Team Providers Name Role Phone Unassigned, Provider Primary Care Provider Unavailable Encounter Details Date Type Department Care Team Description 05/18/2003 Office Visit [place] [facility] Dale Palomino SUPER VIS OTHER NORMAL and Gynecology [facility] [address] [facility] [place] [address] Social History Tobacco Use Types Packs/Day Years Used Date Smoking Tobacco: Never Assessed Sex Assigned at Date Recorded Not on file documented as of this encounter Plan of Treatment Not on filedocumented as of this encounter Visit Diagnoses Diagnosis Supervision of other normal documented in this encounter Care Teams Men'S Swim Coach Relationship Specialty Start Date End Date Unassigned, Provider PCP - General 02/23/03 06/30/[address] [place] [address] documented as of this encounter
--- OUTSIDE RECORDS SUMMARY | 2022-08-02 01:28 | XMS_ITS | Encounter Summary ---
:1975 Author Organization [facility] Address [address] [place] [address] Care Team Providers Name Role Phone Unassigned, Provider Primary Care Provider Unavailable Encounter Details Date Type Department Care Team Description 05/18/2003 Orders Only [facility] Dale Palomino MD [address] [facility] [place] [address] Social History Tobacco Use Types Packs/Day Years Used Date Smoking Tobacco: Never Assessed Sex Assigned at Date Recorded Not on file documented as of this encounter Plan of Treatment Not on filedocumented as of this encounter Procedures Procedure Name Priority Date/Time Associated Diagnosis Comme nts GROUP B STREP Routine 05/18/2003 2:30 PM Results for this SCREEN (OB PTS) CDT procedure ar e in the results section. documented in this encounter Results GROUP B STREP SCREEN (OB PTS) (05/18/2003 2:30 PM CDT) Component Value Ref Test Analysis Performed At [facility] Range Method Time Signature Specimen Vagina Rectal [facility] Description Special None [facility] Requests Culture Group [facility] Streptococcus Isolated Culture If this person is penicillin allergic, [facility] please notify the lab within 7 days for additional susceptibility testing. Report Status Final [facility] Report Status [id number] [facility] Specimen Anatomical Collection Method Collection Time Receive d Time (Source) Location / / Volume Laterality 05/18/2003 2:30 PM 3 2:31 CDT PM CDT Dale Palomino MD LAB_1 Performing Organization Address City/State/ZIP Code Phon e Number [facility] [phone] [facility] [address] [address] documented in this encounter Visit Diagnoses Not on filedocumented in this encounter Care Teams Business Services Sales Agent Relationship Specialty Start Date End Date Unassigned, Provider PCP - General 02/23/03 06/30/[address] [place] [address] documented as of this encounter
--- OUTSIDE RECORDS SUMMARY | 2022-08-02 01:28 | XMS_ITS | Encounter Summary ---
:1975 Author Organization [facility] Address [address] [address] Care Team Providers Name Role Phone Unassigned, Provider Primary Care Provider Unavailable Encounter Details Date Type Department Care Team Description 04/06/2003 Office Visit [place] [facility] Dale Palomino SUPER VIS OTHER NORMAL and Gynecology [facility] [address] [facility] [place] [address] Social History Tobacco Use Types Packs/Day Years Used Date Smoking Tobacco: Never Assessed Sex Assigned at Date Recorded Not on file documented as of this encounter Plan of Treatment Not on filedocumented as of this encounter Visit Diagnoses Diagnosis Supervision of other normal documented in this encounter Care Teams Adult And Pediatric Neurologist Relationship Specialty Start Date End Date Unassigned, Provider PCP - General 02/23/03 06/30/[address] [place] [address] documented as of this encounter
--- OUTSIDE RECORDS SUMMARY | 2022-08-02 01:28 | XMS_ITS | Encounter Summary ---
:1975 Author Organization [facility] Address [address], [place] [address] Care Team Providers Name Role Phone Layo Perez MD Primary Care Provider Encounter Details Date Type Department Care Team Description 01/31/2003 Office Visit [place] [facility] Willian Vickers MD SUPERVIS OTHER NORMAL and Gynecology [address] [place] [address] [place] [address] [place] [address] Social History Tobacco Use Types Packs/Day Years Used Date Smoking Tobacco: Never Assessed Sex Assigned at Date Recorded Not on file documented as of this encounter Progress Notes 01/31/2003 1:40 PM CDT Santa Farmer is here today for . Are you having pain today, that you want to discuss with the provider? -{PAIN YES/NO:79864} Method of control? -{BC:7853618} PARA Patient does Self Breast exams? -{YES/NO/SOMETIMES:70905}. BP was taken on the {RIGHT/LEFT:409638} arm. Large cuff used- {NO/YES:282} Immunizations up to date? -{YES/NO,NEEDS:21427} Preventive Services up to date? -{YES/NO NEEDS:05951} No results found for this basename: PAP No results found for this basename: CHOLESTEROLL,HDL,LDL,TRIG Mammogram done? -{YES,DATE:}. Bone Density study done? -{YES/NO TEST INFO:461235} Do you ever feel physically threatened or emotionally afraid -{TYPE OF ABUSE:28828} Tobacco Status reviewed? (see History Social-Substance) -{NO/YES:282} kennel attendant offered? -{ACCEPTED/DECLINED:272}. Aspirin taken daily? - {YES/NO/CONTRAINDICATED:284} Health Education given? -{YES/NO:82173}. Patient's phone [phone] (home) Kristine Fisher LPN 01/31/2003 2:03 PM documented in this encounter Plan of Treatment Not on filedocumented as of this encounter Visit Diagnoses Diagnosis Supervision of other normal documented in this encounter Care Teams Metal Moulder Relationship Specialty Start Date End Date Layo Perez MD PCP - General 08/17/02 02/22/03 [address] [place] [address] documented as of this encounter
--- OUTSIDE RECORDS SUMMARY | 2022-08-02 01:28 | XMS_ITS | Encounter Summary ---
:1975 Author Organization [employer] Address [address] [place] [address] Care Team Providers Name Role Phone Unassigned, Provider Primary Care Provider Unavailable Encounter Details Date Type Department Care Team Description 06/17/2003 Hospital [facility] Evelyn Hidalgo [place] [id number] (Wo rk) Social History Tobacco Use Types Packs/Day Years Used Date Smoking Tobacco: Never Assessed Sex Assigned at Date Recorded Not on file documented as of this encounter Discharge Summaries Levi Ahujajessica Hutchins - 06/17/2003 12:00 AM CDTHISTORY OF PRESENT ILLNESS: The patient is a 27-year-old G6, P3-0-2-3, admitted at 40+2 weeks by a 17+1 week ultrasound. She presented with complaints of painful uterine contractions every 2-5 minutes. She denied leakage of fluid. She reported good movement and some bloody show. CARE: Her care began on 01/03/2003, for a total of 9 visits. LABS: Include O negative, antibody negative, rubella immune, RPR nonreactive, Hepatitis B negative, HIV nonreactive, UA/UC negative, GCT 92, GBS positive. Patient had 1 ultrasound during her at 17+1 weeks, which showed no anomalies. PAST OB HISTORY: The patient has had 3 term vaginal deliveries in 1994, 1998, and 2000. These were all without complications. PAST OPTOMETRIST HISTORY: The patient denies history of abnormal Pap smears or STD's. PAST MEDICAL HISTORY: Significant for depression and history of migraines. PAST SURGICAL HISTORY: Negative. MEDICATIONS: Zoloft and vitamins. ALLERGIES: NO KNOWN DRUG ALLERGIES. SOCIAL HISTORY: The patient smokes 5 cigarettes per day. She denies alcohol or drug use. FAMILY HISTORY: Positive for mother with diabetes. HOSPITAL COURSE: Patient was evaluated and found to be in active labor. She was started on penicillin for her positive GBS status. The patient went on to rupture spontaneously at 0300. She went on to quickly deliver a male at 0313. Weight 7 pounds 14 ounces and of 8 and 9 at 1 and 5 minutes. Estimated blood loss 300 cc. There were no complications. COURSE: Overall uncomplicated. The patient desired tubal ligation on day 1. She underwent this. This was by Mazon method. Estimated blood loss less than 10 cc. There were no complications. A hemoglobin returned at 11.2. The patient bottle-fed her , who received a circumcision prior to discharge. The is Rh negative, therefore, the patient did not receive RhoGAM. By day 2, the patient was tolerating a regular diet. Pain was controlled with oral pain medication. She was ambulating without difficulty and bleeding was minimal. She was subsequently discharged to home. DISCHARGE MEDICATIONS: 1. Ibuprofen 600 mg p.o. q.6h. as needed for pain. 2. Percocet 1 tablet p.o. q.6h. as needed for severe pain. 3. Colace 100 mg p.o. b.i.d. DISCHARGE INSTRUCTIONS: The patient is instructed on pelvic rest for 6 weeks and no driving for 1 week. She is encouraged to call for any temperature greater than 100.4, any severe abdominal or pelvic pain, or any heavy vaginal bleeding greater than 1 pad per hour. The patient will follow up in 6 weeks for a exam. kda Dictated: 06/19/2003 07:49:38 Alysha Ahuja MD Transcribed: 06/21/2003 07:59:49 Staff: Dale Palomino MD Doc #: [id number] cc: MD Kailey Mackay MD, attending Page 2 Patient Name: SANTA FARMER DISCHARGE SUMMARY CONFIDENTIAL MEDICAL RECORD [address] [address] Page 1 Patient: SANTA FARMER Location: 2CM HPN: [id number] Admit Date: 06/17/2003 Date of : 1975 Discharge Date: 06/19/2003 DISCHARGE SUMMARY documented in this encounter Procedure Notes Alysha España - 06/17/2003 12:00 AM CDTDATE OF SURGERY: 06/18/2003 STAFF SURGEON: Dale Palomino MD FORM BUILDING SUPERVISOR: Alysha España DO PREOPERATIVE DIAGNOSIS: Multiparity desires permanent sterilization. POSTOPERATIVE DIAGNOSIS: Multiparity desires permanent sterilization. NAME OF OPERATION: tubal ligation via modified Mazon ANESTHESIA: General. ESTIMATED BLOOD LOSS: Less than 10 cc. IV FLUIDS: 1500 mL. URINE OUTPUT: No Cano catheter placed. FINDINGS: Normal tubes, uterus was identified, and fimbriae were identified bilaterally without any abnormalities. COMPLICATIONS: None. PROCEDURE: Dr. Palomino was presented and scrubbed the entire procedure. The patient was taken to the operating room where general anesthesia without any complications. She was then prepped and draped in the usual sterile fashion. Anesthesia was found to be adequate. Allis clamps were used to grasp infraumbilical skin and a small transverse infraumbilical skin incision was then made with the scalpel. The incision was carried down through subcutaneous tissues Ranking clamps were used to identify the fascia, pick it up and it was entered with Morgan scissors. The peritoneum was identified and entered bluntly with fingertip. The peritoneum was noted to be free of any incisions. An incision was then extended with the Metzenbaum scissors. The patient's left Fallopian tube was then identified, brought to the incision and grasped serially with Gus clamps until fimbriae were identified. A portion of the tube was then picked up, mesosalpinx was entered with cautery, this defect was entered with Carissa clamps and the tube was clamped distally and proximally. A segment of the tube was then excised, 2-0 Vicryl was then used to ligate the tube both the proximal and distal segment. Hemostasis was observed both the excised portions of the tubes and the mesosalpinx to be allowed to return to its normal anatomical position. This procedure was repeated on the right .The Fallopian tube identified. A portion of the tube was elevated, mesosalpinx was entered with cautery, Carissa camps were used to grasp the proximal and distal portion of the tube and approximately 3-cm segment of tube was excised and the proximal and distal portions were ligated with 2-0 Vicryl. Hemostasis was noted at the both the tubes and the mesosalpinx and tube was allowed to returned to its normal anatomical position. The fascia was then closed in a single layer of 3-0 Vicryl. The skin was closed in a subcuticular fashion with 4-0 Vicryl. The patient tolerated the procedure well. Sponge, lap and needle counts were correct x 1. The patient was taken to the Recovery Room in stable condition. Pathology specimens: The right and left Fallopian tubes were sent to pathology for identification. mahesh Dictated: 06/18/2003 10:35:46 Alysha España DO Transcribed: 06/18/2003 10:40:53 Staff: Dale Palomino MD Doc #: [id number] cc: Kailey Hidalgo MD, Attending DO NOT SIGN UNLESS PRESENT FOR PROCEDURE I attest that I was present for and participated in the rodarte portions of this procedure(s) in compliance with the Health Care Financing Administration Teaching Physician Guidelines. Signed Date [facility] Staff Physician Page 2 Patient Name: SANTA FARMER OPERATIVE REPORT CONFIDENTIAL MEDICAL RECORD [address] [address] Page 1 Patient: SANTA FARMER Location: 2CM HPN: [id number] Admit Date: 06/17/2003 Date of : 1975 Discharge Date: OPERATIVE REPORT documented in this encounter Plan of Treatment Not on filedocumented as of this encounter Visit Diagnoses Not on filedocumented in this encounter Care Teams Senior Premium Auditor Relationship Specialty Start Date End Date Unassigned, Provider PCP - General 02/23/03 06/30/[address] [place] [address] documented as of this encounter
--- OUTSIDE RECORDS SUMMARY | 2022-08-02 01:28 | XMS_ITS | Encounter Summary ---
:1975 Author Organization [facility] Address [address], [place] [address] Care Team Providers Name Role Phone Unassigned, Provider Primary Care Provider Unavailable Encounter Details Date Type Department Care Team Description 03/09/2003 Office Visit [facility] Dale Palomino SUPER VIS OTHER NORMAL and Gynecology [facility] [address] [facility] [place] [address] Social History Tobacco Use Types Packs/Day Years Used Date Smoking Tobacco: Never Assessed Sex Assigned at Date Recorded Not on file documented as of this encounter Plan of Treatment Not on filedocumented as of this encounter Visit Diagnoses Diagnosis Supervision of other normal documented in this encounter Care Teams Business Coordinator Relationship Specialty Start Date End Date Unassigned, Provider PCP - General 02/23/03 06/30/[address] [place] [address] documented as of this encounter
--- OUTSIDE RECORDS SUMMARY | 2022-08-02 01:28 | XMS_ITS | Encounter Summary ---
:1975 Author Organization [facility] Address [address] [address] Care Team Providers Name Role Phone Unassigned, Provider Primary Care Provider Unavailable Encounter Details Date Type Department Care Team Description 05/30/2003 Office Visit [facility] [facility] Dale Palomino SUPER VIS OTHER NORMAL and Gynecology [facility] [address] [facility] [place] [address] Social History Tobacco Use Types Packs/Day Years Used Date Smoking Tobacco: Never Assessed Sex Assigned at Date Recorded Not on file documented as of this encounter Plan of Treatment Not on filedocumented as of this encounter Visit Diagnoses Diagnosis Supervision of other normal documented in this encounter Care Teams Chili Maker Relationship Specialty Start Date End Date Unassigned, Provider PCP - General 02/23/03 06/30/[address] [place] [address] documented as of this encounter
--- OUTSIDE RECORDS SUMMARY | 2022-08-02 01:28 | XMS_ITS | Encounter Summary ---
:1975 [facility] Address [address] [place] [address] Care Team Providers Name Role Phone Layo Perez MD Primary Care Provider Encounter Details Date Type Department Care Team Description 01/04/2003 Office Visit [facility] house manager Ultra sound SCREENING NEC [address] [place] [address] Social History Tobacco Use Types Packs/Day Years Used Date Smoking Tobacco: Never Assessed Sex Assigned at Date Recorded Not on file documented as of this encounter Plan of Treatment Not on filedocumented as of this encounter Procedures Procedure Name Priority Date/Time Associated Diagnosis Comme nts US COMPLETE OB> 14 01/04/2003 Screening Re sults for this WEEKS SINGLE GEST Nec procedure are in the results section . documented in this encounter Results ECHO UTERUS COMPLETE OB (01/04/2003) Anatomical Region Laterality Modality Other Narrative This result has an attachment that is no t available. M Nidhi MAYBERRY RESOLUTE ONLY- DO NOT ORDER documented in this encounter Visit Diagnoses Diagnosis Other screening Other specified screening documented in this encounter Care Teams Reactor Kettle Operator Relationship Specialty Start Date End Date Layo Perez MD PCP - General 08/17/02 02/22/03 [address] [place] [address] documented as of this encounter
--- OUTSIDE RECORDS SUMMARY | 2022-08-02 01:28 | XMS_ITS | Encounter Summary ---
:1975 Author Organization [facility] Address [address] [place] [address] Care Team Providers Name Role Phone Unassigned, Provider Primary Care Provider Unavailable Encounter Details Date Type Department Care Team Description 03/09/2003 Orders Only [facility] Dale Palomino MD [address] [facility] [place] [address] Social History Tobacco Use Types Packs/Day Years Used Date Smoking Tobacco: Never Assessed Sex Assigned at Date Recorded Not on file documented as of this encounter Plan of Treatment Not on filedocumented as of this encounter Procedures Procedure Name Priority Date/Time Associated Diagnosis Comme nts ANTIBODY SCREEN Routine 03/09/2003 2:00 PM Result s for this (RH- PTS OR MI CDT procedure are in the results section. (24-28) WEEK OB Routine 03/09/2003 2:00 PM Result s for this CDT procedure are i n the results section. documented in this encounter Results ANTIBODY SCREEN (RH- PTS OR MI (03/09/2003 2:00 PM CDT) [facility] Method Time Signature ABO & Rh O Neg [facility] ABO & Rh [facility] Antibody Negative [facility] Screen Antibody [facility] Screen Date RhIgG 022925 [facility] Given Specimen Anatomical Collection Method Collection Time Receive d Time (Source) Location / / Volume Laterality 03/09/2003 2:00 PM 3 2:01 CDT PM CDT Dale Palomino MD LAB_1 Performing Organization Address City/State/ZIP Code Phon e Number [facility] [phone] [employer] [address] [phone] (-) WEEK OB (03/09/2003 2:00 PM CDT) P athologist Signature Glucose 92 70 - 130 [facility] mg/dl Grams of 50 gm [facility] Glucose Hemoglobin 12.4 12.0 - [facility] 16.0 g/dl Platelets 293 150 - 450 [facility] k/ul Specimen Anatomical Collection Method Collection Time Receive d Time (Source) Location / / Volume Laterality 03/09/2003 2:00 PM 3 2:01 CDT PM CDT Dale Palomino MD LAB_1 Performing Organization Address City/State/ZIP Code Phon e Number [employer] [phone] [facility] [address] [phone] documented in this encounter Visit Diagnoses Not on filedocumented in this encounter Care Teams Oil Well Fishing Tool Operator Relationship Specialty Start Date End Date Unassigned, Provider PCP - General 02/23/03 06/30/03 [address] [place] [address] documented as of this encounter
--- OUTSIDE RECORDS SUMMARY | 2022-08-02 01:28 | XMS_ITS | Encounter Summary ---
:1975 Author [facility] Address [address], [place] [address] Care Team Providers Name Role Phone Unassigned, Provider Primary Care Provider Unavailable Encounter Details Date Type Department Care Team Description 03/09/2003 Office Visit [facility] Dale Palomino SUPER VIS NORMAL 1ST and Gynecology [facility] [address] [facility] [place] [address] Social History Tobacco Use Types Packs/Day Years Used Date Smoking Tobacco: Never Assessed Sex Assigned at Date Recorded Not on file documented as of this encounter Plan of Treatment Not on filedocumented as of this encounter Visit Diagnoses Diagnosis Supervision of normal first documented in this encounter Care Teams Street Supervisor Relationship Specialty Start Date End Date Unassigned, Provider PCP - General 02/23/03 06/30/[address] [place] [address] documented as of this encounter
--- OUTSIDE RECORDS SUMMARY | 2022-08-02 01:28 | XMS_ITS | Encounter Summary ---
:1975 Author Organization [facility] Address [address] [place] [address] Care Team Providers Name Role Phone Tico Cheng MD Primary Care Provider Encounter Details Date Type Department Care Team Description 01/04/2003 Orders Only [facility] breakfast host Ultra sound Unknown, Physician [address] [facility] [address] [place] [address] [place] [address] [phone] (Wo rk) Social History Tobacco Use Types Packs/Day Years Used Date Smoking Tobacco: Never Assessed Sex Assigned at Date Recorded Not on file documented as of this encounter Procedure Notes OB ULTRA RM A SP - 01/04/2003 12:00 AM CSTAssociated Order(s): ULTRASOUND SC OB ULTRA RM A SP - 01/04/2003 12:00 AM CSTAssociated Order(s): ULTRASOUND SC documented in this encounter Plan of Treatment Not on filedocumented as of this encounter Procedures Procedure Name Priority Date/Time Associated Diagnosis Comme nts ULTRASOUND SC 01/04/2003 12:00 AM Results for this FIBERGLASS ROLLER procedure are i n the results section . ULTRASOUND SC 01/04/2003 12:00 AM Results for this FIBERGLASS ROLLER procedure are i n the results section . documented in this encounter Results ULTRASOUND SC (01/04/2003 12:00 AM FIBERGLASS ROLLER) Anatomical Region Laterality Modality Other Narrative 01/04/2003 12:00 AM FIBERGLASS ROLLER This result has an attachment that is no t available. Ordered by an unspecified provider. Transcriptions OB ULTRA RM A SP - 01/04/2003 12:00 AM FIBERGLASS ROLLER Physician Unknown DUMMY/OTHER/AR ULTRASOUND SC (01/04/2003 12:00 AM FIBERGLASS ROLLER) Anatomical Region Laterality Modality Other Narrative 01/04/2003 12:00 AM FIBERGLASS ROLLER This result has an attachment that is no t available. Ordered by an unspecified provider. Transcriptions OB ULTRA, RM A SP - 01/04/2003 12:00 AM FIBERGLASS ROLLER Physician Unknown DUMMY/OTHER/AR documented in this encounter Visit Diagnoses Not on filedocumented in this encounter Care Teams Curb And Gutter Laborer Relationship Specialty Start Date End Date Tico Cheng MD PCP - General 03/09/08 01/12/[address] [place] [address] documented as of this encounter
--- OUTSIDE RECORDS SUMMARY | 2022-08-02 01:28 | XMS_ITS | Encounter Summary ---
:1975 Author Organization [employer] Address [address] [address] Care Team Providers Name Role Phone Nhi Toure PA-C Primary Care Provider Encounter Details Date Type Department Care Team Description 06/17/2003 [facility] Kailey Hidalgo W 2 DEG LACERAT-DEL; [address] [facility] SUPERVIS [place] N[place] [address] [facility] [address] [place], [place] [address] (Wo rk) Social History Tobacco Use [...] as of this encounter Visit Diagnoses Diagnosis Second-degree perineal laceration, with delivery Supervision of other normal documented in this encounter Care Teams Loading Machine Tool Setter Relationship Specialty Start Date End Date Nhi Toure PA-C PCP - General Physician Automobile Tester 03/09/20 [address] [place] [address] documented as of this encounter
--- OUTSIDE RECORDS SUMMARY | 2022-08-02 01:28 | XMS_ITS | Encounter Summary ---
:1975 Author Organization [facility] Address [address], [place] [address] Care Team Providers Name Role Phone Tico Cheng MD Primary Care Provider Encounter Details Date Type Department Care Team Description 01/03/2003 Routine [place] Willian Vickers M D Obstetrics and Gynec ology [address] [place] [address] [place], [place] [phone] (Wo rk) Social History Tobacco Use Types Packs/Day Years Used Date Smoking Tobacco: Never Assessed Sex Assigned at Date Recorded Not on file documented as of this encounter Progress Notes Willian Vickers - 01/03/2003 12:00 AM BRAKE LINING FINISHER ASBESTOS E LINING FINISHER ASBESTOS documented in this encounter Plan of Treatment Not on filedocumented as of this encounter Visit Diagnoses Not on filedocumented in this encounter Care Teams Phototypesetter Operator Relationship Specialty Start Date End Date Tico Cheng MD PCP - General 03/09/08 01/12/[address] [place] [address] documented as of this encounter
--- OUTSIDE RECORDS SUMMARY | 2022-08-02 01:28 | XMS_ITS | Encounter Summary ---
:1975 [facility] Address [address], [place] [address] Care Team Providers Name Role Phone Unassigned, Provider Primary Care Provider Unavailable Encounter Details Date Type Department Care Team Description 05/25/2003 Office Visit [place] [facility] Dale Palomino SUPER VIS OTHER NORMAL and Gynecology [facility] [address] [facility] [place] [address] Social History Tobacco Use Types Packs/Day Years Used Date Smoking Tobacco: Never Assessed Sex Assigned at Date Recorded Not on file documented as of this encounter Plan of Treatment Not on filedocumented as of this encounter Visit Diagnoses Diagnosis Supervision of other normal documented in this encounter Care Teams Flower Cutter Relationship Specialty Start Date End Date Unassigned, Provider PCP - General 02/23/03 06/30/[address] [place] [address] documented as of this encounter
--- OUTSIDE RECORDS SUMMARY | 2022-08-02 01:28 | XMS_ITS | Encounter Summary ---
:1975 Author Organization [facility] Address [address] [place] [address] Care Team Providers Name Role Phone Tico Cheng MD Primary Care Provider Encounter Details Date Type Department Care Team Description 01/04/2003 Routine [facility] sorting grapple operator Ultra sound [address] [place] [address] Social History Tobacco Use Types Packs/Day Years Used Date Smoking Tobacco: Never Assessed Sex Assigned at Date Recorded Not on file documented as of this encounter Progress Notes OB ULTRA, RM A SP - 01/04/2003 12:00 AM TERRITORY SALES CONSULTANT documented in this encounter Plan of Treatment Not on filedocumented as of this encounter Visit Diagnoses Not on filedocumented in this encounter Care Teams Measuring Machine Tender Relationship Specialty Start Date End Date Tico Cheng MD PCP - General 03/09/08 01/12/11 [address] [place] [address] documented as of this encounter
--- OUTSIDE RECORDS SUMMARY | 2022-08-02 01:28 | XMS_ITS | Encounter Summary ---
:1975 Author Organization [facility] Address [address] [address] Care Team Providers Name Role Phone Unassigned, Provider Primary Care Provider Unavailable Encounter Details Date Type Department Care Team Description 05/04/2003 Office Visit [place] [facility] Dale Palomino SUPER VIS OTHER NORMAL and Gynecology [facility] [address] [facility] [place] [address] Social History Tobacco Use Types Packs/Day Years Used Date Smoking Tobacco: Never Assessed Sex Assigned at Date Recorded Not on file documented as of this encounter Plan of Treatment Not on filedocumented as of this encounter Visit Diagnoses Diagnosis Supervision of other normal documented in this encounter Care Teams End Stapler Relationship Specialty Start Date End Date Unassigned, Provider PCP - General 02/23/03 06/30/[address] [place] [address] documented as of this encounter
--- OUTSIDE RECORDS SUMMARY | 2022-08-02 01:28 | XMS_ITS | Encounter Summary ---
:1975 Author Organization [facility] Address [address], [place] [address] Care Team Providers Name Role Phone Layo Perez MD Primary Care Provider Encounter Details Date Type Department Care Team Description 01/05/2003 Notes/Orders [place] [facility] Kristine Shahid LPN Department [facility] [address] [facility] [address] [place] [address] [address] [phone] [place], [place] [address] Social History Tobacco Use Types Packs/Day Years Used Date Smoking Tobacco: Never Assessed Sex Assigned at Date Recorded Not on file documented as of this encounter Progress Notes 01/05/2003 11:59 PM PIN MAKER Santa Farmer is with BRI of 06/15. [facility]. The record will remain at this clinic site until the patient has received a 6-week exam. The record will then be scanned and returned to the patient's primary clinic. If you have questions about the care, please call the OB consulting nurses or FP nurses at [phone]. Kristine Fisher LPN, 01/05/2003, documented in this encounter Plan of Treatment Not on filedocumented as of this encounter Visit Diagnoses Not on filedocumented in this encounter Care Teams Roofing Plant Supervisor Relationship Specialty Start Date End Date Layo Perez MD PCP - General 08/17/02 02/22/03 [address] [place] [address] documented as of this encounter
--- OUTSIDE RECORDS SUMMARY | 2022-08-02 01:29 | XMS_ITS | Encounter Summary ---
:1975 Author Organization [facility] Address [address] [place] [address] Care Team Providers Name Role Phone Layo Perez MD Primary Care Provider Encounter Details Date Type Department Care Team Description 12/24/2002 Telephone None Unknown, Physici an [address] [place] [address] (Wo rk) Social History Tobacco Use Types Packs/Day Years Used Date Smoking Tobacco: Never Assessed Sex Assigned at Date Recorded Not on file documented as of this encounter Nursing Notes Unknown, Physician - 12/24/2002 12:00 AM TYRE RETREADER documented in this encounter Plan of Treatment Not on filedocumented as of this encounter Visit Diagnoses Not on filedocumented in this encounter Care Teams Director Integrated Relationship Specialty Start Date End Date Layo Perez MD PCP - General 08/17/02 02/22/03 [address] [place] [address] documented as of this encounter
--- OUTSIDE RECORDS SUMMARY | 2022-08-02 01:29 | XMS_ITS | Encounter Summary ---
:1975 [facility] Address [address], [place] [address] Care Team Providers Name Role Phone Unassigned, Provider Primary Care Provider Unavailable Encounter Details Date Type Department Care Team Description 09/06/2000 Emergency [facility] Lizbeth Manzano [address] [facility] [address] Social History Tobacco Use Types Packs/Day Years Used Date Smoking Tobacco: Never Assessed Sex Assigned at Date Recorded Not on file documented as of this encounter ED Notes Lizbeth Manzano - 09/06/2000 12:01 AM CST ED Provider Notes signed by Lizbeth Manzano MD at 09/09/0006 Author: Lizbeth Manzano MD Service: (none) Author Type: Physician Filed: 01/30/111935 Note Time: 09/06/002126 Status: Signed Yeast Pusher: Lizbeth Manzano MD (Physician) NAME: SANTA FARMER MR#: [id number] JOB: [id number] EMERGENCY CENTER REPORT - [facility] CHIEF COMPLAINT: Date of : 79 Date of visit: 09/06/00 Chief complaint of feeling tired, reports that stomach is irritating and also noted red blood per rectum twice in the past two days. HISTORY OF PRESENT ILLNESS: The patient otherwise had no fever, chills, nausea, vomiting, headache, chest pain, shortness of breath, or dysuria. The patient admitted that she feels she might have been because she felt bloated and has been eating a lot of food. The patient admits that she drinks several pots of coffee a day and smokes half a pack per day. The patient is really concerned about rectal bleed and decided to come in for further evaluation. There is no family history of colon cancer and the patient otherwise did not have fever, chills, nausea, vomiting, headache, chest pain, or dysuria. PAST MEDICAL HISTORY/PAST SURGICAL HISTORY: The patient has depression. No suicide, no plan. MEDICATIONS: Zoloft. ALLERGIES: NO KNOWN DRUG ALLERGIES. SOCIAL HISTORY/FAMILY HISTORY: REVIEW OF SYSTEMS: Unremarkable except for HPI. HEENT: No headache, no earache, no sore throat, no stiff neck. LUNGS: No shortness of breath. HEART: No chest pain. ABDOMEN: No abdominal pain or discomfort. EXTREMITIES: No aching joints. NEUROLOGIC: Cranial nerves II-XII intact. Motor and sensory intact. PHYSICAL EXAMINATION: BP: 117/79 T: 99.0 P: 86 R: 16 SA02: 99% on room air GENERAL: The patient is alert and oriented x 3. In no apparent distress. HEENT: Pupils 3 mm to 2 mm bilaterally, EOMI. TMs clear bilaterally. Posterior pharynx clear. NECK: Supple, no lymphadenopathy. LUNGS: Clear to auscultation bilaterally. HEART: Regular rate and rhythm, no murmur. No S3, S4. ABDOMEN: Nondistended, positive bowel sounds x 4, soft, nontender. EXTREMITIES: Full range of motion, no edema. NEUROLOGIC: Cranial nerves II-XII intact. Motor and sensory intact. RECTAL: Good tone, no masses, guaiac positive. EMERGENCY DEPARTMENT COURSE: The patient had an anoscope in the presence of Rosalia, the nurse, which showed an anal fissure at twelve o'clock. It is not actively bleeding. There is no blood distal to the scope. The patient also had a UPT check which is positive. ED physician discussed with patient that she needs to cut down on the caffeine and also quit smoking because it is not safe for the baby. She needs to follow up with primary physician within one week. Return to the ED if stomach pain or vaginal bleeding. The patient complains of the lining of the stomach. Not stomach pain. Regarding her bright blood per rectum. Most likely it is coming from the anal fissure and recommend Anusol suppository and follow up with primary MD within one week. Consider sigmoidoscopy. IMPRESSION: 1. . 2. Anal fissure at twelve o'clock. PLAN: 1. Followup with primary MD within one week. 2. vitamins. 3. Return for increasing bleeding or abdominal pain or vaginal bleeding. DIAGNOSIS: and anal fissure at twelve o'clock. Total time 40 minutes. LIZBETH MANZANO MD [id number] C: DOCUMENT: [id number] K TRADER documented in this encounter Plan of Treatment Not on filedocumented as of this encounter Visit Diagnoses Not on filedocumented in this encounter Care Teams Paint Pourer Relationship Specialty Start Date End Date Unassigned, Provider PCP - General 07/16/00 08/16/[address] [place] [id number] documented as of this encounter
--- OUTSIDE RECORDS SUMMARY | 2022-08-02 01:29 | XMS_ITS | Encounter Summary ---
:1975 Author Organization [facility] Address [address] [address] Care Team Providers Name Role Phone Unavailable Primary Care Provider Unavailable Encounter Details Date Type Department Care Team Description 05/20/1999 Hospital Encounter [facility] Miguel Marina MD [address] [place] [address] [address] [facility] Miguel Marina MD [address] [place] [address] [place] [address] Social History Tobacco Use Types Packs/Day Years Used Date Smoking Tobacco: Never Assessed Sex Assigned at Date Recorded Not on file documented as of this encounter Miscellaneous Notes Miscellaneous - Miguel Marina MD - 05/20/1999 12:01 AM CDT ICD-9-CM ICD-9-CM Narrative description Code ======== DIAGNOSES Principal: SUPERVIS OTH NORMAL PREG V22.1 PROCEDURES Provider Date documented in this encounter Plan of Treatment Not on filedocumented as of this encounter Visit Diagnoses Not on filedocumented in this encounter
--- OUTSIDE RECORDS SUMMARY | 2022-08-02 01:29 | XMS_ITS | Encounter Summary ---
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 physical examination. DEVOPS HISTORY: LMP was 01/29/98. Menses have been regular. She did have an in August of 1997, and has not been on control, but is very interested in starting control. She is interested mostly in using an IUD. She is sexually active with more than 1 partner, and does not use condoms on a regular basis. She has been tested for all STDs on last visit, however, since last visit she has had unprotected intercourse. SOCIAL HISTORY: Alcohol she states rarely, maybe once per month. Does use marijuana twice per week. No other street drugs. Smokes 1 pack of cigarettes a day times 4 years. Does exercise throughout the week. 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 She has an interview for a new job today. PREVENTIVE HEALTH HISTORY: Last Tetanus unknown. FAMILY HISTORY: Mother with diabetes, adult onset. Maternal grandmother with hypertension. PAST MEDICAL HISTORY: Depression. She is currently on Zoloft 50 mg once a day which she states is working well for her. She is currently seeing a counselor. Has had no suicidal thoughts or attempts. REVIEW OF SYSTEMS: None. Adverse drug reactions: None. OBJECTIVE: Blood pressure 112/70. Height 5 ft 2 in. Weight 158. She is currently in no apparent distress. HEENT within normal limits. Negative lymphadenopathy. Lungs clear to auscultation. Heart regular rate and rhythm without murmurs. Breasts are symmetrical without lesions or masses. Negative axilla masses. Abdomen soft, non tender, negative for organomegaly. External genitalia without lesions or exudates. On speculum examination there is a large amount of yellow green discharge without odor. Assessed trichomonas and yeast as well as gonorrhea and chlamydia. Uterus is within normal limits. Negative adnexal tenderness or masses. Negative rectovaginal masses. Strength of upper and lower extremities is +5/5. ASSESSMENT: 1. Comprehensive physical examination for 22 year-old female. 2. Vaginitis. PLAN: Today assessed above laboratory results, as well as HIV and RPR. Pap smear was obtained. Was referred to hvac service manager for IUD consult. Recommended to quit smoking. Also recommended to use condoms on a regular basis. Also encouraged to avoid intercourse until IUD is placed or until other form of control is used. Currently does not need refill on medication. Also strongly recommended to discontinue marijuana. hsp TAPER HELPER Tameka Schumacher MD - 08/22/1997 12:01 AM CST Progress Notes signed by Tameka Schumacher MD at 03/17/98 5522 Author: Tameka Schumacher MD Service: (none) Author Type: Physician Filed: 01/30/11 0144 Note Time: 08/22/97 0001 Status: Signed Supervisor Customer Services: Tameka Schumacher MD (Physician) IMPRESSION: Positive test. SUBJECTIVE: Patient was seen by nursing. She had come in simply for a test which was positive. LMP was the end of June, and was late by 2 weeks. She has noted some fatigue, nausea, and vomiting. OBJECTIVE: Blood pressure 90/58. Weight 158 3/4. ASSESSMENT: Positive test. PLAN: She was notified of a positive test, and stated that she intended to contact [facility]. Was to contact us if she had further questions. hsp Conversion, [facility] - 08/21/1997 12:01 AM CST Phone Note signed by at 08/21/97 6302 Author: [facility] Conversion Service: (none) Author Type: (none) Filed: 01/30/11 0143 Note Time: 08/21/972128 Status: Signed Supervisor Customer Services: [employer]ino [employer] IMPRESSION: referral requested SUBJECTIVE: PATIENT COMPLAINS OF... Pt * HOME PHONE: [phone] * requesting information for * CONTACT PHONE: [phone] * clinic. Has appt for * Santa * tomorrow for preg test @ LMP=b/4 07/18 perhaps @ the end june. ALLERGIES/SENSITIVITIES... NKA 08/21/97 CURRENT MEDICATIONS... Zoloft 50 mg q 08/21/97 PERTINENT PAST HISTORY... Low motivation, stress, anxiety 08/21/97 ASSESSMENT: referral requested DISPOSITION: NO DISPOSITION GIVEN PATIENT IS ; PATIENT IS NOT NURSING; PLAN: RECOMMENDED THE FOLLOWING... [facility], & for [facility] [employer]. Call taken by SINDY GONZALEZ RN [phone] 08/21/1997 02:11 PM ADDENDUM: TAPER HELPER Conversion, [facility] - 03/27/1997 12:01 AM CDT Phone Note signed by at 03/27/97 4194 Author: [facility] Conversion Service: (none) Author Type: (none) Filed: 01/29/11 2349 Note Time: 03/27/97 0001 Status: Signed Supervisor Customer Services: [employer] IMPRESSION: Abdominal pain-(adult)-nurse guidelines - TREATING PROVIDER: TAMEKA SCHUMACHER - Appointment made with TAMEKA SCHUMACHER * HOME PHONE: [phone] * Mar 28 1997 11:15AM SUBJECTIVE: PATIENT COMPLAINS OF... Abdominal pain, Pt complaining of 2 day history of abd pain, states that nothing she does makes the pain lessen. States was nauseated yesterday, which now has resolved. Is able to eat, denies constipation, no fever. Requesting appt. Declines evaluation tonight. States is unsure if she is or not. States pain is above umbilicus and radiates upward. Rates pain at 3-4/10.; ALLERGIES/SENSITIVITIES... 03/27/97 CURRENT MEDICATIONS... 03/27/97 PERTINENT PAST HISTORY... 03/27/97 ASSESSMENT: Abdominal pain-(adult)-nurse guidelines DISPOSITION: SEMI-URGENT STATUS IS UNKNOWN; PATIENT IS NOT NURSING; PLAN: RECOMMENDED THE FOLLOWING... Referenced guideline Abdominal pain-(adult)-nurse guidelines. Schedule appointment with provider within 4-8 hours. Appt scheduled for tomorrow with Dr. Schumacher. -Rest as needed -Start clear liquid diet -Avoid alcohol -Do not use laxatives or enemas -Monitor temperature every 4 hours -Take acetaminophen as directed -Do not use aspirin or anti-inflammatory medications -Notify office immediately if pain increases before appointment Patient information given per Abdominal Pain nurse guidelines. INFORMED PATIENT TO CALLBACK IF... -Symptoms persist or progress -Any other questions or concerns Call taken by YUE OLSON RN [phone] 03/27/1997 06:32 PM ADDENDUM: TAPER HELPER Tameka Schumacher MD - 01/31/1997 12:01 AM CDT Progress Notes signed by Tameka Schumacher MD at 02/14/97 1257 Author: Tameka Schumacher MD Service: (none) Author Type: Physician Filed: 01/29/11 2309 Note Time: 01/31/97 0001 Status: Signed Supervisor Customer Services: Tameka Schumacher MD (Physician) IMPRESSION: depression with chronic features and features exacerbated by premenstrual syndrome. SUBJECTIVE: Santa Farmer is a 21-year-old who is here for problems with depression which she dates to 2 to 3 months for her first daughter. She has had mood swings but has felt more generally down for the past three months. She also notes that she feels worse with increased irritability two weeks prior to her periods. She sleeps well but has trouble getting up in the morning. She is currently at home with her daughter who is nearly two and also lives with her mother. She has had three different jobs in the past year and does have crying spells. The baby's father has little contact and has moved to [place]. The patient was in what she felt was a good relationship for seven months but this boyfriend is currently in [facility]. The patient is on AFDC. The patient denies prior history of depression. She is unaware of a family history of depression. There are questions whether or not some may be present on her father's side. She denies suicidal thoughts. She is on no current medications. Adverse drug reactions: None. She is a smoker of one pack per day. OBJECTIVE: BP: 90/70. Wt: 155 pounds. The patient has generally good eye contact. She seems a little weepy when discussing the baby's father and his lack of interest in their situation. Ear, nose, and throat: Negative. Neck: No thyromegaly. Chest is clear. Heart: Regular rhythm. Deep tendon reflexes are 1+. ASSESSMENT: depression with chronic features and features exacerbated by premenstrual syndrome. PLAN: 1. We will check labs. 2. Begin Zoloft 50 mg daily. 3. Recheck here in one month. 4. Mental Health visit for counseling recommended which the patient would like also. 5. Recommended regular exercise. 6. Recommended discontinuing her smoking. The patient states that this is too stressful of a time for her to consider quitting cigarettes. std Sindy Smith PA-C - 12/22/1996 12:01 AM CST Progress Notes signed by at 01/05/97 0741 Author: Sindy Smith PA-C Service: (none) Author Type: (none) Filed: 01/29/11 2241 Note Time: 12/22/96 0001 Status: Signed Supervisor Customer Services: [employer] IMPRESSION: Labia minora sebaceous cyst. STD check. SUBJECTIVE: Has had tender mass of external genitalia for approximately three months which has become larger. She has not had sexual intercourse for three months, but she was sexually active six months ago with one partner. She mentioned that her partner was sexually active with other persons. They did not use condoms. She currently dose have a [id number]-rvq female and is 01-mksuz-ym-age. She has noted yellow discharge for the past 20 months without an odor. No other symptoms. She has not been tested for STDs in the past. CURRENT MEDICATIONS: None. ALLERGIES TO MEDICATIONS: None. OBJECTIVE: BP; 80/60. Wt: 159. She is a 21-year-old female who is in no apparent distress. Abdomen: Soft, nontender, negative for organomegaly. External genitalia: Shows minimal amount of clear, white discharge. Over right posterior labia minora there is a tender cyst measuring 0.5 x 0.5 cm. Is fluctuant. Examination of urethral opening, there are pinpoint, erythematous, nontender papules in which culture for herpes was obtained. Papules are not granular. Are not consistent with genital warts. Speculum exam: Assessed for gonorrhea, as well as Chlamydia. Shows mild amount of clear white discharge. ASSESSMENT: Labia minora sebaceous cyst. STD check. PLAN: Today assessed for HIV, RPR, gonorrhea, Chlamydia, as well as herpes culture. She was thoroughly educated on STDs. Last menstrual period was less then one month ago. She states that she has not had sexual intercourse for three months. Explained that before becoming sexually active in the future, encouraged her to contact me at clinic and will start her on control. Was also given pamphlets on control. Recommended that she use condom every time with intercourse. For sebaceous cyst, recommended sitz baths in hot water. Encouraged not to use bubble baths. If area increases, it may drain on its own, but if it increases in size and becomes more tender, encouraged to return to clinic for I&D. If changes in appearance and becomes larger, she is to return to clinic for re-assessment. LJD TAPER HELPER Bev Coates - 05/15/1995 12:01 AM CDT Progress Notes signed by DAINA Cleveland at 05/21/95 0904 Author: DAINA Cleveland Service: (none) Author Type: Nurse Practitioner Filed: 01/29/11 1728 Note Time: 05/15/95 0001 Status: Signed Supervisor Customer Services: DAINA Cleveland (Nurse Practitioner) IMPRESSION: NO DICTATION REQUIRED FOR THIS NOTE Bev Moscoso - 04/01/1995 12:01 AM CDT Progress Notes signed by DAINA Cleveland at 04/03/95 0855 Author: DAINA Cleveland Service: (none) Author Type: Nurse Practitioner Filed: 01/29/11 1720 Note Time: 04/01/95 0001 Status: Signed Supervisor Customer Services: DAINA Cleveland (Nurse Practitioner) IMPRESSION: NO DICTATION REQUIRED FOR THIS NOTE ev Christopher - 03/26/1995 12:01 AM CDT Progress Notes signed by DAINA Cleveland at 03/27/95 1134 Author: DAINA Cleveland Service: (none) Author Type: Nurse Practitioner Filed: 01/29/111717 Note Time: 03/26/95 0001 Status: Signed Supervisor Customer Services: DAINA Cleveland (Nurse Practitioner) IMPRESSION: NO DICTATION REQUIRED FOR THIS NOTE Aj French MD - 03/26/1995 12:01 AM CDT Progress Notes signed by Aj French MD at 04/02/95 0936 Author: Aj French MD Service: (none) Author Type: Physician Filed: 01/29/111717 Note Time: 03/26/95 0001 Status: Signed Supervisor Customer Services: Aj French MD (Physician) IMPRESSION: NO DICTATION REQUIRED FOR THIS NOTE Bev Coates - 03/18/1995 12:01 AM CDT Progress Notes signed by DAINA Cleveland at 03/18/95 1337 Author: DAINA Cleveland Service: (none) Author Type: Nurse Practitioner Filed: 01/29/111715 Note Time: 03/18/95 0001 Status: Signed Supervisor Customer Services: DAINA Cleveland (Nurse Practitioner) IMPRESSION: NO DICTATION REQUIRED FOR THIS NOTE Aj French MD - 03/12/1995 12:01 AM CDT Progress Notes signed by Aj French MD at 04/02/95 0935 Author: Aj French MD Service: (none) Author Type: Physician Filed: 01/29/11 1715 Note Time: 03/12/95 0001 Status: Signed Supervisor Customer Services: Aj French MD (Physician) IMPRESSION: NO DICTATION REQUIRED FOR THIS NOTE Bev Coates - 03/07/1995 12:01 AM CDT Progress Notes signed by DAINA Cleveland at 03/12/95 1200 Author: DAINA Cleveland Service: (none) Author Type: Nurse Practitioner Filed: 01/29/11 1715 Note Time: 03/07/95 0001 Status: Signed Supervisor Customer Services: DAINA Cleveland (Nurse Practitioner) IMPRESSION: NO DICTATION REQUIRED FOR THIS NOTE Bev Coates - 03/06/1995 12:01 AM CDT Progress Notes signed by DAINA Cleveland at 03/12/95 1200 Author: DAINA Cleveland Service: (none) Author Type: Nurse Practitioner Filed: 01/29/11 171 Note Time: 03/06/95 0001 Status: Signed Supervisor Customer Services: DAINA Cleveland (Nurse Practitioner) IMPRESSION: NO DICTATION REQUIRED FOR THIS NOTE Aj French MD - 02/19/1995 12:01 AM CDT Progress Notes signed by Aj French MD at 02/26/95 1736 Author: Aj French MD Service: (none) Author Type: Physician Filed: 01/29/11 1711 Note Time: 02/19/95 0001 Status: Signed Supervisor Customer Services: Aj French MD (Physician) IMPRESSION: NO DICTATION REQUIRED FOR THIS NOTE Bev Coates - 02/05/1995 12:01 AM CDT Progress Notes signed by DAINA Cleveland at 02/06/95 1109 Author: DAINA Cleveland Service: (none) Author Type: Nurse Practitioner Filed: 01/29/11 1709 Note Time: 02/05/95 0001 Status: Signed Supervisor Customer Services: ADINA Cleveland (Nurse Practitioner) IMPRESSION: NO DICTATION REQUIRED FOR THIS NOTE Aj French MD - 01/08/1995 12:01 AM CST Progress Notes signed by Aj French MD at 01/15/95 1633 Author: Aj French MD Service: (none) Author Type: Physician Filed: 01/29/11 0452 Note Time: 01/08/95 0001 Status: Signed Supervisor Customer Services: Aj French MD (Physician) IMPRESSION: NO DICTATION REQUIRED FOR THIS NOTE documented in this encounter Plan of Treatment Not on filedocumented as of this encounter Procedures Procedure Name Priority Date/Time Associated Comments Diagnosis TEST Routine 06/23/2001 12:00 Results f or this (URINE) PM CDT procedure are i n the results section. ANATOMICAL PATH-C Routine 06/23/2001 11:31 Result s for this AM CDT procedure are i n the results section. GROUP B STREP SCREEN Routine 04/07/2001 3:34 PM R esults for this (OB PTS) CDT procedure are i n the results section. BLOOD GROUP & RH Routine 02/24/2001 4:03 PM Resul ts for this (BLOOD TYPE) CDT procedure are i n the results section. ANTIBODY SCREEN Routine 02/24/2001 4:03 PM Result s for this CDT procedure are i n the results section. HEMOGLOBIN OB Routine 02/24/2001 4:03 PM Results for this CDT procedure are i n the results section. GLUCOSE - 1 HR. P.C. Routine 02/24/2001 4:03 PM R esults for this PREG CDT procedure are i n the results section. US OB LIMITED SINGLE Routine 02/19/2001 1:30 PM R esults for this CDT procedure are i n the results section. SEXUALLY TRANSMITTED Routine 01/30/2001 3:47 PM R esults for this DISEASE PROBE CDT procedure are in the results section. WET PREP PARK Routine 01/30/2001 2:50 PM Results for this [facility] CDT procedure ar e in the results section. US OB >/= 14 WEEKS 0 Routine 12/04/2000 11:00 Res ults for this DAYS, SINGLE FETUS AM WALL TAPER HELPER procedure are in the results section. BLOOD GROUP & RH Routine 11/06/2000 11:53 Results for this (BLOOD TYPE) AM WALL TAPER HELPER procedure are i n the results section. ANTIBODY SCREEN Routine 11/06/2000 11:53 Results for this AM WALL TAPER HELPER procedure are i n the results section. HIV ANTIBODY Routine 11/06/2000 11:53 Results for this AM WALL TAPER HELPER procedure are i n the results section. HEMOGLOBIN OB Routine 11/06/2000 11:53 Results fo r this AM WALL TAPER HELPER procedure are i n the results section. URINALYSIS COMPLETE Routine 11/06/2000 11:53 Resu lts for this HOLD CULTURE AM WALL TAPER HELPER procedure are i n the results section. RUBELLA IMMUNE STATUS Routine 11/06/2000 11:53 Re sults for this AM WALL TAPER HELPER procedure are i n the results section. RC-LAB RPR (VDRL) Routine 11/06/2000 11:53 Result s for this AM WALL TAPER HELPER procedure are i n the results section. HEP B SURFACE Routine 11/06/2000 11:53 Results fo r this ANTIGEN, NO REFLEX AM WALL TAPER HELPER procedure are in the results section. ANATOMICAL PATH-C Routine 11/06/2000 8:35 AM Resu lts for this WALL TAPER HELPER procedure are i n the results section. STREP GROUP A ANTIGEN Routine 02/06/2000 10:22 Re sults for this TEST AM CDT procedure are i n the results section. TYPE AND SCREEN Routine 02/21/1999 11:24 Results for this AM CDT procedure are i n the results section. HEMOGLOBIN OB Routine 02/21/1999 11:24 Results fo r this AM CDT procedure are i n the results section. GLUCOSE - 1 HR. P.C. Routine 02/21/1999 11:24 Res ults for this PREG AM CDT procedure are i n the results section. US OB >/= 14 WEEKS 0 Routine 12/19/1998 2:45 PM R esults for this DAYS, SINGLE FETUS WALL TAPER HELPER procedure are in the results section. BLOOD GROUP & RH Routine 10/25/1998 2:58 PM Resul ts for this (BLOOD TYPE) WALL TAPER HELPER procedure are i n the results section. ANTIBODY SCREEN Routine 10/25/1998 2:58 PM Result s for this WALL TAPER HELPER procedure are i n the results section. HIV ANTIBODY Routine 10/25/1998 2:58 PM Results f or this WALL TAPER HELPER procedure are i n the results section. URINALYSIS ROUTINE, Routine 10/25/1998 2:58 PM Re sults for this MICRO/CULTURE IF POS WALL TAPER HELPER procedu re are in the results section. HEMOGLOBIN OB Routine 10/25/1998 2:58 PM Results for this WALL TAPER HELPER procedure are i n the results section. RUBELLA IMMUNE STATUS Routine 10/25/1998 2:58 PM Results for this WALL TAPER HELPER procedure are i n the results section. RC-LAB RPR (VDRL) Routine 10/25/1998 2:58 PM Resu lts for this WALL TAPER HELPER procedure are i n the results section. HEP B SURFACE Routine 10/25/1998 2:58 PM Results for this ANTIGEN, NO REFLEX WALL TAPER HELPER procedure are in the results section. ANATOMICAL PATH-C Routine 10/25/1998 7:31 AM Resu lts for this WALL TAPER HELPER procedure are i n the results section. ANATOMICAL PATH-C Routine 03/01/1998 12:50 Result s for this PM CDT procedure are i n the results section. HIV ANTIBODY Routine 03/01/1998 11:11 Results for this AM CDT procedure are i n the results section. SEXUALLY TRANSMITTED Routine 03/01/1998 11:11 Res ults for this DISEASE PROBE AM CDT procedure are in the results section. WET PREP PARK Routine 03/01/1998 11:11 Results fo r this [facility] AM CDT procedure ar e in the results section. RC-LAB RPR (VDRL) Routine 03/01/1998 11:11 Result s for this AM CDT procedure are i n the results section. CHOLESTEROL (TOTAL) Routine 03/01/1998 11:11 Resu lts for this AM CDT procedure are i n the results section. ANC RESULT CONVERSION Routine 03/07/1995 2:17 PM Results for this DEFAULT ORDER CDT procedure are in the results section. US OB >/= 14 WEEKS 0 Routine 03/07/1995 1:45 PM R esults for this DAYS, SINGLE FETUS CDT procedure are in the results section. US OB >/= 14 WEEKS 0 Routine 01/22/1995 1:30 PM R esults for this DAYS, SINGLE FETUS CDT procedure are in the results section. documented in this encounter Results Test (Urine) (06/23/2001 12:00 PM CDT) Patholo gist Method Time Signature Urine Negative No normal HP CONVERSION Test range Comment: The sensitivity of this assay is 25 mIU/ mL. This test can detect as early as 10-12 days after conception. It may be positive before a first missed menses. A negative result does no t rule out an early . Specimen (Source) Anatomical Collection Method Collection Time Re ceived Time Location / / Volume Laterality 06/23/2001 12:00 PM CDT Nini Herrera MD LAB_1 Performing Organization Address [facility] Phon e Number HP CONVERSION Anatomical Path-C (06/23/2001 11:31 AM CDT) P athologist Signature PAP Smear SEE TEXT No normal HP CONVERSION range Comment: Patient: SANTA FARMER ? CERVICAL CYTOLOGY REPORT Pathology # ??[id number] ?Date Obtained: ? Date Received: LMP: CLINICAL HIST CERVICAL SMEAR SPECIMEN ADEQUACY: ?? Satisfactory. ENDOCERVICAL CELLS: ??Present. CYTOLOGIC IMPRESSION: Within Normal Limits (Negative). Verified 07/01/01 by: ??MLH ?(electronic signature) Specimen (Source) Anatomical Collection Method Collection Time Re ceived Time Location / / Volume Laterality 06/23/2001 11:31 AM CDT Nini Herrera MD LAB_1 Performing Organization Address [facility] Phon e Number HP CONVERSION (ABNORMAL) Group B Strep Screen (OB Pts) (04/07/2001 3:34 PM CDT) [facility] gist Method Time Signature Culture Strep SEE TEXT HP CONVERSION Screen Other (A) Source Comment: Patient: SANTA FARMER Culture Strep Scr Other Source @ ?Collected: ??[id number] ??[id number] Source: Vaginal ? Processed: ??[id number] ??[id number] Final Report ------ ?[id number] ??[id number] Isolated from broth culture only: Beta Streptococcus group B @ = Strep Screen Performed at ??[address] [place], [place] ?[address] Specimen (Source) Anatomical Collection Method Collection Time Re ceived Time Location / / Volume Laterality 04/07/2001 3:34 PM CDT Nini Herrera MD LAB_1 Performing Organization Address [facility] Phon e Number HP CONVERSION Blood Group & Rh (Blood Type) (02/24/2001 4:03 PM CDT) P athologist Signature BB BLOOD TYPE O NEG No normal HP CONVERSION (BLOOD GROUP & range RH) Specimen (Source) Anatomical Collection Method Collection Time Re ceived Time Location / / Volume Laterality 02/24/2001 4:03 PM CDT Nini Herrera MD PN BLOOD BANK ORDERS Performing Organization Address [facility] Phon e Number HP CONVERSION Glucose - 1 Hr. P.C. Preg (02/24/2001 4:03 PM CDT) P athologist Signature Glucose, GTT - 106 40 - 139 HP CONVERSION 1 Hour mg/dL Specimen (Source) Anatomical Collection Method Collection Time Re ceived Time Location / / Volume Laterality 02/24/2001 4:03 PM CDT Nini Herrera MD LAB_1 Performing Organization Address [facility] Phon e Number HP CONVERSION Hemoglobin Ob (02/24/2001 4:03 PM CDT) athologist Signature OB Hemoglobin 11.8 gm/dL HP CONVERSION Comment: First trimester (week 12) 11.0 - 13.4 gm /dL Second trimester(week 20) 10.5 - 12.7 gm /dL Third trimester (week 32) 11.0 - 13.2 gm /dL From MMWR 1989;38(22): 400-4 Please note change in reference range ef fective November 12, 2000 Specimen (Source) Anatomical Collection Method Collection Time Re ceived Time Location / / Volume Laterality 02/24/2001 4:03 PM CDT Nini Herrera MD LAB_1 Performing Organization Address [facility] Phon e Number HP CONVERSION Antibody Screen (02/24/2001 4:03 PM CDT) athologist Signature N/O BB NEG No normal HP CONVERSION ANTIBODY range SCREEN Comment: Performed by [employer] que Specimen (Source) Anatomical Collection Method Collection Time Re ceived Time Location / / Volume Laterality 02/24/2001 4:03 PM CDT Nini Herrera MD PN BLOOD BANK ORDERS Performing Organization Address [facility] Phon e Number HP CONVERSION US OB Limited (02/19/2001 1:30 PM CDT) Anatomical Region Laterality Modality Pelvis Other Specimen (Source) Anatomical Location Collection Method / Collectio n Time Received Time / Laterality Volume Narrative 02/19/2001 1:30 PM CDT - - - - - - - - - - - - - - - - - - - - - - - - - - - - - - - - - - - ? LMP: ? EDC: ? # OF FETUSES ?? 1 PREV US: ?COMMENTS: ?DATE: DATA FOR FETUS #1 ? MOV EMENT(Y/N) ??Y ?? CARDIAC(Y/N) ??Y MEAN SAC DIAM ? MM ?WK S ?? BPD ? 70 ??MM 28.2 WKS CROWN-RUMP ?MM ? WKS ?? HEAD ? 264 ??MM 28.0 WKS FEMUR LENGTH ? 54 MM 28.5 WKS ?? ABDOMINAL ?248 ??MM 29.1 WKS ? HEAD/ABDOMEN 1.06 AMNIOTIC FLUID N ?GEST AGE: 28.5 ?EST WT 1297 GM ?? 2.8 LB IKER ? CM POSITION:CEPHALIC ??PLACEMENT LOC:ANTERIOR - - - - - - - - - - - - - - - - - - - - - - - - - - - - - - - - - - - CLINICAL DATA: ?OB U/S * [employer] CHK G ROWTH, FLUID FINDINGS: ?THIS IS REPORTEDLY A LIMITED EXAM. ??A SINGLE INTRAUTERINE ?FETUS IS IDENTIFIED IN A LEFT HERNÁNDEZ SVERSE LIE. ??ANTERIOR AND ?FUNDAL PLACENTA. ??THE CERVIX LYNN URES 4.4 CM IN LENGTH. ?AMNIOTIC FLUID AMOUNT APPEARS NORM AL. ??NO ABNORMALITY OF THE ? FACE, HEART, BLADDER, OR FOU R CHAMBERED HEART AREA WAS ?IDENTIFIED. ??THE SONOGRAPHIC GEST ATIONAL AGE AT THIS TIME ?APPROXIMATES 28.5 WEEKS. ?RR TECH-ID : ? DH TRANS-ID: ? EDR Procedure Note Kameron Gerardo 12/21/2016 - - - - - - - - - - - - - - - - - - - - - - - - - - - - - - - - - - - LMP: EDC: # OF FETUSES 1 PREV US: COMMENTS: DATE: DATA FOR FETUS #1 MOVEMENT(Y/N) Y CARDIAC(Y/N) Y MEAN SAC DIAM MM WKS BPD 70 MM 28.2 WKS CROWN-RUMP MM WKS HEAD 264 MM 28.0 WKS FEMUR LENGTH 54 MM 28.5 WKS ABDOMINAL 2 48 MM 29.1 WKS HEAD/ABDOMEN 1.06 AMNIOTIC FLUID N GEST AGE: 28.5 EST WT 1297 GM 2.8 LB IKER CM POSITION:CEPHALIC PLACEMENT LOC:ANTERIOR - - - - - - - - - - - - - - - - - - - - - - - - - - - - - - - - - - - CLINICAL DATA: OB U/S * [employer] CHK GROWTH , FLUID FINDINGS: THIS IS REPORTEDLY A LIMITED EXAM. A SI NGLE INTRAUTERINE FETUS IS IDENTIFIED IN A LEFT TRANSVERS E LIE. ANTERIOR AND FUNDAL PLACENTA. THE CERVIX MEASURES 4. 4 CM IN LENGTH. AMNIOTIC FLUID AMOUNT APPEARS NORMAL. N O ABNORMALITY OF THE FACE, HEART, BLADDER, OR FOUR SIDNEY MBERED HEART AREA WAS IDENTIFIED. THE SONOGRAPHIC GESTATIONAL AGE AT THIS TIME APPROXIMATES 28.5 WEEKS. RR TECH-ID : DH TRANS-ID: EDR Nini Herrera MD [facility] Sexually Transmitted Disease Probe (01/30/2001 3:47 PM CDT) [facility] Method Time Signature Sexually SEE TEXT HP CONVERSION Transmitted Disease Probe Comment: Patient: SANTA FARMER Sexually Trans Disease Probe @ ?Collected: ??[id number] Source: ENDOCERV ?Processed: ??[id number] Final Report ------ ?[id number] ??[id number] No Chlamydia trachomatis by amplified DN A probe. No Neisseria gonorrhoeae by DNA probe. @ = Sexually Trans Disease Probe Perform ed at ??[address] ?[place] [address] Specimen (Source) Anatomical Collection Method Collection Time Re ceived Time Location / / Volume Laterality 01/30/2001 3:47 PM CDT Nini Herrera MD LAB_1 Performing Organization Address City/[facility] Phon e Number HP CONVERSION Wet Prep [facility] (01/30/2001 2:50 PM CDT) [facility] gist Method Time Signature Wet Smear ? No normal HP CONVERSION range Trichomonas Negative No normal HP CONVERSION range Wet Prep WBC Few No normal HP CONVERSION [facility] Bacteria Urine Few No normal HP CONVERSION range Wet Prep Clue Negative No normal HP CONVERSION Cells [facility] Cl U Yeast Negative No normal HP CONVERSION range Wet Prep Amine Negative No normal HP CONVERSION [facility] Specimen (Source) Anatomical Collection Method Collection Time Re ceived Time Location / / Volume Laterality 01/30/2001 2:50 PM CDT Nini Herrera MD LAB_1 Performing Organization Address City/[facility]/ZIP [facility] Phon e Number HP CONVERSION US OB >/= 14 Weeks 0 Days, Single Fetus (12/04/2000 11:00 AM WALL TAPER HELPER) Anatomical Region Laterality Modality Pelvis Other Specimen (Source) Anatomical Location Collection Method / Collectio n Time Received Time / Laterality Volume Impressions 12/04/2000 11:00 AM WALL TAPER HELPER : ?SINGLE LIVING INTRAUTERINE PREGNAN CY. ??ESTIMATED AGE BASED ?ON ULTRASOUND MEASUREMENTS IS 17 W EEKS PLUS 4 DAYS. ?ESTIMATED DATE OF DELIVERY IS MAY 10, 2001. ??LOW LYING ?PLACENTA. FINDINGS: ?NO COMPARISONS ARE AVAILABLE. ??A SINGLE LIVING INTRAUTERINE ? IS IDENTIFIED. ??HEART M OTION IS DETECTED AT 143 ?BEATS PER MINUTE. ??THE PLACENTA I S ANTERIOR AND ADJACENT TO ?THE CERVIX. ??IT DOES NOT APPEAR T O EXTEND OVER THE CERVIX. ? ANATOMIC SURVEY IS NEGATIVE. ??UPPER LIP IS NOT WELL ?SEEN DUE TO THE POSITION OF THE FE TUS. ?MT/CAR TECH-ID : TRANS-ID: ? EDR SIGNOFF PROVIDER: [id number] ??- DEPARTMENT S IGNATURE Narrative 12/04/2000 11:00 AM WALL TAPER HELPER CLINICAL DATA: ?OB U/S * CHECK ??SIZE+DATES Procedure Note Armin Mills MD - 12/21/2016Format ting of this note might be different from the original. CLINICAL DATA: OB U/S * CHECK SIZE+DATES IMPRESSION : SINGLE LIVING INTRAUTERINE . E STIMATED AGE BASED ON ULTRASOUND MEASUREMENTS IS 17 WEEKS PLUS 4 DAYS. ESTIMATED DATE OF DELIVERY IS MAY 10, 2001. LOW LYING PLACENTA. FINDINGS: NO COMPARISONS ARE AVAILABLE. A SINGLE LIVING INTRAUTERINE IS IDENTIFIED. HEART MOTION I S DETECTED AT 143 BEATS PER MINUTE. THE PLACENTA IS ANTER IOR AND ADJACENT TO THE CERVIX. IT DOES NOT APPEAR TO EXTEN D OVER THE CERVIX. ANATOMIC SURVEY IS NEGATIVE. UPPE R LIP IS NOT WELL SEEN DUE TO THE POSITION OF THE FETUS. MT/CAR TECH-ID : TRANS-ID: EDR SIGNOFF PROVIDER: [id number] - DEPARTMENT SIG NATURE Kristine Stahl POCKET CLOSER, CARDIOLOGY CLINICAL CONSULTANT RAD US Antibody Screen (11/06/2000 11:53 AM WALL TAPER HELPER) P athologist Signature N/O BB NEG No normal HP CONVERSION ANTIBODY range SCREEN Comment: Performed by Solid Phase Techni que Specimen (Source) Anatomical Collection Method Collection Time Re ceived Time Location / / Volume Laterality 11/06/2000 11:53 AM WALL TAPER HELPER Nini Herrera MD PN BLOOD BANK ORDERS Performing Organization Address City/State/ZIP Code Phon e Number HP CONVERSION Urinalysis Complete Hold Culture (11/06/2000 11:53 AM WALL TAPER HELPER) Patholo gist Method Time Signature U Specific 1.015 1.005 - 25 HP CONVERSION [place] pH Urine 5.0 4.5 - 7.5 HP CONVERSION Protein Urine Negative Neg-Trac HP CONVERSION Glucose, Negative Neg-Trac HP CONVERSION Qualitative U Ketones Negative Negative HP CONVERSION U BILI Negative Negative HP CONVERSION Blood Urine Negative Negative HP CONVERSION Nitrite Urine Negative Negative HP CONVERSION Leukocyte Negative Negative HP CONVERSION Esterase Urine Urobilinogen Negative 0.2 - 1.0 HP CONVERSION Urine White Blood 0-2 0 - 3 /HPF HP CONVERSION Cells Urine Red Blood Cells Negative 0 - 3 /HPF HP CONVERSION Urine Epithelial Cells Few Few /HPF HP CONVERSION Urine Cultured? No Resp No normal HP CONVERSION range Hold For Yes No normal HP CONVERSION Culture? range Specimen (Source) Anatomical Collection Method Collection Time Re ceived Time Location / / Volume Laterality 11/06/2000 11:53 AM WALL TAPER HELPER Nini Herrera MD LAB_1 Performing Organization Address City/State/ZIP Code Phon e Number HP CONVERSION Blood Group & Rh (Blood Type) (11/06/2000 11:53 AM WALL TAPER HELPER) P athologist Signature BB BLOOD TYPE O NEG No normal HP CONVERSION (BLOOD GROUP & range RH) Specimen (Source) Anatomical Collection Method Collection Time Re ceived Time Location / / Volume Laterality 11/06/2000 11:53 AM WALL TAPER HELPER Nini Herrera MD PN BLOOD BANK ORDERS Performing Organization Address City/[facility]/ZIP Code Phon e Number HP CONVERSION Hep B Surface Antigen, No Reflex (11/06/2000 11:53 AM WALL TAPER HELPER) Analysis Performed At Patho logist Time Signature Hep B Surf Ag Negative Negative HP CONVERSION Specimen (Source) Anatomical Collection Method Collection Time Re ceived Time Location / / Volume Laterality 11/06/2000 11:53 AM WALL TAPER HELPER Nini Herrera MD LAB_1 Performing Organization Address City/State/ZIP Code Phon e Number HP CONVERSION HIV Antibody (11/06/2000 11:53 AM WALL TAPER HELPER) P athologist Signature HIV 1/HIV 2 Non Reac Non Reac HP CONVERSION Specimen (Source) Anatomical Collection Method Collection Time Re ceived Time Location / / Volume Laterality 11/06/2000 11:53 AM WALL TAPER HELPER Nini Herrera MD LAB_1 Performing Organization Address City/[facility]/ZIP Code Phon e Number HP CONVERSION Rc-Lab Rpr (Vdrl) (11/06/2000 11:53 AM WALL TAPER HELPER) athologist Signature RPR Non Reac Non Reac HP CONVERSION Specimen (Source) Anatomical Collection Method Collection Time Re ceived Time Location / / Volume Laterality 11/06/2000 11:53 AM WALL TAPER HELPER Nini Herrera MD LAB_1 Performing Organization Address [facility] Phon e Number HP CONVERSION Rubella Immune Status (11/06/2000 11:53 AM WALL TAPER HELPER) athologist Signature Rubella Immune Immune Immune HP CONVERSION Status Specimen (Source) Anatomical Collection Method Collection Time Re ceived Time Location / / Volume Laterality 11/06/2000 11:53 AM WALL TAPER HELPER Nini Herrera MD LAB_1 Performing Organization Address [facility] Phon e Number HP CONVERSION Hemoglobin Ob (11/06/2000 11:53 AM WALL TAPER HELPER) athologist Signature OB Hemoglobin 13.2 12.0 - 16.0 HP CONVERSION gm/dL Comment: First trimester (week 12) 11.0 - 13.4 gm /dL Second trimester(week 20) 10.5 - 12.7 gm /dL Third trimester (week 32) 11.0 - 13.2 gm /dL From MMWR 1989;38(22): 400-4 Please note change in reference range ef fective November 12, 2000 Specimen (Source) Anatomical Collection Method Collection Time Re ceived Time Location / / Volume Laterality 11/06/2000 11:53 AM WALL TAPER HELPER Nini Herrera MD LAB_1 Performing Organization Address City/[facility]/ZIP [facility] [place] Phon e Number HP CONVERSION Anatomical Path-C (11/06/2000 8:35 AM WALL TAPER HELPER) athologist Signature PAP Smear SEE TEXT No normal HP CONVERSION range Comment: Patient: SANTA FARMER E ? CERVICAL CYTOLOGY REPORT Pathology # ??[id number] ?Date Obtained: ? Date Received: LMP: CLINICAL HIST ?V76.2 CERVICAL SMEAR SPECIMEN ADEQUACY: ?? Satisfactory. ENDOCERVICAL CELLS: ??Present. CYTOLOGIC IMPRESSION: Within Normal Limits (Negative). Verified 11/15/00 by: ? (electronic signature) Specimen (Source) Anatomical Collection Method Collection Time Re ceived Time Location / / Volume Laterality 11/06/2000 8:35 AM WALL TAPER HELPER Nini Herrera MD LAB_1 Performing Organization Address City/[facility]/ZIP [facility] [place] Phon e Number HP CONVERSION Strep Group A Antigen Test (02/06/2000 10:22 AM CDT) Analysis Performed At Patho logist Time Signature Strep Group A Positive Negative HP CONVERSION Antigen Test Specimen (Source) Anatomical Collection Method Collection Time Re ceived Time Location / / Volume Laterality 02/06/2000 10:22 AM CDT Sun Ferrer MD LAB_1 Performing Organization Address City/[facility] Phon e Number HP CONVERSION Type And Screen (02/21/1999 11:24 AM CDT) P athologist Signature BB BLOOD TYPE O NEG No normal HP CONVERSION (BLOOD GROUP & range RH) N/O BB NEG No normal HP CONVERSION ANTIBODY range SCREEN Comment: Performed by Solid Phase Techni que Specimen (Source) Anatomical Collection Method Collection Time Re ceived Time Location / / Volume Laterality 02/21/1999 11:24 AM CDT Miguel Morgan MD PN BLOOD BANK ORDERS Performing Organization Address [facility]/ZIP Code Phon e Number HP CONVERSION Glucose - 1 Hr. P.C. Preg (02/21/1999 11:24 AM CDT) P athologist Signature Glucose, GTT - 90 40 - 139 HP CONVERSION 1 Hour mg/dL Specimen (Source) Anatomical Collection Method Collection Time Re ceived Time Location / / Volume Laterality 02/21/1999 11:24 AM CDT Miguel Morgan MD LAB_1 Performing Organization Address [facility] Phon e Number HP CONVERSION (ABNORMAL) Hemoglobin Ob (02/21/1999 11:24 AM CDT) Patholo gist Method Time Signature OB Hemoglobin 11.7 (LL) 12.0 - HP CONVERSION 16.0 gm/dL Comment: First trimester (week 12) 11.0 - 13.4 gm /dL Second trimester(week 20) 10.5 - 12.7 gm /dL Third trimester (week 32) 11.0 - 13.2 gm /dL From MMWR 1988;38(22): 400-4 Please note change in reference range ef fective November 12, 2000 Specimen (Source) Anatomical Collection Method Collection Time Re ceived Time Location / / Volume Laterality 02/21/1999 11:24 AM CDT Miguel Morgan MD LAB_1 Performing Organization Address City/[facility] Phon e Number HP CONVERSION US OB >/= 14 Weeks 0 Days, Single Fetus (12/19/1998 2:45 PM WALL TAPER HELPER) Anatomical Region Laterality Modality Pelvis Other Specimen (Source) Anatomical Location Collection Method / Collectio n Time Received Time / Laterality Volume Narrative 12/19/1998 2:45 PM WALL TAPER HELPER - - - - - - - - - - - - - - - - - - - - - - - - - - - - - - - - - - - ? LMP: 08/06/1998 ?EDC: 080 10/1998 ?# OF FETUSES ?? 1 PREV US: ?COMMENTS: ?DATE: DATA FOR FETUS #1 ? MOV EMENT(Y/N) ??Y ?? CARDIAC(Y/N) ??Y MEAN SAC DIAM ? MM ?WK S ?? BPD ? 45 ??MM 19.6 WKS CROWN-RUMP ?MM ? WKS ?? HEAD ? 157 ??MM 18.4 WKS FEMUR LENGTH ? 31 MM 19.6 WKS ?? ABDOMINAL ?134 ??MM 19.0 WKS ? HEAD/ABDOMEN 1.17 AMNIOTIC FLUID N ?GEST AGE: 19.1 ?EST WT 303 ??GM ?? 0.6 LB IKER ? CM POSITION:CEPHALIC ??PLACEMENT LOC:POSTERIOR - - - - - - - - - - - - - - - - - - - - - - - - - - - - - - - - - - - CLINICAL DATA: ?CONFIRMATION OF DATES FINDINGS: ?A SINGLE, LIVING INTRAUTERINE FETU S IS PRESENT IN A ?LONGITUDINAL LIE, CEPHALIC PRESENT ATION, WITH NO ?ANOMALIES DETECTED. ??THE UL TRASOUND COMPOSITE ?GESTATIONAL AGE OF 19.1 +/- 1 WEEK S IS CONSISTENT WITH THE ?CLINICAL MENSTRUAL AGE. ??THE AMNI OTIC FLUID VOLUME APPEARS ?WITHIN NORMAL LIMITS. ??THE GRADE 1 PLACENTA IS POSTERIOR AND ?FUNDAL WITHIN THE UPPER UTERINE SE GMENT. ??THERE IS ?NO FORESHORTENING OF THE CERVIX, W HICH IS 5 CM IN LENGTH. TECH-ID : ? LJJ TRANS-ID: ? LEB Procedure Note Vitaly Germain - 12/21/2016Formatting of t his note might be different from the original. - - - - - - - - - - - - - - - - - - - - - - - - - - - - - - - - - - - LMP: 08/06/1998 EDC: 05/13/1999 # OF FE TUSES 1 PREV US: COMMENTS: DATE: DATA FOR FETUS #1 MOVEMENT(Y/N) Y CARDIAC(Y/N) Y MEAN SAC DIAM MM WKS BPD 45 MM 19.6 WKS CROWN-RUMP MM WKS HEAD 157 MM 18.4 WKS FEMUR LENGTH 31 MM 19.6 WKS ABDOMINAL 1 34 MM 19.0 WKS HEAD/ABDOMEN 1.17 AMNIOTIC FLUID N GEST AGE: 19.1 EST WT 303 GM 0.6 LB IKER CM POSITION:CEPHALIC PLACEMENT LOC:POSTERIOR - - - - - - - - - - - - - - - - - - - - - - - - - - - - - - - - - - - CLINICAL DATA: CONFIRMATION OF DATES FINDINGS: A SINGLE, LIVING INTRAUTERINE FETUS IS PRESENT IN A LONGITUDINAL LIE, CEPHALIC PRESENTATION , WITH NO ANOMALIES DETECTED. THE ULTRASOUN D COMPOSITE GESTATIONAL AGE OF 19.1 +/- 1 WEEKS IS CONSISTENT WITH THE CLINICAL MENSTRUAL AGE. THE AMNIOTIC FL UID VOLUME APPEARS WITHIN NORMAL LIMITS. THE GRADE 1 PLACE NTA IS POSTERIOR AND FUNDAL WITHIN THE UPPER UTERINE SEGMENT . THERE IS NO FORESHORTENING OF THE CERVIX, WHICH IS 5 CM IN LENGTH. TECH-ID : LJJ TRANS-ID: LEB Miguel Morgan MD RAD US Antibody Screen (10/25/1998 2:58 PM WALL TAPER HELPER) P athologist Signature N/O BB NEG No normal HP CONVERSION ANTIBODY range SCREEN Specimen (Source) Anatomical Collection Method Collection Time Re ceived Time Location / / Volume Laterality 10/25/1998 2:58 PM WALL TAPER HELPER Bev VELAZQUEZ BLOOD BANK ORDERS Performing Organization Address City/State/ZIP Code Phon e Number HP CONVERSION Urinalysis Routine, Micro/Culture if Pos (10/25/1998 2:58 PM WALL TAPER HELPER) Patholo gist Method Time Signature Glucose, Negative Neg-Trac HP CONVERSION Qualitative U Protein Urine Negative Neg-Trac HP CONVERSION Ketones Negative Negative HP CONVERSION U BILI Negative Negative HP CONVERSION U Specific 1.025 1.005 - 25 HP CONVERSION [place] Blood Urine Negative Negative HP CONVERSION pH Urine 6.5 4.5 - 7.5 HP CONVERSION Urobilinogen Negative 0.2 - 1.0 HP CONVERSION Urine Nitrite Urine Negative Negative HP CONVERSION Leukocyte Negative Negative HP CONVERSION Esterase Urine Specimen (Source) Anatomical Collection Method Collection Time Re ceived Time Location / / Volume Laterality 10/25/1998 2:58 PM WALL TAPER HELPER Bev Coates LAB_1 Performing Organization Address [facility] Phon e Number HP CONVERSION Hemoglobin Ob (10/25/1998 2:58 PM WALL TAPER HELPER) P athologist Signature OB Hemoglobin 12.7 12.0 - 16.0 HP CONVERSION gm/dL Comment: First trimester (week 12) 11.0 - 13.4 gm /dL Second trimester(week 20) 10.5 - 12.7 gm /dL Third trimester (week 32) 11.0 - 13.2 gm /dL From MMWR 1989;3822): 400-4 Please note change in reference range ef fective November 12, 2000 Specimen (Source) Anatomical Collection Method Collection Time Re ceived Time Location / / Volume Laterality 10/25/1998 2:58 PM WALL TAPER HELPER Bev Coates LAB_1 Performing Organization Address [facility] Phon e Number HP CONVERSION Blood Group & Rh (Blood Type) (10/25/1998 2:58 PM WALL TAPER HELPER) P athologist Signature BB BLOOD TYPE O NEG No normal HP CONVERSION (BLOOD GROUP & range RH) Specimen (Source) Anatomical Collection Method Collection Time Re ceived Time Location / / Volume Laterality 10/25/1998 2:58 PM WALL TAPER HELPER Bev Stephenserwin PN BLOOD BANK ORDERS Performing Organization Address [facility] Phon e Number HP CONVERSION Rc-Lab Rpr (Vdrl) (10/25/1998 2:58 PM WALL TAPER HELPER) P athologist Signature RPR Non Reac Non Reac HP CONVERSION Specimen (Source) Anatomical Collection Method Collection Time Re ceived Time Location / / Volume Laterality 10/25/1998 2:58 PM WALL TAPER HELPER Bev Coates LAB_1 Performing Organization Address [facility] Phon e Number HP CONVERSION Hep B Surface Antigen, No Reflex (10/25/1998 2:58 PM WALL TAPER HELPER) Analysis Performed At Patho logist Time Signature Hep B Surf Ag Negative Negative HP CONVERSION Specimen (Source) Anatomical Collection Method Collection Time Re ceived Time Location / / Volume Laterality 10/25/1998 2:58 PM WALL TAPER HELPER Bev Coates LAB_1 Performing Organization Address City/State/ZIP Code Phon e Number HP CONVERSION Rubella Immune Status (10/25/1998 2:58 PM WALL TAPER HELPER) P athologist Signature Rubella Immune Immune Immune HP CONVERSION Status Specimen (Source) Anatomical Collection Method Collection Time Re ceived Time Location / / Volume Laterality 10/25/1998 2:58 PM WALL TAPER HELPER Bev Coates LAB_1 Performing Organization Address City/State/ZIP Code Phon e Number HP CONVERSION HIV Antibody (10/25/1998 2:58 PM WALL TAPER HELPER) P athologist Signature HIV 1/HIV 2 Non Reac Non Reac HP CONVERSION IU/ML Specimen (Source) Anatomical Collection Method Collection Time Re ceived Time Location / / Volume Laterality 10/25/1998 2:58 PM WALL TAPER HELPER Bev Coates LAB_1 Performing Organization Address City/[facility]/ZIP Code Phon e Number HP CONVERSION Anatomical Path-C (10/25/1998 7:31 AM WALL TAPER HELPER) P athologist Signature PAP Smear SEE TEXT No normal HP CONVERSION range Comment: Patient: SANTA FARMER ? CERVICAL CYTOLOGY REPORT Pathology # ??[id number] ?Date Obtained: ? Date Received: LMP: CLINICAL HIST ? PREV SMEAR 03-01-98, WNL CERVICAL SMEAR SPECIMEN ADEQUACY: ??Satisfactory but li mited by absence of endocervical ?cells. CYTOLOGIC IMPRESSION: Within Normal Limits (Negative). Verified 11/03/98 by: ? (electronic signature) Specimen (Source) Anatomical Collection Method Collection Time Re ceived Time Location / / Volume Laterality 10/25/1998 7:31 AM WALL TAPER HELPER Miguel Morgan MD LAB_1 Performing Organization Address City/[facility]/ZIP Code Phon e Number HP CONVERSION Anatomical Path-C (03/01/1998 12:50 PM CDT) P athologist Signature PAP Smear SEE TEXT No normal HP CONVERSION range Comment: Patient: SANTA FARMER ? CERVICAL CYTOLOGY REPORT Pathology # ??[id number] ?Date Obtained: ? Date Received: LMP: ?01-29-98 CLINICAL HIST CERVICAL SMEAR SPECIMEN ADEQUACY: ?? Satisfactory but l imited by obscuring inflammation. ENDOCERVICAL CELLS: ??Absent. CYTOLOGIC IMPRESSION: Within Normal Limits (Negative). Verified 03/09/98 by: ??PC ? (electronic signature) Specimen (Source) Anatomical Collection Method Collection Time Re ceived Time Location / / Volume Laterality 03/01/1998 12:50 PM CDT Yonathan Long MD LAB_1 Performing Organization Address City/[facility]/ZIP Code Phon e Number HP CONVERSION Wet Prep [facility] (03/01/1998 11:11 AM CDT) Patholo gist Method Time Signature Wet Prep [place] ? No normal HP CONVERSION [facility] Wet Prep Trich Negative No normal HP CONVERSION [facility] Wet Prep WBC Moderate No normal HP CONVERSION [place] [facility] Wet Prep Few No normal HP CONVERSION Bacteria [facility] Wet Prep Clue Negative No normal HP CONVERSION Cells [facility] [place] [facility] Wet Prep Yeast Negative No normal HP CONVERSION [facility] Wet Prep Amine Negative No normal HP CONVERSION Odor [facility] [place] [facility] Specimen (Source) Anatomical Collection Method Collection Time Re ceived Time Location / / Volume Laterality 03/01/1998 11:11 AM CDT Yonathan Long MD LAB_1 Performing Organization Address [facility] Phon e Number HP CONVERSION HIV Antibody (03/01/1998 11:11 AM CDT) P athologist Signature HIV 1/HIV 2 Non Reac Non Reac HP CONVERSION IU/ML Specimen (Source) Anatomical Collection Method Collection Time Re ceived Time Location / / Volume Laterality 03/01/1998 11:11 AM CDT Yonathan Long MD LAB_1 Performing Organization Address [facility] Phon e Number HP CONVERSION Rc-Lab Rpr (Vdrl) (03/01/1998 11:11 AM CDT) P athologist Signature RPR Non Reac Non Reac HP CONVERSION Specimen (Source) Anatomical Collection Method Collection Time Re ceived Time Location / / Volume Laterality 03/01/1998 11:11 AM CDT Yonathan Long MD LAB_1 Performing Organization Address [facility] Phon e Number HP CONVERSION (ABNORMAL) Cholesterol (Total) (03/01/1998 11:11 AM CDT) Patholo gist Method Time Signature Length Of Fast 4.0 (LL) 12.0 - HP CONVERSION 24.0 Hours Cholesterol 173 125 - 199 HP CONVERSION mg/dL Specimen (Source) Anatomical Collection Method Collection Time Re ceived Time Location / / Volume Laterality 03/01/1998 11:11 AM CDT Yonathan Long MD LAB_1 Performing Organization Address [facility] Phon e Number HP CONVERSION Sexually Transmitted Disease Probe (03/01/1998 11:11 AM CDT) Patholo gist Method Time Signature Sexually SEE TEXT HP CONVERSION Transmitted Disease Probe Comment: Patient: ELAN FARMERIE E Sexually Trans Disease Probe @ ?Collected: ??[id number] ??[id number] Source: ENDOCERV ?Processed: ??[id number] ??[id number] ? 1T Final Report ------ ?[id number] ??[id number] Negative for Chlamydia trachomatis by DN A probe Negative for Neisseria gonorrhoeae by DN A probe @ = Sexually Trans Disease Probe Perform ed at ??[address] [facility] ?[place] [address] Specimen (Source) Anatomical Collection Method Collection Time Re ceived Time Location / / Volume Laterality 03/01/1998 11:11 AM CDT Yonathan Logn MD LAB_1 Performing Organization Address City/State/ZIP Code Phon e Number HP CONVERSION Anc Result Conversion Default Order (03/07/1995 2:17 PM CDT) Anatomical Region Laterality Modality Other Specimen (Source) Anatomical Location Collection Method / Collectio n Time Received Time / Laterality Volume Narrative 03/07/1995 2:17 PM CDT - - - - - - - - - - - - - - - - - - - - - - - - - - - - - - - - - - - ? LMP: 06/17/1994 ?EDC: 03/13 ?# OF FETUSES ?? 1 PREV US: ?COMMENTS: ?DATE: ? OBS ERVATIONS (SCORE 0-2) DATA FOR FETUS #1 BREATHING ? 2 ??ONE FBM > 30 SECS GROSSFETAL MOVEMENT 2 ??> 3 BODY,LIMB,D ISCRETE OR SEPARATE MOVEMENTS TONE ?2 ??ONE EXTENS ION/FLEX OF LIMBS,HAND OR TRUNK AMNIOTIC FLUID ?2 ??> 2CM (>36WK S) > 3CM (<36WKS) NST (OB DEPT) ? 2 ??REACTIVE/NON REACTIVE ? TOTAL SCORE 10 - - - - - - - - - - - - - - - - - - - - - - - - - - - - - - - - - - - CLINICAL DATA: ?INCREASED BLOOD PRESSURE TECH-ID : ? KONG TRANS-ID: MERT PROVIDER: ?0 ??- SIGNOFF PROVIDER: 0 ??- Procedure Note Conversion, Imr - 12/21/2016Formatting o f this note might be different from the original. - - - - - - - - - - - - - - - - - - - - - - - - - - - - - - - - - - - LMP: 06/17/1994 EDC: 03/24/1995 # OF RAUL GALINDO 1 PREV US: COMMENTS: DATE: OBSERVATIONS (SCORE 0-2) DATA FOR FETUS #1 BREATHING 2 ONE FBM > 30 SECS GROSSFETAL MOVEMENT 2 > 3 BODY,LIMB,DIS CRETE OR SEPARATE MOVEMENTS TONE 2 ONE EXTENSION/FLEX OF LIMB S,HAND OR TRUNK AMNIOTIC FLUID 2 > 2CM (>36WKS) > 3CM ( <36WKS) NST (OB DEPT) 2 REACTIVE/NONREACTIVE TOTAL SCORE 10 - - - - - - - - - - - - - - - - - - - - - - - - - - - - - - - - - - - CLINICAL DATA: INCREASED BLOOD PRESSURE TECH-ID : KAReinaldo TRANS-ID: READ PROVIDER: 0 - SIGNOFF PROVIDER: 0 - Aj French MD RAD GD OB >/= 14 Weeks 0 Days, Single Fetus (03/07/1995 1:45 PM CDT) Anatomical Region Laterality Modality Pelvis Other Specimen (Source) Anatomical Location Collection Method / Collectio n Time Received Time / Laterality Volume Narrative 03/07/1995 1:45 PM CDT - - - - - - - - - - - - - - - - - - - - - - - - - - - - - - - - - - - ? LMP: 06/17/1994 ?EDC: 03/13 ?# OF FETUSES ?? 1 PREV US: N ?COMMENTS: ?DATE: DATA FOR FETUS #1 ? MOV EMENT(Y/N) ??Y ?? CARDIAC(Y/N) ??Y CROWN-RUMP ?MM ??0.0 WK S ?? BPD ? 95 ??MM 38.8 WKS FEMUR LENGTH ? 67 MM 34.6 WKS ?? HEAD ? 330 ??MM 37.6 WKS HEAD MEASUREMENTS ? X ? MM ?ABDOMINAL ?313 ??MM 35.4 WKS ABDOMINAL MEASURE ? X ? MM ?HEAD/ABDOMEN 1.05 AMNIOTIC FLUID N ?GEST AGE: 35.8 ?EST WT 2731 GM ?? 6.0 LB POSITION:THE FETUS IS LYING IN A CEPHALIC POSITION ??PLACEMENT LOC:PLACENTA IS LOCATED ANT ERIOR - - - - - - - - - - - - - - - - - - - - - - - - - - - - - - - - - - - CLINICAL DATA: ?SGA/CK EFW ?NO APPT AFT FINDINGS: ?A SINGLE, LIVING INTRAUTERINE FETU S IS PRESENT IN A ?LONGITUDINAL LIE, CEPHALIC PRESENT ATION, SURROUNDED BY A ?NORMAL AMOUNT OF AMNIOTIC FLUID (A FI 13.2 CM). ??THE GRADE 1 ?PLACENTA IS ANTERIOR AND NOT PREVI A. ?THE ULTRASOUND COMPOSITE GES TATIONAL AGE OF 35.8 +/- ?2.5 WEEKS, WHILE NEARLY 2 WEEKS LE SS THAN THE CLINICAL ?MENSTRUAL AGE, DOES INDICATE APPRO PRIATE INTERVAL ?GROWTH SINCE PREVIOUS ULTRASOUND 1 12/10/93 ([facility]) AND ?01/22/95 ([facility]). ??BOTH THE FEMUR-LE [id number]- ?CIRCUMFERENCE RATIO OF 0.21 AND TH E [id number]- ?ABDOMEN-CIRCUMFERENCE RATIO OF 1.0 5 ARE WITHIN LIMITS. ??THE ?CURRENT ESTIMATED WEIGHT OF 2731 GRAMS IS SLIGHTLY BRLOW ?THE MEAN FOR THE CLINICAL MENSTRUA L AGE; IUGR CONSIDERED UNLIKELY. TECH-ID : ? KONG TRANS-ID: ? SL Procedure Note Vitaly Germain MD - 12/21/2016 - - - - - - - - - - - - - - - - - - - - - - - - - - - - - - - - - - - LMP: 06/17/1994 EDC: 03/24/1995 # OF FE TUSES 1 PREV US: N COMMENTS: DATE: DATA FOR FETUS #1 MOVEMENT(Y/N) Y CARDIAC(Y/N) Y CROWN-RUMP MM 0.0 WKS BPD 95 MM 38.8 WK S FEMUR LENGTH 67 MM 34.6 WKS HEAD 330 MM 37.6 WKS HEAD MEASUREMENTS X MM ABDOMINAL 313 MM 35.4 WKS ABDOMINAL MEASURE X MM HEAD/ABDOMEN 1.0 5 AMNIOTIC FLUID N GEST AGE: 35.8 EST WT 2731 GM 6.0 LB POSITION:THE FETUS IS LYING IN A CEPHALIC POSITION PLACEMENT LOC:PLACENTA IS LOCATED ANTER IOR - - - - - - - - - - - - - - - - - - - - - - - - - - - - - - - - - - - CLINICAL DATA: SGA/CK EFW NO APPT AFT FINDINGS: A SINGLE, LIVING INTRAUTERINE FETUS IS PRESENT IN A LONGITUDINAL LIE, CEPHALIC PRESENTATION , SURROUNDED BY A NORMAL AMOUNT OF AMNIOTIC FLUID (IKER 13 .2 CM). THE GRADE 1 PLACENTA IS ANTERIOR AND NOT PREVIA. THE ULTRASOUND COMPOSITE GESTATIO NAL AGE OF 35.8 +/- 2.5 WEEKS, WHILE NEARLY 2 WEEKS LESS TH AN THE CLINICAL MENSTRUAL AGE, DOES INDICATE APPROPRIAT E INTERVAL GROWTH SINCE PREVIOUS UL[facility]ASOUND ([facility] AND 01/22/95 ([facility]). BOTH THE FSRCI-QFQOTJ-CE -ABDOMEN- CIRCUMFERENCE RATIO OF 0.21 AND THE HEA Z-[id number]-LT- ABDOMEN-CIRCUMFERENCE RATIO OF 1.05 ARE WITHIN LIMITS. THE CURRENT ESTIMATED WEIGHT OF 2731 GRAMS IS SLIGHTLY BRLOW THE MEAN FOR THE CLINICAL MENSTRUAL AGE ; IUGR CONSIDERED UNLIKELY. TECH-ID : KAK TRANS-ID: SL Aj French MD RAD US US OB >/= 14 Weeks 0 Days, Single Fetus (01/22/1995 1:30 PM CDT) Anatomical Region Laterality Modality Pelvis Other Specimen (Source) Anatomical Location Collection Method / Collectio n Time Received Time / Laterality Volume Narrative 01/22/1995 1:30 PM CDT - - - - - - - - - - - - - - - - - - - - - - - - - - - - - - - - - - - ? LMP: 06/17/1994 ?EDC: 03/13 ?# OF FETUSES ?? 1 PREV US: N ?COMMENTS: ?DATE: DATA FOR FETUS #1 ? MOV EMENT(Y/N) ??Y ?? CARDIAC(Y/N) ??Y CROWN-RUMP ?MM ??0.0 WK S ?? BPD ? 77 ??MM 31.0 WKS FEMUR LENGTH ? 56 MM 29.4 WKS ?? HEAD ? 279 ??MM 30.4 WKS HEAD MEASUREMENTS ? X ? MM ?ABDOMINAL ?252 ??MM 29.3 WKS ABDOMINAL MEASURE ? X ? MM ?HEAD/ABDOMEN 1.10 AMNIOTIC FLUID N ?GEST AGE: 30.1 ?EST WT 1447 GM ?? 3.1 LB POSITION:THE FETUS IS LYING IN A CEPHALIC POSITION ??PLACEMENT LOC:PLACENTA IS LOCATED ANT ERIOR LEFT - - - - - - - - - - - - - - - - - - - - - - - - - - - - - - - - - - - CLINICAL DATA: ?OB U/S, SPOTTING, CK PLACENTA FINDINGS: ?A SINGLE, LIVING INTRAUTERINE FETU S IS PRESENT IN A ?LONGITUDINAL LIE, CEPHALIC PRESENT ATION, WITH NO ?ANOMALIES VISUALIZED. ??THE ULTRASOUND COMPOSITE ?GESTATIONAL AGE OF 30 +/- 2 WEEKS IS APPROXIMATELY ?1 WEEK LESS THAN THE CLINICAL MENS TRUAL AGE AND PREDICTS AN ?EDC OF 04/01/95. ??THE CURRENT BILLY MATED WEIGHT IS ?1447 GM, WHICH IS APPROXIMATELY O. 8 STANDARD DEVIATIONS BELOW ?THE MEAN FOR 30-31 WEEKS GESTATION . ?THE AMNIOTIC FLUID VOLUME APPEARS WITHIN NORMAL LIMITS. ??THE ?GRADE 1 PLACENTA IS ANTERIOR AND N OT PREVIA. ??THERE ARE NO ?SIGNS OF PLACENTAL ABRUPTION OR RE TROPLACENTAL HEMATOMA. TECH-ID : ? LG TRANS-ID: ? EMJ Procedure Note Vitaly Germain MD - 12/21/2016 - - - - - - - - - - - - - - - - - - - - - - - - - - - - - - - - - - - LMP: 06/17/1994 EDC: 03/24/1995 # OF FE TUSES 1 PREV US: N COMMENTS: DATE: DATA FOR FETUS #1 MOVEMENT(Y/N) Y CARDIAC(Y/N) Y CROWN-RUMP MM 0.0 WKS BPD 77 MM 31.0 WK S FEMUR LENGTH 56 MM 29.4 WKS HEAD 279 MM 30.4 WKS HEAD MEASUREMENTS X MM ABDOMINAL 252 MM 29.3 WKS ABDOMINAL MEASURE X MM HEAD/ABDOMEN 1.1 0 AMNIOTIC FLUID N GEST AGE: 30.1 EST WT 1447 GM 3.1 LB POSITION:THE FETUS IS LYING IN A CEPHALIC POSITION PLACEMENT LOC:PLACENTA IS LOCATED ANTER IOR LEFT - - - - - - - - - - - - - - - - - - - - - - - - - - - - - - - - - - - CLINICAL DATA: OB U/S, SPOTTING, CK PLACENTA FINDINGS: A SINGLE, LIVING INTRAUTERINE FETUS IS PRESENT IN A LONGITUDINAL LIE, CEPHALIC PRESENTATION , WITH NO ANOMALIES VISUALIZED. THE ULTRASO UND COMPOSITE GESTATIONAL AGE OF 30 +/- 2 WEEKS IS AP PROXIMATELY 1 WEEK LESS THAN THE CLINICAL MENSTRUAL AGE AND PREDICTS AN EDC OF 04/01/95. THE CURRENT ESTIMATED F ETAL WEIGHT IS 1447 GM, WHICH IS APPROXIMATELY O.8 STA NDARD DEVIATIONS BELOW THE MEAN FOR 30-31 WEEKS GESTATION. THE AMNIOTIC FLUID VOLUME APPEARS WITHI N NORMAL LIMITS. THE GRADE 1 PLACENTA IS ANTERIOR AND NOT NE EVIA. THERE ARE NO SIGNS OF PLACENTAL ABRUPTION OR RETROPL ACENTAL HEMATOMA. TECH-ID : LG TRANS-ID: EMJ Aj French MD [facility] documented in this encounter Visit Diagnoses Not on filedocumented in this encounter Care Teams Functional Architect Relationship Specialty Start Date End Date Stefani Casanova MD PCP - General 01/13/11 08/21/14 [address] [facility] [address] [place] [address] documented as of this encounter
--- OUTSIDE RECORDS SUMMARY | 2022-08-02 01:29 | XMS_ITS | Encounter Summary ---
:1975 Author Organization [facility] Address [address], [place] [address] Care Team Providers Name Role Phone Stefani Casanova MD Primary Care Provider [phone] Encounter Details Date Type Department Care Team Description 05/16/1995 PN Conversion [place] [address] [facility] [address] [place] [address] (Wo rk) Social History Tobacco Use Types Packs/Day Years Used Date Smoking Tobacco: Never Assessed Sex Assigned at Date Recorded Not on file documented as of this encounter Plan of Treatment Not on filedocumented as of this encounter Procedures Procedure Name Priority Date/Time Associated Comments Diagnosis CONVERSION DEFAULT Routine 05/15/1995 7:35 AM Res ults for this INTERFACE ORDER CDT procedure ar e in the results section. documented in this encounter Results Conversion Default Interface Order (05/15/1995 7:35 AM CDT) P athologist Signature PAP Smear See Detail HP CONVERSION Comment: NAME:SANTA FARMER ?CERVICAL CYTOLOGY REPORT Pathology # ??[id number] ? Date Obtained: LMP: CLINICAL HIST ? PREVIOUS SMEAR 0409 11-06-94. 6 WEEKS PP. CERVICAL SMEAR SPECIMEN ADEQUACY: ?? Satisfactory. ENDOCERVICAL CELLS: ??Present. CTYOLOGIC IMPRESSION: Within Normal Limits (Negative). Verified 05/22/95 by: ??BM ? (electronic signature) Javier ESPINOZA M.D., Director of Cyt opathology Specimen (Source) Anatomical Collection Method Collection Time Re ceived Time Location / / Volume Laterality 05/15/1995 7:35 AM CDT Bev Coates LAB_1 Performing Organization Address City/State/ZIP Code Phon e Number HP CONVERSION documented in this encounter Visit Diagnoses Not on filedocumented in this encounter Care Teams Traffic Technician Relationship Specialty Start Date End Date Stefani Casanova MD PCP - General 01/13/11 08/21/14 [address] [facility] [address] [place] [address] documented as of this encounter
--- OUTSIDE RECORDS SUMMARY | 2022-08-02 01:29 | XMS_ITS | Encounter Summary ---
:1975 [address] [facility] Address [address] [place] [address] Care Team Providers Name Role Phone Layo Perez MD Primary Care Provider Encounter Details Date Type Department Care Team Description 01/03/2003 Orders Only [facility] Willian Vickers MD [address] [place] [address] [place], [place] [phone] (Wo rk) Social History Tobacco Use Types Packs/Day Years Used Date Smoking Tobacco: Never Assessed Sex Assigned at Date Recorded Not on file documented as of this encounter Plan of Treatment Not on filedocumented as of this encounter Procedures Procedure Name Priority Date/Time Associated Diagnosis Comme nts GC (N. Routine 01/03/2003 2:20 PM Results f or this GONORRHOEAE)(14 WELDING SYSTEMS AND EQUIPMENT REPAIRER procedure ar e in YEARS AND OLDER) the results section. CHLAMYDIA (14 YEARS Routine 01/03/2003 2:20 PM Re sults for this AND OLDER) WELDING SYSTEMS AND EQUIPMENT REPAIRER procedure are i n the results section. documented in this encounter Results GC (N. GONORRHOEAE) - 1 SWAB (01/03/2003 2:20 PM WELDING SYSTEMS AND EQUIPMENT REPAIRER) [facility] Method Time Signature GC (N. Negative NEG [facility] gonorrhoeae) Test Performed by PCR Assay Source [employer] [facility] Specimen Anatomical Collection Method Collection Time Receive d Time (Source) Location / / Volume Laterality 01/03/2003 2:20 PM 3 9:17 WELDING SYSTEMS AND EQUIPMENT REPAIRER AM WELDING SYSTEMS AND EQUIPMENT REPAIRER Willian Vickers MD LAB_1 Performing Organization Address City/[facility] Code Phon e Number [facility] [phone] [phone] CHLAMYDIA - 1 SWAB (01/03/2003 2:20 PM WELDING SYSTEMS AND EQUIPMENT REPAIRER) [facility] Method Time Signature Chlamydia Negative NEG [facility] Test Performed by PCR Assay Source [employer] [facility] Specimen Anatomical Collection Method Collection Time Receive d Time (Source) Location / / Volume Laterality 01/03/2003 2:20 PM 3 9:17 WELDING SYSTEMS AND EQUIPMENT REPAIRER AM WELDING SYSTEMS AND EQUIPMENT REPAIRER Willian Vickers MD LAB_1 Performing Organization Address [facility] Phon e Number [facility] [phone] [phone] documented in this encounter Visit Diagnoses Not on filedocumented in this encounter Care Teams Disability Case Manager Relationship Specialty Start Date End Date Layo Perez MD PCP - General 08/17/02 02/22/03 [address] [place] [address] documented as of this encounter
--- OUTSIDE RECORDS SUMMARY | 2022-08-02 01:29 | XMS_ITS | Encounter Summary ---
:1975 Author Organization [facility] Address [address], [place] [address] Care Team Providers Name Role Phone Unassigned, Provider Primary Care Provider Unavailable Encounter Details Date Type Department Care Team Description 05/12/2001 - Hospital Encounter Orthodoxy Labor Sharla Grove MD [facility] 05/14/2001 Delivery Recovery Nini Baron MD [address] [facility] [address]th [place] [address] [address] [place] [address] Social History Tobacco Use Types Packs/Day Years Used Date Smoking Tobacco: Never Assessed Sex Assigned at Date Recorded Not on file documented as of this encounter Discharge Summaries Andrea Grove MD - 05/12/2001 12:01 AM CDT Procedures signed by [employer] Print And at 05/13/01 [id number] Author: Andrea Grove MD Service: (none) Author Type: Physician Filed: 01/30/11 1097 Note Time: 05/12/012010 Status: Signed Porcelain Finish Sprayer: Andrea Grove MD (Physician) NAME: SANTA FARMER MR#: [id number] JOB: [id number] DELIVERY NOTE DATE OF DELIVERY: 05/12/2001 ADMISSION HISTORY: Final Diagnosis: Term , delivered. Nonreassuring heart tones. PROCEDURE: Vaginal delivery, amniotomy, Pitocin induction. LABOR AND DELIVERY SUMMARY: STAGE I: A 25-year-old, 5, para 2-0-3-2, estimated date of confinement 05/10, was seen in the clinic today and decelerations were auscultated. She was sent to Labor and Delivery and the cervix was dilated 4 cm for induction. The patient is group B and strep positive and received two doses of penicillin. Pitocin injection was initiated and amniotomy was performed at 1930 hours. The cervix at that time, was 7 cm and she rapidly progressed to complete cervical dilatation. The patient received Nubain and Phenergan ten minutes before delivery. heart tones were always reassuring. STAGE II: The live female , weighing 6 pounds, 7 ounces, Apgars of 9 and 9 at one and five minutes respectively was delivered OA over intact perineum. She was always vigorous. STAGE III: Intact placenta delivered spontaneously with three- cord vessels present. Estimated blood loss less than 500 cc. ANDREA GROVE MD,[facility]:[id number] C: DOCUMENT: [id number] TY OR CITY AUDITOR documented in this encounter Miscellaneous Notes Miscellaneous - Andrea Grove MD - 05/14/2001 12:01 AM CDT ICD-9-CM ICD-9-CM Narrative description Code ======== DIAGNOSES Principal: OTH CURR COND-DELIVERED 648.91 Secondary: CARRIER OR SUSPECTED CARRIER OF GROUP B STREPTOCOC V02.51 DELIVER-SINGLE LIVEBORN V27.0 ABNORMALITY IN HEART RATE/RHYTHM, DELIVERED 659.71 TOBACCO USE DISORDER 305.1 PROCEDURES Provider Date Principal: MANUAL ASSIST DELIV NEC ANDREA GROVE [id number] 73.59 Secondary: MONITORING NOS ANDREA GROVE [id number] 75.34 MEDICAL INDUCTION LABOR ANDREA GROVE [id number] 73.4 documented in this encounter Plan of Treatment Not on filedocumented as of this encounter Visit Diagnoses Not on filedocumented in this encounter Care Teams Rocket Engine Mechanic Relationship Specialty Start Date End Date Unassigned, Provider PCP - General 07/16/00 08/16/[address] [place] [address] documented as of this encounter
--- OUTSIDE RECORDS SUMMARY | 2022-08-02 01:29 | XMS_ITS | Encounter Summary ---
:1975 Author Organization [facility] Address [address], [place] [address] Care Team Providers Name Role Phone Layo Perez MD Primary Care Provider Encounter Details Date Type Department Care Team Description 01/03/2003 Orders Only [facility] Elvira Neal MD [address] [place] [address] [place], [place] [phone] (Wo rk) Social History Tobacco Use Types Packs/Day Years Used Date Smoking Tobacco: Never Assessed Sex Assigned at Date Recorded Not on file documented as of this encounter Plan of Treatment Not on filedocumented as of this encounter Procedures Procedure Name Priority Date/Time Associated Diagnosis Comme nts PAP TEST, ROUTINE Routine 01/03/2003 12:00 AM Res ults for this COPY MESSENGER procedure are i n the results section. documented in this encounter Results PAP TEST, ROUTINE (01/03/2003 12:00 AM COPY MESSENGER) Component Value Ref Test Analysis Performed At [facility] Range Method Time Signature Cytology, Pap (NOTE) REGIONS Zipper Lining Folder Cytology Report Patient Name: SANTA FARMER Taken: 01/03/03 Received: 01/05/03 Reported: 01/06/03 Physician(s): ELVIRA NEAL ([id number]) ? [id number] ? Source of Specimen Liquid routine Pap, cervical/endocervical: ? Specimen Adequacy ? Satisfactory for evaluation. ??Endocervical component present. Final Cytologic Interpretation/Result NEGATIVE FOR INTRAEPITHELIAL LESION OR MALIGNANCY (NILM) tlp/01/06/03 Electronically Signed Out By ANGEL Jordan (ASCP) ANGEL Jordan (ASCP) ? Pap Smear History ? Date of Last Menstrual Period: ? 09/13 ? Menstrual History: ? Other Clinical Conditions: ? HPV reflex testing requested with interpretation of ASCUS Specimen (Source) Anatomical Collection Method Collection Time Re ceived Time Location / / Volume Laterality 01/03/2003 01/05/2003 9:59 AM COPY MESSENGER Elvira Neal MD LAB_1 Performing Organization Address City/State/ZIP Code Phon e Number [address] [phone] [place], [place] [phone] documented in this encounter Visit Diagnoses Not on filedocumented in this encounter Care Teams Wardrobe Attendant Relationship Specialty Start Date End Date Layo Perez MD PCP - General 08/17/02 02/22/03 [address] [place] [address] documented as of this encounter
--- OUTSIDE RECORDS SUMMARY | 2022-08-02 01:29 | XMS_ITS | Encounter Summary ---
:1975 Author Organization [facility] Address [address], [place] [address] Care Team Providers Name Role Phone Layo Perez MD Primary Care Provider Encounter Details Date Type Department Care Team Description 01/03/2003 Orders Only [facility] Willian Vickers MD [address] [place] [address] [place], [place] [phone] (Wo rk) Social History Tobacco Use Types Packs/Day Years Used Date Smoking Tobacco: Never Assessed Sex Assigned at Date Recorded Not on file documented as of this encounter Plan of Treatment Not on filedocumented as of this encounter Procedures Procedure Name Priority Date/Time Associated Diagnosis Comme nts URINE CULTURE Routine 01/03/2003 3:25 PM Results for this REDRYING MACHINE OPERATOR procedure are i n the results section . documented in this encounter Results URINE CULTURE (MIDSTREAM) (01/03/2003 3:25 PM REDRYING MACHINE OPERATOR) [facility] Method Time Signature Specimen Urine [facility] Description Special None [facility] Requests Culture No Growth [facility] After 1 Day Report Status Final [facility] Report Status [id number] [facility] Specimen Anatomical Collection Method Collection Time Receive d Time (Source) Location / / Volume Laterality 01/03/2003 3:25 PM 3 3:26 REDRYING MACHINE OPERATOR PM REDRYING MACHINE OPERATOR Willian Vickers MD LAB_1 Performing Organization Address City/State/ZIP Code Phon e Number [facility] [phone] [facility] [address] [phone] documented in this encounter Visit Diagnoses Not on filedocumented in this encounter Care Teams Converter Skimmer Relationship Specialty Start Date End Date Layo Perez MD PCP - General 08/17/02 02/22/03 [address] [place] [address] documented as of this encounter
--- OUTSIDE RECORDS SUMMARY | 2022-08-02 01:29 | XMS_ITS | Encounter Summary ---
:1975 Author Organization [facility] Address [address], [place] [address] Care Team Providers Name Role Phone Layo Perez MD Primary Care Provider Encounter Details Date Type Department Care Team Description 12/31/2002 Notes/Orders [facility] Esha Lewis RN Department [facility] [address] [facility] [address] [place] [address] [place] [address] [phone] Social History Tobacco Use Types Packs/Day Years Used Date Smoking Tobacco: Never Assessed Sex Assigned at Date Recorded Not on file documented as of this encounter Plan of Treatment Not on filedocumented as of this encounter Visit Diagnoses Not on filedocumented in this encounter Care Teams Jig Bore Tool Maker Relationship Specialty Start Date End Date Layo Perez MD PCP - General 08/17/02 02/22/03 [address] [place] [address] documented as of this encounter
--- OUTSIDE RECORDS SUMMARY | 2022-08-02 01:29 | XMS_ITS | Encounter Summary ---
:[address] [address] [facility] Address [address] [place] [address] Care Team Providers Name Role Phone Layo Perez MD Primary Care Provider Encounter Details Date Type Department Care Team Description 08/19/2002 Office Visit [facility], DEPRESSIVE DISORDER NOS [address] [place] [address] [address] [facility] [phone] [place], [place] [id number] Social History Tobacco Use Types Packs/Day Years Used Date Smoking Tobacco: Never Assessed Sex Assigned at Date Recorded Not on file documented as of this encounter Progress Notes 08/19/2002 9:20 AM GARMENT LOOPER Santa Farmer is here today for refill of Zoloft and question about heart rate while working out. Are you having pain today, that you want to discuss with the provider? -NO BP was taken on the LEFT arm. Large cuff used?- YES Preventive Services reviewed? -NO. Immunizations reviewed?-NO. Screening for domestic abuse done? -NO Abuse present? -not asked. Tobacco Status? Current smoker - Interested in quitting? yes comfort station attendant offered? -NOT APPLICABLE. Aspirin taken daily?- NO Health Education given? -no. Eliza Walters 08/19/2002 9:27 AM Layo Perez - 08/19/2002 12:00 AM CSTS: The patient is 27. She is new to [facility]. She is mainly here to get a refill of her Zoloft. She has been on antidepressant medication over the last 4 years, but did go off meds at the time of pregnancies. She has been on a dose 100 mg a day. She feels that it has been working well for her. She has no history of bipolar disorder. 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 She has 3 daughters. No other major concerns at this time. Zoloft was refilled at the 100 mg dose. I did instruct her that if there is a change in symptoms, she should notify us and also told her about the health psychology program that we have as well as psychiatry and mental health as additional resources that were available. Twenty minutes spent with the patient, primarily in care coordination and counseling. IN SUMMARY: ZOLOFT REFILL cc: ENT LOOPER documented in this encounter Plan of Treatment Not on filedocumented as of this encounter Visit Diagnoses Diagnosis Depressive disorder, not elsewhere class ified documented in this encounter Care Teams Admissions Clinician Relationship Specialty Start Date End Date Layo Preez MD PCP - General 08/17/02 02/22/[address] [place] [id number] documented as of this encounter
--- OUTSIDE RECORDS SUMMARY | 2022-08-02 01:29 | XMS_ITS | Encounter Summary ---
:1975 Author Organization [facility] Address [address], [place] [address] Care Team Providers Name Role Phone Layo Perez MD Primary Care Provider Encounter Details Date Type Department Care Team Description 01/03/2003 Office Visit [facility] Willian Vickers MD SUPERVIS OTHER NORMAL PREG; and Gynecology [address] [place] [address] SCREENING MAL NEOP-CERVIX [address] [place] [address] [facility], [place] [address] Social History Tobacco Use Types Packs/Day Years Used Date Smoking Tobacco: Never Assessed Sex Assigned at Date Recorded Not on file documented as of this encounter Plan of Treatment Not on filedocumented as of this encounter Visit Diagnoses Diagnosis Supervision of other normal Screening for malignant neoplasm of the cervix documented in this encounter Care Teams Scuba Diver Relationship Specialty Start Date End Date Layo Perez MD PCP - General 08/17/02 02/22/03 [address] [place] [address] documented as of this encounter
--- OUTSIDE RECORDS SUMMARY | 2022-08-02 01:29 | XMS_ITS | Encounter Summary ---
:1975 Author Organization [facility] Address [address] [place] [address] Care Team Providers Name Role Phone Unavailable Primary Care Provider Unavailable Encounter Details Date Type Department Care Team Description 05/21/1999 - Hospital Encounter [facility] Avis Lucero MD [address] [facility] [place] [address] 05/23/1999 3W- Service Miguel Marina MD [address] [place] [address] [address] [facility] [place] [address] Social History Tobacco Use Types Packs/Day Years Used Date Smoking Tobacco: Never Assessed Sex Assigned at Date Recorded Not on file documented as of this encounter Discharge Summaries Sarah Cazares MD - 05/21/1999 12:01 AM CDT Procedures signed by [employer] And at 09/19/99 1200 Author: Sarah Cazares MD Service: (none) Author Type: Physician Filed: Note Time: 05/21/99 0000 Status: Signed [id number] QCQCQC DELIVERY NOTE DATE OF DELIVERY: 05/21/1999 FINAL DIAGNOSES: 1. Post dates. 2. Meconium. PROCEDURES: 1. Vaginal delivery at 41 1/7 weeks. 2. Electronic monitoring. STAGE I: This 23-year-old 2, para 1-0-0-1 with EDC of 05/13/99 was admitted to labor and delivery at 0900. Upon admission, the cervix was dilated to 3 cm with 80% effacement at a -1 station. Membranes had spontaneously ruptured at 0730 for a return of clear fluid. A subsequent fluid leak was positive for meconium. Labor had started spontaneously at 0630. heart sounds were always reassuring. The patient did receive 10 mg of Nubain IV for analgesic. Her cervix was completely dilated at 1140. The living female weighing 7 pounds 6 ounces had Apgars scores of 8 and 9 at one and five minutes respectively. She was delivered OA over a small midline laceration. Time of delivery was 1155. Total time for Stage II was 15 minutes. STAGE III: Intact placenta was delivered spontaneously with three vessels at 1200. Laceration was infiltrated with 1% Polacaine and repaired in the usual manner with 3-0 Vicryl. Rectal sphincter was intact. Estimated blood loss was less than 500 cc. ADMISSION HISTORY: LABOR SUMMARY: DELIVERY SUMMARY: SARAH CAZARES MD AUNG LUCERO MD CC: AUNG LUCERO MD KWS:[id number] C: DOCUMENT: [id number] END OF RECORD: DE TECHNICAL SALES REPRESENTATIVE documented in this encounter Procedure Notes Aung Lucero MD - 05/21/1999 12:01 AM CDT OR Surgeon signed by [employer] at 09/19/99 1200 Author: Aung Lucero MD Service: (none) Author Type: Physician Filed: 01/30/11 1203 Note Time: 05/21/99 0000 Status: Signed Raw Material Handler: Aung Lucero MD (Physician) [id number] QCQCQC OPERATIVE REPORT DATE OF OPERATION: 05/21/1999 SURGEON: Aung Lucero MD LEAD RADIATION THERAPIST: Clare Cazares MD PREOPERATIVE DIAGNOSIS: POSTOPERATIVE DIAGNOSIS: Probably extra blood of a fresh nature from the cervix itself, perhaps some old clots that had originally come from some uterine atony earlier on. PROCEDURE PERFORMED: ANESTHESIA: INDICATIONS FOR PROCEDURE: This patient delivered about noon today and did well the first five hours or so and then was noted to have large clots of blood per vagina and also some continued bright red, fresh bleeding and oozing. Exam in the bed showed the episiotomy was okay, and I could feel no hematomas. However, the exam was extremely uncomfortable to the patient, so in order to really see the upper vagina and cervix, it was necessary to take her to the operating room. FINDINGS: DESCRIPTION OF OPERATION: After a subarachnoid block, the patient was placed in the lithotomy position. Using retractors and ring forceps, the cervix was brought into view and visualized. There was initially some oozing from the cervical edges; it was bright red and fresh, mainly at about 2 o'clock. However, there was not a pumping vessel seen at this site. The cervix had to be grasped with ring forceps in order to fully visualize it all the way around. This, of course, traumatized the cervix so much, there was some additional fresh oozing. There were no cervical lacerations seen. The uterine cavity was explored gently with ring forceps and a curet. No active curettage was done. No significant clots or tissue were apparent within the cavity. The small amounts of blood obtained were dark and old and not the fresh blood that had been seen in the birthing bed. After continued observation, it was felt that no suturing was necessary within the cervical tissue, even though there still was a slight ooze from some places traumatized with the ring forceps. Because the perineal side of the episiotomy was split apart from some of the retraction, one suture of 4-0 Vicryl was used to hold the skin edges together. Blood loss during the procedure was probably about 50 ml or so. The patient was returned to the recovery room in satisfactory condition. COMPLICATIONS: MD ANNEL KYLEJ:[id number] C: DOCUMENT: [id number] END OF RECORD: DE TECHNICAL SALES REPRESENTATIVE documented in this encounter Miscellaneous Notes Miscellaneous - Aung Lucero MD - 05/23/1999 12:01 AM CDT ICD-9-CM ICD-9-CM Narrative description Code ======== DIAGNOSES Principal: DEL W 2 DEG LACERAT-DEL 664.11 Secondary: POSTPA HEM NEC-DEL W P/P 666.12 DELIVER-SINGLE LIVEBORN V27.0 FET/PLAC PROB NEC-DELIV 656.81 PROCEDURES Provider Date Principal: REPAIR OB LACERATION NEC AUNG LUCERO [id number] 75.69 Secondary: MONITORING NOS AUNG LUCERO [id number] 75.34 MANUAL EXPLOR UTERUS P/P AUNG LUCERO [id number] 75.7 documented in this encounter Plan of Treatment Not on filedocumented as of this encounter Procedures Procedure Name Priority Date/Time Associated Diagnosis Comme nts HEMOGLOBIN, BLOOD Routine 05/23/1999 8:10 AM Resu lts for this CDT procedure are i n the results section. HEMOGLOBIN, BLOOD Routine 05/22/1999 7:10 AM Resu lts for this CDT procedure are i n the results section. TYPE AND SCREEN Routine 05/21/1999 5:50 PM Result s for this CDT procedure are i n the results section. HEMOGLOBIN, BLOOD Routine 05/21/1999 5:50 PM Resu lts for this CDT procedure are i n the results section. documented in this encounter Results (ABNORMAL) Hemoglobin, Blood (05/23/1999 8:10 AM CDT) athologist Signature Hemoglobin 9.5 (L) 11.8-15.-5 HP CONVERSION gm/dL Specimen (Source) Anatomical Collection Method Collection Time Re ceived Time Location / / Volume Laterality 05/23/1999 8:10 AM CDT Miguel Marina MD LAB_1 Performing Organization Address City/State/ZIP Code Phon e Number HP CONVERSION (ABNORMAL) Hemoglobin, Blood (05/22/1999 7:10 AM CDT) athologist Signature Hemoglobin 9.4 (L) 11.8-15.-5 HP CONVERSION gm/dL Specimen (Source) Anatomical Collection Method Collection Time Re ceived Time Location / / Volume Laterality 05/22/1999 7:10 AM CDT Bev Lewis MD LAB_1 Performing Organization Address City/[facility] Code Phon e Number HP CONVERSION Type And Screen (05/21/1999 5:50 PM CDT) athologist Signature BB BLOOD TYPE O NEG No normal HP CONVERSION (BLOOD GROUP & range RH) N/O BB NEG No normal HP CONVERSION ANTIBODY range SCREEN Specimen (Source) Anatomical Collection Method Collection Time Re ceived Time Location / / Volume Laterality 05/21/1999 5:50 PM CDT Aung Lucero MD PN BLOOD BANK ORDERS Performing Organization Address [facility] Phon e Number HP CONVERSION (ABNORMAL) Hemoglobin, Blood (05/21/1999 5:50 PM CDT) athologist Signature Hemoglobin 10.5 (L) 11.8-15.-5 HP CONVERSION gm/dL Specimen (Source) Anatomical Collection Method Collection Time Re ceived Time Location / / Volume Laterality 05/21/1999 5:50 PM CDT Aung Lucero MD LAB_[address] Performing Organization Address [facility] Code Phon e Number HP CONVERSION documented in this encounter Visit Diagnoses Not on filedocumented in this encounter
--- OUTSIDE RECORDS SUMMARY | 2022-08-02 01:29 | XMS_ITS | Encounter Summary ---
:1975 Author Organization [facility] Address [address] [address] Care Team Providers Name Role Phone Unavailable Primary Care Provider Unavailable Encounter Details Date Type Department Care Team Description 12/27/1994 Hospital Encounter [place] [address] [place] [address] [address] [place] [address] [facility] [address] [address] [place] [address] Social History Tobacco Use Types Packs/Day Years Used Date Smoking Tobacco: Never Assessed Sex Assigned at Date Recorded Not on file documented as of this encounter Plan of Treatment Not on filedocumented as of this encounter Procedures Procedure Name Priority Date/Time Associated Comments Diagnosis CONVERSION DEFAULT Routine 12/27/1994 6:55 PM Res ults for this INTERFACE ORDER SCALEMAN procedure ar e in the results section. CONVERSION DEFAULT Routine 12/27/1994 6:54 PM Res ults for this INTERFACE ORDER SCALEMAN procedure ar e in the results section. documented in this encounter Results Conversion Default Interface Order (12/27/1994 6:55 PM SCALEMAN) athologist Signature Urine Culture [id number] HP CONVERSION Comment: NAME:SANTA FARMER ?ROUTINE CULTURES Source: URINE, UNSPECIFIED SITE ? [id number] ? Processed: ??[id number] FINAL REPORT ----- ? [id number] ?[id number] NO GROWTH ? END OF REPORT Specimen (Source) Anatomical Collection Method Collection Time Re ceived Time Location / / Volume Laterality 12/27/1994 6:55 PM SCALEMAN Aj French MD LAB_1 Performing Organization Address City/[facility] Phon e Number HP CONVERSION Conversion Default Interface Order (12/27/1994 6:54 PM SCALEMAN) [facility] gist Method Time Signature Color STRAW HP CONVERSION Turbidity CLEAR HP CONVERSION U Specific 1.010 1.001 HP CONVERSION Garwin 1.035 pH Urine 6.5 HP CONVERSION Protein Urine NEG HP CONVERSION Glucose, NEG HP CONVERSION Qualitative U Ketones NEG HP CONVERSION U BILI NEG HP CONVERSION Blood Urine NEG HP CONVERSION Nitrite Urine NEG HP CONVERSION Urobilinogen NEG HP CONVERSION Urine Epithelial Cells 1 HP CONVERSION Amorphous OCCASSNL HP CONVERSION Crystals Specimen (Source) Anatomical Collection Method Collection Time Re ceived Time Location / / Volume Laterality 12/27/1994 6:54 PM SCALEMAN Aj French MD LAB_1 Performing Organization Address City/State/ZIP Code Phon e Number HP CONVERSION documented in this encounter Visit Diagnoses Not on filedocumented in this encounter
--- OUTSIDE RECORDS SUMMARY | 2022-08-02 01:29 | XMS_ITS | Encounter Summary ---
:1975 [facility] Address [address] [address] Care Team Providers Name Role Phone Layo Perez MD Primary Care Provider Encounter Details Date Type Department Care Team Description 01/03/2003 Orders Only [facility] Willian Vickers MD [address] [place] [address] [place], [place] [phone] [id number] (Wo rk) Social History Tobacco Use Types Packs/Day Years Used Date Smoking Tobacco: Never Assessed Sex Assigned at Date Recorded Not on file documented as of this encounter Plan of Treatment Not on filedocumented as of this encounter Procedures Procedure Name Priority Date/Time Associated Diagnosis Comme nts FIRST OB Routine 01/03/2003 3:25 PM Results f or this HORSES OR MULES TEAMSTER procedure are i n the results section . HIV ANTIBODY Routine 01/03/2003 3:25 PM Results f or this HORSES OR MULES TEAMSTER procedure are i n the results section . documented in this encounter Results HIV 1/2 ANTIBODY (01/03/2003 3:25 PM HORSES OR MULES TEAMSTER) [facility] Method Time Signature HIV 1/2 Non-Reacti [facility] Antibody ve Specimen Anatomical Collection Method Collection Time Receive d Time (Source) Location / / Volume Laterality 01/03/2003 3:25 PM 3 3:26 HORSES OR MULES TEAMSTER PM HORSES OR MULES TEAMSTER Willian Vickers MD LAB_1 Performing Organization Address City/State/ZIP Code Phon e Number [facility] [phone] [facility] [address] [address] FIRST OB (01/03/2003 3:25 PM HORSES OR MULES TEAMSTER) [facility] Method Time Signature WBC 10.7 3.6 - [facility] 11.0 k/ul RBC 4.21 4.0 - 5.2 [facility] M/ul Hemoglobin 12.6 12.0 - [facility] 16.0 g/dl HCT 37.2 36.0 - [facility] 46.0 % MCV 88.3 80 - 100 [facility] fl MCH 30.0 26 - 34 [facility] pg MCHC 34.0 32 - 36 % [facility] RDW 12.3 11.5 - [facility] 14.5 % Platelets 315 150 - 450 [facility] k/ul HBsAg Negative [facility] Syphilis Non-Reactive [facility] Screen(RPR) ABO & Rh O Neg [facility] ABO & Rh [facility] Antibody Negative [facility] Screen Antibody [facility] Screen Appr Yellow [facility] Appr Hazy [facility] Sp Gr 1.015 1.005 - [facility] 1.030 Leuk Neg [facility] Nitr Neg [facility] pH 7.0 4.5 - 8.0 [facility] Prot Neg mg/dl [facility] Gluc Neg mg/dl [facility] Ket Neg mg/dl [facility] Urob 0.2 0.2 - 1.0 [facility] EU/dl Bili Neg [facility] Blood Neg [facility] Rubella Screen Immune [facility] Specimen Anatomical Collection Method Collection Time Receive d Time (Source) Location / / Volume Laterality 01/03/2003 3:25 PM 3 3:26 HORSES OR MULES TEAMSTER PM HORSES OR MULES TEAMSTER Willian Vickers MD LAB_1 Performing Organization Address City/[facility] Phon e Number [facility] [phone] [facility] [address] [address] documented in this encounter Visit Diagnoses Not on filedocumented in this encounter Care Teams Payroll Machine Operator Relationship Specialty Start Date End Date Layo Perez MD PCP - General 08/17/02 02/22/03 [address] [address] documented as of this encounter
--- OUTSIDE RECORDS SUMMARY | 2022-08-02 01:29 | XMS_ITS | Encounter Summary ---
:1975 Author Organization [facility] Address [address], [place] [address] Care Team Providers Name Role Phone Stefani Casanova MD Primary Care Provider [phone] Encounter Details Date Type Department Care Team Description 05/25/1999 Home Care Visit CONV M[facility] Tricia Leblanc RN [address] [place] [address] Social History Tobacco Use Types Packs/Day Years Used Date Smoking Tobacco: Never Assessed Sex Assigned at Date Recorded Not on file documented as of this encounter Plan of Treatment Not on filedocumented as of this encounter Visit Diagnoses Not on filedocumented in this encounter Care Teams Pension Examiner Relationship Specialty Start Date End Date Stefani Casanova MD PCP - General 01/13/11 08/21/[address] [address] documented as of this encounter
--- OUTSIDE RECORDS SUMMARY | 2022-08-02 01:29 | XMS_ITS | Encounter Summary ---
:1975 Author Organization [facility] Address [address], [place] [address] Care Team Providers Name Role Phone Stefani Casanova MD Primary Care Provider [phone] Encounter Details Date Type Department Care Team Description 04/04/1995 Home Care Visit CONV METH [facility] Cecilia Meza [address] [place] [address] Social History Tobacco Use Types Packs/Day Years Used Date Smoking Tobacco: Never Assessed Sex Assigned at Date Recorded Not on file documented as of this encounter Plan of Treatment Not on filedocumented as of this encounter Visit Diagnoses Not on filedocumented in this encounter Care Teams Clay Worker Relationship Specialty Start Date End Date Stefani Casanova MD PCP - General 01/13/11 08/21/14 1000 [facility] [address] [place] [address] documented as of this encounter
--- OUTSIDE RECORDS SUMMARY | 2022-08-02 01:29 | XMS_ITS | Encounter Summary ---
:1975 Author Organization [facility] Address [address] [place] [address] Care Team Providers Name Role Phone Unavailable Primary Care Provider Unavailable Encounter Details Date Type Department Care Team Description 02/08/1995 Hospital Encounter CONV METH Tere Villafana [address] [facility] [address] [facility] [id number] [place] [address] Social History Tobacco Use Types Packs/Day Years Used Date Smoking Tobacco: Never Assessed Sex Assigned at Date Recorded Not on file documented as of this encounter Plan of Treatment Not on filedocumented as of this encounter Visit Diagnoses Not on filedocumented in this encounter
--- OUTSIDE RECORDS SUMMARY | 2022-08-02 01:29 | XMS_ITS | Encounter Summary ---
:1975 Author Organization [facility] Address [address] [address] Care Team Providers Name Role Phone Stefani Casanova MD Primary Care Provider [phone] Encounter Details Date Type Department Care Team Description 11/08/1994 PN Conversion Only [place] [address] [facility] [address] [place] [address] (Wo rk) Social History Tobacco Use Types Packs/Day Years Used Date Smoking Tobacco: Never Assessed Sex Assigned at Date Recorded Not on file documented as of this encounter Plan of Treatment Not on filedocumented as of this encounter Procedures Procedure Name Priority Date/Time Associated Comments Diagnosis CONVERSION DEFAULT Routine 11/06/1994 2:22 PM Res ults for this INTERFACE ORDER GEOPHYSICAL DATA TECHNICIAN procedure ar e in the results section. documented in this encounter Results Conversion Default Interface Order (11/06/1994 2:22 PM GEOPHYSICAL DATA TECHNICIAN) P athologist Signature PAP Smear See Detail HP CONVERSION Comment: NAME:SANTA FARMER ?CERVICAL CYTOLOGY REPORT Pathology # ??[id number] ? Date Obtained: LMP: CLINICAL HIST ? 18 WEEKS E DC 04-09-95. ??FIRST PAP SMEAR AT CLINIC CERVICAL SMEAR SPECIMEN ADEQUACY: ?? Satisfactory. ENDOCERVICAL CELLS: ??Present. CTYOLOGIC IMPRESSION: Within Normal Limits (Negative). Verified 11/12/94 by: ??LL ? (electronic signature) Javier ESPINOZA M.D., Director of Cyt opathology Specimen (Source) Anatomical Collection Method Collection Time Re ceived Time Location / / Volume Laterality 11/06/1994 2:22 PM GEOPHYSICAL DATA TECHNICIAN Aj French MD LAB_1 Performing Organization Address City/State/ZIP Code Phon e Number HP CONVERSION documented in this encounter Visit Diagnoses Not on filedocumented in this encounter Care Teams Towel Weaver Relationship Specialty Start Date End Date Stefani Casanova MD PCP - General 01/13/11 08/21/14 1000 [facility] [address] [place] [address] documented as of this encounter
--- OUTSIDE RECORDS SUMMARY | 2022-08-02 01:29 | XMS_ITS | Encounter Summary ---
:1975 Author [facility] Address [address] [address] Care Team Providers Name Role Phone Unavailable Primary Care Provider Unavailable Encounter Details Date Type Department Care Team Description 04/01/1995 - Hospital Encounter Evangelical Cedric Marina MD [address] [place] [address] 04/03/1995 3W[place] [address] [facility] [address] [place] [id number] [address] [facility] [place] [address] Social History Tobacco Use Types Packs/Day Years Used Date Smoking Tobacco: Never Assessed Sex Assigned at Date Recorded Not on file documented as of this encounter Discharge Summaries Dolly Mckenzie - 04/02/1995 12:01 AM CDT Procedures signed by [email or web address] And at 09/19/99 1200 Author: Dolly Mckenzie MD Service: (none) Author Type: Physician Filed: 01/29/11 3736 Note Time: 04/02/95 0000 Status: Signed Corduroy Cutter Operator: Dolly Mckenzie MD (Physician) [id number] DELIVERY NOTE DELIVERY DATE: 04/02/95 PRIMARY PHYSICIAN: Dr. Burks DESCRIPTION: This is a 19-year-old, 1, para 0, white female with an LMP of 06/17/94 with EDC per ultrasound of 04/08/95. The patient's blood type is O-. She is rubella immune, serology nonreactive. Last Pap smear was within normal limits. Her hepatitis surface antigen was negative. Her antibody screen was negative. COURSE: The first visit occurred at 17+ weeks gestation with regular follow-up. The patient denied alcohol use during this . She did smoke 2 packs per day previously for 2 years but quit in the first trimester. She did use marijuana but quit again in the first trimester. risks include marijuana use. Her last hemoglobin was done on 12/31/94 which was 12.4. GGT was 109. LABOR SUMMARY: Onset of labor occurred at 1530 on 04/01. The patient was admitted at 11:00 on 04/01/95 with spontaneous rupture of membranes with clear fluid. Cervical exam on admission was deferred. Physical exam on admission was unremarkable. External monitoring indicated no distress. Oxytocin was used to augment labor started at 1310. Medications included Phenergan 25 mg with Demerol 50 mg IV at 1735, Nubain 10 mg IV at 1942 and Ampicillin 2 gm IV at 0037. Complete cervical dilatation occurred at 0040 on 04/02/95. The patient was prepped and draped in the usual fashion for a somewhat precipitous late second stage. Spontaneous vaginal delivery of a live born female occurred at 0153 on 04/02/95 with Apgars of 8 and 10 at one and five minutes respectively. The mouth and nares were suctioned after delivery of the baby with a bulb. Delivery of the placenta with a 3 vessel cord was spontaneous and intact at 0157 on 04/02/95. Oxytocin was opened up with 20 units in the IV bag at 0157. There was a small second degree laceration that was repaired in the usual fashion closing the vaginal mucosa, deep, subcutaneous and intracuticular layers. Good hemostasis and anatomical religious were maintained. The cervix was cleared of clots and the rectum was examined and unremarkable. Estimated blood loss was less than 500 cc. Physicians in attendance were Dr. Marina and Dr. Mckenzie. FINAL DIAGNOSES: 1. Infant female delivered at 0153 on 04/02/95 with Apgars of 8 and 10. CONTINUATION OF DELIVERY NOTE - Page 2 2. External monitoring indicated no distress. 3. Second degree vaginal laceration repaired in the usual fashion. 4. Oxytocin used to augment labor. CR:QT:lh cc: Aj Burks M.D. SIGNED: Yary Mckenzie M.D./Earnest Marina Jr., M.D. CONTROL CLERK documented in this encounter Miscellaneous Notes Miscellaneous - Earnest Marina MD - 04/03/1995 12:50 PM CDT ICD-9-CM ICD-9-CM Narrative description Code ======== DIAGNOSES Principal: DEL W 2 DEG LACERAT-DEL 664.11 Secondary: PYREXIA IN LABOR-DELIVER 659.21 DELIVER-SINGLE LIVEBORN V27.0 RH ISOIMMUNIZAT-DELIVER 656.11 DARYL RUPT MEMBRAN-DELIV 658.11 PROCEDURES Provider Date Principal: REPAIR OB LACERATION NEC EARNEST MARINA [id number] 75.69 Secondary: EKG EARNEST MARINA [id number] 75.32 MONITORING NOS EARNEST MARINA [id number] 75.34 INJECT RH IMMUNE GLOBUL AJ BURKS [id number] 99.11 INSERT SPINAL CANAL FREDDIE DAVIS [id number] 03.90 CPT4 Principal: SPECIAL PASSIVE IMMUNIZA [id number] documented in this encounter Plan of Treatment Not on filedocumented as of this encounter Procedures Procedure Name Priority Date/Time Associated Comments Diagnosis CONVERSION DEFAULT Routine 04/02/1995 2:00 PM Res ults for this INTERFACE ORDER CDT procedure ar e in the results section. CONVERSION DEFAULT Routine 04/02/1995 2:00 PM Res ults for this INTERFACE ORDER CDT procedure ar e in the results section. CONVERSION DEFAULT Routine 04/02/1995 2:00 PM Res ults for this INTERFACE ORDER CDT procedure ar e in the results section. CONVERSION DEFAULT Routine 04/02/1995 2:00 PM Res ults for this INTERFACE ORDER CDT procedure ar e in the results section. CONVERSION DEFAULT Routine 04/02/1995 2:00 PM Res ults for this INTERFACE ORDER CDT procedure ar e in the results section. CONVERSION DEFAULT Routine 04/02/1995 2:00 PM Res ults for this INTERFACE ORDER CDT procedure ar e in the results section. CONVERSION DEFAULT Routine 04/02/1995 2:00 PM Res ults for this INTERFACE ORDER CDT procedure ar e in the results section. CONVERSION DEFAULT Routine 04/02/1995 2:06 AM Res ults for this INTERFACE ORDER CDT procedure ar e in the results section. CONVERSION DEFAULT Routine 04/01/1995 1:20 PM Res ults for this INTERFACE ORDER CDT procedure ar e in the results section. CONVERSION DEFAULT Routine 04/01/1995 1:15 PM Res ults for this INTERFACE ORDER CDT procedure ar e in the results section. documented in this encounter Results (ABNORMAL) Conversion Default Interface Order (04/02/1995 2:00 PM CDT) P athologist Signature Hemoglobin 10.5 (LL) 12.0 HP CONVERSION 15.6GM/D L Specimen (Source) Anatomical Collection Method Collection Time Re ceived Time Location / / Volume Laterality 04/02/1995 2:00 PM CDT Aj Burks MD LAB_1 Performing Organization Address City/[facility]/ZIP Code Phon e Number HP CONVERSION Conversion Default Interface Order (04/02/1995 2:00 PM CDT) P athologist Signature BB BLOOD TYPE O NEG HP CONVERSION (BLOOD GROUP & RH) Specimen (Source) Anatomical Collection Method Collection Time Re ceived Time Location / / Volume Laterality 04/02/1995 2:00 PM CDT Aj Burks MD LAB_1 Performing Organization Address City/State/ZIP Code Phon e Number HP CONVERSION Conversion Default Interface Order (04/02/1995 2:00 PM CDT) P athologist Signature N/O BB ANTIBODY POS HP CONVERSION SCREEN Specimen (Source) Anatomical Collection Method Collection Time Re ceived Time Location / / Volume Laterality 04/02/1995 2:00 PM CDT Aj Burks MD LAB_1 Performing Organization Address City/State/ZIP Code Phon e Number HP CONVERSION Conversion Default Interface Order (04/02/1995 2:00 PM CDT) [facility] Method Time Signature Ab Interpretation ANTI-FN 02 HP CONVERSIO N Comment: 3 OUT OF 14 CELLS POSITIVE FOR NONSPECI FIC REACTION, ??ALL CLINICALLY SIGNIFICANT ANTIBODIES RULES OUT. Specimen (Source) Anatomical Collection Method Collection Time Re ceived Time Location / / Volume Laterality 04/02/1995 2:00 PM CDT Aj Burks MD LAB_1 Performing Organization Address City/[facility]/ZIP Code Phon e Number HP CONVERSION Conversion Default Interface Order (04/02/1995 2:00 PM CDT) athologist Signature Hep B Surf Ag NEG HP CONVERSION Comment: EMPLOYEE EXPOSURE, NO CHARGE T O PATIENT Specimen (Source) Anatomical Collection Method Collection Time Re ceived Time Location / / Volume Laterality 04/02/1995 2:00 PM CDT Aj Burks MD LAB_1 Performing Organization Address City/[facility]/ZIP Code Phon e Number HP CONVERSION Conversion Default Interface Order (04/02/1995 2:00 PM CDT) athologist [facility] Hepatitis Core NEG HP CONVERSION Ab Specimen (Source) Anatomical Collection Method Collection Time Re ceived Time Location / / Volume Laterality 04/02/1995 2:00 PM CDT Aj Burks MD LAB_1 Performing Organization Address City/[facility] Code Phon e Number HP CONVERSION Conversion Default Interface Order (04/02/1995 2:00 PM CDT) athologist Signature HIV 1/HIV 2 NEG HP CONVERSION Comment: EMPLOYEE EXPOSURE, NO CHARGE T O PATIENT Specimen (Source) Anatomical Collection Method Collection Time Re ceived Time Location / / Volume Laterality 04/02/1995 2:00 PM CDT Aj Burks MD LAB_1 Performing Organization Address City/[facility]/ZIP Code Phon e Number HP CONVERSION Conversion Default Interface Order (04/02/1995 2:06 AM CDT) athologist [facility] Wound Culture [id number] HP CONVERSION Comment: NAME:FARMER, SANTA ?ROUTINE CULTURES Source: PLACENTA ?[id number] ? Processed: ??[id number] STAINS/PREPARATIONS - GRAM STAIN ?[id number] ?[id number] NO WBC'S SEEN NO BACTERIA SEEN. FINAL REPORT ----- ? [id number] ?[id number] MIXED SAMMY ISOLATED, INCLUDING: STAPHYLOCOCCUS COAGULASE NEGATIVE ALPHA-HEMOLYTIC STREPTOCOCCI GRAM POS RODS SUGGESTIVE OF DIPHTHEROID S PROTEUS MIRABILIS ? END OF REPORT Specimen (Source) Anatomical Collection Method Collection Time Re ceived Time Location / / Volume Laterality 04/02/1995 2:06 AM CDT Aj Burks MD LAB_1 Performing Organization Address City/State/ZIP Code Phon e Number HP CONVERSION Conversion Default Interface Order (04/01/1995 1:20 PM CDT) P athologist Signature Hemoglobin 12.6 12.0 HP CONVERSION 15.6GM/D L Specimen (Source) Anatomical Collection Method Collection Time Re ceived Time Location / / Volume Laterality 04/01/1995 1:20 PM CDT Aj Burks MD LAB_1 Performing Organization Address City/[facility] Code Phon e Number HP CONVERSION Conversion Default Interface Order (04/01/1995 1:15 PM CDT) P athologist Signature Urine Drug NEG HP CONVERSION Screen For Mother/[place] Comment: ? LIST OF DRUGS SCREENED FOR IN URINE: AMPHETAMINE, BARBITURATE, BENZODIAZEPIN E, COCAINE, OPIATES, PCP, THC METABOLITE(CANNABINOIDS, MARIJUANA) Specimen (Source) Anatomical Collection Method Collection Time Re ceived Time Location / / Volume Laterality 04/01/1995 1:15 PM CDT Aj Burks MD LAB_1 Performing Organization Address City/State/ZIP Code Phon e Number HP CONVERSION documented in this encounter Visit Diagnoses Not on filedocumented in this encounter
[2022-08-02 01:32] LABS: Slide Review Reflex No
[2022-08-02 01:46] LABS: Appearance Urine Clear (Clear); Bilirubin Urine Negative (Negative); Blood Urine Trace-intact (Negative); Color Urine Yellow (Yellow); Glucose Urine Negative (Negative); Ketones Urine Negative (Negative); Leukocyte Esterase Urine Negative (Negative); Nitrite Urine Negative (Negative); Protein Urine Negative (Negative); Specific Gravity Urine >= 1.030 (1.000-1.030); Urobilinogen Urine 0.2 (0.2-1.0)
[2022-08-02 01:52] LABS: Bacteria Urine Few; Mucus Urine Moderate; RBC Urine 0-2 (0-2); Squamous Epithelial Cell Urine Moderate (None-Few); WBC Urine 0-2 (0-5)
[2022-08-02 01:52] LABS: Albumin* 4.4 g/dL (3.3-5.0); Chloride* 104 mmol/L (96-114); Potassium* 4.5 mmol/L (3.6-5.1); Sodium* 141 mmol/L (135-149)
[2022-08-02 01:54] LABS: Creatinine* 0.7 mg/dL (0.5-1.5); Est. Creatinine Clearance* 83.95; Estimated Glomerular Filt Rate 109 ml/min
[2022-08-02 01:55] LABS: Alanine Aminotransferase* 17 U/L (4-35); Alkaline Phosphatase* 51 U/L (40-150); Aspartate Amino Transferase* 25 U/L (12-35); Bilirubin Direct* 0.1 mg/dL (0.0-0.5); Bilirubin Total* 0.2 mg/dL (0.1-1.5); Blood Urea Nitrogen* 19 mg/dL (5-24); Calcium* 9.2 mg/dL (8.4-10.6); Carbon Dioxide* 27 mmol/L (20-32); Glucose* 97 mg/dL (60-115); Total Protein* 7.2 g/dL (6.0-8.3)
[2022-08-02 02:05] LABS: PCR FLU A Negative PCR FLU A (Negative); PCR FLU B Negative PCR FLU B (Negative); SARS PCR* Negative SARS-CoV-2 (Negative)
--- NOTE | 2022-08-28 13:15 | ED.NURSE ---
chart was accessed as pt had called wanting covid results. the results were negative and end of july.
== END 2022-08-02 02:26 | disposition home or self-care (01) ==
PROVIDERS: Family Medicine; Emergency Provider Family Medicine
DX: R50.9 Fever, unspecified (principal)
CPT/HCPCS: 36415; 80048; 80076; 81001; 83605; 85025; 87086; 87631; 99283; 99284; A9270